=== PATIENT | female | born 1960 | race African-American/Black ===

== ENCOUNTER 2017-11-14 15:34 | Emergency (ER) | payer SELFPAY ==
[2017-11-14 15:53] LABS: Bilirubin Negative (Negative); Blood, Urine Negative (Negative); Glucose, Urine (Dipstick) Negative (Negative); Ketone, Urine Negative (Negative); Nitrite Negative (Negative); Protein, Urine (Dipstick) Negative (Neg-Trace); Urobilinogen 0.2 mg/dL (0.2-1.0)
[2017-11-14 16:08] LABS: Bacteria/HPF Rare-Few HPF (None Seen); Hyaline Casts/LPF NONE SEEN LPF (0-3 Hyaline); RBC/HPF 0-3 HPF (0-3); Squamous Epithelial 0-3 HPF (0-3); WBC/HPF 0-3 HPF (0-3)
[2017-11-14 17:03] LABS: #Basophils 0.1 thou/uL (0.0-0.2); #Eosinphils 0.2 thou/uL (0.0-0.7); #Lymphocytes 3.6 thou/uL (1.20-3.40); #Monocytes 0.6 thou/uL (0.11-0.59); #Neutrophils 5.4 thou/uL (1.40-6.50); %Basophils 0.5 % (0.0-1.0); %Eosinophils 1.7 % (0.0-10.0); %Lymphocytes 36.4 % (21.0-51.0); %Monocytes 6.1 % (0.0-10.0); Hematocrit 43.8 % (36.0-47.0); Mean Platelet Volume 6.5 fL (7.4-10.4); Red Blood Cell (RBC) Count 4.69 mill/uL (4.20-5.40); White Blood Cell (WBC) Count 9.8 thou/uL (4.8-10.8)
[2017-11-14 17:27] LABS: ALT (SGPT) 47 U/L (8-55); AST (SGOT) 37 U/L (5-34); Alkaline Phosphatase 67 U/L (40-150); Anion Gap 14 mmol/L (10-20); BUN (Urea Nitrogen) 13 mg/dL (9.8-20.1); Bilirubin, Total 0.2 mg/dL (0.2-1.2); Calc. Creatinine Clearance 0 mL/min (70-130); Calcium 10.1 mg/dL (7.8-10.44); Carbon Dioxide 30 mmol/L (22-29); Chloride 97 mmol/L (98-107); Estimated GFR-MDRD 77; Globulin 4.2 g/dL (2.4-3.5); Lipase 11 U/L (8-78); Protein, Total 8.3 g/dL (6.0-8.3)
== END 2017-11-14 18:25 | disposition home or self-care (01) ==
LOC: ERS 15:34
DX: K59.00 Constipation, unspecified (principal); I10 Essential (primary) hypertension; E66.9 Obesity, unspecified; F31.9 Bipolar disorder, unspecified; F20.9 Schizophrenia, unspecified
CPT/HCPCS: 36415; 80053; 81003; 81015; 83690; 85025; 99284

== ENCOUNTER 2018-05-28 05:03 | Emergency (ER) | payer SELFPAY ==
[2018-05-28] MEDS ORDERED: Ketorolac Tromethamine 60 MG/2 ML VIAL ONE (05:20)
== END 2018-05-28 05:57 | disposition home or self-care (01) ==
LOC: ERS 05:03
DX: G89.29 Other chronic pain (principal); M79.605 Pain in left leg; E66.9 Obesity, unspecified; F32.9 Major depressive disorder, single episode, unspecified; I10 Essential (primary) hypertension; Z79.899 Other long term (current) drug therapy
CPT/HCPCS: 96372; J1885

== ENCOUNTER 2018-07-21 00:08 | Emergency (ER) | payer SELFPAY ==
[2018-07-21 00:58] LABS: #Basophils 0.1 thou/uL (0.0-0.2); #Eosinphils 0.2 thou/uL (0.0-0.7); #Lymphocytes 3.8 thou/uL (1.20-3.40); #Monocytes 0.5 thou/uL (0.11-0.59); #Neutrophils 3.8 thou/uL (1.40-6.50); %Basophils 1.1 % (0.0-1.0); %Eosinophils 1.8 % (0.0-10.0); %Lymphocytes 45.5 % (21.0-51.0); %Monocytes 6.1 % (0.0-10.0); %Neutrophils 45.5 % (42.0-75.0); Hemoglobin 14.3 g/dL (12.0-16.0); Mean Corpuscular HGB CONC 33.3 g/dL (32.0-36.0); Mean Corpuscular Hemoglobin 30.3 pg (27.0-31.0); Mean Corpuscular Volume 90.9 fL (78.0-98.0); Mean Platelet Volume 6.7 fL (7.4-10.4); Platelet Count 251 thou/uL (130-400); Red Blood Cell (RBC) Count 4.74 mill/uL (4.20-5.40); White Blood Cell (WBC) Count 8.3 thou/uL (4.8-10.8)
[2018-07-21 01:11] LABS: ALT (SGPT) 41 U/L (8-55); AST (SGOT) 32 U/L (5-34); Albumin 4.3 g/dL (3.5-5.0); Alkaline Phosphatase 64 U/L (40-150); Anion Gap 15 mmol/L (10-20); BUN (Urea Nitrogen) 13 mg/dL (9.8-20.1); Bilirubin, Total 0.4 mg/dL (0.2-1.2); Calc. Creatinine Clearance 0 mL/min (70-130); Calcium 9.6 mg/dL (7.8-10.44); Carbon Dioxide 28 mmol/L (22-29); Chloride 99 mmol/L (98-107); Estimated GFR-MDRD 61; Globulin 3.8 g/dL (2.4-3.5); Glucose 122 mg/dL (70-105); Potassium 3.1 mmol/L (3.5-5.1); Protein, Total 8.1 g/dL (6.0-8.3); Sodium 139 mmol/L (136-145)
[2018-07-21 01:17] LABS: Acetaminophen Less than 6.0 mcg/mL (10.0-30.0); Alcohol Less than 10 mg/dL (Less than 10); CK (CPK) 328 U/L (29-168); Salicylate Less than 8.0 mg/dL (15.0-30.0)
[2018-07-21 01:23] LABS: BHCG - Serum Negative (NEGATIVE); Pregs Control Background? CLEAR/WHITE (CLR/WHITE); Pregs Control Bar Appear? YES (CONTROL BAR)
[2018-07-21 01:33] LABS: Bilirubin Negative (Negative); Blood, Urine Negative (Negative); Clarity CLOUDY (Clear); Glucose, Urine (Dipstick) Negative (Negative); Leukocyte Moderate (Negative); Nitrite Negative (Negative); Protein, Urine (Dipstick) 30 mg/dL (Neg-Trace); Specific Gravity, Urine 1.012 (1.002-1.036); Urobilinogen 0.2 mg/dL (0.2-1.0); pH, Urine 5.5 (5.0-9.0)
[2018-07-21 01:35] LABS: Bacteria/HPF 1+ HPF (None Seen); Hyaline Casts/LPF 4-6 HYALINE CAST LPF (0-3 Hyaline); Pathc Cast-AUWi Flag 0.58 (0-2.49); WBC/HPF 21-50 HPF (0-3)
[2018-07-21 01:45] LABS: Medtox Reader # READER 1
[2018-07-21 01:46] LABS: Amphetamine Not Detected (NotDetected); Barbiturates Screen Not Detected (NotDetected); Benzodiazepine Screen Not Detected (NotDetected); Cocaine Metabolite Screen Not Detected (NotDetected); Medtox Control Line Valid? VALID (VALID); Methadone Not Detected (NotDetected); Methamphetamine Not Detected (NotDetected); Opiate Screen Not Detected (NotDetected); Oxycodone Screen Not Detected (NotDetected); Phencyclidine (PCP) Not Detected (NotDetected); THC/Cannabinoid Screen Not Detected (NotDetected); Tricyclic Screen Detected (NotDetected)
[2018-07-21] MEDS ORDERED: Acetaminophen 500 MG TAB ONE (01:48)
[2018-07-21] MEDS ORDERED: Nitrofurantoin Macrocrystal 50 MG CAP PO SCH (02:45)
--- NOTE | 2018-07-22 14:34 | EKG ---
Test Reason : Blood Pressure : / mmHG Vent. Rate : 122 BPM Atrial Rate : 122 BPM P-R Int : 140 ms QRS Dur : 092 ms QT Int : 328 ms P-R-T Axes : 036 012 029 degrees QTc Int : 467 ms Sinus tachycardia Borderline ECG Confirmed by ULISES JOHNSON D.O. ([id number]), development editor MOHINDER JOHNSON ([id number]) on 07/22/2018 2:34:01 PM Referred By: Confirmed By:ULISES JOHNSON D.O.
== END 2018-07-21 04:16 | disposition home or self-care (01) ==
LOC: ERS 00:08
DX: F20.9 Schizophrenia, unspecified (principal); N39.0 Urinary tract infection, site not specified; I10 Essential (primary) hypertension; E66.9 Obesity, unspecified; F31.9 Bipolar disorder, unspecified; Z79.899 Other long term (current) drug therapy
CPT/HCPCS: 36415; 80053; 80306; 80307; 81003; 81015; 82550; 84443; 84703; 85025; 93005

== ENCOUNTER 2018-11-29 04:17 | Emergency (ER) | payer SELFPAY ==
[2018-11-29] MEDS ORDERED: Ketorolac Tromethamine 30 MG/ML VIAL ONE (05:04)
[2018-11-29] MEDS ORDERED: Morphine 4 MG/ML VIAL ONE (05:04)
[2018-11-29] MEDS ORDERED: HYDROcodone/Acetaminophen 5/325 mg Tablet ONE (07:29)
--- NOTE | 2018-11-29 08:09 | RAD ---
RIGHT KNEE FOUR VIEWS: History: Right knee pain. FINDINGS: Internal fixation of the tibial is partially visualized. No perihardware lucency is evident. Prominen t osteophytosis of the medial compartment. Mild joint space narrowing. No acute fracture or dislocati on. Small amount of fluid distends the suprapatellar bursa on the lateral view. IMPRESSION: Degenerative changes including joint space narrowing of the medial compartment and effusion. No acute osseous abnormalities are demonstrated. POS: [facility]
--- NOTE | 2018-11-29 08:23 | RAD ---
FRONTAL AND LATERAL IMAGING OF THE RIGHT TIBIA AND FIBULA: Date; 11/29/18 COMPARISON: 03/29/12. HISTORY: Pain. FINDINGS: Stable postoperative hardware noted. Old fracture of mid/distal right tibial shaft. No evidence for h ardware failure. No acute fracture or dislocation. No significant interval change. IMPRESSION: Stable 2 view examination of right tibia and fibula as detailed above. POS: [facility]
== END 2018-11-29 09:50 | disposition home or self-care (01) ==
LOC: ERS 04:17
DX: M79.661 Pain in right lower leg (principal); G89.29 Other chronic pain; I10 Essential (primary) hypertension; E66.9 Obesity, unspecified; F31.9 Bipolar disorder, unspecified; F20.9 Schizophrenia, unspecified; Z79.899 Other long term (current) drug therapy
CPT/HCPCS: 96372; J1885; J2270

== ENCOUNTER 2018-12-20 12:40 | Emergency (ER) | payer SELFPAY ==
[2018-12-20] MEDS ORDERED: Acetaminophen 500 MG TAB ONE (14:43)
--- NOTE | 2018-12-23 23:37 | EKG ---
Test Reason : HTN Blood Pressure : / mmHG Vent. Rate : 104 BPM Atrial Rate : 104 BPM P-R Int : 144 ms QRS Dur : 090 ms QT Int : 352 ms P-R-T Axes : 043 006 024 degrees QTc Int : 462 ms Sinus tachycardia Voltage criteria for left ventricular hypertrophy Nonspecific T wave abnormality Abnormal ECG No changes from 21-JUL-2016 Confirmed by NICOLAS KENDRICK DO ([id number]), mapping editor MOHINDER JOHNSON ([id number]) on 12/23/2018 11:37:17 PM Referred By: Confirmed By:NICOLAS KENDRICK DO
== END 2018-12-20 15:48 | disposition home or self-care (01) ==
LOC: ERS 12:40
DX: I10 Essential (primary) hypertension (principal); E66.9 Obesity, unspecified; F20.9 Schizophrenia, unspecified; F31.9 Bipolar disorder, unspecified; Z79.899 Other long term (current) drug therapy
CPT/HCPCS: 93005

== ENCOUNTER 2018-12-20 18:33 | Emergency (ER) | payer SELFPAY ==
[2018-12-20] MEDS ORDERED: cloNIDine 0.1 MG TAB ONE (21:12)
== END 2018-12-20 22:10 | disposition home or self-care (01) ==
LOC: ERS 18:33
DX: I10 Essential (primary) hypertension (principal); F31.9 Bipolar disorder, unspecified; F20.9 Schizophrenia, unspecified; E66.9 Obesity, unspecified; Z79.899 Other long term (current) drug therapy
CPT/HCPCS: 99283

== ENCOUNTER 2018-12-22 06:18 | Observation (INO) | payer SELFPAY ==
[2018-12-22 07:48] LABS: #Eosinphils 0.1 thou/uL (0.0-0.7); #Lymphocytes 1.6 thou/uL (1.20-3.40); #Monocytes 0.7 thou/uL (0.11-0.59); #Neutrophils 6.9 thou/uL (1.40-6.50); %Basophils 0.3 % (0.0-1.0); %Eosinophils 0.7 % (0.0-10.0); %Lymphocytes 17.8 % (21.0-51.0); %Neutrophils 74.2 % (42.0-75.0); Hemoglobin 13.3 g/dL (12.0-16.0); Mean Corpuscular HGB CONC 32.5 g/dL (32.0-36.0); Mean Corpuscular Hemoglobin 29.9 pg (27.0-31.0); Mean Platelet Volume 7.2 fL (7.4-10.4); Platelet Count 245 thou/uL (130-400); RBC Distribution Width 12.1 % (11.5-14.5); Red Blood Cell (RBC) Count 4.43 mill/uL (4.20-5.40); White Blood Cell (WBC) Count 9.2 thou/uL (4.8-10.8)
--- NOTE | 2018-12-22 07:51 | RAD ---
UPRIGHT PORTABLE CHEST ONE VIEW: History: Shortness of breath, anxiety, dyspnea. Comparison: 03-16-16 FINDINGS: Monitor leads overlie the chest. Mild bilateral vascular congestion with some blunting to both costop hrenic angles. No confluent pneumonia or overt edema. Heart size is within normal limits. IMPRESSION: Mild bilateral vascular congestion with bilateral costophrenic angle blunting. Overall stable from pr ior study. No significant new process. POS: [facility]
[2018-12-22 08:12] LABS: ALT (SGPT) 63 U/L (8-55); AST (SGOT) 58 U/L (5-34); Alkaline Phosphatase 76 U/L (40-150); Anion Gap 13 mmol/L (10-20); BUN (Urea Nitrogen) 10 mg/dL (9.8-20.1); Bilirubin, Total 0.2 mg/dL (0.2-1.2); CK (CPK) 1361 U/L (29-168); Calc. Creatinine Clearance 0 mL/min (70-130); Calcium 9.2 mg/dL (7.8-10.44); Carbon Dioxide 30 mmol/L (22-29); Chloride 103 mmol/L (98-107); Estimated GFR-MDRD 83; Globulin 3.8 g/dL (2.4-3.5); Glucose 100 mg/dL (70-105); Lipase 13 U/L (8-78); Potassium 3.5 mmol/L (3.5-5.1); Protein, Total 7.8 g/dL (6.0-8.3); Sodium 142 mmol/L (136-145)
[2018-12-22] MEDS ORDERED: Nitroglycerin 2% Ointment 1 INCH/1 GM Packet ONE (09:27)
[2018-12-22] MEDS ORDERED: Aspirin Chewable 81 MG TAB ONE (09:27)
[2018-12-22] MEDS ORDERED: hydrALAZINE 20 MG/ML VIAL ONE ×2 (10:02→13:47)
[2018-12-22] MEDS ORDERED: ISOVUE-370 76%-LOCM 1 ML ONE (10:08)
--- NOTE | 2018-12-22 11:06 | CT ---
CT PULMONARY ANGIOGRAM WITH IV CONTRAST AND 3D POSTPROCESSING: HISTORY: Dyspnea. FINDINGS: The peripheral branches of the pulmonary arterial vasculature is suboptimally evaluated due to inadeq uate opacification. The central portions of the pulmonary arteries are well opacified without fillin g defects to suggest anterior pulmonary embolism. No pleural or pericardial effusions are seen. The thoracic aorta is well opacified without aneurysm or dissection. No pneumothoraces, focal areas of consolidation, or lung masses are identified. There are mild dependent changes in the lung bases. N o acute osseous abnormalities are seen. IMPRESSION: No CT evidence of central pulmonary embolism. POS: [facility]
[2018-12-22 11:59] LABS: Troponin I Less than 0.010 ng/mL (< 0.028)
[2018-12-22] MEDS ORDERED: Ondansetron PF 4 MG/2 ML Vial IVP PRN (13:45)
[2018-12-22] MEDS ORDERED: hydrALAZINE 20 MG/ML VIAL SLOW IVP PRN (13:45)
[2018-12-22] MEDS ORDERED: Aspirin 325 mg Enteric Coated Tablet PO SCH (14:30)
[2018-12-22] MEDS ORDERED: Lisinopril/Hydrochlorothiazide 20 mg/12.5 mg Tablet PO SCH (14:30)
[2018-12-22] MEDS: Nitroglycerin 2% Ointment 1 INCH/1 GM Packet TOP SCH ×2 (14:36→23:43)
[2018-12-22] MEDS: Sodium Chloride 0.45% 1,000 ML IV SCH (14:50)
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
[2018-12-22 17:40] LABS: Troponin I Less than 0.010 ng/mL (< 0.028)
[2018-12-22] MEDS ORDERED: Benztropine 1 MG TAB PO SCH (23:15)
[2018-12-22] MEDS ORDERED: risperiDONE 1 MG TAB PO SCH (23:15)
[2018-12-22] MEDS ORDERED: Doxepin HCl 25 MG CAP PO SCH (23:15)
[2018-12-23] MEDS: Nitroglycerin 2% Ointment 1 INCH/1 GM Packet TOP SCH ×3 (03:09→21:38)
[2018-12-23] MEDS: Sodium Chloride 0.45% 1,000 ML IV SCH ×2 (03:09→16:29)
[2018-12-23] MEDS: Enoxaparin Sodium 40 MG/0.4 ML SYRINGE SC SCH (08:43)
[2018-12-23 08:53] LABS: #Eosinphils 0.2 thou/uL (0.0-0.7); #Lymphocytes 2.1 thou/uL (1.20-3.40); #Monocytes 0.5 thou/uL (0.11-0.59); #Neutrophils 5.6 thou/uL (1.40-6.50); %Basophils 0.5 % (0.0-1.0); %Eosinophils 2.1 % (0.0-10.0); %Lymphocytes 25.1 % (21.0-51.0); %Monocytes 5.9 % (0.0-10.0); %Neutrophils 66.5 % (42.0-75.0); Hemoglobin 13.6 g/dL (12.0-16.0); Mean Corpuscular HGB CONC 31.9 g/dL (32.0-36.0); Mean Corpuscular Hemoglobin 29.6 pg (27.0-31.0); Mean Corpuscular Volume 92.7 fL (78.0-98.0); Mean Platelet Volume 6.6 fL (7.4-10.4); Platelet Count 227 thou/uL (130-400); RBC Distribution Width 12.3 % (11.5-14.5); Red Blood Cell (RBC) Count 4.61 mill/uL (4.20-5.40); White Blood Cell (WBC) Count 8.5 thou/uL (4.8-10.8)
[2018-12-23] MEDS ORDERED: Regadenoson 0.4 MG/5 ML SYRINGE ONE (09:24)
[2018-12-23 09:50] LABS: ALT (SGPT) 63 U/L (8-55); AST (SGOT) 61 U/L (5-34); Albumin 4.1 g/dL (3.5-5.0); Alkaline Phosphatase 76 U/L (40-150); Anion Gap 18 mmol/L (10-20); BUN (Urea Nitrogen) 9 mg/dL (9.8-20.1); Bilirubin, Total 0.5 mg/dL (0.2-1.2); Calc. Creatinine Clearance 170 mL/min (70-130); Calcium 9.5 mg/dL (7.8-10.44); Carbon Dioxide 23 mmol/L (22-29); Chloride 103 mmol/L (98-107); Cholesterol 187 mg/dl (< 200 Desired); Estimated GFR-MDRD 88; Globulin 3.8 g/dL (2.4-3.5); Glucose 94 mg/dL (70-105); HDL Cholesterol 62 mg/dL (>60 Neg Risk); LDL Cholesterol, Calculated 109 mg/dL; Potassium 3.5 mmol/L (3.5-5.1); Protein, Total 7.9 g/dL (6.0-8.3); Sodium 140 mmol/L (136-145); Triglycerides 80 mg/dL (Less than 150)
[2018-12-23] MEDS: Lisinopril/Hydrochlorothiazide 20 mg/12.5 mg Tablet PO SCH (11:56)
[2018-12-23] MEDS: Benztropine 1 MG TAB PO SCH ×2 (11:59→21:38)
[2018-12-23] MEDS: Aspirin 325 mg Enteric Coated Tablet PO SCH (12:00)
[2018-12-23] MEDS: Citalopram 20 MG TAB PO SCH (12:00)
[2018-12-23] MEDS: risperiDONE 1 MG TAB PO SCH ×2 (12:00→21:38)
--- NOTE | 2018-12-23 12:40 | PDOC.PN ---
- Subjective Encounter Start Date: 12/23/18 Encounter Start Time: 12:00 Subjective: Patient examined today, initially sitting up on the side of the bed -: Denies complaints today, denies chest pain, SOB - Objective Resuscitation Status - Order Detail: 12/22/18 10:59 Resuscitation Status Routine Resuscitation Status: FULL: Full Resuscitation Vital Signs & Weight: Vital Signs (12 hours) Temp Pulse Resp BP BP BP Pulse Ox 12/23/18 11:56 105 H 203/107 H 12/23/18 08:10 97.0 F L 95 24 H 164/91 H 98 12/23/18 03:12 98 F 112 H 16 173/107 H 95 Weight Weight 140.16 kg I&O: 12/22/18 12/23/18 12/24/18 06:59 06:59 06:59 Intake Total 1609 Output Total 1200 Balance 409 Result Diagrams: 12/23/18 08:01 12/23/18 08:01 Phys Exam - Physical Examination HEENT: PERRLA, moist MMs Neck: no nodes, no JVD Respiratory: no wheezing, clear to auscultation bilateral Cardiovascular: RRR Gastrointestinal: soft, non-tender Musculoskeletal: no edema, pulses present Neurological: non-focal, normal sensation Lymphatic: no nodes Psychiatric: normal affect, A&O x 3 Skin: normal turgor, cap refill <2 seconds Dx/Plan (1) Chest pain Code(s): R07.9 - CHEST PAIN, UNSPECIFIED Status: Acute (2) Type 2 diabetes mellitus Status: Chronic Qualifiers: Diabetes mellitus complication status: without complication Qualified Code( s): E11.9 - Type 2 diabetes mellitus without complications (3) Hypertension Code(s): I10 - ESSENTIAL (PRIMARY) HYPERTENSION Status: Chronic Qualifiers: Hypertension type: essential hypertension Qualified Code(s): I10 - Essential (primary) hypertension (4) Morbid obesity with BMI of 45.0-49.9, adult Code(s): E66.01 - MORBID (SEVERE) OBESITY DUE TO EXCESS CALORIES; Z68.42 - BODY MASS INDEX (BMI) 45.0-49.9, ADULT Status: Chronic - Plan Stress test, echo pending, -: Hypertensive this morning but got her morning BP med very late due to test -: Will await echo and stress test results, monitor BP -: If test neg and BP under better control, will DC later today or in AM. * .
[2018-12-23 15:16] VITALS: BMI 50.3
--- NOTE | 2018-12-23 15:49 | NM ---
CARDIAC SPECT 12/23/18 HISTORY: 58-year-old female with chest pain, hypertension, and dyspnea. TECHNIQUE: A myocardial perfusion scan was performed using the single isotope two day protocol with 29 millicuri es technetium 99m Sestamibi injected intravenously for the stress and rest images. Pharmacologic stre ss with Lexiscan was monitored and interpreted by Dr. Anderson. FINDINGS: Homogeneous tracer distribution is seen in the myocardial segments on stress and rest images without fixed or reversible defects. GATED SPECT LVEF: 66%. WALL MOTION EXAM: Normal. IMPRESSION: Normal myocardial perfusion scan. POS: [facility]
[2018-12-23] MEDS: Acetaminophen 325 MG TAB PO PRN (17:56)
[2018-12-23] MEDS ORDERED: hydrALAZINE 20 MG/ML VIAL SLOW IVP PRN (18:19)
--- NOTE | 2018-12-23 20:28 | PDOC.EVN ---
Event Note - Event Note Event Note: Chart reviewed. Pt seen with Virginia O'yeyo. Pt says she feels well, no complaints. VSS S1, S2, reg Lungs CTA A/P 1. Chest pain: stress test normal, look for alternative etiologies. Discussed plan of care with Virginia.
[2018-12-23] MEDS: Doxepin HCl 25 MG CAP PO SCH (21:37)
--- NOTE | 2018-12-24 06:13 | PDOC.EVN ---
Event Note - Event Note Event Note: RN called - Pt does not have IV access. AM to address if patient needs further IV fluids.
[2018-12-24] MEDS: Sodium Chloride 0.45% 1,000 ML IV SCH ×3 (06:21→18:20)
[2018-12-24] MEDS: Nitroglycerin 2% Ointment 1 INCH/1 GM Packet TOP SCH ×3 (06:21→21:13)
[2018-12-24 06:24] LABS: #Eosinphils 0.1 thou/uL (0.0-0.7); #Monocytes 0.5 thou/uL (0.11-0.59); #Neutrophils 5.2 thou/uL (1.40-6.50); %Basophils 0.3 % (0.0-1.0); %Eosinophils 1.3 % (0.0-10.0); %Lymphocytes 25.4 % (21.0-51.0); %Monocytes 5.9 % (0.0-10.0); %Neutrophils 67.1 % (42.0-75.0); Mean Corpuscular HGB CONC 33.5 g/dL (32.0-36.0); Mean Corpuscular Hemoglobin 31.3 pg (27.0-31.0); Mean Corpuscular Volume 93.5 fL (78.0-98.0); Mean Platelet Volume 7.1 fL (7.4-10.4); Platelet Count 233 thou/uL (130-400); RBC Distribution Width 12.2 % (11.5-14.5); Red Blood Cell (RBC) Count 4.16 mill/uL (4.20-5.40); White Blood Cell (WBC) Count 7.7 thou/uL (4.8-10.8)
[2018-12-24] MEDS: Acetaminophen 325 MG TAB PO PRN (06:25)
[2018-12-24 06:49] LABS: ALT (SGPT) 69 U/L (8-55); AST (SGOT) 69 U/L (5-34); Albumin 4.1 g/dL (3.5-5.0); Alkaline Phosphatase 73 U/L (40-150); Anion Gap 13 mmol/L (10-20); BUN (Urea Nitrogen) 11 mg/dL (9.8-20.1); Bilirubin, Total 0.4 mg/dL (0.2-1.2); CK (CPK) 1047 U/L (29-168); Calc. Creatinine Clearance 165 mL/min (70-130); Calcium 9.8 mg/dL (7.8-10.44); Carbon Dioxide 27 mmol/L (22-29); Chloride 103 mmol/L (98-107); Estimated GFR-MDRD 85; Globulin 3.6 g/dL (2.4-3.5); Glucose 103 mg/dL (70-105); Potassium 3.5 mmol/L (3.5-5.1); Protein, Total 7.7 g/dL (6.0-8.3); Sodium 139 mmol/L (136-145)
[2018-12-24] MEDS: Amlodipine 5 MG TAB PO SCH (08:50)
[2018-12-24] MEDS: Benztropine 1 MG TAB PO SCH ×2 (08:50→21:12)
[2018-12-24] MEDS: Aspirin 325 mg Enteric Coated Tablet PO SCH (08:50)
[2018-12-24] MEDS: Citalopram 20 MG TAB PO SCH (08:50)
[2018-12-24] MEDS: Lisinopril/Hydrochlorothiazide 20 mg/12.5 mg Tablet PO SCH (08:50)
[2018-12-24] MEDS: risperiDONE 1 MG TAB PO SCH ×2 (08:51→21:12)
[2018-12-24] MEDS: Enoxaparin Sodium 40 MG/0.4 ML SYRINGE SC SCH (08:51)
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
--- NOTE | 2018-12-24 15:22 | PDOC.EVN ---
Event Note - Event Note Event Note: Chart reviewed. Patient seen. No chest pain, shortness of breath, fevers or chills. VSS. S1, S2, RRR Lungs CTA. A/P: Chest pain: resolved. Pt awaiting [facility] eval. Discussed plan of care with LIBRARY CLERK Virginia Isbell'yeyo.
[2018-12-24] MEDS: Doxepin HCl 25 MG CAP PO SCH (21:12)
[2018-12-25] MEDS: Sodium Chloride 0.45% 1,000 ML IV SCH ×3 (03:22→23:55)
[2018-12-25] MEDS: Nitroglycerin 2% Ointment 1 INCH/1 GM Packet TOP SCH ×3 (05:47→20:38)
[2018-12-25] MEDS: Enoxaparin Sodium 40 MG/0.4 ML SYRINGE SC SCH (07:47)
[2018-12-25] MEDS: Amlodipine 5 MG TAB PO SCH (07:48)
[2018-12-25] MEDS: Benztropine 1 MG TAB PO SCH ×2 (07:48→20:37)
[2018-12-25] MEDS: Citalopram 20 MG TAB PO SCH (07:48)
[2018-12-25] MEDS: Aspirin 325 mg Enteric Coated Tablet PO SCH (07:48)
[2018-12-25] MEDS: risperiDONE 1 MG TAB PO SCH ×2 (07:48→20:37)
[2018-12-25] MEDS: Lisinopril/Hydrochlorothiazide 20 mg/12.5 mg Tablet PO SCH (07:48)
[2018-12-25 11:37] LABS: #Basophils 0.1 thou/uL (0.0-0.2); #Eosinphils 0.2 thou/uL (0.0-0.7); #Lymphocytes 2.8 thou/uL (1.20-3.40); #Monocytes 0.7 thou/uL (0.11-0.59); #Neutrophils 5.3 thou/uL (1.40-6.50); %Basophils 1.1 % (0.0-1.0); %Eosinophils 2.3 % (0.0-10.0); %Lymphocytes 30.5 % (21.0-51.0); %Monocytes 8.1 % (0.0-10.0); Hemoglobin 13.6 g/dL (12.0-16.0); Mean Corpuscular HGB CONC 32.9 g/dL (32.0-36.0); Mean Corpuscular Hemoglobin 30.9 pg (27.0-31.0); Mean Corpuscular Volume 93.9 fL (78.0-98.0); Mean Platelet Volume 6.8 fL (7.4-10.4); Platelet Count 267 thou/uL (130-400); RBC Distribution Width 12.3 % (11.5-14.5); White Blood Cell (WBC) Count 9.2 thou/uL (4.8-10.8)
[2018-12-25 11:53] LABS: ALT (SGPT) 86 U/L (8-55); AST (SGOT) 90 U/L (5-34); Albumin 4.2 g/dL (3.5-5.0); Alkaline Phosphatase 73 U/L (40-150); Anion Gap 18 mmol/L (10-20); BUN (Urea Nitrogen) 12 mg/dL (9.8-20.1); Bilirubin, Total 0.2 mg/dL (0.2-1.2); Calc. Creatinine Clearance 167 mL/min (70-130); Calcium 9.8 mg/dL (7.8-10.44); Carbon Dioxide 26 mmol/L (22-29); Chloride 101 mmol/L (98-107); Estimated GFR-MDRD 86; Glucose 73 mg/dL (70-105); Potassium 4.1 mmol/L (3.5-5.1); Protein, Total 8.2 g/dL (6.0-8.3); Sodium 141 mmol/L (136-145)
--- NOTE | 2018-12-25 14:37 | PDOC.PN ---
- Subjective Encounter Start Date: 12/25/18 Encounter Start Time: 14:35 Patient lying in bed, denies chest pain or shortness of breath, no events over night. Await [facility] screen - Objective Resuscitation Status - Order Detail: 12/22/18 10:59 Resuscitation Status Routine Resuscitation Status: FULL: Full Resuscitation MAR Reviewed: Yes Vital Signs & Weight: Vital Signs (12 hours) Temp Pulse Resp BP BP Pulse Ox 12/25/18 11:32 98.0 F 112 H 18 152/98 H 12/25/18 07:48 109 H 12/25/18 07:31 98.5 F 98 22 H 166/108 H 93 L 12/25/18 03:58 97.6 F 109 H 20 139/95 H 96 Weight Weight 311 lb 3.2 oz I&O: 12/24/18 12/25/18 12/26/18 06:59 06:59 06:59 Intake Total 3479 660 Output Total 1500 Balance 3479 -840 Result Diagrams: 12/25/18 11:10 12/25/18 11:10 Phys Exam - Physical Examination Constitutional: NAD HEENT: PERRLA, moist MMs Neck: no nodes, full ROM Respiratory: no wheezing, clear to auscultation bilateral Cardiovascular: RRR, no significant murmur Gastrointestinal: soft, positive bowel sounds Musculoskeletal: no edema, pulses present Neurological: non-focal, moves all 4 limbs Lymphatic: no nodes Psychiatric: A&O x 3 Skin: no rash, normal turgor, cap refill <2 seconds Dx/Plan (1) Chest pain Code(s): R07.9 - CHEST PAIN, UNSPECIFIED Status: Acute (2) Depression Code(s): F32.9 - MAJOR DEPRESSIVE DISORDER, SINGLE EPISODE, UNSPECIFIED Status : Chronic Qualifiers: Psychotic features: with psychotic features (3) Hypertension Code(s): I10 - ESSENTIAL (PRIMARY) HYPERTENSION Status: Chronic Qualifiers: Hypertension type: essential hypertension Qualified Code(s): I10 - Essential (primary) hypertension (4) Morbid obesity with BMI of 45.0-49.9, adult Code(s): E66.01 - MORBID (SEVERE) OBESITY DUE TO EXCESS CALORIES; Z68.42 - BODY MASS INDEX (BMI) 45.0-49.9, ADULT Status: Chronic (5) Type 2 diabetes mellitus Status: Chronic Qualifiers: Diabetes mellitus complication status: without complication Qualified Code( s): E11.9 - Type 2 diabetes mellitus without complications - Plan cont current plan of care, social services technician * Patient medically stable for discharge * Await [facility] screen * CM involved to assist in discharge
[2018-12-25] MEDS: Doxepin HCl 25 MG CAP PO SCH (20:37)
[2018-12-26] MEDS: Nitroglycerin 2% Ointment 1 INCH/1 GM Packet TOP SCH ×2 (06:36→12:10)
[2018-12-26] MEDS: Lisinopril/Hydrochlorothiazide 20 mg/12.5 mg Tablet PO SCH (08:05)
[2018-12-26] MEDS: risperiDONE 1 MG TAB PO SCH (08:05)
[2018-12-26] MEDS: Aspirin 325 mg Enteric Coated Tablet PO SCH (08:05)
[2018-12-26] MEDS: Amlodipine 5 MG TAB PO SCH (08:05)
[2018-12-26] MEDS: Citalopram 20 MG TAB PO SCH (08:05)
[2018-12-26] MEDS: Benztropine 1 MG TAB PO SCH (08:06)
[2018-12-26] MEDS: Enoxaparin Sodium 40 MG/0.4 ML SYRINGE SC SCH (08:06)
[2018-12-26] MEDS: Sodium Chloride 0.45% 1,000 ML IV SCH (08:48)
--- NOTE | 2018-12-26 15:53 | PDOC.EVN ---
Event Note - Event Note Event Note: Doc to Doc completed with Dr. Eubanks at [facility]. Accepts patient.
[2018-12-26 16:15] VITALS: BP 142/103; TEMP 97.4
[2018-12-26 16:29] LABS: ALT (SGPT) 91 U/L (8-55); AST (SGOT) 77 U/L (5-34); Albumin 4.1 g/dL (3.5-5.0); Alkaline Phosphatase 75 U/L (40-150); Anion Gap 17 mmol/L (10-20); BUN (Urea Nitrogen) 12 mg/dL (9.8-20.1); Bilirubin, Total 0.2 mg/dL (0.2-1.2); CK (CPK) 742 U/L (29-168); Calc. Creatinine Clearance 169 mL/min (70-130); Calcium 9.9 mg/dL (7.8-10.44); Carbon Dioxide 27 mmol/L (22-29); Chloride 100 mmol/L (98-107); Estimated GFR-MDRD 87; Globulin 3.9 g/dL (2.4-3.5); Glucose 101 mg/dL (70-105); Potassium 3.5 mmol/L (3.5-5.1); Sodium 140 mmol/L (136-145)
== END 2018-12-26 17:46 | disposition short-term general hospital (02) ==
LOC: ERS 06:18 → ERHOLD 11:34 → 2SW 14:23
PROVIDERS: ADMIT Internal Medicine; ATTEND Internal Medicine
DX: R07.2 Precordial pain (principal); R06.02 Shortness of breath; F20.9 Schizophrenia, unspecified; F31.9 Bipolar disorder, unspecified; I16.0 Hypertensive urgency; I10 Essential (primary) hypertension; M62.82 Rhabdomyolysis; R74.0 Nonspecific elevation of levels of transaminase and lactic acid dehydrogenase [LDH]; E11.9 Type 2 diabetes mellitus without complications; E66.01 Morbid (severe) obesity due to excess calories; Z68.43 Body mass index [BMI] 50.0-59.9, adult; Z79.899 Other long term (current) drug therapy; Z88.1 Allergy status to other antibiotic agents
CPT/HCPCS: 36415; 71045; 71275; 78452; 80053; 80061; 80307; 82550; 83690; 83880; 84443; 84484; 85025; 85379; 93005; 93017; 93306; 96361; 96372; 96374; 96376; A9500; G0378; J0360; J1650; J2785; Q9966

== ENCOUNTER 2019-01-05 02:43 | Emergency (ER) | payer SELFPAY ==
[2019-01-05] MEDS ORDERED: Adacel (T-DAP) 0.5 ML SYRINGE ONE (06:53)
[2019-01-05] MEDS ORDERED: Bacitracin Zinc 1 Packet ONE (06:53)
[2019-01-05] MEDS ORDERED: Lisinopril/Hydrochlorothiazide 20 mg/12.5 mg Tablet PO SCH (08:00)
--- NOTE | 2019-01-05 08:35 | RAD ---
4 VIEWS LEFT KNEE: Date: 01/05/19 COMPARISON: None. HISTORY: Fall with left knee pain. FINDINGS: Four views of the left knee show no evidence of acute fracture or dislocation. Moderate tricompartmen pablo osteophytes are seen consistent with osteoarthritis. There is a bipartite patella. No knee effusi on is seen. IMPRESSION: Moderate left knee osteoarthritis without acute osseous abnormality. POS: [facility]
[2019-01-07 18:29] LABS: Chlamydia by PCR Not Detected (NotDetected); GC by PCR Not Detected (NotDetected)
== END 2019-01-05 08:48 | disposition home or self-care (01) ==
LOC: ERS 02:43
DX: S80.212A Abrasion, left knee, initial encounter (principal); I10 Essential (primary) hypertension; F20.9 Schizophrenia, unspecified; F31.9 Bipolar disorder, unspecified; E66.9 Obesity, unspecified; Z79.899 Other long term (current) drug therapy; Y04.8XXA Assault by other bodily force, initial encounter
CPT/HCPCS: 87480; 87491; 87510; 87591; 87660; 90471; 90715

== ENCOUNTER 2019-01-07 01:17 | Emergency (ER) | payer SELFPAY ==
[2019-01-07 02:13] LABS: #Basophils 0.1 thou/uL (0.0-0.2); #Eosinphils 0.2 thou/uL (0.0-0.7); #Lymphocytes 2.5 thou/uL (1.20-3.40); #Monocytes 0.5 thou/uL (0.11-0.59); #Neutrophils 3.8 thou/uL (1.40-6.50); %Basophils 1.2 % (0.0-1.0); %Eosinophils 3.3 % (0.0-10.0); %Lymphocytes 34.5 % (21.0-51.0); %Monocytes 7.3 % (0.0-10.0); %Neutrophils 53.7 % (42.0-75.0); Hemoglobin 13.5 g/dL (12.0-16.0); Mean Corpuscular HGB CONC 32.6 g/dL (32.0-36.0); Mean Corpuscular Hemoglobin 30.8 pg (27.0-31.0); Mean Corpuscular Volume 94.3 fL (78.0-98.0); Mean Platelet Volume 7.4 fL (7.4-10.4); Platelet Count 239 thou/uL (130-400); RBC Distribution Width 12.4 % (11.5-14.5); Red Blood Cell (RBC) Count 4.37 mill/uL (4.20-5.40); White Blood Cell (WBC) Count 7.1 thou/uL (4.8-10.8)
[2019-01-07 02:33] LABS: ALT (SGPT) 47 U/L (8-55); AST (SGOT) 29 U/L (5-34); Alkaline Phosphatase 74 U/L (40-150); Anion Gap 13 mmol/L (10-20); BUN (Urea Nitrogen) 9 mg/dL (9.8-20.1); Bilirubin, Total 0.2 mg/dL (0.2-1.2); Calc. Creatinine Clearance 0 mL/min (70-130); Calcium 9.3 mg/dL (7.8-10.44); Carbon Dioxide 30 mmol/L (22-29); Chloride 102 mmol/L (98-107); Estimated GFR-MDRD Greater than 90; Globulin 3.6 g/dL (2.4-3.5); Glucose 125 mg/dL (70-105); Potassium 3.5 mmol/L (3.5-5.1); Protein, Total 7.6 g/dL (6.0-8.3); Sodium 141 mmol/L (136-145)
--- NOTE | 2019-01-07 07:32 | RAD ---
SINGLE VIEW OF THE CHEST: COMPARISON: 12/22/2018. HISTORY: Shortness of breath. FINDINGS: Single view of the chest shows a normal sized cardiomediastinal silhouette. There is no evidence of c onsolidation, mass, or pleural effusion. The bones are unremarkable. IMPRESSION: No evidence of acute cardiopulmonary disease. POS: [facility]
[2019-01-07] MEDS ORDERED: Iopamidol 370 76% 100 ML VIAL ONE (12:45)
--- NOTE | 2019-01-07 16:20 | CT ---
PRELIMINARY REPORT/[facility]/EMERGENTY AFTER-HOURS PROCEDURE CT Angiography Chest With Contrast EXAM DATE/TIME: 01/07/2019 4:01 AM CLINICAL HISTORY: 58 years old, female; Signs and symptoms; Shortness of breath; Patient HX: 58f presents for the evalu ation of shortness of breath. She reports worsening over the last week. Reports two pillow orthopnea. Also reports prado with light adls at home. Denies ble swelling. Denies chest pain currently but reports intermittent pain. TECHNIQUE: Axial computed tomographic angiography images of the chest with intravenous contrast using CT angiogr aphy protocol. MIP reconstructed images were created and reviewed. COMPARISON: No relevant prior studies available. FINDINGS: Pulmonary arteries: Normal. No pulmonary emboli. Aorta: Normal. No aortic aneurysm. No aortic dissection. Lungs: Normal. No consolidation. No masses. Pleural space: Normal. No pneumothorax. No pleural effusion. Heart: Normal. No cardiomegaly. No pericardial effusion. Lymph nodes: Unremarkable. No enlarged lymph nodes. Bones/joints: Unremarkable. No acute fracture. Soft tissues: Unremarkable. IMPRESSION: No acute findings. Thank you for allowing us to participate in the care of your patient. Dictated and Authenticated by: Nelson Kelly MD 01/07/2019 4:27 AM Central Time ([place] & [place]) FINAL REPORT EMERGENT AFTER HOURS CTA OF THE CHEST: TECHNIQUE: Multiple contiguous axial images were obtained in a CTA of the chest with contrast per pulmonary embo lism protocol.. Three-D oblique MIP reformats and direct coronal reformats were performed. FINDINGS:/IMPRESSION: I agree with the findings and impression given in the preliminary report per [facility] physician. No abiel dence of pulmonary thromboembolism. POS: [facility]
== END 2019-01-07 05:27 | disposition home or self-care (01) ==
LOC: ERS 01:17
DX: R06.00 Dyspnea, unspecified (principal); E66.01 Morbid (severe) obesity due to excess calories; F31.9 Bipolar disorder, unspecified; F20.9 Schizophrenia, unspecified; I10 Essential (primary) hypertension; Z79.899 Other long term (current) drug therapy
CPT/HCPCS: 36415; 71045; 71275; 80053; 83880; 84484; 85025; 93005; 94760; Q9967

== ENCOUNTER 2019-01-21 23:05 | Emergency (ER) | payer SELFPAY ==
[2019-01-22 00:19] LABS: #Eosinphils 0.2 thou/uL (0.0-0.7); #Monocytes 0.6 thou/uL (0.11-0.59); %Basophils 0.6 % (0.0-1.0); %Eosinophils 3.2 % (0.0-10.0); %Lymphocytes 37.9 % (21.0-51.0); %Monocytes 7.1 % (0.0-10.0); %Neutrophils 51.3 % (42.0-75.0); Mean Corpuscular HGB CONC 32.2 g/dL (32.0-36.0); Mean Corpuscular Hemoglobin 30.9 pg (27.0-31.0); Mean Corpuscular Volume 95.9 fL (78.0-98.0); Mean Platelet Volume 7.1 fL (7.4-10.4); Platelet Count 250 thou/uL (130-400); RBC Distribution Width 12.6 % (11.5-14.5); Red Blood Cell (RBC) Count 4.54 mill/uL (4.20-5.40); White Blood Cell (WBC) Count 7.8 thou/uL (4.8-10.8)
[2019-01-22 00:42] LABS: ALT (SGPT) 58 U/L (8-55); AST (SGOT) 37 U/L (5-34); Alkaline Phosphatase 76 U/L (40-150); Anion Gap 12 mmol/L (10-20); BUN (Urea Nitrogen) 9 mg/dL (9.8-20.1); Bilirubin, Total 0.3 mg/dL (0.2-1.2); Calc. Creatinine Clearance 0 mL/min (70-130); Calcium 9.3 mg/dL (7.8-10.44); Carbon Dioxide 30 mmol/L (22-29); Chloride 100 mmol/L (98-107); Estimated GFR-MDRD 87; Glucose 130 mg/dL (70-105); Lipase 13 U/L (8-78); Potassium 3.7 mmol/L (3.5-5.1); Sodium 138 mmol/L (136-145)
[2019-01-22 03:57] LABS: Bilirubin Negative (Negative); Blood, Urine Negative (Negative); Clarity CLEAR (Clear); Glucose, Urine (Dipstick) Negative (Negative); Leukocyte Trace (Negative); Nitrite Negative (Negative); Protein, Urine (Dipstick) Negative (Neg-Trace); Specific Gravity, Urine 1.027 (1.002-1.036); Urobilinogen 0.2 mg/dL (0.2-1.0)
[2019-01-22 03:59] LABS: Bacteria/HPF None Seen HPF (None Seen); Hyaline Casts/LPF 0-3 HYALINE CAST LPF (0-3 Hyaline); Pathc Cast-AUWi Flag 0.29 (0-2.49); Squamous Epithelial 0-3 HPF (0-3)
--- NOTE | 2019-01-22 05:54 | CT ---
CTA THORAX UTILIZING IV CONTRAST AND PE PROTOCOL AND 3D REFORMATTED IMAGING: INDICATION: SOB, tachycardia, elevated d dimer. COMPARISON: Recent CT PE examination dated 01/07/2019. FINDINGS: The timing of the contrast bolus is somewhat suboptimal in evaluating the more peripheral central pul monary arterial system and segmental branching. No definite central pulmonary embolus is evident. T here is scattered subsegmental volume loss, predominantly within the lung bases. No confluent air sp aiden opacity or pleural effusion is evident. No definite pathologically enlarged lymph nodes are evid ent. The visualized aspects of the upper abdomen reveal no definite acute abnormality. No acute oss eous abnormality is noted. There is scattered degenerative and osteoarthritic change. IMPRESSION: 1. No definite central pulmonary embolus demonstrated. 2. Nonspecific subsegmental volume loss within both lung bases, similar to the most recent examinati on, dated 01/07/2019. POS: [facility]
--- NOTE | 2019-01-22 06:02 | RAD ---
CHEST ONE VIEW: INDICATIONS: History of chest pain and shortness of breath. COMPARISON: Prior exam dated 01/07/2009. FINDINGS: There are low lung volumes and bibasilar atelectasis. No consolidation is evident. No pleural effus ion or pneumothorax is noted. Heart size is within normal limits. No acute osseous abnormality is n oted. IMPRESSION: Low lung volumes and bibasilar atelectasis. POS: [facility]
[2019-01-22] MEDS ORDERED: ISOVUE-370 76%-LOCM 1 ML ONE (10:38)
== END 2019-01-22 04:27 | disposition home or self-care (01) ==
LOC: ERS 23:05
DX: G47.30 Sleep apnea, unspecified (principal); I10 Essential (primary) hypertension; E66.9 Obesity, unspecified; F31.9 Bipolar disorder, unspecified; F20.9 Schizophrenia, unspecified; Z79.899 Other long term (current) drug therapy
CPT/HCPCS: 36415; 71045; 71275; 80053; 81003; 81015; 83690; 83880; 84484; 85025; 85379; 93005; Q9966

== ENCOUNTER 2019-01-27 02:53 | Observation (INO) | payer SELFPAY ==
[2019-01-27 03:27] LABS: #Basophils 0.1 thou/uL (0.0-0.2); #Eosinphils 0.2 thou/uL (0.0-0.7); #Lymphocytes 2.8 thou/uL (1.20-3.40); #Monocytes 0.4 thou/uL (0.11-0.59); #Neutrophils 4.8 thou/uL (1.40-6.50); %Basophils 1.4 % (0.0-1.0); %Eosinophils 1.9 % (0.0-10.0); %Lymphocytes 33.8 % (21.0-51.0); %Monocytes 5.1 % (0.0-10.0); %Neutrophils 57.8 % (42.0-75.0); Hemoglobin 13.5 g/dL (12.0-16.0); Mean Corpuscular HGB CONC 32.3 g/dL (32.0-36.0); Mean Corpuscular Hemoglobin 31.1 pg (27.0-31.0); Mean Corpuscular Volume 96.3 fL (78.0-98.0); Platelet Count 240 thou/uL (130-400); RBC Distribution Width 12.6 % (11.5-14.5); Red Blood Cell (RBC) Count 4.34 mill/uL (4.20-5.40); White Blood Cell (WBC) Count 8.3 thou/uL (4.8-10.8)
[2019-01-27 03:40] LABS: ALT (SGPT) 58 U/L (8-55); AST (SGOT) 53 U/L (5-34); Alkaline Phosphatase 79 U/L (40-150); Anion Gap 13 mmol/L (10-20); BUN (Urea Nitrogen) 11 mg/dL (9.8-20.1); Bilirubin, Total 0.3 mg/dL (0.2-1.2); Calc. Creatinine Clearance 0 mL/min (70-130); Calcium 9.4 mg/dL (7.8-10.44); Carbon Dioxide 30 mmol/L (22-29); Chloride 99 mmol/L (98-107); Estimated GFR-MDRD 87; Globulin 3.9 g/dL (2.4-3.5); Glucose 146 mg/dL (70-105); Potassium 3.3 mmol/L (3.5-5.1); Protein, Total 7.9 g/dL (6.0-8.3); Sodium 139 mmol/L (136-145)
[2019-01-27] MEDS ORDERED: Aspirin Chewable 81 MG TAB ONE ×3 (05:15→05:25)
[2019-01-27 07:27] VITALS: BMI 50.6
--- NOTE | 2019-01-27 08:01 | RAD ---
CHEST 1 VIEW: Date: 01/27/19 HISTORY: Dyspnea. COMPARISON: 01/22/19. FINDINGS: Cardiac silhouette is magnified by projection. Pulmonary vasculature is slightly engorged and accentu ated by shallow inspiration. Mediastinum is midline. No lobar consolidation or evidence of pneumothor ax. IMPRESSION: Mild pulmonary vascular congestion. POS: [facility]
[2019-01-27] MEDS: Aspirin Chewable 81 MG TAB PO SCH (09:53)
[2019-01-27] MEDS: Lisinopril/Hydrochlorothiazide 20 mg/12.5 mg Tablet PO SCH ×2 (09:53→22:07)
[2019-01-27] MEDS: Amlodipine 10 MG TAB PO SCH (09:53)
[2019-01-27] MEDS: Gabapentin 300 MG CAP PO SCH ×3 (09:53→22:06)
[2019-01-27] MEDS: Benztropine 1 MG TAB PO SCH ×2 (09:53→22:07)
[2019-01-27] MEDS: Carvedilol 6.25 MG TAB PO SCH (15:09)
[2019-01-27] MEDS ORDERED: Potassium Chloride 20 MEQ TAB PO SCH (17:45)
[2019-01-27] MEDS ORDERED: hydrOXYzine Pamoate 25 mg Capsule PO SCH (21:00)
[2019-01-27] MEDS ORDERED: Doxepin HCl 25 MG CAP PO SCH (21:00)
--- NOTE | 2019-01-27 21:20 | HP ---
CHIEF COMPLAINT: Shortness of breath and cough. HISTORY OF PRESENT ILLNESS: This patient is a 58-year-old morbidly obese female with past medical history significant for hypertension, chronic diastolic dysfunction, and multiple social issues complicated by her psychiatric history of bipolar disorder, schizophrenia, and depression, who presented to the hospital with complaints of shortness of breath. The patient is a poor historian, but tells me that she has shortness of breath associated with her anxiety; this began while she was in her apartment yesterday. She believes that people are coming into her apartment and are watching her sleep. She feels unsafe in her apartment. When she gets anxious, she reports shortness of breath. She denies any chest pain or palpitations. She denies any fever or chills. She denies any nausea or vomiting. She does report that over the past week she has had a productive cough of white sputum. Recent workup in this facility has included a CTA of the chest, 2018, which was negative for PE, but did show positive volume loss at the lung bases, which is stable. She had an MPI on 12/22/2018, which revealed no evidence of reversible ischemia and normal EF. Echocardiogram on 12/23/2018, showed normal left ventricular systolic function with EF 60-65%, and grade 1 diastolic dysfunction. Her workup on arrival this hospitalization included an EKG, which did show sinus tachycardia, no acute ST or T-wave changes with ventricular rate of 119 beats per minute. Her serial troponin has been negative. Her transaminases are mildly elevated. Her AST is 53 and her ALT is 58, which is a chronic problem for her. She did have some accelerated hypertension with BP readings in the 180s, which did resolve with her home blood pressure medications. This morning, she states that her shortness of breath is better after breathing treatment. ALLERGIES: CEPHALEXIN MONOHYDRATE. HOME MEDICATIONS: 1. Amlodipine 10 mg p.o. daily. 2. Benztropine 1 mg p.o. b.i.d. 3. Doxepin 100 mg capsule p.o. at bedtime. 4. Gabapentin 300 mg p.o. t.i.d. 5. Hydroxyzine 25 mg p.o. at bedtime. 6. Lisinopril 20/12.5 mg one tablet p.o. b.i.d. 7. Quetiapine 200 mg tablet 800 mg p.o. at bedtime. 8. Risperidone 2 mg tablet 4 mg p.o. b.i.d. 9. Aspirin 81 mg daily. PAST MEDICAL HISTORY: Hypertension, morbid obesity, bipolar disorder, schizophrenia, and depression/anxiety. PAST SURGICAL HISTORY: Appendectomy, cholecystectomy, hysterectomy, tubal ligation, and right leg orthopedic surgery. SOCIAL HISTORY: She denies any alcohol use, drug use, or cigarette smoking. Clearly her social history is complicated by her psychiatric history. [facility] has been following this patient. FAMILY HISTORY: Her mother when she was 63 of breast cancer. REVIEW OF SYSTEMS: CONSTITUTIONAL: Negative for fever, chills, or weight loss. EYES: Negative for injury, pain, redness, or discharge. ENT: Negative for sinus pain or drainage. NECK: Negative for lymphadenopathy. CARDIOVASCULAR: Negative for chest pain. Positive for shortness of breath. Negative for palpitations. RESPIRATORY: Positive for cough and shortness of breath associated with anxiety. ABDOMEN: Negative for abdominal pain, nausea, vomiting, or change in bowel movements. BACK: Negative for pain, injury. SKIN: Negative for any recent rashes. PHYSICAL EXAMINATION: VITAL SIGNS: Blood pressure 141/100, pulse 100, respirations 18, and O2 saturation 95% on room air. The patient is afebrile. GENERAL: Awake, alert, sitting up, eating breakfast, no acute distress. HEAD AND FACE: Normocephalic, atraumatic. EYES: Extraocular movements intact. NECK: No JVD, no lymphadenopathy. No carotid bruits. RESPIRATORY: Regular respiratory rate and pattern, distant breath sounds due to her obesity and body habitus, however, occasional rhonchi is noted. ABDOMEN: Positive bowel sounds. Soft, nontender, obese. SKIN: Warm, dry, normal color with no rashes. CV: S1, S2. Regular rhythm, mildly tachycardic. NEUROLOGIC: She is oriented to person, place, and time. LABORATORY DATA: White blood cell count 8.3, hemoglobin 13.5, and platelets 240. Sodium 139, potassium 3.3, creatinine 0.82, glucose 146, and calcium 9.4. AST 53, ALT 58, and alkaline phosphatase 79. Serial troponin negative x3. BNP is less than 10. ASSESSMENT: 1. Shortness of breath, which I suspect has a large anxiety component to it; however, the patient may have underlying acute bronchitis given her persistent productive cough. 2. Sinus tachycardia, possibly inappropriate sinus tachycardia. 3. Morbid obesity. 4. Bipolar disorder. 5. Schizophrenia, with an active component given the patient's hallucinations at her apartment. 6. Anxiety and depression. PLAN: The patient's presenting symptoms of shortness of breath have largely resolved. We will place her on antimicrobial therapy at this time with doxycycline 100 mg b.i.d. For hypertension and tachycardia, we will add carvedilol 6.25 mg b.i.d. We will consult [facility] and get evaluation if the patient will be a safe discharge home or if she needs to go to the [facility]patient [facility]. Further recommendations based on hospital course. Job ID: [id number] HERNANDEZ
[2019-01-27] MEDS: risperiDONE 1 MG TAB PO SCH (22:07)
[2019-01-27] MEDS: Doxycycline 100 MG CAP PO SCH (22:08)
[2019-01-28 06:05] LABS: Anion Gap 13 mmol/L (10-20); BUN (Urea Nitrogen) 11 mg/dL (9.8-20.1); Calc. Creatinine Clearance 174 mL/min (70-130); Calcium 9.6 mg/dL (7.8-10.44); Carbon Dioxide 30 mmol/L (22-29); Chloride 100 mmol/L (98-107); Estimated GFR-MDRD 89; Glucose 131 mg/dL (70-105); Potassium 3.9 mmol/L (3.5-5.1); Sodium 139 mmol/L (136-145)
[2019-01-28] MEDS: Lisinopril/Hydrochlorothiazide 20 mg/12.5 mg Tablet PO SCH (08:32)
[2019-01-28] MEDS: Carvedilol 6.25 MG TAB PO SCH ×2 (08:32→15:44)
[2019-01-28] MEDS: Doxycycline 100 MG CAP PO SCH (08:32)
[2019-01-28] MEDS: Gabapentin 300 MG CAP PO SCH ×2 (08:33→15:44)
[2019-01-28] MEDS: Amlodipine 10 MG TAB PO SCH (08:33)
[2019-01-28] MEDS: risperiDONE 1 MG TAB PO SCH (08:33)
[2019-01-28] MEDS: Benztropine 1 MG TAB PO SCH (08:33)
[2019-01-28] MEDS: Aspirin Chewable 81 MG TAB PO SCH (08:33)
[2019-01-28 12:21] VITALS: TEMP 97.5
[2019-01-28 15:46] VITALS: BP 163/97
--- NOTE | 2019-01-29 03:08 | DIS ---
DATE OF ADMISSION: 01/27/2019 DATE OF DISCHARGE: 01/28/2019 ALLERGIES: CEPHALEXIN. CHIEF COMPLAINT: Shortness of breath and cough. FINAL DIAGNOSES: 1. Shortness of breath, resolved. 2. Acute bronchitis. 3. Severe anxiety, secondary to ongoing psychiatric issues of bipolar disorder, schizophrenia, and depression. 4. Grade 1 diastolic dysfunction. 5. Morbid obesity. 6. Hypertension. 7. Sinus tachycardia, improved with beta aliyah. PROCEDURES PERFORMED: None. LABORATORY RESULTS: Hemoglobin 13.5, white blood cell count 8.3, hematocrit 41.7, and platelets 240. Sodium 139, potassium 3.9, chloride 100, BUN 11, creatinine 0.8, glucose 131, and calcium 9.6. Troponin is negative x3. BNP less than 10. IMAGING RESULTS: Chest x-ray performed in the ER shows mild pulmonary vascular congestion. CTA of the chest on 01/22/2019, negative for PE, positive for volume loss of the lung bases, which is stable. MPI performed on 12/22/2018, no evidence of reversible ischemia and normal EF. Echocardiogram performed on 12/23/2018 shows normal left ventricular systolic function with EF 60% to 65% and grade 1 diastolic dysfunction. EKG during this hospitalization revealed sinus tachycardia, no acute ST or T-wave changes. Ventricular rate of 119 beats per minute. CONSULTATIONS: [facility]. HOSPITAL COURSE: The patient is a 58-year-old morbidly obese female with past medical history significant for hypertension, chronic diastolic dysfunction, and multiple psychiatric diagnoses including bipolar disorder, schizophrenia, and depression, who presented to the hospital with complaints of shortness of breath. Her shortness of breath was largely associated with feelings of anxiety that she feels well in her apartment. During her hospitalization, she received a breathing treatment, she received doxycycline for chronic cough, her symptoms have resolved. This morning, she is breathing easily, she denies any palpitations or chest pain. She denies any shortness of breath. She has been seen in consultation with [facility], who has cleared her for discharge. [facility] follows her closely, and believes that at this point, her hallucinations are stable and that she is a safe discharge. PHYSICAL EXAMINATION: VITAL SIGNS: Blood pressure 120/59, pulse 90s, and O2 saturation 93% to 100% on room air. GENERAL: The patient is awake, alert, and oriented x3. She is sitting at the edge of the bed in no acute distress, morbidly obese. HEENT: Atraumatic and normocephalic. Eye movement intact. NECK: Supple, no JVD, no carotid bruits. No lymphadenopathy. RESPIRATORY: Regular respiratory rate and pattern, her lungs are clear to auscultation bilaterally. CV: S1, S2, regular rate and rhythm, heart rate 90s. GI: Positive bowel sounds. Obese, nontender. EXTREMITIES: No edema. 2+ DP pulses bilaterally. SKIN: Warm and dry. No rashes or lesions present. CONDITION AT DISCHARGE: Stable. DISCHARGE MEDICATIONS: 1. Amlodipine 10 mg one p.o. daily. 2. Benztropine mesylate 1 mg p.o. b.i.d. 3. Doxepin 100 mg capsule one p.o. at bedtime. 4. Gabapentin 300 mg p.o. t.i.d. 5. Hydroxyzine 25 mg one tablet p.o. at bedtime. 6. Lisinopril/hydrochlorothiazide 20/12.5 one tablet p.o. b.i.d. 7. Quetiapine 200 mg tablet 800 mg p.o. at bedtime. 8. Risperidone 2 mg tablet 4 mg p.o. b.i.d. 9. Aspirin 81 mg tablet one p.o. daily. New medications are; 1. Carvedilol 6.25 mg p.o. b.i.d. 2. Doxycycline 100 mg capsule 100 mg p.o. b.i.d. for the next 6 days. PLAN: As mentioned, the patient has been seen in conjunction with [facility], who feels that the patient is a safe discharge home. Regarding her shortness of breath, this is largely secondary to anxiety. Her BNP was less than 10. Her CTA negative for pulmonary embolism, her echocardiogram shows normal left ventricular systolic function, and recent MPI showed no evidence of reversible ischemia. She will continue beta aliyah, which has given good response in her blood pressure and heart rate. She will follow up with [facility] tomorrow. She will follow up with Dr. Arias Khan, who is her primary care physician. I have counseled her extensively on the risks of morbid obesity, and importance of diet and weight loss. Job ID: [id number]
== END 2019-01-28 17:26 | disposition home or self-care (01) ==
LOC: ERS 02:53 → 2SW 06:39
PROVIDERS: ADMIT Hospitalist; ATTEND Hospitalist
DX: R06.02 Shortness of breath (principal); J20.9 Acute bronchitis, unspecified; E66.01 Morbid (severe) obesity due to excess calories; Z68.43 Body mass index [BMI] 50.0-59.9, adult; I10 Essential (primary) hypertension; F31.9 Bipolar disorder, unspecified; F20.9 Schizophrenia, unspecified; F41.9 Anxiety disorder, unspecified; Z88.1 Allergy status to other antibiotic agents; Z90.49 Acquired absence of other specified parts of digestive tract; Z90.710 Acquired absence of both cervix and uterus; Z98.51 Tubal ligation status; Z79.82 Long term (current) use of aspirin; Z79.2 Long term (current) use of antibiotics; Z79.899 Other long term (current) drug therapy; Z98.890 Other specified postprocedural states
CPT/HCPCS: 36415; 71045; 80048; 80053; 83880; 84484; 85025; 93005; 94640; 94760; 96360; 96361; G0378; J7620; Q0177

== ENCOUNTER 2019-02-04 13:24 | Emergency (ER) | payer SELFPAY ==
--- NOTE | 2019-02-04 15:16 | RAD ---
RADIOGRAPH CHEST 2 VIEWS: HISTORY: A 58-year-old female status post acute thoracic trauma from fall. FINDINGS: Lungs are hypoinflated, making this a limited study. There is no air space density, pulmonary edema, pleural effusion, or pneumothorax. There are mild densities at the base of the left lower lobe prob ably representing subsegmental atelectasis. IMPRESSION: No acute pulmonary findings. anirudh [] POS: [facility]
[2019-02-04 15:32] LABS: #Eosinphils 0.2 thou/uL (0.0-0.7); #Lymphocytes 2.3 thou/uL (1.20-3.40); #Monocytes 0.6 thou/uL (0.11-0.59); #Neutrophils 5.5 thou/uL (1.40-6.50); %Basophils 0.2 % (0.0-1.0); %Eosinophils 2.2 % (0.0-10.0); %Lymphocytes 26.7 % (21.0-51.0); %Monocytes 7.2 % (0.0-10.0); %Neutrophils 63.7 % (42.0-75.0); Hemoglobin 13.2 g/dL (12.0-16.0); Mean Corpuscular HGB CONC 31.6 g/dL (32.0-36.0); Mean Corpuscular Hemoglobin 30.2 pg (27.0-31.0); Mean Corpuscular Volume 95.4 fL (78.0-98.0); Platelet Count 223 thou/uL (130-400); RBC Distribution Width 12.5 % (11.5-14.5); Red Blood Cell (RBC) Count 4.38 mill/uL (4.20-5.40); White Blood Cell (WBC) Count 8.6 thou/uL (4.8-10.8)
[2019-02-04 15:49] LABS: ALT (SGPT) 81 U/L (8-55); AST (SGOT) 61 U/L (5-34); Acetaminophen Less than 6.0 mcg/mL (10.0-30.0); Alcohol Less than 10 mg/dL (Less than 10); Alkaline Phosphatase 75 U/L (40-150); Anion Gap 13 mmol/L (10-20); BUN (Urea Nitrogen) 11 mg/dL (9.8-20.1); Bilirubin, Total 0.2 mg/dL (0.2-1.2); CK (CPK) 415 U/L (29-168); Calc. Creatinine Clearance 0 mL/min (70-130); Calcium 9.8 mg/dL (7.8-10.44); Carbon Dioxide 32 mmol/L (22-29); Chloride 100 mmol/L (98-107); Estimated GFR-MDRD 86; Globulin 3.8 g/dL (2.4-3.5); Glucose 136 mg/dL (70-105); Potassium 3.1 mmol/L (3.5-5.1); Protein, Total 7.8 g/dL (6.0-8.3); Salicylate Less than 8.0 mg/dL (15.0-30.0); Sodium 142 mmol/L (136-145)
[2019-02-04 17:59] LABS: Bilirubin Negative (Negative); Blood, Urine Negative (Negative); Clarity CLEAR (Clear); Glucose, Urine (Dipstick) 100 mg/dL (Negative); Leukocyte Negative (Negative); Nitrite Negative (Negative); Protein, Urine (Dipstick) Negative (Neg-Trace); Specific Gravity, Urine 1.019 (1.002-1.036)
[2019-02-04 18:03] LABS: Pregnancy Test - Urine (BHCG) Negative (Negative); Pregu Control Background? CLEAR/WHITE (CLR/WHITE); Pregu Control Bar Appear? YES (CONTROL BAR); Specific Gravity 1.019 (1.002-1.036)
[2019-02-04 18:12] LABS: Amphetamine Not Detected (NotDetected); Barbiturates Screen Not Detected (NotDetected); Benzodiazepine Screen Not Detected (NotDetected); Cocaine Metabolite Screen Not Detected (NotDetected); Medtox Control Line Valid? VALID (VALID); Medtox Reader # READER 1; Methadone Not Detected (NotDetected); Methamphetamine Not Detected (NotDetected); Opiate Screen Not Detected (NotDetected); Oxycodone Screen Not Detected (NotDetected); Phencyclidine (PCP) Not Detected (NotDetected); THC/Cannabinoid Screen Not Detected (NotDetected); Tricyclic Screen Detected (NotDetected)
== END 2019-02-04 18:38 | disposition home or self-care (01) ==
LOC: ERS 13:24
DX: R35.0 Frequency of micturition (principal); I10 Essential (primary) hypertension; E66.9 Obesity, unspecified; F20.9 Schizophrenia, unspecified; F31.9 Bipolar disorder, unspecified
CPT/HCPCS: 36415; 71046; 80053; 80306; 80307; 81003; 81025; 82550; 83880; 84443; 85025; 87086; 93005; 94760

== ENCOUNTER 2019-02-07 15:11 | Emergency (ER) | payer SELFPAY ==
[2019-02-07 16:13] LABS: Bilirubin Negative (Negative); Blood, Urine Negative (Negative); Clarity CLEAR (Clear); Glucose, Urine (Dipstick) Negative (Negative); Leukocyte Negative (Negative); Nitrite Negative (Negative); Protein, Urine (Dipstick) Negative (Neg-Trace); Specific Gravity, Urine 1.008 (1.002-1.036); Urobilinogen 0.2 mg/dL (0.2-1.0)
[2019-02-07 16:19] LABS: Pregnancy Test - Urine (BHCG) Negative (Negative); Pregu Control Background? CLEAR/WHITE (CLR/WHITE); Pregu Control Bar Appear? YES (CONTROL BAR); Specific Gravity 1.008 (1.002-1.036)
[2019-02-10 23:47] LABS: Chlamydia by PCR Not Detected (NotDetected); GC by PCR Not Detected (NotDetected)
== END 2019-02-07 16:34 | disposition left against medical advice (07) ==
LOC: ERS 15:11
DX: T74.21XA Adult sexual abuse, confirmed, initial encounter (principal); R35.0 Frequency of micturition; E66.9 Obesity, unspecified; F31.9 Bipolar disorder, unspecified; F20.9 Schizophrenia, unspecified; I10 Essential (primary) hypertension
CPT/HCPCS: 81003; 81025; 87480; 87491; 87510; 87591; 87660; 99284

== ENCOUNTER 2019-02-10 23:27 | Observation (INO) | payer SELFPAY ==
[2019-02-11 00:40] LABS: #Basophils 0.1 thou/uL (0.0-0.2); #Eosinphils 0.2 thou/uL (0.0-0.7); #Lymphocytes 2.9 thou/uL (1.20-3.40); #Monocytes 0.5 thou/uL (0.11-0.59); #Neutrophils 4.2 thou/uL (1.40-6.50); %Basophils 1.1 % (0.0-1.0); %Eosinophils 2.3 % (0.0-10.0); %Lymphocytes 36.6 % (21.0-51.0); %Neutrophils 53.9 % (42.0-75.0); Hemoglobin 13.7 g/dL (12.0-16.0); Mean Corpuscular Hemoglobin 30.6 pg (27.0-31.0); Mean Corpuscular Volume 92.8 fL (78.0-98.0); Mean Platelet Volume 6.9 fL (7.4-10.4); Platelet Count 241 thou/uL (130-400); RBC Distribution Width 12.7 % (11.5-14.5); Red Blood Cell (RBC) Count 4.47 mill/uL (4.20-5.40); White Blood Cell (WBC) Count 7.8 thou/uL (4.8-10.8)
[2019-02-11 00:59] LABS: ALT (SGPT) 54 U/L (8-55); AST (SGOT) 43 U/L (5-34); Albumin 3.9 g/dL (3.5-5.0); Alkaline Phosphatase 78 U/L (40-150); Anion Gap 13 mmol/L (10-20); BUN (Urea Nitrogen) 11 mg/dL (9.8-20.1); Bilirubin, Total 0.2 mg/dL (0.2-1.2); CK (CPK) 325 U/L (29-168); Calc. Creatinine Clearance 0 mL/min (70-130); Calcium 9.9 mg/dL (7.8-10.44); Carbon Dioxide 32 mmol/L (22-29); Chloride 99 mmol/L (98-107); Estimated GFR-MDRD 85; Globulin 3.3 g/dL (2.4-3.5); Glucose 134 mg/dL (70-105); Potassium 3.4 mmol/L (3.5-5.1); Protein, Total 7.2 g/dL (6.0-8.3); Sodium 141 mmol/L (136-145)
[2019-02-11] MEDS ORDERED: Ketorolac Tromethamine 30 MG/ML VIAL ONE (01:55)
[2019-02-11 04:13] LABS: Troponin I Less than 0.010 ng/mL (< 0.028)
[2019-02-11] MEDS ORDERED: Ondansetron PF 4 MG/2 ML Vial IVP PRN (05:28)
[2019-02-11] MEDS ORDERED: Nitroglycerin 0.4 MG TAB (25 Tab Bottle) PO PRN (05:28)
[2019-02-11] MEDS ORDERED: Acetaminophen 325 MG TAB PO PRN (05:28)
[2019-02-11] MEDS ORDERED: Ondansetron ODT 4 MG TAB PO PRN (05:28)
--- NOTE | 2019-02-11 06:16 | HP ---
PRIMARY CARE PHYSICIAN: [facility]. CHIEF COMPLAINT: Chest discomfort. HISTORY OF PRESENT ILLNESS: The patient is a 58-year-old female with hypertension, morbid obesity, and schizophrenia, followed by [facility], who presented to the emergency room with chest discomfort. The chest discomfort started around 9:30 p.m. while she was at home. It was sudden onset, substernal, without any aggravating or relieving factor. She had some palpitations without any lightheadedness, dizziness, or syncope. The chest discomfort was sharp in nature. She denies any fever, chills, cough, shortness of breath, wheezing, recent immobilization travel. She had a CT angiogram of the chest in the last 3 weeks, which was negative for pulmonary embolism. She had an echocardiogram earlier this year that showed ejection fraction of 60% to 65%. She also had a stress test earlier this year that was normal with ejection fraction of 66%. PAST MEDICAL HISTORY: 1. Hypertension. 2. Morbid obesity with a BMI of 51.5. 3. Bipolar disorder. 4. Schizophrenia. 5. Anxiety and depression. PAST SURGICAL HISTORY: 1. Appendectomy. 2. Cholecystectomy. 3. Hysterectomy. 4. Tubal ligation. 5. Right leg surgery. ALLERGIES: THE PATIENT IS ALLERGIC TO KEFLEX. CURRENT HOME MEDICATIONS: The patient is unable to recall any of her home medications. She states that her medications are the same as last admission. SOCIAL HISTORY: She denies any current use of alcohol or drug use. The patient follows [facility]. FAMILY HISTORY: Positive for breast cancer in the mother. REVIEW OF SYSTEMS: All other review of systems was reviewed and were found negative. PHYSICAL EXAMINATION: VITAL SIGNS: Temperature 97.7, pulse rate of 124, blood pressure 146/107, respirations of 18, and O2 saturation 93% on room air. GENERAL: A 58-year-old female, in no apparent distress. Denies any chest discomfort at this time. HEENT: Head, atraumatic and normocephalic. Sclerae are anicteric. Moist mucous membrane. No oral lesion. NECK: Supple. No JVD appreciated. No carotid bruit. LUNGS: Clear to auscultation bilaterally. No wheezing, rales, or rhonchi. HEART: S1 and S2 present. Regular rate and rhythm. No murmurs, rubs, or gallops appreciated. ABDOMEN: Soft. Bowel sounds are present. Obese. EXTREMITIES: No edema or calf tenderness. NEUROLOGIC: Grossly nonfocal. Moves all 4 extremities. PSYCHIATRY: Alert, awake, and oriented x3. SKIN: Warm and dry. LYMPH NODES: No palpable lymph nodes in the neck. PERIPHERAL VASCULAR: Radial pulses are palpable bilaterally. MUSCULOSKELETAL: No joint swelling or tenderness. LABORATORY FINDINGS: Troponin was negative. Potassium 3.4, BUN 11, and creatinine 0.84. LFTs in normal range. CK was slightly elevated at 325. WBC 7.8 with hemoglobin 13.7. DIAGNOSTIC DATA: Chest x-ray by my review was negative for infiltrate or edema. EKG by my review showed sinus tachycardia with left axis deviation and voltage criteria for left ventricular hypertrophy. IMPRESSION: 1. Atypical chest pain. 2. Sinus tachycardia of unclear etiology. It is unclear whether the patient still takes beta blockers at home. 3. Morbid obesity with a BMI of 51.5. 4. Hypertension with hypertensive heart disease. 5. Schizophrenia/bipolar disorder. 6. Negative Cardiolite stress test in November of this year. 7. Normal left ventricular ejection fraction in November of this year. 8. Hypokalemia. 9. Chronic kidney disease, stage 2. PLAN: The patient will be monitored as a 23-hour observation in the telemetry unit. We will obtain serial troponins. We will add low-dose aspirin. We will resume beta blockers due to persistent tachycardia. We will resume home medications once confirmed. Replace potassium. Lifestyle modification including weight reduction was emphasized. Plan of care was discussed with the patient in detail. She stated understanding. Job ID: [id number]
[2019-02-11] MEDS ORDERED: Spironolactone 25 MG TAB PO SCH (07:45)
[2019-02-11 07:46] LABS: Troponin I Less than 0.010 ng/mL (< 0.028)
[2019-02-11] MEDS ORDERED: Carvedilol 6.25 MG TAB PO SCH (08:00)
[2019-02-11] MEDS: Carvedilol 6.25 MG TAB PO SCH ×2 (09:38→18:23)
[2019-02-11] MEDS: Potassium Chloride 20 MEQ TAB PO SCH (09:38)
[2019-02-11] MEDS: Aspirin 81 mg Enteric Coated Tablet PO SCH (09:39)
[2019-02-11] MEDS: Lisinopril 10 MG TAB PO SCH ×2 (09:39→21:07)
[2019-02-11] MEDS: Amlodipine 5 MG TAB PO SCH ×2 (09:39→21:07)
[2019-02-11] MEDS: Benztropine 1 MG TAB PO SCH ×2 (09:39→21:08)
[2019-02-11] MEDS: Hydrochlorothiazide 25 MG TAB PO SCH (09:39)
[2019-02-11] MEDS: Gabapentin 300 MG CAP PO SCH ×3 (09:39→21:07)
[2019-02-11] MEDS: risperiDONE 1 MG TAB PO SCH ×2 (09:40→21:07)
--- NOTE | 2019-02-11 09:53 | RAD ---
CHEST 1 VIEW: Date: 02/10/19 HISTORY: Sudden onset chest pain and abdominal pain. COMPARISON: 02/04/19. FINDINGS: Poor inspiratory effort. Borderline heart size with some vascular crowding in the bases because of th e poor inspiration. No confluent pneumonia or overt edema. IMPRESSION: Poor inspiration with vascular crowding in the lung bases. Mild vascular congestion. No pneumonia, ed malcom, or other acute process. POS: [facility]
[2019-02-11] MEDS ORDERED: hydrOXYzine Pamoate 25 mg Capsule PO SCH (21:00)
[2019-02-11] MEDS ORDERED: Doxepin HCl 25 MG CAP PO SCH (21:00)
[2019-02-12] MEDS: Amlodipine 5 MG TAB PO SCH (07:30)
[2019-02-12] MEDS: Aspirin 81 mg Enteric Coated Tablet PO SCH (07:31)
[2019-02-12] MEDS: Hydrochlorothiazide 25 MG TAB PO SCH (07:31)
[2019-02-12] MEDS: risperiDONE 1 MG TAB PO SCH (07:31)
[2019-02-12] MEDS: Benztropine 1 MG TAB PO SCH (07:31)
[2019-02-12] MEDS: Carvedilol 6.25 MG TAB PO SCH ×2 (07:31→15:59)
[2019-02-12] MEDS: Gabapentin 300 MG CAP PO SCH ×2 (07:32→14:45)
[2019-02-12] MEDS: Potassium Chloride 20 MEQ TAB PO SCH (07:32)
[2019-02-12] MEDS: Lisinopril 10 MG TAB PO SCH (07:32)
[2019-02-12 08:26] LABS: ALT (SGPT) 59 U/L (8-55); AST (SGOT) 47 U/L (5-34); Albumin 4.1 g/dL (3.5-5.0); Alkaline Phosphatase 78 U/L (40-150); Anion Gap 11 mmol/L (10-20); BUN (Urea Nitrogen) 13 mg/dL (9.8-20.1); Bilirubin, Total 0.4 mg/dL (0.2-1.2); Calc. Creatinine Clearance 173 mL/min (70-130); Calcium 10.1 mg/dL (7.8-10.44); Carbon Dioxide 35 mmol/L (22-29); Chloride 96 mmol/L (98-107); Estimated GFR-MDRD 88; Globulin 3.8 g/dL (2.4-3.5); Glucose 97 mg/dL (70-105); Potassium 3.8 mmol/L (3.5-5.1); Protein, Total 7.9 g/dL (6.0-8.3); Sodium 138 mmol/L (136-145)
[2019-02-12 16:05] VITALS: BP 126/97
[2019-02-12 16:36] VITALS: TEMP 97.5
--- NOTE | 2019-02-12 17:01 | ULT ---
EXAM: RIGHT UPPER QUADRANT ULTRASOUND: History: Right upper quadrant pain. Elevated LFTs. FINDINGS: The liver is borderline enlarged with coarse increased echogenicity and decreased penetration, eviden ce for nonspecific hepatic parenchymal disease. Status post cholecystectomy. Common bile duct 0.6 cm. Visualized pancreas and right kidney are unremarkable. IMPRESSION: Coarse liver echogenicity with poor penetration, evidence for nonspecific hepatic parenchymal process without evidence for common duct or intrahepatic ductal dilatation. Status post cholecystectomy. POS: [facility]
--- NOTE | 2019-02-12 17:14 | PDOC.EVN ---
Event Note - Event Note Event Note: pt seen and examined. pls see DC summary for details
--- NOTE | 2019-02-13 18:24 | DIS ---
DATE OF ADMISSION: 02/11/2019 DATE OF DISCHARGE: 02/12/2019 CONDITION: At the time of discharge, stable and improved. DISCHARGE DIAGNOSIS: 1. Chest pain, noncardiac, acute coronary syndrome, ruled out. 2. Choledocholithiasis, ruled out. SECONDARY DISCHARGE DIAGNOSES: 1. Hypertension. 2. Morbid obesity. 3. Bipolar disorder. 4. Schizophrenia. 5. Anxiety and depression. DISCHARGE MEDICATIONS: As follows; the patient was given new prescription for, 1. Lisinopril/hydrochlorothiazide 20/12.5 mg p.o. b.i.d. 2. Carvedilol 6.25 mg p.o. b.i.d. 3. Aspirin 81 mg daily. 4. Amlodipine 10 mg daily. 5. She will resume her benztropine 1 mg p.o. b.i.d. 6. Doxepin 100 mg daily. 7. Gabapentin 300 t.i.d. 8. Seroquel 800 at bedtime. 9. Hydroxyzine 25 at bedtime. 10. Risperidone 4 mg p.o. b.i.d. PRIMARY CARE PHYSICIAN: The patient will follow up with either Dr. Sosa or Dr. Arias Khan as per her discretion. PROCEDURES DONE IN HOSPITAL: 1. Chest x-ray, which is unremarkable. 2. Abdominal ultrasound, which does not show any evidence of biliary ductal dilatation, status post cholecystectomy. HISTORY OF PRESENT ILLNESS: Ms. Contreras is a 58-year-old female with recent hospitalization for chest pain with all the workup including nuclear medicine stress test as well as CT angio and echocardiogram either normal, negative for evidence of ACS and pulmonary embolism and within normal limits. She came back again to the ER with complaints of chest pain. She was hemodynamically stable upon presentation. EKG, chest x-ray, and cardiac enzymes were negative. She was admitted on observation status for the chest pain. She was somewhat in sinus tachycardia and once again, she was not taking any of her medication. The patient has serious psychiatric issues and usually does not follow up with the doctors or takes a medication. Please see admission history and physical dictated by Dr. Jose from the date of admission for further details. HOSPITAL COURSE: Ms. Contreras's serial cardiac enzymes were negative. She was found to have some mild chronic elevation of AST and ALT, so abdominal ultrasound was done. She already has had cholecystectomy and there was no retained stone in the CBD and there was no ductal dilatation. She remained hemodynamically stable throughout the rest of the hospitalization and did not have any symptoms of chest pain again. She was restarted on all of her home medication and was discharged with strict instructions to follow with primary care physician and to take her medication. She is agreeable with the plan. PHYSICAL EXAMINATION: She was seen and examined prior to discharge. GENERAL: She is awake, alert, oriented. VITAL SIGNS: Heart rate anywhere from 92 to 109, saturating 91% to 94% on room air, and blood pressure of 126/97. CHEST: Clear to auscultation bilaterally. HEART: Rate and rhythm are regular. NEUROLOGICAL: Nonfocal. Job ID: [id number]
== END 2019-02-12 18:42 | disposition home or self-care (01) ==
LOC: ERS 23:27 → 2SW 02-11 03:16
PROVIDERS: ADMIT Internal Medicine; ATTEND Internal Medicine
DX: R07.89 Other chest pain (principal); I13.10 Hypertensive heart and chronic kidney disease without heart failure, with stage 1 through stage 4 chronic kidney disease, or unspecified chronic kidney disease; N18.2 Chronic kidney disease, stage 2 (mild); E66.01 Morbid (severe) obesity due to excess calories; Z68.43 Body mass index [BMI] 50.0-59.9, adult; F20.9 Schizophrenia, unspecified; F31.9 Bipolar disorder, unspecified; F41.9 Anxiety disorder, unspecified; E87.6 Hypokalemia; Z90.49 Acquired absence of other specified parts of digestive tract; Z90.710 Acquired absence of both cervix and uterus; Z98.51 Tubal ligation status; Z88.1 Allergy status to other antibiotic agents; Z79.82 Long term (current) use of aspirin; Z79.899 Other long term (current) drug therapy; Z98.890 Other specified postprocedural states
CPT/HCPCS: 36415; 71045; 76705; 80053; 82550; 83690; 83735; 84484; 85025; 93005; 94760; 96361; 96374; G0378; J1885; Q0177

== ENCOUNTER 2019-03-23 09:47 | Inpatient (IN) | payer MEDICARE, SELFPAY ==
--- NOTE | 2019-03-23 10:42 | RAD ---
SINGLE VIEW CHEST: Date: 03/23/19 COMPARISON: 02/10/19. HISTORY: Dyspnea. FINDINGS: Single view of the chest shows normal sized cardiomediastinal silhouette. Opacities are seen in both lung bases, which may represent atelectasis or infiltrates. No pleural effusion is seen. IMPRESSION: Bibasilar atelectasis versus infiltrates. POS: [facility]
[2019-03-23] MEDS ORDERED: Ketorolac Tromethamine 30 MG/ML VIAL ONE (11:24)
[2019-03-23 11:55] LABS: #Basophils 0.1 thou/uL (0.0-0.2); #Eosinphils 0.1 thou/uL (0.0-0.7); #Lymphocytes 2.3 thou/uL (1.20-3.40); #Monocytes 0.7 thou/uL (0.11-0.59); #Neutrophils 3.5 thou/uL (1.40-6.50); %Basophils 1.1 % (0.0-1.0); %Eosinophils 1.9 % (0.0-10.0); %Lymphocytes 34.7 % (21.0-51.0); %Monocytes 10.7 % (0.0-10.0); %Neutrophils 51.7 % (42.0-75.0); Mean Corpuscular Hemoglobin 30.2 pg (27.0-31.0); Mean Corpuscular Volume 94.4 fL (78.0-98.0); Mean Platelet Volume 6.8 fL (7.4-10.4); Platelet Count 239 thou/uL (130-400); RBC Distribution Width 12.2 % (11.5-14.5); White Blood Cell (WBC) Count 6.7 thou/uL (4.8-10.8)
[2019-03-23 12:19] LABS: ALT (SGPT) 56 U/L (8-55); AST (SGOT) 44 U/L (5-34); Alkaline Phosphatase 86 U/L (40-150); Anion Gap 12 mmol/L (10-20); BUN (Urea Nitrogen) 13 mg/dL (9.8-20.1); Bilirubin, Total 0.3 mg/dL (0.2-1.2); Calc. Creatinine Clearance 0 mL/min (70-130); Calcium 9.7 mg/dL (7.8-10.44); Carbon Dioxide 34 mmol/L (22-29); Chloride 98 mmol/L (98-107); Estimated GFR-MDRD 75; Globulin 3.5 g/dL (2.4-3.5); Glucose 73 mg/dL (70-105); Potassium 3.9 mmol/L (3.5-5.1); Protein, Total 7.5 g/dL (6.0-8.3); Sodium 140 mmol/L (136-145)
--- NOTE | 2019-03-23 13:43 | CT ---
Exam: CT angiogram of the chest HISTORY: Infiltrate versus atelectasis on chest radiograph. Dyspnea. COMPARISON: 01/22/2019 TECHNIQUE: CT angiogram of the chest is performed in the axial plane. Three-dimensional reformatted i mages are submitted for interpretation FINDINGS: Mediastinum: No mass, lymphadenopathy or hematoma. HEART: Normal size. No significant pericardial fluid. Aorta: No aneurysm or dissection Upper solid abdominal viscera: No abnormality enhancement. Trachea and central bronchi: Patent Pleural spaces: No effusion Lung parenchyma: Patchy groundglass opacity due to edema or infiltrate. No suspicious masses or conso lidation. Pneumothorax: None Osseous structures: No lytic or blastic lesions Pulmonary arteries:Limited evaluation of the pulmonary arterial system due to poor timing of contrast bolus. Adequate contrast opacification to the level of lobar pulmonary arteries. No filling defect to suggest thromboembolism. Limited evaluation the segmental and subsegmental arteries. IMPRESSION: 1. No evidence of pulmonary artery embolism to the level of the lobar arteries. Limited evaluation of segmental and subsegmental arteries due to timing of bolus. 2. Patchy groundglass opacities due to edema or infiltrate.
[2019-03-23] MEDS ORDERED: Piperacillin/Tazobactam 3.375 GM VIAL ONE (14:48)
[2019-03-23] MEDS ORDERED: hydrALAZINE 20 MG/ML VIAL SLOW IVP PRN (16:14)
[2019-03-23] MEDS ORDERED: Doxepin HCl 25 MG CAP PO PRN (16:15)
[2019-03-23] MEDS ORDERED: hydrOXYzine 25 MG TAB PO PRN (16:18)
[2019-03-23] MEDS ORDERED: Furosemide 40 MG/4 ML VIAL SLOW IVP SCH (16:30)
[2019-03-23] MEDS: Carvedilol 6.25 MG TAB PO SCH (19:12)
[2019-03-23] MEDS: Benztropine 1 MG TAB PO SCH (20:11)
[2019-03-23] MEDS: Gabapentin 300 MG CAP PO SCH (20:12)
[2019-03-23] MEDS: risperiDONE 1 MG TAB PO SCH (20:12)
[2019-03-23 22:46] VITALS: BMI 46.9
--- NOTE | 2019-03-23 23:42 | HP ---
CHIEF COMPLAINT: Lower extremity swelling. HISTORY OF PRESENT ILLNESS: This patient is a 59-year-old female with a history notable for significant mental illness including schizophrenia with paranoia. The patient has a history of noncompliance with her medications. The patient reported to the emergency department today via EMS complaining of pain and swelling in both of her feet. She told me that she had been having problems for a month, but apparently told EMS that she woke up this morning with increasing swelling and sharp pain in her ankles and feet. On further questioning in the ER, she was noted to also reports some shortness of breath and to me she also reported that she has been having frequent fevers and chills. She denies significant cough. She has taken no gmso-stn-hnsnidv medications. She does report to me that she has been taking all of her medications as prescribed. REVIEW OF SYSTEMS: All other systems reviewed. All pertinent positives and negatives noted in the history of present illness. PAST MEDICAL HISTORY: Hypertension, morbid obesity, bipolar disorder, schizophrenia, anxiety and depression. Previous admissions for chest pains with negative workups. Prior echo with ejection fraction of 60% to 65%. PAST SURGICAL HISTORY: Appendectomy, cholecystectomy, hysterectomy, tubal ligation, right leg surgery. FAMILY HISTORY: Positive for breast cancer in mother. SOCIAL HISTORY: The patient is a nonsmoker, nondrinker, nondrug user. She is single, lives independently. She does have a daughter that comes around to help her when she can. She is full code and her daughter would be her surrogate decision maker should that become necessary. ALLERGIES: KEFLEX. CURRENT MEDICATIONS: 1. Benztropine 1 mg p.o. b.i.d. 2. Doxepin 100 mg at bedtime. 3. Amlodipine 10 mg daily. 4. Gabapentin 300 mg t.i.d. 5. Risperdal 4 mg b.i.d. 6. Lisinopril/hydrochlorothiazide 20/12.5 one p.o. b.i.d. 7. Quetiapine 400 mg, dosing is not known, presumably at bedtime. 8. Hydroxyzine 50 mg t.i.d. p.r.n. 9. Carvedilol 6.25 mg p.o. b.i.d. PHYSICAL EXAMINATION: Initially, BP 166/117, pulse 108, respirations 25, temperature 98.4, O2 saturation 92% on room air. Blood pressures have been difficult to obtain because of the patient's obesity. They have been using a wrist cuffs in order to obtain her blood pressure. I obtained a manual blood pressure which was around 170/115, although the cuff on the manual machine is a bit small for her arm, likely representing a slight overestimation of her actual blood pressures. GENERAL APPEARANCE: Obese, age-appropriate female. She is in no distress. She is sitting up on side of the bed, awake, alert, oriented, pleasant, cooperative, very hirsute. HEENT: PERRL. No OP lesions. NECK: Supple and symmetric. HEART: Limited by obesity, but no murmurs were noted. She is borderline tachycardic. LUNGS: Also diminished because of habitus, but clear to auscultation. Do not hear significant wheezes or rales. ABDOMEN: Soft, nontender, and nondistended with positive bowel sounds. No masses. No organomegaly. EXTREMITIES: She has 1+ pitting edema in the pretibial areas and ankles up to the midcalf. PSYCHIATRIC: The patient appears to have normal affect and behavior at the moment. LABORATORY DATA: White count 6.7, hemoglobin 13.0, platelets 239. Sodium 140, potassium 3.9, chloride 98, CO2 is 34, BUN 13, creatinine 0.93, glucose 73. Lactic acid is 0.9. AST is 44 and ALT is 56. Chest x-ray, bilateral atelectasis versus infiltrates. CTA shows no evidence of pulmonary artery embolism to the level of the lobar arteries. Limited evaluation of the segmental and subsegmental to the timing of the bolus. Patchy ground-glass opacities due to edema or infiltrate also noted. IMPRESSION AND PLAN: 1. Peripheral edema, unclear etiology, may be related to the patient's amlodipine to some degree. The patient has a significant history of noncompliance, but says she is taking her medicines now. She has a history of previous cardiac workup revealing normal ejection fraction, but she certainly may have some diastolic dysfunction. We will give her single dose of Lasix now. 2. Pulmonary. The patient has some shortness of breath especially with exertion. It was reported to me that her O2 sats in the emergency department were 89% with attempts at ambulation, which would suggest an acute hypoxic respiratory failure. She seems to be saturating relatively well at rest without oxygen. She has infiltrates on her chest x-ray that could either be infectious or edematous. She has no white count and her lactic acid level is normal. She has had no fever since she has been here. All of that would mitigate against possible infection. Nonetheless, we will cover for pneumonia with Levaquin. The patient received vancomycin and Zosyn in the emergency department. However, I suspect this would be more of a community-acquired infection and not merit that level of coverage. It is also possible that she has some decompensated failure, although her BNP is normal and again she has had fairly normal cardiac function on previous echos. We will see how she responds to the single dose of Lasix as well. 3. Elevated liver enzymes. This is chronic, likely represents fatty liver. 4. Severe hypertension. The patient denies any headaches, blurred vision, chest pain, and her shortness of breath could potentially be related to some symptomatic hypertension. Very difficult at this point to get accurate readings on her, although I believe the manual reading that I got was relatively accurate. We will get her on her usual home medications and give some p.r.n. Again, it was not clear given the patient's history of noncompliance that the patient has been taking her home medications, although she indicates that she has. We will therefore watch it as we get back on the usual home medications. 5. History of schizophrenia. Continue with the doxepin, risperidone, quetiapine, and benztropine. Job ID: [id number]
[2019-03-24 05:58] LABS: #Eosinphils 0.2 thou/uL (0.0-0.7); #Lymphocytes 2.2 thou/uL (1.20-3.40); #Monocytes 0.6 thou/uL (0.11-0.59); #Neutrophils 3.8 thou/uL (1.40-6.50); %Basophils 0.5 % (0.0-1.0); %Eosinophils 2.6 % (0.0-10.0); %Lymphocytes 32.8 % (21.0-51.0); %Monocytes 9.1 % (0.0-10.0); Hemoglobin 13.3 g/dL (12.0-16.0); Mean Corpuscular HGB CONC 31.9 g/dL (32.0-36.0); Mean Corpuscular Hemoglobin 30.1 pg (27.0-31.0); Mean Corpuscular Volume 94.6 fL (78.0-98.0); Mean Platelet Volume 6.8 fL (7.4-10.4); Platelet Count 238 thou/uL (130-400); RBC Distribution Width 12.2 % (11.5-14.5); Red Blood Cell (RBC) Count 4.41 mill/uL (4.20-5.40); White Blood Cell (WBC) Count 6.8 thou/uL (4.8-10.8)
[2019-03-24 06:19] LABS: Anion Gap 10 mmol/L (10-20); BUN (Urea Nitrogen) 12 mg/dL (9.8-20.1); Calc. Creatinine Clearance 145 mL/min (70-130); Calcium 9.5 mg/dL (7.8-10.44); Carbon Dioxide 35 mmol/L (22-29); Chloride 99 mmol/L (98-107); Estimated GFR-MDRD 77; Glucose 107 mg/dL (70-105); Potassium 3.8 mmol/L (3.5-5.1); Sodium 140 mmol/L (136-145)
[2019-03-24] MEDS: Lisinopril/Hydrochlorothiazide 20 mg/12.5 mg Tablet PO SCH (08:21)
[2019-03-24] MEDS: risperiDONE 1 MG TAB PO SCH ×2 (08:22→21:08)
[2019-03-24] MEDS: Benztropine 1 MG TAB PO SCH ×2 (08:23→21:08)
[2019-03-24] MEDS: Carvedilol 6.25 MG TAB PO SCH ×2 (08:23→16:27)
[2019-03-24] MEDS: Gabapentin 300 MG CAP PO SCH ×3 (08:23→21:08)
[2019-03-24] MEDS: Amlodipine 10 MG TAB PO SCH (08:24)
--- NOTE | 2019-03-24 21:26 | PDOC.PN ---
- Subjective Encounter Start Date: 03/24/19 Encounter Start Time: 14:40 Doing ok. Says she is breathing better. - Objective Resuscitation Status - Order Detail: 03/23/19 16:05 Resuscitation Status Routine Resuscitation Status: FULL: Full Resuscitation Vital Signs & Weight: Vital Signs (12 hours) Temp Pulse Resp BP Pulse Ox 03/24/19 19:16 98.3 F 91 20 133/84 20 L 03/24/19 16:46 100 03/24/19 16:05 97.5 F L 98 22 H 147/99 H 100 03/24/19 12:00 97.4 F L 95 22 H 116/78 95 Weight Weight 299 lb 13.259 oz I&O: 03/23/19 03/24/19 03/25/19 06:59 06:59 06:59 Intake Total 750 Balance 750 Result Diagrams: 03/26/19 06:35 03/28/19 07:25 Additional Labs: Accuchecks 03/24/19 04:54 POC Glucose 127 H Phys Exam - Physical Examination Constitutional: NAD snoring loudly. Appears to have evidence of sleep apnea. Patient was sleeping soundly but was easily awakened Respiratory: no wheezing, no rales, no rhonchi Cardiovascular: RRR, no significant murmur Gastrointestinal: soft trace edema Dx/Plan (1) Acute respiratory failure with hypoxia Code(s): J96.01 - ACUTE RESPIRATORY FAILURE WITH HYPOXIA Status: Acute Comment: Resolved (2) Pneumonia Code(s): J18.9 - PNEUMONIA, UNSPECIFIED ORGANISM Status: Acute (3) Hypertension Code(s): I10 - ESSENTIAL (PRIMARY) HYPERTENSION Status: Chronic Qualifiers: Hypertension type: essential hypertension Qualified Code(s): I10 - Essential (primary) hypertension Comment: Control still suptimal. (4) Morbid obesity with BMI of 45.0-49.9, adult Code(s): E66.01 - MORBID (SEVERE) OBESITY DUE TO EXCESS CALORIES; Z68.42 - BODY MASS INDEX (BMI) 45.0-49.9, ADULT Status: Chronic (5) Type 2 diabetes mellitus Status: Chronic Qualifiers: Diabetes mellitus complication status: without complication Qualified Code( s): E11.9 - Type 2 diabetes mellitus without complications - Plan * . this patient had evidence of infiltrates on her chest x-ray. They were patchy and diffuse. Unclear if this represented a pneumonia or a potential congestive heart failure. She continues on antibiotics and diuresis. It appears as though she has significant obstructive sleep apnea. She had significant hypoxia today immediately upon wakening with an O2 saturation in the 70s. It came up quickly into the 90s when she was fully awake. She will likely need an outpatient sleep study. If she continues to improve she will likely be able to discharge is early as tomorrow. Recommend oxygen while sleeping.
[2019-03-25] MEDS: Acetaminophen 325 MG TAB PO PRN (03:39)
[2019-03-25] MEDS ORDERED: Ibuprofen 200 MG TAB PO SCH (04:00)
[2019-03-25] MEDS: Lisinopril/Hydrochlorothiazide 20 mg/12.5 mg Tablet PO SCH (08:12)
[2019-03-25] MEDS: Enoxaparin Sodium 40 MG/0.4 ML SYRINGE SC SCH (08:14)
[2019-03-25] MEDS: Benztropine 1 MG TAB PO SCH ×2 (08:14→19:49)
[2019-03-25] MEDS: Amlodipine 10 MG TAB PO SCH (08:15)
[2019-03-25] MEDS: risperiDONE 1 MG TAB PO SCH ×2 (08:15→19:59)
[2019-03-25] MEDS: Carvedilol 6.25 MG TAB PO SCH (08:15)
[2019-03-25] MEDS: Gabapentin 300 MG CAP PO SCH ×3 (08:16→19:49)
--- NOTE | 2019-03-25 10:24 | PDOC.PN ---
- Subjective Encounter Start Date: 03/25/19 Encounter Start Time: 10:22 Subjective: Admitted with worsening leg swelling, SOB and fever/chills. -: Has diastolic HF and BP was elevated on prsentation. -: Still on oxygen - Objective Resuscitation Status - Order Detail: 03/23/19 16:05 Resuscitation Status Routine Resuscitation Status: FULL: Full Resuscitation Vital Signs & Weight: Vital Signs (12 hours) Temp Pulse Resp BP Pulse Ox 03/25/19 08:21 99 96 03/25/19 08:00 97.8 F 106 H 22 H 149/100 H 94 L Weight Weight 299 lb 13.259 oz I&O: 03/24/19 03/25/19 03/26/19 06:59 06:59 06:59 Intake Total 750 590 Balance 750 590 Result Diagrams: 03/24/19 05:50 03/24/19 05:50 Phys Exam - Physical Examination Constitutional: NAD morbidly obese, afeberilr. No distress HEENT: moist MMs Neck: supple short thick neck Respiratory: no rales, no rhonchi fair air entry with some transmitted sound. Decreased air movement at base Cardiovascular: RRR Gastrointestinal: soft, non-tender, no distention, positive bowel sounds morbidly obese moderate bilateral leg edema Neurological: non-focal, moves all 4 limbs Psychiatric: A&O x 3 Dx/Plan (1) Acute on chronic diastolic (congestive) heart failure Code(s): I50.33 - ACUTE ON CHRONIC DIASTOLIC (CONGESTIVE) HEART FAILURE Status : Acute (2) Bilateral edema of lower extremity Code(s): R60.0 - LOCALIZED EDEMA Status: Acute (3) Acute respiratory failure with hypoxia Code(s): J96.01 - ACUTE RESPIRATORY FAILURE WITH HYPOXIA Status: Acute (4) Pneumonia Code(s): J18.9 - PNEUMONIA, UNSPECIFIED ORGANISM Status: Acute (5) Hypertension Code(s): I10 - ESSENTIAL (PRIMARY) HYPERTENSION Status: Chronic Qualifiers: Hypertension type: essential hypertension Qualified Code(s): I10 - Essential (primary) hypertension (6) Morbid obesity with BMI of 45.0-49.9, adult Code(s): E66.01 - MORBID (SEVERE) OBESITY DUE TO EXCESS CALORIES; Z68.42 - BODY MASS INDEX (BMI) 45.0-49.9, ADULT Status: Chronic (7) Transaminitis Code(s): R74.0 - NONSPEC ELEV OF LEVELS OF TRANSAMNS & LACTIC ACID DEHYDRGNSE Status: Chronic (8) NYA (obstructive sleep apnea) Code(s): G47.33 - OBSTRUCTIVE SLEEP APNEA (ADULT) (PEDIATRIC) Status: Acute Comment: Suspected. Needs outpatient sleep study - Plan increase coreg to 25 bid. -: Start Lasix IV daily. -: Wean off oxygen as tolerated. -: Daily weight and I/O. Get repeat CMP, CBC and magn in the am. * .
[2019-03-25] MEDS ORDERED: Carvedilol 6.25 MG TAB PO SCH ×2 (10:30→17:00)
[2019-03-25] MEDS ORDERED: Furosemide 40 MG/4 ML VIAL SLOW IVP SCH (10:30)
[2019-03-25] MEDS: Carvedilol 25 MG TAB PO SCH (19:51)
[2019-03-25] MEDS ORDERED: Temazepam 15 MG CAP PO PRN (19:52)
[2019-03-26] MEDS ORDERED: Dextrose 50% Abboject 50 ML SYRINGE ONE (04:53)
[2019-03-26] MEDS: Acetaminophen 325 MG TAB PO PRN (05:18)
[2019-03-26 06:49] LABS: #Eosinphils 0.2 thou/uL (0.0-0.7); #Lymphocytes 2.2 thou/uL (1.20-3.40); #Monocytes 0.6 thou/uL (0.11-0.59); #Neutrophils 3.6 thou/uL (1.40-6.50); %Basophils 0.6 % (0.0-1.0); %Eosinophils 3.4 % (0.0-10.0); %Lymphocytes 33.1 % (21.0-51.0); %Monocytes 8.5 % (0.0-10.0); %Neutrophils 54.4 % (42.0-75.0); Hemoglobin 12.9 g/dL (12.0-16.0); Mean Corpuscular HGB CONC 32.1 g/dL (32.0-36.0); Mean Corpuscular Hemoglobin 30.4 pg (27.0-31.0); Mean Corpuscular Volume 94.8 fL (78.0-98.0); Mean Platelet Volume 6.7 fL (7.4-10.4); Platelet Count 226 thou/uL (130-400); Red Blood Cell (RBC) Count 4.25 mill/uL (4.20-5.40); White Blood Cell (WBC) Count 6.6 thou/uL (4.8-10.8)
[2019-03-26 07:06] LABS: ALT (SGPT) 39 U/L (8-55); AST (SGOT) 24 U/L (5-34); Albumin 3.7 g/dL (3.5-5.0); Alkaline Phosphatase 75 U/L (40-150); Anion Gap 10 mmol/L (10-20); BUN (Urea Nitrogen) 11 mg/dL (9.8-20.1); Bilirubin, Total 0.2 mg/dL (0.2-1.2); Calc. Creatinine Clearance 121 mL/min (70-130); Calcium 9.4 mg/dL (7.8-10.44); Carbon Dioxide 35 mmol/L (22-29); Chloride 97 mmol/L (98-107); Estimated GFR-MDRD 84; Globulin 3.5 g/dL (2.4-3.5); Glucose 110 mg/dL (70-105); Magnesium 1.9 mg/dL (1.6-2.6); Potassium 3.9 mmol/L (3.5-5.1); Protein, Total 7.2 g/dL (6.0-8.3); Sodium 138 mmol/L (136-145)
[2019-03-26] MEDS: Amlodipine 10 MG TAB PO SCH (08:30)
[2019-03-26] MEDS: Benztropine 1 MG TAB PO SCH ×2 (08:30→20:32)
[2019-03-26] MEDS: Gabapentin 300 MG CAP PO SCH ×3 (08:30→20:33)
[2019-03-26] MEDS: risperiDONE 1 MG TAB PO SCH ×2 (08:30→20:33)
[2019-03-26] MEDS: Enoxaparin Sodium 40 MG/0.4 ML SYRINGE SC SCH (08:31)
[2019-03-26] MEDS: Carvedilol 25 MG TAB PO SCH ×2 (08:31→20:32)
[2019-03-26] MEDS ORDERED: Furosemide 40 MG/4 ML VIAL SLOW IVP SCH (09:00)
[2019-03-26] MEDS ORDERED: Lisinopril 20 MG TAB PO SCH ×4 (09:00→09:45)
--- NOTE | 2019-03-26 11:59 | PDOC.PN ---
- Subjective Encounter Start Date: 03/26/19 Encounter Start Time: 11:58 Subjective: Reported breathing better. No fever or chest pain. - Objective Resuscitation Status - Order Detail: 03/23/19 16:05 Resuscitation Status Routine Resuscitation Status: FULL: Full Resuscitation Vital Signs & Weight: Vital Signs (12 hours) Temp Pulse Resp BP Pulse Ox 03/26/19 11:30 98.7 F 97 22 H 146/86 H 92 L 03/26/19 08:30 107 H 03/26/19 08:00 98.4 F 107 H 22 H 140/101 H 93 L 03/26/19 04:00 97.8 F 99 20 121/82 94 L 03/26/19 00:00 97.6 F 98 20 129/86 95 Weight Weight 231 lb 7 oz I&O: 03/25/19 03/26/19 03/27/19 06:59 06:59 06:59 Intake Total 590 2600 Output Total 4000 Balance 590 -1400 Result Diagrams: 03/26/19 06:35 03/26/19 06:35 Phys Exam - Physical Examination Constitutional: NAD morbidly obese HEENT: moist MMs Neck: supple short thick neck Respiratory: no wheezing, no rhonchi fair air entry bilaterally Cardiovascular: RRR Gastrointestinal: soft, non-tender, no distention, positive bowel sounds obese moderate bilateral leg edema Neurological: non-focal, moves all 4 limbs Psychiatric: A&O x 3 Dx/Plan (1) Acute on chronic diastolic (congestive) heart failure Code(s): I50.33 - ACUTE ON CHRONIC DIASTOLIC (CONGESTIVE) HEART FAILURE Status : Acute (2) Bilateral edema of lower extremity Code(s): R60.0 - LOCALIZED EDEMA Status: Acute (3) Acute respiratory failure with hypoxia Code(s): J96.01 - ACUTE RESPIRATORY FAILURE WITH HYPOXIA Status: Acute (4) Pneumonia Code(s): J18.9 - PNEUMONIA, UNSPECIFIED ORGANISM Status: Acute (5) Hypertension Code(s): I10 - ESSENTIAL (PRIMARY) HYPERTENSION Status: Chronic Qualifiers: Hypertension type: essential hypertension Qualified Code(s): I10 - Essential (primary) hypertension (6) Morbid obesity with BMI of 45.0-49.9, adult Code(s): E66.01 - MORBID (SEVERE) OBESITY DUE TO EXCESS CALORIES; Z68.42 - BODY MASS INDEX (BMI) 45.0-49.9, ADULT Status: Chronic (7) Transaminitis Code(s): R74.0 - NONSPEC ELEV OF LEVELS OF TRANSAMNS & LACTIC ACID DEHYDRGNSE Status: Chronic (8) NYA (obstructive sleep apnea) Code(s): G47.33 - OBSTRUCTIVE SLEEP APNEA (ADULT) (PEDIATRIC) Status: Acute Comment: Suspected. Needs outpatient sleep study - Plan increase lasix to 40 bid -: Increase lisinopril to 40 daily -: Monitor I/o, daily weight and renal function. * .
[2019-03-26] MEDS: Furosemide 40 MG/4 ML VIAL SLOW IVP SCH (17:58)
[2019-03-27] MEDS: Furosemide 40 MG/4 ML VIAL SLOW IVP SCH (05:20)
[2019-03-27 05:42] LABS: Anion Gap 12 mmol/L (10-20); BUN (Urea Nitrogen) 12 mg/dL (9.8-20.1); Calc. Creatinine Clearance 108 mL/min (70-130); Calcium 9.3 mg/dL (7.8-10.44); Carbon Dioxide 37 mmol/L (22-29); Chloride 96 mmol/L (98-107); Estimated GFR-MDRD 73; Glucose 112 mg/dL (70-105); Potassium 3.6 mmol/L (3.5-5.1); Sodium 141 mmol/L (136-145)
[2019-03-27] MEDS: Amlodipine 10 MG TAB PO SCH (08:30)
[2019-03-27] MEDS: Carvedilol 25 MG TAB PO SCH (08:30)
[2019-03-27] MEDS: Gabapentin 300 MG CAP PO SCH ×3 (08:30→20:27)
[2019-03-27] MEDS: Enoxaparin Sodium 40 MG/0.4 ML SYRINGE SC SCH (08:30)
[2019-03-27] MEDS: Lisinopril 20 MG TAB PO SCH (08:30)
[2019-03-27] MEDS: Benztropine 1 MG TAB PO SCH ×2 (08:30→20:27)
[2019-03-27] MEDS: risperiDONE 1 MG TAB PO SCH ×2 (08:31→20:30)
[2019-03-27] MEDS ORDERED: Metoprolol Tartrate 50 MG TAB PO SCH (13:00)
--- NOTE | 2019-03-27 13:02 | PDOC.PN ---
- Subjective Encounter Start Date: 03/27/19 Encounter Start Time: 13:01 Subjective: Feeling better. -: Still with bilateral leg edema. -: Off oxygen - Objective Resuscitation Status - Order Detail: 03/23/19 16:05 Resuscitation Status Routine Resuscitation Status: FULL: Full Resuscitation Vital Signs & Weight: Vital Signs (12 hours) Temp Pulse Resp BP BP Pulse Ox 03/27/19 06:50 97.3 F L 97 18 140/97 H 93 L 03/27/19 04:00 97.9 F 102 H 20 139/96 H 93 L Weight Weight 233 lb 1 oz I&O: 03/26/19 03/27/19 03/28/19 06:59 06:59 06:59 Intake Total 2600 600 Output Total 4000 1200 Balance -1400 -600 Result Diagrams: 03/26/19 06:35 03/27/19 04:20 Phys Exam - Physical Examination Constitutional: NAD obese HEENT: moist MMs Neck: supple fair air entry bilaterally, decrreased at the bases Cardiovascular: RRR, no significant murmur Gastrointestinal: soft, non-tender, no distention, positive bowel sounds obese moderate bilateral leg edema conscious and alert, oriented x 3 Dx/Plan (1) Acute on chronic diastolic (congestive) heart failure Code(s): I50.33 - ACUTE ON CHRONIC DIASTOLIC (CONGESTIVE) HEART FAILURE Status : Acute (2) Bilateral edema of lower extremity Code(s): R60.0 - LOCALIZED EDEMA Status: Acute Comment: Improving (3) Acute respiratory failure with hypoxia Code(s): J96.01 - ACUTE RESPIRATORY FAILURE WITH HYPOXIA Status: Acute Comment: Resolved (4) Pneumonia Code(s): J18.9 - PNEUMONIA, UNSPECIFIED ORGANISM Status: Acute (5) Hypertension Code(s): I10 - ESSENTIAL (PRIMARY) HYPERTENSION Status: Chronic Qualifiers: Hypertension type: essential hypertension Qualified Code(s): I10 - Essential (primary) hypertension Comment: Control still suptimal. (6) Morbid obesity with BMI of 45.0-49.9, adult Code(s): E66.01 - MORBID (SEVERE) OBESITY DUE TO EXCESS CALORIES; Z68.42 - BODY MASS INDEX (BMI) 45.0-49.9, ADULT Status: Chronic (7) Transaminitis Code(s): R74.0 - NONSPEC ELEV OF LEVELS OF TRANSAMNS & LACTIC ACID DEHYDRGNSE Status: Chronic (8) NYA (obstructive sleep apnea) Code(s): G47.33 - OBSTRUCTIVE SLEEP APNEA (ADULT) (PEDIATRIC) Status: Acute Comment: Suspected. Needs outpatient sleep study - Plan Substitute coreg with metoprolo with aview to increasing dose to reduce HR -: DC IV lasix and start oral torsemide -: Start spironolactone for possible hyper aldosteronism. -: Repeat BMP in the am. * .
[2019-03-27] MEDS ORDERED: Spironolactone 25 MG TAB PO SCH (13:15)
[2019-03-27] MEDS ORDERED: Torsemide 20 MG TAB PO SCH (13:30)
[2019-03-27] MEDS: Metoprolol Tartrate 50 MG TAB PO SCH (20:27)
[2019-03-28] MEDS: Acetaminophen 325 MG TAB PO PRN (03:46)
[2019-03-28] MEDS: Amlodipine 10 MG TAB PO SCH (08:41)
[2019-03-28] MEDS: risperiDONE 1 MG TAB PO SCH (08:41)
[2019-03-28] MEDS: Enoxaparin Sodium 40 MG/0.4 ML SYRINGE SC SCH (08:41)
[2019-03-28] MEDS: Gabapentin 300 MG CAP PO SCH (08:42)
[2019-03-28] MEDS: Lisinopril 20 MG TAB PO SCH (08:42)
[2019-03-28] MEDS: Benztropine 1 MG TAB PO SCH (08:42)
[2019-03-28] MEDS: Metoprolol Tartrate 50 MG TAB PO SCH (08:42)
[2019-03-28 08:51] LABS: Anion Gap 14 mmol/L (10-20); BUN (Urea Nitrogen) 15 mg/dL (9.8-20.1); Calc. Creatinine Clearance 92 mL/min (70-130); Calcium 9.7 mg/dL (7.8-10.44); Carbon Dioxide 37 mmol/L (22-29); Chloride 94 mmol/L (98-107); Estimated GFR-MDRD 62; Glucose 99 mg/dL (70-105); Potassium 3.4 mmol/L (3.5-5.1); Sodium 142 mmol/L (136-145)
[2019-03-28 08:56] VITALS: TEMP 97.5
[2019-03-28] MEDS ORDERED: Torsemide 20 MG TAB PO SCH (09:00)
[2019-03-28] MEDS ORDERED: Spironolactone 25 MG TAB PO SCH (09:00)
[2019-03-28] MEDS ORDERED: NIFEdipine XL 60 MG TAB PO SCH (09:15)
[2019-03-28] MEDS: Potassium Chloride 20 MEQ TAB PO SCH ×2 (10:49→14:02)
[2019-03-28 12:24] VITALS: BP 156/94
--- NOTE | 2019-03-28 14:27 | DIS ---
DATE OF ADMISSION: 03/23/2019 DATE OF DISCHARGE: 03/28/2019 DISCHARGE DIAGNOSES: 1. Acute respiratory failure with hypoxia. 2. Acute on chronic diastolic heart failure. 3. Presumed pneumonia. 4. Uncontrolled hypertension. 5. Bilateral lower extremity edema. 6. Morbid obesity with body mass index of 45 to 49. 7. Transaminitis. 8. Presumed obstructive sleep apnea. DISCHARGE MEDICATIONS: 1. Benztropine 1 mg p.o. b.i.d. 2. Doxepin 100 mg p.o. daily at bedtime. 3. Gabapentin 300 mg t.i.d. 4. Hydroxyzine 25 mg p.o. b.i.d. 5. Seroquel 800 mg p.o. daily at bedtime. 6. Risperidone 4 mg p.o. b.i.d. 7. Acetaminophen 650 mg p.o. q.4 hours p.r.n. for pain. 8. Aspirin 81 mg p.o. daily. 9. Lisinopril 40 mg p.o. daily. 10. Metoprolol 50 mg p.o. b.i.d. 11. Nifedipine 60 mg b.i.d. 12. Spironolactone 50 mg p.o. daily. 13. Torsemide 40 mg p.o. daily. HOSPITAL COURSE: The patient is a 59-year-old female with known history of schizophrenia with paranoia, hypertension, and diastolic heart failure, who presented to the ED due to worsening bilateral leg swelling with pain as well as difficulty breathing and shortness of breath. The patient was noted to be hypoxic on presentation and was started on oxygen supplementation. Due to bilateral leg swelling and the patient's body habitus, there was a concern about PE. Hence, the patient has CT angio chest, which showed patchy ground-glass opacity due to edema or infiltrate, but no PE was found. Impression of acute respiratory failure from acute on chronic diastolic heart failure worsening with possible contribution from possible pneumonia. The patient was started on oxygen supplementation, antibiotics, diuretics. The patient also was found to have uncontrolled high blood pressure. Hence, antihypertensives were adjusted appropriately. Further evaluation with echocardiogram showed preserved ejection fraction with diastolic dysfunction. With diuretics, the patient's weight dropped, 299 on presentation to 229 at discharge. The patient also was weaned off oxygen and shortness of breath and difficulty breathing resolved. The patient with was thought to have some degree of hyperaldosteronism, hence was started on spironolactone to help with BP control. Also, BP persistently was elevated, hence, medications were changed drastically. The patient is now on metoprolol, nifedipine, spironolactone, and torsemide for volume management. The patient also was felt to have obstructive sleep apnea after she admitted to snoring and apneic spells while sleeping, hence was asked to follow up with PCP for referral to Sleep Study. PHYSICAL EXAMINATION: VITAL SIGNS: Temperature 97.5, pulse 86, respiratory rate 20, blood pressure 149/111, SpO2 of 95% on room air. GENERAL: Morbidly obese female, in no obvious distress. Afebrile, anicteric, acyanotic. HEENT: Normocephalic, atraumatic. Pupils are reacting to light. noted. CARDIOVASCULAR: Regular rhythm and rate with normal heart sounds 1 and 2. RESPIRATORY: Good air entry bilaterally though decreased at both bases. GI. Morbidly obese, soft, nontender, nondistended with normal bowel sounds. EXTREMITIES: Mild to moderate bilateral leg edema noticed. No erythema or cyanosis. NEUROLOGIC: Conscious, alert, oriented x3 with appropriate mental status. The patient is ambulant. CONDITION AT DISCHARGE: Improved and stable. DISCHARGE DISPOSITION: Home. FOLLOWUP: Follow up with PCP in 1 week. This discharge took more than 36 minutes. Job ID: [id number]
== END 2019-03-28 14:06 | disposition home or self-care (01) | DRG 291 ==
LOC: ERS 09:47 → T4-A 15:01
PROVIDERS: ADMIT Internal Medicine; ATTEND Internal Medicine
DX: I11.0 Hypertensive heart disease with heart failure (principal); J96.01 Acute respiratory failure with hypoxia; J18.9 Pneumonia, unspecified organism; Z68.42 Body mass index [BMI] 45.0-49.9, adult; F20.0 Paranoid schizophrenia; I50.33 Acute on chronic diastolic (congestive) heart failure; E66.01 Morbid (severe) obesity due to excess calories; G47.33 Obstructive sleep apnea (adult) (pediatric); F41.9 Anxiety disorder, unspecified; R74.0 Nonspecific elevation of levels of transaminase and lactic acid dehydrogenase [LDH]; F31.9 Bipolar disorder, unspecified; Z91.14 Patient's other noncompliance with medication regimen; Z90.710 Acquired absence of both cervix and uterus; Z98.51 Tubal ligation status; Z88.1 Allergy status to other antibiotic agents; Z90.49 Acquired absence of other specified parts of digestive tract; Z79.899 Other long term (current) drug therapy
CPT/HCPCS: 36415; 36416; 71045; 71275; 80048; 80053; 83605; 83735; 83880; 84484; 85025; 87040; 93005; 96365; 96366; 96368; 96375; J1650; J1885; J1940; J1956; J2543; J3370

== ENCOUNTER 2019-03-29 07:59 | Inpatient (IN) | payer MEDICARE ==
[2019-03-29 09:04] LABS: #Eosinphils 0.1 thou/uL (0.0-0.7); #Lymphocytes 1.7 thou/uL (1.20-3.40); #Monocytes 0.7 thou/uL (0.11-0.59); #Neutrophils 5.8 thou/uL (1.40-6.50); %Basophils 0.4 % (0.0-1.0); %Eosinophils 1.7 % (0.0-10.0); %Lymphocytes 20.2 % (21.0-51.0); %Monocytes 7.8 % (0.0-10.0); %Neutrophils 69.9 % (42.0-75.0); Mean Corpuscular HGB CONC 31.9 g/dL (32.0-36.0); Mean Corpuscular Hemoglobin 29.5 pg (27.0-31.0); Mean Corpuscular Volume 92.5 fL (78.0-98.0); Mean Platelet Volume 6.9 fL (7.4-10.4); Platelet Count 236 thou/uL (130-400); RBC Distribution Width 12.2 % (11.5-14.5); Red Blood Cell (RBC) Count 4.42 mill/uL (4.20-5.40); White Blood Cell (WBC) Count 8.4 thou/uL (4.8-10.8)
--- NOTE | 2019-03-29 09:22 | RAD ---
PORTABLE CHEST: Date: 03/29/19 COMPARISON: 03/29/19. HISTORY: Shortness of breath. FINDINGS: Heart size is enlarged. Pulmonary vessels are mildly engorged. Film is of suboptimal inspiration. IMPRESSION: Cardiomegaly with mild pulmonary vascular engorgement. POS: EVAN
[2019-03-29 09:39] LABS: ALT (SGPT) 36 U/L (8-55); AST (SGOT) 31 U/L (5-34); Albumin 3.9 g/dL (3.5-5.0); Alkaline Phosphatase 80 U/L (40-150); Anion Gap 14 mmol/L (10-20); BUN (Urea Nitrogen) 18 mg/dL (9.8-20.1); Bilirubin, Total 0.3 mg/dL (0.2-1.2); Calc. Creatinine Clearance 0 mL/min (70-130); Calcium 9.6 mg/dL (7.8-10.44); Carbon Dioxide 34 mmol/L (22-29); Chloride 96 mmol/L (98-107); Estimated GFR-MDRD 44; Globulin 3.4 g/dL (2.4-3.5); Glucose 127 mg/dL (70-105); Potassium 3.9 mmol/L (3.5-5.1); Protein, Total 7.3 g/dL (6.0-8.3); Sodium 140 mmol/L (136-145)
[2019-03-29 10:15] LABS: Actual Bicarbonate (HCO3a) 36.6 mEq/L (22-28); Analyzer IN Cardio ER; Base Excess (BEa) 8.1 mEq/L (-2.0 to +3.0); Calcium, Ionized 1.22 mmol/L (1.12-1.30); Carboxyhemoglobin (COHb) 0.8 gm% (0.0-3.0); Hemoglobin (Hb) 13.5 g/dL (12.0-16.0); O2 Tension (PaO2) 72.6 mmHg (80.0-100.0); Potassium - ABG Lab 3.73 mmol/L (3.70-5.30); pH, Arterial 7.33 (7.35-7.45)
[2019-03-29 10:23] LABS: CO2 Tension 70.3 mmHg (35.0-45.0)
[2019-03-29 10:24] LABS: ALV-art Gradient 39.165 (0-20); Puncture Site LRA
[2019-03-29] MEDS ORDERED: Furosemide 40 MG/4 ML VIAL ONE ×2 (11:42→18:09)
[2019-03-29 12:42] LABS: Bilirubin Negative (Negative); Blood, Urine Negative (Negative); Clarity CLOUDY (Clear); Glucose, Urine (Dipstick) Negative (Negative); Leukocyte Negative (Negative); Nitrite Negative (Negative); Protein, Urine (Dipstick) Negative (Neg-Trace); Specific Gravity, Urine 1.012 (1.002-1.036); Urobilinogen 0.2 mg/dL (0.2-1.0)
[2019-03-29 13:00] LABS: Amphetamine Not Detected (NotDetected); Barbiturates Screen Not Detected (NotDetected); Benzodiazepine Screen Detected (NotDetected); Cocaine Metabolite Screen Not Detected (NotDetected); Medtox Control Line Valid? VALID (VALID); Medtox Reader # READER 4; Methadone Not Detected (NotDetected); Methamphetamine Not Detected (NotDetected); Opiate Screen Not Detected (NotDetected); Oxycodone Screen Not Detected (NotDetected); Phencyclidine (PCP) Not Detected (NotDetected); THC/Cannabinoid Screen Not Detected (NotDetected); Tricyclic Screen Detected (NotDetected)
[2019-03-29] MEDS ORDERED: Bisacodyl 5 MG TAB PO PRN (15:26)
[2019-03-29] MEDS ORDERED: Acetaminophen 325 MG TAB PO PRN (15:26)
[2019-03-29] MEDS ORDERED: Ondansetron PF 4 MG/2 ML Vial IVP PRN (15:26)
[2019-03-29] MEDS ORDERED: Ondansetron ODT 4 MG TAB PO PRN (15:26)
[2019-03-29] MEDS ORDERED: Enoxaparin Sodium 40 MG/0.4 ML SYRINGE SC SCH (15:30)
[2019-03-29] MEDS ORDERED: Furosemide 40 MG/4 ML VIAL SLOW IVP SCH (15:45)
[2019-03-29 15:48] LABS: Actual Bicarbonate (HCO3a) 37.1 mEq/L (22-28); Analyzer IN Cardio ER; Base Excess (BEa) 8.8 mEq/L (-2.0 to +3.0); Calcium, Ionized 1.19 mmol/L (1.12-1.30); Carboxyhemoglobin (COHb) 0.8 gm% (0.0-3.0); Hemoglobin (Hb) 13.8 g/dL (12.0-16.0); O2 Tension (PaO2) 71.9 mmHg (80.0-100.0); Potassium - ABG Lab 3.58 mmol/L (3.70-5.30); pH, Arterial 7.35 (7.35-7.45)
[2019-03-29 15:53] LABS: CO2 Tension 68.4 mmHg (35.0-45.0); Puncture Site RRA
--- NOTE | 2019-03-29 16:24 | HP ---
PRIMARY CARE PHYSICIAN: [facility]. CHIEF COMPLAINT: Mental status changes. HISTORY OF PRESENT ILLNESS: The patient with morbid obesity, hypertension, recent acute on chronic diastolic heart failure, who was just discharged from the hospital yesterday, March 28, 2019, was found in the ED to be somnolent. The patient is unable to provide any history. She reportedly was picked up by police and was brought to the hospital when she states she was trying to refill her psych medications. She also complained of shortness of breath. Review of the ED notes showed that the patient was evaluated and found to be stable and was discharged. While she was waiting for somebody to pick her up in the ED waiting room, the patient fell asleep, and while sleeping, she was nodding and they could not get her to wake up, hence she was brought back to the ED. Further evaluation with arterial blood gas showed mild respiratory acidosis with hypercarbia. Hospitalist consult was requested for admission and observation. The patient wakes up to deep sternal rub, but she is , however, unable to provide any significant history. More so, she has BiPAP mask on the face. Review of the patient's belongings showed that her old medications but none of her new medications. It is questionable whether the patient has relatives or had trouble picking her current medications. Its also questionable if patient took extra pills or took other substances. PAST MEDICAL HISTORY: 1. Hypertension. 2. Morbid obesity. 3. Bipolar disorder. 4. Schizophrenia with paranoia. 5. Anxiety and depression. PAST SURGICAL HISTORY: 1. Appendectomy. 2. Cholecystectomy. 3. Hysterectomy. 4. Tubal ligation. 5. Right leg surgery. FAMILY HISTORY: Positive for breast cancer in mother. SOCIAL HISTORY: Review of medical records showed that the patient is a nonsmoker, nondrinker, and nondrug user. She supposedly lives alone and also has a daughter who comes around to help her when possible. ALLERGIES: KEFLEX. MEDICATIONS: Recent discharge medications are as follows; 1. Tylenol 650 q.4 p.r.n. 2. Aspirin 81 mg p.o. daily. 3. Benztropine mesylate 1 mg p.o. b.i.d. 4. Doxepin 100 mg p.o. daily at bedtime. 5. Gabapentin 300 mg p.o. t.i.d. 6. Atarax 25 mg p.o. b.i.d. 7. Lisinopril 40 mg p.o. daily. 8. Metoprolol 50 mg p.o. b.i.d. 9. Nifedipine 60 mg p.o. b.i.d. 10. Seroquel 800 mg p.o. daily at bedtime. 11. Risperidone 4 mg p.o. b.i.d. 12. Spironolactone 50 mg p.o. daily. 13. Torsemide 40 mg p.o. daily. REVIEW OF SYSTEMS: Could not be performed. PHYSICAL EXAMINATION: VITAL SIGNS: On initial presentation to the ED at 12:40 a.m. on March 29, initial blood pressure was said to be 123/69, pulse of 103, respiratory rate of 19, SpO2 of 89 on room air which improved to 94 on 2 L nasal cannula. Most common vitals at 1426 hours on March 29, 2019, showed blood pressure of 148/108, pulse of 93, respiratory rate of 13, SpO2 of 100% on BiPAP. GENERAL: Somnolent, morbidly obese female with BiPAP mask in place. HEENT: Normocephalic, atraumatic. Pupils are reacting to light. BiPAP mask is in place. NECK: Short, thick neck with excess subcutaneous tissue. RESPIRATORY: BiPAP transmitted sound noted, though decreased at both bases. There is no respiratory distress or increased work of breathing. CARDIOVASCULAR: Regular rhythm and rate with normal heart sounds. No obvious murmur appreciated. GI: Abdomen is morbidly obese, soft, nontender, nondistended with normal bowel sounds. EXTREMITIES: Mild to moderate bilateral leg edema noticed. NEUROLOGIC: The patient is somnolent. Wakes up with deep sternal rub, managed to say a few words and goes back to sleep. DIAGNOSTIC DATA: Chest x-ray showed enlarged heart size as well as mildly engorged pulmonary vessels. EKG performed on March during the initial hospitalization showed no ischemic changes. ASSESSMENT: 1. Acute encephalopathy. 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 Acute respiratory failure with hypercarbia. Due to respiratory depression from medications most likely superimposed on obesity hypoventilation syndrome as well as possible obstructive sleep apnea. Etiology is unclear, but the patient is on several psychotropic medications. Substance use is a concern. Review of the patient's personal items showed that her home medications are there and she is supposed to be on risperidone 4 mg b.i.d. as well as Seroquel 800 mg daily at bedtime. 3. Acute on chronic diastolic heart failure with improvement. 4. Hypertension. 5. Bilateral lower extremity edema. 6. Morbid obesity with body mass index of 45 to 49 BMI. 7. Presumed obstructive sleep apnea. 8. Obesity hypoventilation syndrome. 9. Schizophrenia with paranoia. 10. Bipolar disorder. 11. SHAWN . Most likely due to cardiac dysfunction. PLAN: 1. We will continue noninvasive respiratory support with BiPAP. 2. We will also give the patient IV diuretics, and we will plan to restart antihypertensives when able. 3. We will also start IV hydralazine p.r.n. for acute elevation in blood pressure. 4. N.p.o. for now until the patient is fully awake. 5. We will admit the patient to IMCU for close observation and BiPAP therapy unless the patient's mental status improves soon and she could be de-escalated to medical floor. 6. We will hold all psychotropic medications for now. 7. DVT prophylaxis with Lovenox will be provided. 8. We will also get troponin to rule out acute myocardial infarction. 9. Code status: Full code. 10. Monitor renal function and I/O Job ID: [id number] MTDD
[2019-03-29] MEDS ORDERED: hydrALAZINE 20 MG/ML VIAL SLOW IVP PRN (18:06)
[2019-03-29] MEDS ORDERED: Enoxaparin Sodium 40 MG/0.4 ML SYRINGE ONE (18:16)
[2019-03-29 20:06] LABS: Anion Gap 14 mmol/L (10-20); BUN (Urea Nitrogen) 15 mg/dL (9.8-20.1); Calc. Creatinine Clearance 0 mL/min (70-130); Calcium 9.6 mg/dL (7.8-10.44); Carbon Dioxide 36 mmol/L (22-29); Chloride 95 mmol/L (98-107); Estimated GFR-MDRD 74; Glucose 109 mg/dL (70-105); Potassium 3.7 mmol/L (3.5-5.1); Sodium 141 mmol/L (136-145)
[2019-03-29 20:12] LABS: Troponin I Less than 0.010 ng/mL (< 0.028)
[2019-03-29] MEDS: Famotidine/PF 20 mg/2ml Vial SLOW IVP SCH (21:12)
[2019-03-29] MEDS: Famotidine 20 MG TAB PO SCH (21:14)
[2019-03-29] MEDS: Metoprolol Tartrate 5 MG/5 ML VIAL IVP SCH (23:14)
[2019-03-30 04:58] LABS: #Eosinphils 0.2 thou/uL (0.0-0.7); #Lymphocytes 2.6 thou/uL (1.20-3.40); #Monocytes 0.8 thou/uL (0.11-0.59); %Basophils 0.3 % (0.0-1.0); %Eosinophils 2.3 % (0.0-10.0); %Lymphocytes 27.2 % (21.0-51.0); %Neutrophils 62.1 % (42.0-75.0); Mean Corpuscular HGB CONC 33.4 g/dL (32.0-36.0); Mean Corpuscular Hemoglobin 31.2 pg (27.0-31.0); Mean Corpuscular Volume 93.4 fL (78.0-98.0); Mean Platelet Volume 7.2 fL (7.4-10.4); Platelet Count 204 thou/uL (130-400); RBC Distribution Width 12.1 % (11.5-14.5); Red Blood Cell (RBC) Count 4.17 mill/uL (4.20-5.40); White Blood Cell (WBC) Count 9.6 thou/uL (4.8-10.8)
[2019-03-30 05:15] LABS: ALT (SGPT) 37 U/L (8-55); AST (SGOT) 32 U/L (5-34); Albumin 3.7 g/dL (3.5-5.0); Alkaline Phosphatase 77 U/L (40-150); Anion Gap 13 mmol/L (10-20); BUN (Urea Nitrogen) 15 mg/dL (9.8-20.1); Bilirubin, Total 0.4 mg/dL (0.2-1.2); Calc. Creatinine Clearance 0 mL/min (70-130); Calcium 9.5 mg/dL (7.8-10.44); Carbon Dioxide 36 mmol/L (22-29); Chloride 96 mmol/L (98-107); Estimated GFR-MDRD 82; Globulin 3.6 g/dL (2.4-3.5); Glucose 115 mg/dL (70-105); Potassium 3.7 mmol/L (3.5-5.1); Protein, Total 7.3 g/dL (6.0-8.3); Sodium 141 mmol/L (136-145)
[2019-03-30] MEDS: Metoprolol Tartrate 5 MG/5 ML VIAL IVP SCH ×2 (05:29→09:44)
[2019-03-30] MEDS: Famotidine/PF 20 mg/2ml Vial SLOW IVP SCH (09:08)
[2019-03-30] MEDS: Famotidine 20 MG TAB PO SCH ×2 (09:39→20:55)
[2019-03-30] MEDS: Enoxaparin Sodium 40 MG/0.4 ML SYRINGE SC SCH (09:39)
[2019-03-30] MEDS: acetaZOLAMIDE Sodium 500 MG in Sodium Chloride 0.9% 50 ML IVPB SCH (09:43)
--- NOTE | 2019-03-30 10:41 | CON ---
DATE OF CONSULTATION: HISTORY OF PRESENT ILLNESS: Queen Pilar Contreras is a 59-year-old morbidly obese female, who was discharged home on 03/29 and comes back on 03/30 with similar problems, shortness of breath, anxiety, and feeling bad. She was supposed to be [facility]. Apparently, she is bipolar schizophrenic. She has some minor issues. It appears she sees a local family practice physician, Dr. Sosa, not clear when she saw him last. This morning, she is on the MICU. REASON FOR CONSULT: She is denying any chest pain, chills, sweats, or hemoptysis. She says she is a nonsmoker. PAST MEDICAL HISTORY: Consistent with diastolic dysfunction, hypertension, obesity, sleep apnea, depression, and bipolar schizophrenia. PAST SURGICAL HISTORY: Cholecystectomy, appendectomy. MEDICATIONS: Presumed medicine from home includes: 1. Risperidone 4 mg twice a day. 2. Demadex 40. 3. Spironolactone 50. 4. Seroquel 800. 5. Nifedipine 60 twice a day. 6. Lopressor 50 b.i.d. 7. Lisinopril 40. 8. Gabapentin 300. 9. Doxepin 100. 10. Benztropine 1 mg. 11. Aspirin. 12. Tylenol. ALLERGIES: KEFLEX. SOCIAL HISTORY: As noted. FAMILY HISTORY: As noted. REVIEW OF SYSTEMS: Otherwise 10 point negative. DIAGNOSTIC STUDIES: Last echocardiogram done in November 2018, read by Dr. Anderson shows EF was normal. No evidence of systolic function, maybe some diastolic dysfunction. Impression, normal EF. PHYSICAL EXAMINATION: VITAL SIGNS: Sats are 96% on 2 L, blood pressure 160/90, respiratory rate 18, and pulse 80. CHEST: Decreased breath sounds. No wheezing. CARDIAC: Normal S1 and S2. No gallops. ABDOMEN: Soft and massive. EXTREMITIES: Trace edema. LABORATORY DATA: White count 9000, hemoglobin and hematocrit of 13 and 39, platelet count normal. A pO2 of 71, pCO2 of 68, pH 7.35, and bicarb was 36. IMPRESSION: 1. Morbid obesity, sleep apnea, unclear why she has a CPAP from. 2. Nonsmoker by history. 3. Diastolic dysfunction from marked metabolic alkalosis probably secondary to diuretic abuse. 4. Bipolar schizophrenia. Minimize diuretics. Continue nocturnal CPAP as prescribed. I will add Diamox for a few days. She may be stable to be discharged back followed by primary care physician in the next day or two. Consultation note, 70 minutes, 50% direct patient care. Job ID: [id number]
[2019-03-30] MEDS ORDERED: Lisinopril 20 MG TAB PO SCH (12:30)
[2019-03-30] MEDS ORDERED: Torsemide 20 MG TAB PO SCH (12:30)
[2019-03-30] MEDS ORDERED: Metoprolol Tartrate 50 MG TAB PO SCH (12:30)
[2019-03-30] MEDS ORDERED: NIFEdipine XL 60 MG TAB PO SCH (12:30)
--- NOTE | 2019-03-30 14:33 | PDOC.PN ---
- Subjective Encounter Start Date: 03/30/19 Encounter Start Time: 11:32 Subjective: Awake and conversational. No complains. -: cannot provide history of events leading to hospitalization. -: thinks she took some medication in the Ed but can't tell which. - Objective Resuscitation Status - Order Detail: 03/29/19 15:26 Resuscitation Status Routine Resuscitation Status: FULL: Full Resuscitation Vital Signs & Weight: Vital Signs (12 hours) Temp Pulse Resp BP Pulse Ox 03/30/19 13:16 107 H 03/30/19 10:31 99.2 F 03/30/19 08:00 100 03/30/19 07:14 99.6 F 03/30/19 06:38 97 03/30/19 04:00 107 H 16 123/85 98 03/30/19 03:51 98.5 F 03/30/19 03:00 107 H 21 H 123/79 96 Weight Weight 309 lb 14.4 oz Most Recent Monitor Data Heart Rate from ECG 108 NIBP 136/82 NIBP BP-Mean 100 Respiration from ECG 12 SpO2 97 I&O: 03/29/19 03/30/19 03/31/19 06:59 06:59 06:59 Output Total 1950 Balance -1950 Result Diagrams: 03/30/19 04:28 03/30/19 04:28 Phys Exam - Physical Examination Constitutional: NAD morbidly obese HEENT: PERRLA, moist MMs facial hairs noted Neck: supple short thick neck fair air entry bilaterally with some transmitted sosund Regular but tachycardic Gastrointestinal: soft, non-tender, no distention, positive bowel sounds mild moderate bilateralleg edema Neurological: non-focal, moves all 4 limbs Psychiatric: A&O x 3 Dx/Plan (1) Acute respiratory failure with hypoxia and hypercapnia Code(s): J96.01 - ACUTE RESPIRATORY FAILURE WITH HYPOXIA; J96.02 - ACUTE RESPIRATORY FAILURE WITH HYPERCAPNIA Status: Acute (2) Acute metabolic encephalopathy Code(s): G93.41 - METABOLIC ENCEPHALOPATHY Status: Acute (3) Acute on chronic diastolic (congestive) heart failure Code(s): I50.33 - ACUTE ON CHRONIC DIASTOLIC (CONGESTIVE) HEART FAILURE Status : Acute (4) Bilateral edema of lower extremity Code(s): R60.0 - LOCALIZED EDEMA Status: Acute Comment: Improving (5) NYA (obstructive sleep apnea) Code(s): G47.33 - OBSTRUCTIVE SLEEP APNEA (ADULT) (PEDIATRIC) Status: Acute Comment: Suspected. Needs outpatient sleep study (6) Hypertension Code(s): I10 - ESSENTIAL (PRIMARY) HYPERTENSION Status: Chronic Qualifiers: Hypertension type: essential hypertension Qualified Code(s): I10 - Essential (primary) hypertension Comment: Control still suptimal. (7) Morbid obesity with BMI of 45.0-49.9, adult Code(s): E66.01 - MORBID (SEVERE) OBESITY DUE TO EXCESS CALORIES; Z68.42 - BODY MASS INDEX (BMI) 45.0-49.9, ADULT Status: Chronic (8) SHAWN (acute kidney injury) Code(s): N17.9 - ACUTE KIDNEY FAILURE, UNSPECIFIED Status: Acute Comment: Due to cardiac dysfynction. Resolved - Plan Off BIPAP. Wean off oxygen astolerated. -: Continue to hold aall psychotropic medications -: Restart antihypertensives and diuretics -: Transfer patient to medical floor. -: Consult social work as patient may be homeless. * .
[2019-03-30] MEDS: Metoprolol Tartrate 50 MG TAB PO SCH (20:56)
[2019-03-31] MEDS ORDERED: Diabetic Tussin 200 MG/10 ML UDCUP PO PRN (06:59)
[2019-03-31] MEDS ORDERED: Acetaminophen 325 MG TAB PO PRN (06:59)
[2019-03-31] MEDS ORDERED: Loperamide HCl 2 MG CAP PO PRN (06:59)
[2019-03-31] MEDS ORDERED: Cepastat Lozenges 1 LOZ PO PRN (06:59)
[2019-03-31] MEDS ORDERED: Sodium Chloride 0.65% Nasal 44 ML BOT EA NARE PRN (06:59)
[2019-03-31] MEDS ORDERED: Eucerin (Mineral Oil/Petrolatum,White) 30 gm Jar TOP PRN (06:59)
[2019-03-31] MEDS ORDERED: Artificial Tears 18 DROP/0.9 ML EA EYE PRN (06:59)
[2019-03-31 09:09] LABS: #Basophils 0.1 thou/uL (0.0-0.2); #Eosinphils 0.2 thou/uL (0.0-0.7); #Lymphocytes 2.4 thou/uL (1.20-3.40); #Monocytes 0.6 thou/uL (0.11-0.59); #Neutrophils 4.1 thou/uL (1.40-6.50); %Eosinophils 2.5 % (0.0-10.0); %Lymphocytes 32.3 % (21.0-51.0); %Monocytes 8.4 % (0.0-10.0); %Neutrophils 55.8 % (42.0-75.0); Mean Corpuscular HGB CONC 33.1 g/dL (32.0-36.0); Mean Corpuscular Hemoglobin 30.8 pg (27.0-31.0); Mean Corpuscular Volume 93.2 fL (78.0-98.0); Mean Platelet Volume 7.1 fL (7.4-10.4); Platelet Count 218 thou/uL (130-400); RBC Distribution Width 12.2 % (11.5-14.5); Red Blood Cell (RBC) Count 4.22 mill/uL (4.20-5.40); White Blood Cell (WBC) Count 7.4 thou/uL (4.8-10.8)
[2019-03-31] MEDS: NIFEdipine XL 60 MG TAB PO SCH (09:20)
[2019-03-31] MEDS: Aspirin Chewable 81 MG TAB PO SCH (09:20)
[2019-03-31] MEDS: acetaZOLAMIDE Sodium 500 MG in Sodium Chloride 0.9% 50 ML IVPB SCH (09:20)
[2019-03-31] MEDS: Benztropine 1 MG TAB PO SCH ×2 (09:20→20:08)
[2019-03-31] MEDS: Lisinopril 20 MG TAB PO SCH (09:21)
[2019-03-31] MEDS: Torsemide 20 MG TAB PO SCH (09:21)
[2019-03-31] MEDS: Famotidine 20 MG TAB PO SCH ×2 (09:21→20:08)
[2019-03-31] MEDS: Metoprolol Tartrate 50 MG TAB PO SCH ×2 (09:21→20:08)
[2019-03-31] MEDS: Spironolactone 25 MG TAB PO SCH (09:21)
[2019-03-31] MEDS: Enoxaparin Sodium 40 MG/0.4 ML SYRINGE SC SCH (09:22)
[2019-03-31 09:30] LABS: Anion Gap 11 mmol/L (10-20); BUN (Urea Nitrogen) 16 mg/dL (9.8-20.1); Calc. Creatinine Clearance 135 mL/min (70-130); Calcium 9.7 mg/dL (7.8-10.44); Carbon Dioxide 33 mmol/L (22-29); Chloride 97 mmol/L (98-107); Estimated GFR-MDRD 69; Glucose 124 mg/dL (70-105); Potassium 3.3 mmol/L (3.5-5.1); Sodium 138 mmol/L (136-145)
--- NOTE | 2019-03-31 10:21 | PDOC.PN ---
- Subjective Encounter Start Date: 03/31/19 Encounter Start Time: 07:00 pt is on room air, she appeared comfortable, no new complaints at this time - Objective Resuscitation Status - Order Detail: 03/29/19 15:26 Resuscitation Status Routine Resuscitation Status: FULL: Full Resuscitation MAR Reviewed: Yes Vital Signs & Weight: Vital Signs (12 hours) Temp Pulse Resp BP BP BP Pulse Ox 03/31/19 08:00 93 L 03/31/19 07:28 94 20 145/90 H 03/31/19 07:27 93 20 119/77 03/31/19 06:58 98.3 F 91 16 114/78 93 L 03/31/19 04:00 98.2 F 97 20 84/50 L 93 L 03/30/19 23:28 98.6 F 85 20 115/72 92 L Weight Weight 306 lb 8 oz Most Recent Monitor Data Heart Rate from ECG 108 NIBP 136/82 NIBP BP-Mean 100 Respiration from ECG 12 SpO2 97 I&O: 03/30/19 03/31/19 04/01/19 06:59 06:59 06:59 Intake Total 1340 Output Total 1950 450 Balance -1950 890 Result Diagrams: 03/31/19 08:42 03/31/19 08:42 Radiology Reviewed by me: Yes Phys Exam - Physical Examination Constitutional: NAD HEENT: PERRLA, moist MMs, sclera anicteric Neck: no JVD, supple Respiratory: no wheezing, no rales, no rhonchi Cardiovascular: RRR, no significant murmur, no rub Gastrointestinal: soft, non-tender, no distention, positive bowel sounds morbid obesity limiting exam Musculoskeletal: no edema, pulses present Neurological: non-focal, normal sensation, moves all 4 limbs Lymphatic: no nodes Psychiatric: normal affect, A&O x 3 Skin: no rash, normal turgor Dx/Plan (1) SHAWN (acute kidney injury) Code(s): N17.9 - ACUTE KIDNEY FAILURE, UNSPECIFIED Status: Resolved Comment : (2) Acute metabolic encephalopathy Code(s): G93.41 - METABOLIC ENCEPHALOPATHY Status: Resolved (3) Acute respiratory failure with hypoxia and hypercapnia Code(s): J96.01 - ACUTE RESPIRATORY FAILURE WITH HYPOXIA; J96.02 - ACUTE RESPIRATORY FAILURE WITH HYPERCAPNIA Status: Acute (4) Hypokalemia Code(s): E87.6 - HYPOKALEMIA Status: Acute (5) Anxiety and depression Code(s): F41.9 - ANXIETY DISORDER, UNSPECIFIED; F32.9 - MAJOR DEPRESSIVE DISORDER, SINGLE EPISODE, UNSPECIFIED Status: Chronic (6) Chronic stage c diastolic heart failure Code(s): I50.32 - CHRONIC DIASTOLIC (CONGESTIVE) HEART FAILURE Status: Chronic (7) Hypertension Code(s): I10 - ESSENTIAL (PRIMARY) HYPERTENSION Status: Chronic Qualifiers: Hypertension type: essential hypertension Qualified Code(s): I10 - Essential (primary) hypertension Comment: (8) Morbid obesity with BMI of 50.0-59.9, adult Code(s): E66.01 - MORBID (SEVERE) OBESITY DUE TO EXCESS CALORIES; Z68.43 - BODY MASS INDEX (BMI) 50-59.9, ADULT Status: Chronic (9) NYA (obstructive sleep apnea) Code(s): G47.33 - OBSTRUCTIVE SLEEP APNEA (ADULT) (PEDIATRIC) Status: Chronic Comment: Suspected. 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 * ambulate as tolerated Review of Systems - Review of Systems ENT: negative: Ear Pain, Ear Discharge, Nose Pain, Nose Discharge, Nose Congestion, Mouth Pain, Mouth Swelling, Throat Pain, Throat Swelling, Other Respiratory: negative: Cough, Dry, Shortness of Breath, Hemoptysis, SOB with Excertion, Pleuritic Pain, Sputum, Wheezing Cardiovascular: negative: chest pain, palpitations, orthopnea, paroxysmal nocturnal dyspnea, edema, light headedness, other Gastrointestinal: negative: Nausea, Vomiting, Abdominal Pain, Diarrhea, Constipation, Melena, Hematochezia, Other Genitourinary: negative: Dysuria, Frequency, Incontinence, Hematuria, Retention , Other Musculoskeletal: negative: Neck Pain, Shoulder Pain, Arm Pain, Back Pain, Hand Pain, Leg Pain, Foot Pain, Other Skin: negative: Rash, Lesions, Adin, Bruising, Other - Medications/Allergies Allergies/Adverse Reactions: Allergies Allergy/AdvReac Type Severity Reaction Status Date / Time cephalexin monohydrate Allergy Intermediate Rash Verified 02/11/19 05:01 [From [facility]] Medications: Current Medications Acetaminophen (Tylenol) 650 mg PO Q4H PRN PRN Reason: Headache/Fever/Mild Pain (1-3) Artificial Tears (Tears Naturale) 2 drop EA EYE PRN PRN PRN Reason: Dry Eyes Aspirin (Aspirin Chewable) 81 mg PO DAILY [facility] Benztropine Mesylate (Cogentin) 1 mg PO BID [facility] Bisacodyl (Dulcolax) 10 mg PO DAILYPRN PRN PRN Reason: Constipation Doxepin HCl (Sinequan) 100 mg PO HS [facility] Enoxaparin Sodium (Lovenox) 40 mg SC 0900 [facility] Last Admin: 03/30/19 09:39 Dose: 40 mg Famotidine (Pepcid) 20 mg PO BID [facility] Last Admin: 03/30/19 20:55 Dose: 20 mg Guaifenesin (Robitussin Sf) 200 mg PO Q4H PRN PRN Reason: Cough Hydralazine HCl (Apresoline) 10 mg SLOW IVP Q4H PRN PRN Reason: Hypertension Acetazolamide Sodium 500 mg/ (Sodium Chloride) 50 mls @ 100 mls/hr IVPB DAILY [facility] Stop: 04/02/19 09:01 Last Admin: 03/30/19 09:43 Dose: 50 mls Lisinopril (Zestril) 40 mg PO DAILY [facility] Loperamide HCl (Imodium) 2 mg PO PRN PRN PRN Reason: Diarrhea/Loose Stools Metoprolol Tartrate (Lopressor) 50 mg PO BID [facility] Last Admin: 03/30/19 20:56 Dose: 50 mg Mineral Oil/White Petrolatum (Eucerin Cream) 0 gm TOP BIDPRN PRN PRN Reason: Dry Skin Nifedipine (Procardia Xl) 60 mg PO DAILY [facility] Ondansetron HCl (Zofran Odt) 4 mg PO Q6H PRN PRN Reason: Nausea/Vomiting Ondansetron HCl (Zofran) 4 mg IVP Q6H PRN PRN Reason: Nausea/Vomiting Potassium Chloride (K-Dur) 40 meq PO ONE [facility] Quetiapine Fumarate (Seroquel) 400 mg PO HS [facility] Senna/Docusate Sodium (Senokot S) 2 tab PO BID PRN PRN Reason: Constipation Sodium Chloride (Flush - Normal Saline) 10 ml IVF Q12HR [facility] Last Admin: 03/30/19 20:56 Dose: 10 ml Sodium Chloride (Flush - Normal Saline) 10 ml IVF PRN PRN PRN Reason: Saline Flush Sodium Chloride ([place]al [place] 0.65%) 0 ml EA NARE QIDPRN PRN PRN Reason: Nasal Congestion Spironolactone (Aldactone) 50 mg PO DAILY [facility] Throat Lozenges (Cepastat Lozenges) 1 juno PO Q2H PRN PRN Reason: Sore Throat Torsemide (Demadex) 40 mg PO DAILY [facility]
[2019-03-31] MEDS ORDERED: Potassium Chloride 20 MEQ TAB PO SCH (10:30)
--- NOTE | 2019-03-31 13:55 | PRG ---
DATE OF SERVICE: 03/31/2019 SUBJECTIVE: A 59-year-old morbidly obese female with sleep apnea. OBJECTIVE: VITAL SIGNS: Saturations are 96% on room air, respiratory rate 20, temperature 97, and blood pressure 120/88. GENERAL: She is better, less short of breath, less coughing, and less wheezing. CHEST: Decreased breath sounds. No wheezing. CARDIAC: Normal S1 and S2. No gallops. LABORATORY DATA: Bicarb is down to 33 and potassium 3.3. ASSESSMENT AND PLAN: Metabolic alkalosis secondary to diuretics, chronic obstructive pulmonary disease, and sleep apnea. Avoid diuretics. Disposition as per primary care physician. Job ID: [id number]
[2019-03-31] MEDS: Doxepin HCl 25 MG CAP PO SCH (20:13)
[2019-03-31] MEDS ORDERED: Non-Formulary Item 1 EACH (Doxepin Hcl [Doxepin Hcl] 100 MG) PO SCH (21:00)
[2019-04-01] MEDS: Enoxaparin Sodium 40 MG/0.4 ML SYRINGE SC SCH (07:47)
[2019-04-01] MEDS: NIFEdipine XL 60 MG TAB PO SCH (07:47)
[2019-04-01] MEDS: Benztropine 1 MG TAB PO SCH ×2 (07:47→20:33)
[2019-04-01] MEDS: Spironolactone 25 MG TAB PO SCH (07:48)
[2019-04-01] MEDS: Torsemide 20 MG TAB PO SCH (07:48)
[2019-04-01] MEDS: Metoprolol Tartrate 50 MG TAB PO SCH ×2 (07:48→20:34)
[2019-04-01] MEDS: Lisinopril 20 MG TAB PO SCH (07:48)
[2019-04-01] MEDS: Aspirin Chewable 81 MG TAB PO SCH (07:48)
[2019-04-01] MEDS: Famotidine 20 MG TAB PO SCH ×2 (07:48→20:34)
--- NOTE | 2019-04-01 09:18 | PDOC.PN ---
- Subjective Encounter Start Date: 04/01/19 Encounter Start Time: 07:00 Patient seen and examined. No new complaints. No overnight events - Objective Resuscitation Status - Order Detail: 03/29/19 15:26 Resuscitation Status Routine Resuscitation Status: FULL: Full Resuscitation MAR Reviewed: Yes Vital Signs & Weight: Vital Signs (12 hours) Temp Pulse Resp BP BP BP BP 04/01/19 07:48 120/88 04/01/19 07:47 95 120/88 04/01/19 07:43 98 20 148/102 H 04/01/19 07:41 86 20 117/78 04/01/19 07:00 97.6 F 95 20 120/88 Pulse Ox 04/01/19 07:48 04/01/19 07:47 04/01/19 07:43 04/01/19 07:41 04/01/19 07:00 99 Weight Weight 300 lb 14.4 oz Most Recent Monitor Data Heart Rate from ECG 108 NIBP 136/82 NIBP BP-Mean 100 Respiration from ECG 12 SpO2 97 I&O: 03/31/19 04/01/19 04/02/19 06:59 06:59 06:59 Intake Total 1340 500 Output Total 450 Balance 890 500 Result Diagrams: 03/31/19 08:42 03/31/19 08:42 Phys Exam - Physical Examination Constitutional: NAD HEENT: PERRLA, moist MMs, sclera anicteric Neck: no JVD, supple Respiratory: no wheezing, no rales, no rhonchi Cardiovascular: RRR, no significant murmur, no rub Gastrointestinal: soft, non-tender, no distention, positive bowel sounds Musculoskeletal: no edema, pulses present Neurological: non-focal, normal sensation, moves all 4 limbs Lymphatic: no nodes Psychiatric: normal affect, A&O x 3 Skin: no rash, normal turgor Dx/Plan (1) SHAWN (acute kidney injury) Code(s): N17.9 - ACUTE KIDNEY FAILURE, UNSPECIFIED Status: Resolved Comment : (2) Acute metabolic encephalopathy Code(s): G93.41 - METABOLIC ENCEPHALOPATHY Status: Resolved (3) Acute respiratory failure with hypoxia and hypercapnia Code(s): J96.01 - ACUTE RESPIRATORY FAILURE WITH HYPOXIA; J96.02 - ACUTE RESPIRATORY FAILURE WITH HYPERCAPNIA Status: Acute (4) Hypokalemia Code(s): E87.6 - HYPOKALEMIA Status: Acute (5) Anxiety and depression Code(s): F41.9 - ANXIETY DISORDER, UNSPECIFIED; F32.9 - MAJOR DEPRESSIVE DISORDER, SINGLE EPISODE, UNSPECIFIED Status: Chronic (6) Chronic stage c diastolic heart failure Code(s): I50.32 - CHRONIC DIASTOLIC (CONGESTIVE) HEART FAILURE Status: Chronic (7) Hypertension Code(s): I10 - ESSENTIAL (PRIMARY) HYPERTENSION Status: Chronic Qualifiers: Hypertension type: essential hypertension Qualified Code(s): I10 - Essential (primary) hypertension Comment: (8) Morbid obesity with BMI of 50.0-59.9, adult Code(s): E66.01 - MORBID (SEVERE) OBESITY DUE TO EXCESS CALORIES; Z68.43 - BODY MASS INDEX (BMI) 50-59.9, ADULT Status: Chronic (9) NYA (obstructive sleep apnea) Code(s): G47.33 - OBSTRUCTIVE SLEEP APNEA (ADULT) (PEDIATRIC) Status: Chronic Comment: Suspected. 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 Review of Systems - Review of Systems ENT: negative: Ear Pain, Ear Discharge, Nose Pain, Nose Discharge, Nose Congestion, Mouth Pain, Mouth Swelling, Throat Pain, Throat Swelling, Other Respiratory: negative: Cough, Dry, Shortness of Breath, Hemoptysis, SOB with Excertion, Pleuritic Pain, Sputum, Wheezing Cardiovascular: negative: chest pain, palpitations, orthopnea, paroxysmal nocturnal dyspnea, edema, light headedness, other Gastrointestinal: negative: Nausea, Vomiting, Abdominal Pain, Diarrhea, Constipation, Melena, Hematochezia, Other Genitourinary: negative: Dysuria, Frequency, Incontinence, Hematuria, Retention , Other Musculoskeletal: negative: Neck Pain, Shoulder Pain, Arm Pain, Back Pain, Hand Pain, Leg Pain, Foot Pain, Other Skin: negative: Rash, Lesions, Adin, Bruising, Other - Medications/Allergies Allergies/Adverse Reactions: Allergies Allergy/AdvReac Type Severity Reaction Status Date / Time cephalexin monohydrate Allergy Intermediate Rash Verified 02/11/19 05:01 [From Keflex] Medications: Current Medications Acetaminophen (Tylenol) 650 mg PO Q4H PRN PRN Reason: Headache/Fever/Mild Pain (1-3) Artificial Tears (Tears Naturale) 2 drop EA EYE PRN PRN PRN Reason: Dry Eyes Aspirin (Aspirin Chewable) 81 mg PO DAILY [facility] Last Admin: 04/01/19 07:48 Dose: 81 mg Benztropine Mesylate (Cogentin) 1 mg PO BID [facility] Last Admin: 04/01/19 07:47 Dose: 1 mg Bisacodyl (Dulcolax) 10 mg PO DAILYPRN PRN PRN Reason: Constipation Doxepin HCl (Sinequan) 100 mg PO HS [facility] Last Admin: 03/31/19 20:13 Dose: 100 mg Enoxaparin Sodium (Lovenox) 40 mg SC 0900 [facility] Last Admin: 04/01/19 07:47 Dose: 40 mg Famotidine (Pepcid) 20 mg PO BID [facility] Last Admin: 04/01/19 07:48 Dose: 20 mg Guaifenesin (Robitussin Sf) 200 mg PO Q4H PRN PRN Reason: Cough Hydralazine HCl (Apresoline) 10 mg SLOW IVP Q4H PRN PRN Reason: Hypertension Acetazolamide Sodium 500 mg/ (Sodium Chloride) 50 mls @ 100 mls/hr IVPB DAILY [facility] Stop: 04/02/19 09:01 Last Admin: 03/31/19 09:20 Dose: 50 mls Lisinopril (Zestril) 40 mg PO DAILY [facility] Last Admin: 04/01/19 07:48 Dose: 40 mg Loperamide HCl (Imodium) 2 mg PO PRN PRN PRN Reason: Diarrhea/Loose Stools Metoprolol Tartrate (Lopressor) 50 mg PO BID [facility] Last Admin: 04/01/19 07:48 Dose: 50 mg Mineral Oil/White Petrolatum (Eucerin Cream) 0 gm TOP BIDPRN PRN PRN Reason: Dry Skin Nifedipine (Procardia Xl) 60 mg PO DAILY [facility] Last Admin: 04/01/19 07:47 Dose: 60 mg Ondansetron HCl (Zofran Odt) 4 mg PO Q6H PRN PRN Reason: Nausea/Vomiting Ondansetron HCl (Zofran) 4 mg IVP Q6H PRN PRN Reason: Nausea/Vomiting Quetiapine Fumarate (Seroquel) 400 mg PO HS [facility] Last Admin: 03/31/19 20:08 Dose: 400 mg Senna/Docusate Sodium (Senokot S) 2 tab PO BID PRN PRN Reason: Constipation Sodium Chloride (Flush - Normal Saline) 10 ml IVF Q12HR [facility] Last Admin: 04/01/19 07:49 Dose: 10 ml Sodium Chloride (Flush - Normal Saline) 10 ml IVF PRN PRN PRN Reason: Saline Flush Sodium Chloride ([place] Nasal [place] 0.65%) 0 ml EA NARE QIDPRN PRN PRN Reason: Nasal Congestion Spironolactone (Aldactone) 50 mg PO DAILY [facility] Last Admin: 04/01/19 07:48 Dose: 50 mg Throat Lozenges (Cepastat Lozenges) 1 juno PO Q2H PRN PRN Reason: Sore Throat Torsemide (Demadex) 40 mg PO DAILY [facility] Last Admin: 04/01/19 07:48 Dose: 40 mg
[2019-04-01] MEDS: acetaZOLAMIDE Sodium 500 MG in Sodium Chloride 0.9% 50 ML IVPB SCH (09:29)
--- NOTE | 2019-04-01 10:01 | DIS ---
DATE OF ADMISSION: 03/29/2019 DATE OF DISCHARGE: 04/01/2019 PRIMARY CARE PHYSICIAN: [facility] Rebeka. DISCHARGE DISPOSITION: Home. PRIMARY DISCHARGE DIAGNOSES: 1. Acute metabolic encephalopathy due to CO2 narcosis. 2. Acute respiratory failure with hypercapnia and hypoxia, respiratory acidosis. 3. Acute kidney injury, improved. SECONDARY DISCHARGE DIAGNOSES: Chronic diastolic heart failure, hypertension, morbid obesity, obstructive sleep apnea with obesity hypoventilation syndrome, schizophrenia and paranoia, bipolar disorder. PRIMARY PROCEDURE/OPERATION: None. RADIOLOGICAL INVESTIGATION: Chest x-ray. SIGNIFICANT LABORATORY DATA: Hemoglobin 13.0, CO2 of 68.4, creatinine 1.0. Urinalysis normal. DISCHARGE MEDICATIONS: The patient needs to follow up with primary care physician to adjust psychiatric medication. We advised this patient to follow up with [facility] so they can reduce medication dose and frequency if possible to avoid somnolence. Currently, the patient is on following medication, 1. Benztropine 1 mg p.o. b.i.d. 2. Doxepin 100 mg p.o. at bedtime. 3. Gabapentin 300 mg t.i.d. 4. Atarax 25 mg b.i.d. 5. Seroquel 800 mg at bedtime. 6. Risperidone 4 mg b.i.d. 7. Aspirin 81 mg p.o. daily. 8. Lisinopril 40 mg p.o. daily. 9. Metoprolol 50 mg b.i.d. 10. Nifedipine 60 mg b.i.d. 11. Aldactone 50 mg daily. 12. Demadex 40 mg p.o. daily. CONTRAINDICATION: None. CODE STATUS: Full code. INPATIENT SOFTWARE TEST MANAGER: Dr. Womack was following while in hospital. TEST RESULTS PENDING ON DISCHARGE: None. ALLERGIES: KEFLEX. DISCHARGE PLAN: Posthospital, the patient will need outpatient sleep study and followup with felt washing machine tender as well as primary care physician and psychiatrist. HOSPITAL COURSE: A 59-year-old female with above-mentioned medical problem, who was admitted by Dr. Coello, please see his H and P for further details. This patient was discharged from hospital and next day, she came back to emergency room with somnolent condition. She was found with respiratory acidosis. She was having CO2 narcosis. She improved in the emergency room after treatment for CO2 narcosis. She required momentarily BiPAP and she was subsequently admitted to the floor. With BiPAP therapy, the patient's condition significantly improved to the normal. We are suspecting that this patient has underlying psychiatric problem and she is taking multiple sedative medications that might have contributed to her current condition. She has underlying obesity hypoventilation syndrome and underlying sleep apnea, but she needs outpatient sleep study, so she can get CPAP machine. This patient also has little bit problem with her discharge placement and that is why we are working with dependency case manager to assist her better discharge planning. Otherwise, this patient is continued to be high risk for recurrent admission. We are not making any change in medication and I advised this patient to follow up with primary care physician, psychiatrist, so they can adjust her psychiatric medication. She is also advised to follow up with felt washing machine tender for outpatient sleep study. The patient is seen and examined at bedside today. Her physical examination unremarkable. Her vitals are stable. She is tolerating p.o. well and ambulatory. Job ID: [id number]
--- NOTE | 2019-04-01 13:43 | PRG ---
DATE OF SERVICE: 04/01/2019 SUBJECTIVE: Queen Pilar Contreras is a morbidly obese female. This morning, she says she is feeling better. Less short of breath. OBJECTIVE: VITAL SIGNS: Saturations 98% on room air, blood pressure 120/80, pulse 95, afebrile. CHEST: Decreased breath sounds. No wheezing. CARDIAC: Normal S1 and S2. No gallops. ABDOMEN: No masses. IMPRESSION: Chronic obstructive pulmonary disease, morbid obesity, metabolic alkalosis, diastolic dysfunction, bipolar, hypertension. DISPOSITION: She appears to be stable enough to be discharged home. Follow up with the primary care physician. Job ID: [id number]
[2019-04-01] MEDS: Doxepin HCl 25 MG CAP PO SCH (20:33)
[2019-04-02] MEDS: Metoprolol Tartrate 50 MG TAB PO SCH ×2 (09:05→20:05)
[2019-04-02] MEDS: NIFEdipine XL 60 MG TAB PO SCH (09:05)
[2019-04-02] MEDS: Torsemide 20 MG TAB PO SCH (09:05)
[2019-04-02] MEDS: Famotidine 20 MG TAB PO SCH ×2 (09:05→20:05)
[2019-04-02] MEDS: Spironolactone 25 MG TAB PO SCH (09:05)
[2019-04-02] MEDS: Aspirin Chewable 81 MG TAB PO SCH (09:05)
[2019-04-02] MEDS: Benztropine 1 MG TAB PO SCH ×2 (09:05→20:05)
[2019-04-02] MEDS: Lisinopril 20 MG TAB PO SCH (09:06)
[2019-04-02] MEDS: Enoxaparin Sodium 40 MG/0.4 ML SYRINGE SC SCH (09:06)
[2019-04-02] MEDS: Senokot S 8.6-50 MG TAB PO PRN (09:11)
--- NOTE | 2019-04-02 10:19 | PRG ---
DATE OF SERVICE: 04/02/2019 SUBJECTIVE: A 59-year-old morbidly obese female, better. OBJECTIVE: VITAL SIGNS: Sats on room air 94%, blood pressure 140/71, temperature 97, pulse 80. CHEST: Decreased breath sounds. No wheezing. CARDIAC: Normal S1, S2. No gallops. ABDOMEN: No masses. IMPRESSION: Chronic obstructive pulmonary disease, morbid obesity, probably sleep apnea, marked metabolic alkalosis, diastolic dysfunction. The patient can be discharged home. Follow up with primary care, environmental compliance inspector physician. Encouraged to lose weight, encouraged to stay on the CPAP. Job ID: [id number]
--- NOTE | 2019-04-02 10:58 | PDOC.PN ---
- Subjective Encounter Start Date: 04/02/19 Encounter Start Time: 07:10 -: old records requested/rev Patient seen and examined. No new complaints. No overnight events - Objective Resuscitation Status - Order Detail: 03/29/19 15:26 Resuscitation Status Routine Resuscitation Status: FULL: Full Resuscitation MAR Reviewed: Yes Vital Signs & Weight: Vital Signs (12 hours) Temp Pulse Resp BP BP Pulse Ox 04/02/19 09:06 114/71 04/02/19 09:05 89 114/71 04/02/19 08:00 94 L 04/02/19 07:00 97.3 F L 89 20 114/71 94 L Weight Weight 305 lb 4.8 oz Most Recent Monitor Data Heart Rate from ECG 108 NIBP 136/82 NIBP BP-Mean 100 Respiration from ECG 12 SpO2 97 I&O: 04/01/19 04/02/19 04/03/19 06:59 06:59 06:59 Intake Total 500 500 Balance 500 500 Result Diagrams: 03/31/19 08:42 03/31/19 08:42 Phys Exam - Physical Examination Constitutional: NAD HEENT: PERRLA, moist MMs, sclera anicteric Neck: no JVD, supple Respiratory: no wheezing, no rales, no rhonchi Cardiovascular: RRR, no significant murmur, no rub Gastrointestinal: soft, non-tender, no distention, positive bowel sounds Musculoskeletal: no edema, pulses present Neurological: non-focal, normal sensation, moves all 4 limbs Lymphatic: no nodes Psychiatric: normal affect, A&O x 3 Skin: no rash, normal turgor Dx/Plan (1) SHAWN (acute kidney injury) Code(s): N17.9 - ACUTE KIDNEY FAILURE, UNSPECIFIED Status: Resolved Comment : (2) Acute metabolic encephalopathy Code(s): G93.41 - METABOLIC ENCEPHALOPATHY Status: Resolved (3) Acute respiratory failure with hypoxia and hypercapnia Code(s): J96.01 - ACUTE RESPIRATORY FAILURE WITH HYPOXIA; J96.02 - ACUTE RESPIRATORY FAILURE WITH HYPERCAPNIA Status: Acute (4) Hypokalemia Code(s): E87.6 - HYPOKALEMIA Status: Acute (5) Anxiety and depression Code(s): F41.9 - ANXIETY DISORDER, UNSPECIFIED; F32.9 - MAJOR DEPRESSIVE DISORDER, SINGLE EPISODE, UNSPECIFIED Status: Chronic (6) Chronic stage c diastolic heart failure Code(s): I50.32 - CHRONIC DIASTOLIC (CONGESTIVE) HEART FAILURE Status: Chronic (7) Hypertension Code(s): I10 - ESSENTIAL (PRIMARY) HYPERTENSION Status: Chronic Qualifiers: Hypertension type: essential hypertension Qualified Code(s): I10 - Essential (primary) hypertension Comment: (8) Morbid obesity with BMI of 50.0-59.9, adult Code(s): E66.01 - MORBID (SEVERE) OBESITY DUE TO EXCESS CALORIES; Z68.43 - BODY MASS INDEX (BMI) 50-59.9, ADULT Status: Chronic (9) NYA (obstructive sleep apnea) Code(s): G47.33 - OBSTRUCTIVE SLEEP APNEA (ADULT) (PEDIATRIC) Status: Chronic Comment: Suspected. 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 Review of Systems - Review of Systems ENT: negative: Ear Pain, Ear Discharge, Nose Pain, Nose Discharge, Nose Congestion, Mouth Pain, Mouth Swelling, Throat Pain, Throat Swelling, Other Respiratory: negative: Cough, Dry, Shortness of Breath, Hemoptysis, SOB with Excertion, Pleuritic Pain, Sputum, Wheezing Cardiovascular: negative: chest pain, palpitations, orthopnea, paroxysmal nocturnal dyspnea, edema, light headedness, other Gastrointestinal: negative: Nausea, Vomiting, Abdominal Pain, Diarrhea, Constipation, Melena, Hematochezia, Other Genitourinary: negative: Dysuria, Frequency, Incontinence, Hematuria, Retention , Other Musculoskeletal: negative: Neck Pain, Shoulder Pain, Arm Pain, Back Pain, Hand Pain, Leg Pain, Foot Pain, Other Skin: negative: Rash, Lesions, Adin, Bruising, Other - Medications/Allergies Allergies/Adverse Reactions: Allergies Allergy/AdvReac Type Severity Reaction Status Date / Time cephalexin monohydrate Allergy Intermediate Rash Verified 02/11/19 05:01 [From [facility] [employer]] Medications: Current Medications Acetaminophen (Tylenol) 650 mg PO Q4H PRN PRN Reason: Headache/Fever/Mild Pain (1-3) Artificial Tears (Tears Naturale) 2 drop EA EYE PRN PRN PRN Reason: Dry Eyes Aspirin (Aspirin Chewable) 81 mg PO DAILY [facility] Last Admin: 04/02/19 09:05 Dose: 81 mg Benztropine Mesylate (Cogentin) 1 mg PO BID [facility] Last Admin: 04/02/19 09:05 Dose: 1 mg Bisacodyl (Dulcolax) 10 mg PO DAILYPRN PRN PRN Reason: Constipation Doxepin HCl (Sinequan) 100 mg PO HS [facility] Last Admin: 04/01/19 20:33 Dose: 100 mg Enoxaparin Sodium (Lovenox) 40 mg SC 09 [facility] Last Admin: 04/02/19 09:06 Dose: 40 mg Famotidine (Pepcid) 20 mg PO BID [facility] Last Admin: 04/02/19 09:05 Dose: 20 mg Guaifenesin (Robitussin Sf) 200 mg PO Q4H PRN PRN Reason: Cough Hydralazine HCl (Apresoline) 10 mg SLOW IVP Q4H PRN PRN Reason: Hypertension Lisinopril (Zestril) 40 mg PO DAILY [facility] Last Admin: 04/02/19 09:06 Dose: 40 mg Loperamide HCl (Imodium) 2 mg PO PRN PRN PRN Reason: Diarrhea/Loose Stools Metoprolol Tartrate (Lopressor) 50 mg PO BID [facility] Last Admin: 04/02/19 09:05 Dose: 50 mg Mineral Oil/White Petrolatum (Eucerin Cream) 0 gm TOP BIDPRN PRN PRN Reason: Dry Skin Nifedipine (Procardia Xl) 60 mg PO DAILY [facility] Last Admin: 04/02/19 09:05 Dose: 60 mg Ondansetron HCl (Zofran Odt) 4 mg PO Q6H PRN PRN Reason: Nausea/Vomiting Ondansetron HCl (Zofran) 4 mg IVP Q6H PRN PRN Reason: Nausea/Vomiting Quetiapine Fumarate (Seroquel) 400 mg PO [facility] Last Admin: 04/01/19 21:33 Dose: 400 mg Senna/Docusate Sodium (Senokot S) 2 tab PO BID PRN PRN Reason: Constipation Last Admin: 04/02/19 09:11 Dose: 2 tab Sodium Chloride (Flush - Normal Saline) 10 ml IVF Q12HR [facility] Last Admin: 04/02/19 09:06 Dose: Not Given Sodium Chloride (Flush - Normal Saline) 10 ml IVF PRN PRN PRN Reason: Saline Flush Sodium Chloride ([place] Nasal [place] 0.65%) 0 ml EA NARE QIDPRN PRN PRN Reason: Nasal Congestion Spironolactone (Aldactone) 50 mg PO DAILY [facility] Last Admin: 04/02/19 09:05 Dose: 50 mg Throat Lozenges (Cepastat Lozenges) 1 juno PO Q2H PRN PRN Reason: Sore Throat Torsemide (Demadex) 40 mg PO DAILY [facility] Last Admin: 04/02/19 09:05 Dose: 40 mg
[2019-04-02] MEDS: Doxepin HCl 25 MG CAP PO SCH (20:05)
[2019-04-03] MEDS: Enoxaparin Sodium 40 MG/0.4 ML SYRINGE SC SCH (07:58)
[2019-04-03] MEDS: Lisinopril 20 MG TAB PO SCH (07:58)
[2019-04-03] MEDS: Spironolactone 25 MG TAB PO SCH (07:59)
[2019-04-03] MEDS: Metoprolol Tartrate 50 MG TAB PO SCH ×2 (07:59→20:27)
[2019-04-03] MEDS: Benztropine 1 MG TAB PO SCH ×2 (07:59→20:27)
[2019-04-03] MEDS: Aspirin Chewable 81 MG TAB PO SCH (07:59)
[2019-04-03] MEDS: NIFEdipine XL 60 MG TAB PO SCH (07:59)
[2019-04-03] MEDS: Famotidine 20 MG TAB PO SCH ×2 (07:59→20:27)
[2019-04-03] MEDS: Senokot S 8.6-50 MG TAB PO PRN (08:02)
[2019-04-03] MEDS: Torsemide 20 MG TAB PO SCH (09:19)
--- NOTE | 2019-04-03 09:55 | PRG ---
DATE OF SERVICE: 04/03/2019 SUBJECTIVE: This morning, she is better, less short of breath. OBJECTIVE: VITAL SIGNS: Sats are 94% on room air, blood pressure _130\75, pulse 80, temperature 98. CHEST: Decreased breath sounds. No wheezing. CARDIAC: Normal S1, S2. No gallops. ABDOMEN: No masses. IMPRESSION: 1. Morbid obesity, chronic obstructive pulmonary disease. 2. Marked respiratory acidosis. 3. Marked metabolic alkalosis. 4. Bipolar disorder. PLAN: Continue PT, supportive care. Outpatient sleep study. Job ID: [id number] [facility]
--- NOTE | 2019-04-03 10:59 | PDOC.PN ---
- Subjective Encounter Start Date: 04/03/19 Encounter Start Time: 07:00 Patient seen and examined. No new complaints. No overnight events - Objective Resuscitation Status - Order Detail: 03/29/19 15:26 Resuscitation Status Routine Resuscitation Status: FULL: Full Resuscitation MAR Reviewed: Yes Vital Signs & Weight: Vital Signs (12 hours) Temp Pulse Resp BP BP Pulse Ox 04/03/19 07:59 88 119/80 04/03/19 07:58 119/80 04/03/19 07:00 98.1 F 88 20 119/80 94 L Weight Weight 304 lb Most Recent Monitor Data Heart Rate from ECG 108 NIBP 136/82 NIBP BP-Mean 100 Respiration from ECG 12 SpO2 97 I&O: 04/02/19 04/03/19 04/04/19 06:59 06:59 06:59 Intake Total 500 1000 Balance 500 1000 Result Diagrams: 03/31/19 08:42 03/31/19 08:42 Phys Exam - Physical Examination Constitutional: NAD HEENT: PERRLA, moist MMs, sclera anicteric Neck: no JVD, supple Respiratory: no wheezing, no rales, no rhonchi Cardiovascular: RRR, no significant murmur, no rub Gastrointestinal: soft, non-tender, no distention, positive bowel sounds Musculoskeletal: no edema, pulses present Neurological: non-focal, normal sensation Lymphatic: no nodes Psychiatric: normal affect, A&O x 3 Skin: no rash, normal turgor Dx/Plan (1) SHAWN (acute kidney injury) Code(s): N17.9 - ACUTE KIDNEY FAILURE, UNSPECIFIED Status: Resolved Comment : (2) Acute metabolic encephalopathy Code(s): G93.41 - METABOLIC ENCEPHALOPATHY Status: Resolved (3) Acute respiratory failure with hypoxia and hypercapnia Code(s): J96.01 - ACUTE RESPIRATORY FAILURE WITH HYPOXIA; J96.02 - ACUTE RESPIRATORY FAILURE WITH HYPERCAPNIA Status: Acute (4) Hypokalemia Code(s): E87.6 - HYPOKALEMIA Status: Acute (5) Anxiety and depression Code(s): F41.9 - ANXIETY DISORDER, UNSPECIFIED; F32.9 - MAJOR DEPRESSIVE DISORDER, SINGLE EPISODE, UNSPECIFIED Status: Chronic (6) Chronic stage c diastolic heart failure Code(s): I50.32 - CHRONIC DIASTOLIC (CONGESTIVE) HEART FAILURE Status: Chronic (7) Hypertension Code(s): I10 - ESSENTIAL (PRIMARY) HYPERTENSION Status: Chronic Qualifiers: Hypertension type: essential hypertension Qualified Code(s): I10 - Essential (primary) hypertension Comment: (8) Morbid obesity with BMI of 50.0-59.9, adult Code(s): E66.01 - MORBID (SEVERE) OBESITY DUE TO EXCESS CALORIES; Z68.43 - BODY MASS INDEX (BMI) 50-59.9, ADULT Status: Chronic (9) NYA (obstructive sleep apnea) Code(s): G47.33 - OBSTRUCTIVE SLEEP APNEA (ADULT) (PEDIATRIC) Status: Chronic Comment: Suspected. 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 Review of Systems - Review of Systems ENT: negative: Ear Pain, Ear Discharge, Nose Pain, Nose Discharge, Nose Congestion, Mouth Pain, Mouth Swelling, Throat Pain, Throat Swelling, Other Respiratory: negative: Cough, Dry, Shortness of Breath, Hemoptysis, SOB with Excertion, Pleuritic Pain, Sputum, Wheezing Cardiovascular: negative: chest pain, palpitations, orthopnea, paroxysmal nocturnal dyspnea, edema, light headedness, other Gastrointestinal: negative: Nausea, Vomiting, Abdominal Pain, Diarrhea, Constipation, Melena, Hematochezia, Other Genitourinary: negative: Dysuria, Frequency, Incontinence, Hematuria, Retention , Other Musculoskeletal: negative: Neck Pain, Shoulder Pain, Arm Pain, Back Pain, Hand Pain, Leg Pain, Foot Pain, Other - Medications/Allergies Allergies/Adverse Reactions: Allergies Allergy/AdvReac Type Severity Reaction Status Date / Time cephalexin monohydrate Allergy Intermediate Rash Verified 02/11/19 05:01 [From Keflex] Medications: Current Medications Acetaminophen (Tylenol) 650 mg PO Q4H PRN PRN Reason: Headache/Fever/Mild Pain (1-3) Artificial Tears (Tears Naturale) 2 drop EA EYE PRN PRN PRN Reason: Dry Eyes Aspirin (Aspirin Chewable) 81 mg PO DAILY [facility] Last Admin: 04/03/19 07:59 Dose: 81 mg Benztropine Mesylate (Cogentin) 1 mg PO BID [facility] Last Admin: 04/03/19 07:59 Dose: 1 mg Bisacodyl (Dulcolax) 10 mg PO DAILYPRN PRN PRN Reason: Constipation Last Admin: 04/02/19 18:37 Dose: 10 mg Doxepin HCl (Sinequan) 100 mg PO HS [facility] Last Admin: 04/02/19 20:05 Dose: 100 mg Enoxaparin Sodium (Lovenox) 40 mg SC 0900 [facility] Last Admin: 04/03/19 07:58 Dose: 40 mg Famotidine (Pepcid) 20 mg PO BID [facility] Last Admin: 04/03/19 07:59 Dose: 20 mg Guaifenesin (Robitussin Sf) 200 mg PO Q4H PRN PRN Reason: Cough Hydralazine HCl (Apresoline) 10 mg SLOW IVP Q4H PRN PRN Reason: Hypertension Lisinopril (Zestril) 40 mg PO DAILY [facility] Last Admin: 04/03/19 07:58 Dose: 40 mg Loperamide HCl (Imodium) 2 mg PO PRN PRN PRN Reason: Diarrhea/Loose Stools Metoprolol Tartrate (Lopressor) 50 mg PO BID [facility] Last Admin: 04/03/19 07:59 Dose: 50 mg Mineral Oil/White Petrolatum (Eucerin Cream) 0 gm TOP BIDPRN PRN PRN Reason: Dry Skin Nifedipine (Procardia Xl) 60 mg PO DAILY [facility] Last Admin: 04/03/19 07:59 Dose: 60 mg Ondansetron HCl (Zofran Odt) 4 mg PO Q6H PRN PRN Reason: Nausea/Vomiting Ondansetron HCl (Zofran) 4 mg IVP Q6H PRN PRN Reason: Nausea/Vomiting Quetiapine Fumarate (Seroquel) 400 mg PO [facility] Last Admin: 04/02/19 20:06 Dose: 400 mg Senna/Docusate Sodium (Senokot S) 2 tab PO BID PRN PRN Reason: Constipation Last Admin: 04/03/19 08:02 Dose: 2 tab Sodium Chloride (Flush - Normal Saline) 10 ml IVF Q12HR [facility] Last Admin: 04/03/19 07:59 Dose: Not Given Sodium Chloride (Flush - Normal Saline) 10 ml IVF PRN PRN PRN Reason: Saline Flush Sodium Chloride ([place] Nasal [place] 0.65%) 0 ml EA NARE QIDPRN PRN PRN Reason: Nasal Congestion Spironolactone (Aldactone) 50 mg PO DAILY [facility] Last Admin: 04/03/19 07:59 Dose: 50 mg Throat Lozenges (Cepastat Lozenges) 1 juno PO Q2H PRN PRN Reason: Sore Throat Torsemide (Demadex) 40 mg PO DAILY [facility] Last Admin: 04/03/19 09:19 Dose: 40 mg
[2019-04-03] MEDS: Doxepin HCl 25 MG CAP PO SCH (20:27)
[2019-04-04] MEDS: NIFEdipine XL 60 MG TAB PO SCH (09:09)
[2019-04-04] MEDS: Spironolactone 25 MG TAB PO SCH (09:09)
[2019-04-04] MEDS: Benztropine 1 MG TAB PO SCH ×2 (09:09→21:06)
[2019-04-04] MEDS: Torsemide 20 MG TAB PO SCH (09:09)
[2019-04-04] MEDS: Metoprolol Tartrate 50 MG TAB PO SCH ×2 (09:09→21:06)
[2019-04-04] MEDS: Aspirin Chewable 81 MG TAB PO SCH (09:10)
[2019-04-04] MEDS: Lisinopril 20 MG TAB PO SCH (09:10)
[2019-04-04] MEDS: Famotidine 20 MG TAB PO SCH ×2 (09:10→21:06)
[2019-04-04] MEDS: Enoxaparin Sodium 40 MG/0.4 ML SYRINGE SC SCH (09:12)
--- NOTE | 2019-04-04 09:26 | PRG ---
DATE OF SERVICE: 04/04/2019 SUBJECTIVE: This morning, she is sitting on the side of the bed. OBJECTIVE: VITAL SIGNS: Saturations are 90% on room air, respirations 20, temperature 98, pulse 92, and blood pressure 127/60. CHEST: Decreased breath sounds. No wheezing. CARDIAC: Normal S1 and S2. No gallops. ABDOMEN: No masses. ASSESSMENT: 1. Bipolar. 2. Schizophrenic. 3. Chronic obstructive pulmonary disease. 4. Sleep apnea. PLAN: Disposition as per Social Service. Otherwise, continue present treatment, neb, PT, CPAP. Job ID: [id number]
--- NOTE | 2019-04-04 11:28 | PDOC.PN ---
- Subjective Encounter Start Date: 04/04/19 Encounter Start Time: 07:10 Patient seen and examined. No new complaints. No overnight events - Objective Resuscitation Status - Order Detail: 03/29/19 15:26 Resuscitation Status Routine Resuscitation Status: FULL: Full Resuscitation MAR Reviewed: Yes Vital Signs & Weight: Vital Signs (12 hours) Temp Pulse Resp BP BP Pulse Ox 04/04/19 09:10 119/80 04/04/19 09:09 92 04/04/19 07:35 98.7 F 92 20 127/63 92 L Weight Weight 304 lb Most Recent Monitor Data Heart Rate from ECG 108 NIBP 136/82 NIBP BP-Mean 100 Respiration from ECG 12 SpO2 97 I&O: 04/03/19 04/04/19 04/05/19 06:59 06:59 06:59 Intake Total 1000 Balance 1000 Result Diagrams: 03/31/19 08:42 03/31/19 08:42 EKG Reviewed by me: Yes (nsr) Phys Exam - Physical Examination Constitutional: NAD HEENT: PERRLA, moist MMs, sclera anicteric Neck: no JVD, supple Respiratory: no wheezing, no rales, no rhonchi Cardiovascular: RRR, no significant murmur, no rub Gastrointestinal: soft, non-tender, no distention, positive bowel sounds Musculoskeletal: no edema, pulses present Neurological: non-focal, normal sensation, moves all 4 limbs Lymphatic: no nodes Psychiatric: normal affect, A&O x 3 Skin: no rash, normal turgor Dx/Plan (1) SHAWN (acute kidney injury) Code(s): N17.9 - ACUTE KIDNEY FAILURE, UNSPECIFIED Status: Resolved Comment : (2) Acute metabolic encephalopathy Code(s): G93.41 - METABOLIC ENCEPHALOPATHY Status: Resolved (3) Acute respiratory failure with hypoxia and hypercapnia Code(s): J96.01 - ACUTE RESPIRATORY FAILURE WITH HYPOXIA; J96.02 - ACUTE RESPIRATORY FAILURE WITH HYPERCAPNIA Status: Acute (4) Hypokalemia Code(s): E87.6 - HYPOKALEMIA Status: Acute (5) Anxiety and depression Code(s): F41.9 - ANXIETY DISORDER, UNSPECIFIED; F32.9 - MAJOR DEPRESSIVE DISORDER, SINGLE EPISODE, UNSPECIFIED Status: Chronic (6) Chronic stage c diastolic heart failure Code(s): I50.32 - CHRONIC DIASTOLIC (CONGESTIVE) HEART FAILURE Status: Chronic (7) Hypertension Code(s): I10 - ESSENTIAL (PRIMARY) HYPERTENSION Status: Chronic Qualifiers: Hypertension type: essential hypertension Qualified Code(s): I10 - Essential (primary) hypertension Comment: (8) Morbid obesity with BMI of 50.0-59.9, adult Code(s): E66.01 - MORBID (SEVERE) OBESITY DUE TO EXCESS CALORIES; Z68.43 - BODY MASS INDEX (BMI) 50-59.9, ADULT Status: Chronic (9) NYA (obstructive sleep apnea) Code(s): G47.33 - OBSTRUCTIVE SLEEP APNEA (ADULT) (PEDIATRIC) Status: Chronic Comment: Suspected. Needs outpatient sleep study (10) Type 2 diabetes mellitus Status: Chronic Qualifiers: Diabetes mellitus complication status: without complication Qualified Code( s): E11.9 - Type 2 diabetes mellitus without complications - Plan cont current plan of care * medication reviewed as below * symptomatic treatment * await placement. Review of Systems - Review of Systems ENT: negative: Ear Pain, Ear Discharge, Nose Pain, Nose Discharge, Nose Congestion, Mouth Pain, Mouth Swelling, Throat Pain, Throat Swelling, Other Respiratory: negative: Cough, Dry, Shortness of Breath, Hemoptysis, SOB with Excertion, Pleuritic Pain, Sputum, Wheezing Cardiovascular: negative: chest pain, palpitations, orthopnea, paroxysmal nocturnal dyspnea, edema, light headedness, other Gastrointestinal: negative: Nausea, Vomiting, Abdominal Pain, Diarrhea, Constipation, Melena, Hematochezia, Other Genitourinary: negative: Dysuria, Frequency, Incontinence, Hematuria, Retention , Other Musculoskeletal: negative: Neck Pain, Shoulder Pain, Arm Pain, Back Pain, Hand Pain, Leg Pain, Foot Pain, Other Skin: negative: Rash, Lesions, Adin, Bruising, Other - Medications/Allergies Allergies/Adverse Reactions: Allergies Allergy/AdvReac Type Severity Reaction Status Date / Time cephalexin monohydrate Allergy Intermediate Rash Verified 02/11/19 05:01 [From Keflex] Medications: Current Medications Acetaminophen (Tylenol) 650 mg PO Q4H PRN PRN Reason: Headache/Fever/Mild Pain (1-3) Artificial Tears (Tears Naturale) 2 drop EA EYE PRN PRN PRN Reason: Dry Eyes Aspirin (Aspirin Chewable) 81 mg PO DAILY [facility] Last Admin: 04/04/19 09:10 Dose: 81 mg Benztropine Mesylate (Cogentin) 1 mg PO BID [facility] Last Admin: 04/04/19 09:09 Dose: 1 mg Bisacodyl (Dulcolax) 10 mg PO DAILYPRN PRN PRN Reason: Constipation Last Admin: 04/02/19 18:37 Dose: 10 mg Doxepin HCl (Sinequan) [address] [facility] Last Admin: 04/03/19 20:27 Dose: 100 mg Enoxaparin Sodium (Lovenox) 40 mg SC 0900 [facility] Last Admin: 04/04/19 09:12 Dose: Not Given Famotidine (Pepcid) 20 mg PO BID [facility] Last Admin: 04/04/19 09:10 Dose: 20 mg Guaifenesin (Robitussin Sf) 200 mg PO Q4H PRN PRN Reason: Cough Hydralazine HCl (Apresoline) 10 mg SLOW IVP Q4H PRN PRN Reason: Hypertension Lisinopril (Zestril) 40 mg PO DAILY [facility] Last Admin: 04/04/19 09:10 Dose: 40 mg Loperamide HCl (Imodium) 2 mg PO PRN PRN PRN Reason: Diarrhea/Loose Stools Metoprolol Tartrate (Lopressor) 50 mg PO BID [facility] Last Admin: 04/04/19 09:09 Dose: 50 mg Mineral Oil/White Petrolatum (Eucerin Cream) 0 gm TOP BIDPRN PRN PRN Reason: Dry Skin Nifedipine (Procardia Xl) 60 mg PO DAILY [facility] Last Admin: 04/04/19 09:09 Dose: 60 mg Ondansetron HCl (Zofran Odt) 4 mg PO Q6H PRN PRN Reason: Nausea/Vomiting Ondansetron HCl (Zofran) 4 mg IVP Q6H PRN PRN Reason: Nausea/Vomiting Quetiapine Fumarate (Seroquel) [address] [facility] Last Admin: 04/03/19 20:27 Dose: 400 mg Senna/Docusate Sodium (Senokot S) 2 tab PO BID PRN PRN Reason: Constipation Last Admin: 04/03/19 08:02 Dose: 2 tab Sodium Chloride (Flush - Normal Saline) 10 ml IVF Q12HR [facility] Last Admin: 04/04/19 08:13 Dose: Not Given Sodium Chloride (Flush - Normal Saline) 10 ml IVF PRN PRN PRN Reason: Saline Flush Sodium Chloride ([place] Nasal [place] 0.65%) 0 ml EA NARE QIDPRN PRN PRN Reason: Nasal Congestion Spironolactone (Aldactone) 50 mg PO DAILY [facility] Last Admin: 04/04/19 09:09 Dose: 50 mg Throat Lozenges (Cepastat Lozenges) 1 juno PO Q2H PRN PRN Reason: Sore Throat Torsemide (Demadex) 40 mg PO DAILY [facility] Last Admin: 04/04/19 09:09 Dose: 40 mg
[2019-04-04] MEDS: Doxepin HCl 25 MG CAP PO SCH (21:06)
[2019-04-05] MEDS: Aspirin Chewable 81 MG TAB PO SCH (09:29)
[2019-04-05] MEDS: Benztropine 1 MG TAB PO SCH ×2 (09:29→20:17)
[2019-04-05] MEDS: Spironolactone 25 MG TAB PO SCH (09:29)
[2019-04-05] MEDS: Metoprolol Tartrate 50 MG TAB PO SCH ×2 (09:29→20:17)
[2019-04-05] MEDS: NIFEdipine XL 60 MG TAB PO SCH (09:30)
[2019-04-05] MEDS: Lisinopril 20 MG TAB PO SCH (09:30)
[2019-04-05] MEDS: Famotidine 20 MG TAB PO SCH ×2 (09:30→20:17)
[2019-04-05] MEDS: Torsemide 20 MG TAB PO SCH (09:30)
[2019-04-05] MEDS: Enoxaparin Sodium 40 MG/0.4 ML SYRINGE SC SCH (09:31)
--- NOTE | 2019-04-05 09:55 | PDOC.PN ---
- Subjective Encounter Start Date: 04/05/19 Encounter Start Time: 07:10 Patient seen and examined. No new complaints. No overnight events - Objective Resuscitation Status - Order Detail: 03/29/19 15:26 Resuscitation Status Routine Resuscitation Status: FULL: Full Resuscitation MAR Reviewed: Yes Vital Signs & Weight: Vital Signs (12 hours) Pulse BP 04/05/19 09:30 85 150/94 H Weight Weight 301 lb 14.4 oz Most Recent Monitor Data Heart Rate from ECG 108 NIBP 136/82 NIBP BP-Mean 100 Respiration from ECG 12 SpO2 97 I&O: 04/04/19 04/05/19 04/06/19 06:59 06:59 06:59 Intake Total 360 Balance 360 Result Diagrams: 03/31/19 08:42 03/31/19 08:42 Phys Exam - Physical Examination Constitutional: NAD HEENT: PERRLA, moist MMs, sclera anicteric Neck: no JVD, supple Respiratory: no wheezing, no rales, no rhonchi Cardiovascular: RRR, no significant murmur, no rub Gastrointestinal: soft, non-tender, no distention, positive bowel sounds Musculoskeletal: no edema, pulses present Neurological: non-focal, normal sensation, moves all 4 limbs Lymphatic: no nodes Psychiatric: normal affect, A&O x 3 Skin: no rash, normal turgor Dx/Plan (1) SHAWN (acute kidney injury) Code(s): N17.9 - ACUTE KIDNEY FAILURE, UNSPECIFIED Status: Resolved Comment : (2) Acute metabolic encephalopathy Code(s): G93.41 - METABOLIC ENCEPHALOPATHY Status: Resolved (3) Acute respiratory failure with hypoxia and hypercapnia Code(s): J96.01 - ACUTE RESPIRATORY FAILURE WITH HYPOXIA; J96.02 - ACUTE RESPIRATORY FAILURE WITH HYPERCAPNIA Status: Acute (4) Hypokalemia Code(s): E87.6 - HYPOKALEMIA Status: Acute (5) Anxiety and depression Code(s): F41.9 - ANXIETY DISORDER, UNSPECIFIED; F32.9 - MAJOR DEPRESSIVE DISORDER, SINGLE EPISODE, UNSPECIFIED Status: Chronic (6) Chronic stage c diastolic heart failure Code(s): I50.32 - CHRONIC DIASTOLIC (CONGESTIVE) HEART FAILURE Status: Chronic (7) Hypertension Code(s): I10 - ESSENTIAL (PRIMARY) HYPERTENSION Status: Chronic Qualifiers: Hypertension type: essential hypertension Qualified Code(s): I10 - Essential (primary) hypertension Comment: (8) Morbid obesity with BMI of 50.0-59.9, adult Code(s): E66.01 - MORBID (SEVERE) OBESITY DUE TO EXCESS CALORIES; Z68.43 - BODY MASS INDEX (BMI) 50-59.9, ADULT Status: Chronic (9) NYA (obstructive sleep apnea) Code(s): G47.33 - OBSTRUCTIVE SLEEP APNEA (ADULT) (PEDIATRIC) Status: Chronic Comment: Suspected. 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 Review of Systems - Review of Systems ENT: negative: Ear Pain, Ear Discharge, Nose Pain, Nose Discharge, Nose Congestion, Mouth Pain, Mouth Swelling, Throat Pain, Throat Swelling, Other Respiratory: negative: Cough, Dry, Shortness of Breath, Hemoptysis, SOB with Excertion, Pleuritic Pain, Sputum, Wheezing Cardiovascular: negative: chest pain, palpitations, orthopnea, paroxysmal nocturnal dyspnea, edema, light headedness, other Gastrointestinal: negative: Nausea, Vomiting, Abdominal Pain, Diarrhea, Constipation, Melena, Hematochezia, Other Genitourinary: negative: Dysuria, Frequency, Incontinence, Hematuria, Retention , Other Musculoskeletal: negative: Neck Pain, Shoulder Pain, Arm Pain, Back Pain, Hand Pain, Leg Pain, Foot Pain, Other - Medications/Allergies Allergies/Adverse Reactions: Allergies Allergy/AdvReac Type Severity Reaction Status Date / Time cephalexin monohydrate Allergy Intermediate Rash Verified 02/11/19 05:01 [From Keflex] Medications: Current Medications Acetaminophen (Tylenol) 650 mg PO Q4H PRN PRN Reason: Headache/Fever/Mild Pain (1-3) Artificial Tears (Tears Naturale) 2 drop EA EYE PRN PRN PRN Reason: Dry Eyes Aspirin (Aspirin Chewable) 81 mg PO DAILY [facility] Last Admin: 04/05/19 09:29 Dose: 81 mg Benztropine Mesylate (Cogentin) 1 mg PO BID [facility] Last Admin: 04/05/19 09:29 Dose: 1 mg Bisacodyl (Dulcolax) 10 mg PO DAILYPRN PRN PRN Reason: Constipation Last Admin: 04/02/19 18:37 Dose: 10 mg Doxepin HCl (Sinequan) 100 mg PO [facility] Last Admin: 04/04/19 21:06 Dose: 100 mg Enoxaparin Sodium (Lovenox) 40 mg SC 0900 [facility] Last Admin: 04/05/19 09:31 Dose: 40 mg Famotidine (Pepcid) 20 mg PO BID [facility] Last Admin: 04/05/19 09:30 Dose: 20 mg Guaifenesin (Robitussin Sf) 200 mg PO Q4H PRN PRN Reason: Cough Hydralazine HCl (Apresoline) 10 mg SLOW IVP Q4H PRN PRN Reason: Hypertension Lisinopril (Zestril) 40 mg PO DAILY [facility] Last Admin: 04/05/19 09:30 Dose: 40 mg Loperamide HCl (Imodium) 2 mg PO PRN PRN PRN Reason: Diarrhea/Loose Stools Metoprolol Tartrate (Lopressor) 50 mg PO BID [facility] Last Admin: 04/05/19 09:29 Dose: 50 mg Mineral Oil/White Petrolatum (Eucerin Cream) 0 gm TOP BIDPRN PRN PRN Reason: Dry Skin Nifedipine (Procardia Xl) 60 mg PO DAILY [facility] Last Admin: 04/05/19 09:30 Dose: 60 mg Ondansetron HCl (Zofran Odt) 4 mg PO Q6H PRN PRN Reason: Nausea/Vomiting Ondansetron HCl (Zofran) 4 mg IVP Q6H PRN PRN Reason: Nausea/Vomiting Quetiapine Fumarate (Seroquel) 400 mg PO [facility] Last Admin: 04/04/19 21:06 Dose: 400 mg Senna/Docusate Sodium (Senokot S) 2 tab PO BID PRN PRN Reason: Constipation Last Admin: 04/03/19 08:02 Dose: 2 tab Sodium Chloride (Flush - Normal Saline) 10 ml IVF Q12HR [facility] Last Admin: 04/05/19 09:31 Dose: Not Given Sodium Chloride (Flush - Normal Saline) 10 ml IVF PRN PRN PRN Reason: Saline Flush Sodium Chloride ([place] Nasal [place] 0.65%) 0 ml EA NARE QIDPRN PRN PRN Reason: Nasal Congestion Spironolactone (Aldactone) 50 mg PO DAILY [facility] Last Admin: 04/05/19 09:29 Dose: 50 mg Throat Lozenges (Cepastat Lozenges) 1 juno PO Q2H PRN PRN Reason: Sore Throat Torsemide (Demadex) 40 mg PO DAILY [facility] Last Admin: 04/05/19 09:30 Dose: 40 mg
--- NOTE | 2019-04-05 10:04 | PRG ---
DATE OF SERVICE: 04/05/2019 SUBJECTIVE: [place] is morbidly obese, female, who is doing better, trying to find a place for her [facility]. OBJECTIVE: VITAL SIGNS: Temperature 98, pulse 85, blood pressure 150/90, 92% saturations on room air. CHEST: No wheezing, crackles. CARDIAC: Normal S1, S2. No gallops. ABDOMEN: No masses. ASSESSMENT: 1. Renal failure. 2. Morbid obesity. 3. Sleep apnea. 4. Chronic obstructive pulmonary disease. 5. Encephalopathy. 6. Depression. 7. Anxiety. 8. Bipolar. PLAN: No change in medication. Hopefully, placement, PT, supportive care. We will follow. Job ID: [id number]
[2019-04-05] MEDS: Doxepin HCl 25 MG CAP PO SCH (20:16)
[2019-04-06] MEDS: Lisinopril 20 MG TAB PO SCH (08:23)
[2019-04-06] MEDS: Enoxaparin Sodium 40 MG/0.4 ML SYRINGE SC SCH (08:24)
[2019-04-06] MEDS: Metoprolol Tartrate 50 MG TAB PO SCH (08:24)
[2019-04-06] MEDS: Torsemide 20 MG TAB PO SCH (08:24)
[2019-04-06] MEDS: Spironolactone 25 MG TAB PO SCH (08:24)
[2019-04-06] MEDS: NIFEdipine XL 60 MG TAB PO SCH (08:24)
[2019-04-06] MEDS: Famotidine 20 MG TAB PO SCH (08:24)
[2019-04-06] MEDS: Benztropine 1 MG TAB PO SCH (08:24)
[2019-04-06] MEDS: Aspirin Chewable 81 MG TAB PO SCH (08:24)
[2019-04-06 08:25] VITALS: BP 131/95
[2019-04-06 09:04] VITALS: TEMP 97.6
--- NOTE | 2019-04-06 09:26 | PRG ---
DATE OF SERVICE: 04/06/2019 SUBJECTIVE: Obese female. I am trying to get a placement for her. She is better, less short of breath. OBJECTIVE: VITAL SIGNS: Room air saturations are 95%, blood pressure 130/95, pulse 85, respiratory rate 18. CHEST: Decreased breath sounds. No wheezing. CARDIAC: Normal S1, S2. No gallops. ABDOMEN: No masses. ASSESSMENT AND PLAN: 1. Morbid obesity. 2. Chronic obstructive pulmonary disease. 3. Obstructive sleep apnea. Continue present treatment. CPAP. Eventually placement. Job ID: [id number]
--- NOTE | 2019-04-06 10:19 | PDOC.PN ---
- Subjective Encounter Start Date: 04/06/19 Encounter Start Time: 07:10 Patient seen and examined. No new complaints. No overnight events - Objective Resuscitation Status - Order Detail: 03/29/19 15:26 Resuscitation Status Routine Resuscitation Status: FULL: Full Resuscitation MAR Reviewed: Yes Vital Signs & Weight: Vital Signs (12 hours) Temp Pulse Resp BP BP Pulse Ox 04/06/19 08:24 84 131/95 H 04/06/19 08:23 131/95 H 04/06/19 08:10 97.6 F 84 18 131/95 H 94 L Weight Weight 300 lb Most Recent Monitor Data Heart Rate from ECG 108 NIBP 136/82 NIBP BP-Mean 100 Respiration from ECG 12 SpO2 97 I&O: 04/05/19 04/06/19 04/07/19 06:59 06:59 06:59 Intake Total 360 2100 Balance 360 2100 Result Diagrams: 03/31/19 08:42 03/31/19 08:42 Phys Exam - Physical Examination Constitutional: NAD HEENT: PERRLA, moist MMs, sclera anicteric Neck: no JVD, supple Respiratory: no wheezing, no rales, no rhonchi Cardiovascular: RRR, no significant murmur, no rub Gastrointestinal: soft, non-tender, no distention, positive bowel sounds Musculoskeletal: no edema, pulses present Neurological: non-focal, normal sensation Lymphatic: no nodes Psychiatric: normal affect, A&O x 3 Skin: no rash, normal turgor Dx/Plan (1) SHAWN (acute kidney injury) Code(s): N17.9 - ACUTE KIDNEY FAILURE, UNSPECIFIED Status: Resolved Comment : (2) Acute metabolic encephalopathy Code(s): G93.41 - METABOLIC ENCEPHALOPATHY Status: Resolved (3) Acute respiratory failure with hypoxia and hypercapnia Code(s): J96.01 - ACUTE RESPIRATORY FAILURE WITH HYPOXIA; J96.02 - ACUTE RESPIRATORY FAILURE WITH HYPERCAPNIA Status: Resolved (4) Hypokalemia Code(s): E87.6 - HYPOKALEMIA Status: Resolved (5) Anxiety and depression Code(s): F41.9 - ANXIETY DISORDER, UNSPECIFIED; F32.9 - MAJOR DEPRESSIVE DISORDER, SINGLE EPISODE, UNSPECIFIED Status: Chronic (6) Chronic stage c diastolic heart failure Code(s): I50.32 - CHRONIC DIASTOLIC (CONGESTIVE) HEART FAILURE Status: Chronic (7) Hypertension Code(s): I10 - ESSENTIAL (PRIMARY) HYPERTENSION Status: Chronic Qualifiers: Hypertension type: essential hypertension Qualified Code(s): I10 - Essential (primary) hypertension Comment: (8) Morbid obesity with BMI of 50.0-59.9, adult Code(s): E66.01 - MORBID (SEVERE) OBESITY DUE TO EXCESS CALORIES; Z68.43 - BODY MASS INDEX (BMI) 50-59.9, ADULT Status: Chronic (9) NYA (obstructive sleep apnea) Code(s): G47.33 - OBSTRUCTIVE SLEEP APNEA (ADULT) (PEDIATRIC) Status: Chronic Comment: Suspected. 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 * sleep study appointment scheduled Review of Systems - Review of Systems ENT: negative: Ear Pain, Ear Discharge, Nose Pain, Nose Discharge, Nose Congestion, Mouth Pain, Mouth Swelling, Throat Pain, Throat Swelling, Other Respiratory: negative: Cough, Dry, Shortness of Breath, Hemoptysis, SOB with Excertion, Pleuritic Pain, Sputum, Wheezing Cardiovascular: negative: chest pain, palpitations, orthopnea, paroxysmal nocturnal dyspnea, edema, light headedness, other Gastrointestinal: negative: Nausea, Vomiting, Abdominal Pain, Diarrhea, Constipation, Melena, Hematochezia, Other Genitourinary: negative: Dysuria, Frequency, Incontinence, Hematuria, Retention , Other Musculoskeletal: negative: Neck Pain, Shoulder Pain, Arm Pain, Back Pain, Hand Pain, Leg Pain, Foot Pain, Other Skin: negative: Rash, Lesions, Adin, Bruising, Other - Medications/Allergies Allergies/Adverse Reactions: Allergies Allergy/AdvReac Type Severity Reaction Status Date / Time cephalexin monohydrate Allergy Intermediate Rash Verified 02/11/19 05:01 [From Keflex] Medications: Current Medications Acetaminophen (Tylenol) 650 mg PO Q4H PRN PRN Reason: Headache/Fever/Mild Pain (1-3) Artificial Tears (Tears Naturale) 2 drop EA EYE PRN PRN PRN Reason: Dry Eyes Aspirin (Aspirin Chewable) 81 mg PO DAILY [facility] Last Admin: 04/06/19 08:24 Dose: 81 mg Benztropine Mesylate (Cogentin) 1 mg PO BID [facility] Last Admin: 04/06/19 08:24 Dose: 1 mg Bisacodyl (Dulcolax) 10 mg PO DAILYPRN PRN PRN Reason: Constipation Last Admin: 04/02/19 18:37 Dose: 10 mg Doxepin HCl (Sinequan) 100 mg PO HS [facility] Last Admin: 04/05/19 20:16 Dose: 100 mg Enoxaparin Sodium (Lovenox) 40 mg SC 09 [facility] Last Admin: 04/06/19 08:24 Dose: 40 mg Famotidine (Pepcid) 20 mg PO BID [facility] Last Admin: 04/06/19 08:24 Dose: 20 mg Guaifenesin (Robitussin Sf) 200 mg PO Q4H PRN PRN Reason: Cough Hydralazine HCl (Apresoline) 10 mg SLOW IVP Q4H PRN PRN Reason: Hypertension Lisinopril (Zestril) 40 mg PO DAILY [facility] Last Admin: 04/06/19 08:23 Dose: 40 mg Loperamide HCl (Imodium) 2 mg PO PRN PRN PRN Reason: Diarrhea/Loose Stools Metoprolol Tartrate (Lopressor) 50 mg PO BID [facility] Last Admin: 04/06/19 08:24 Dose: 50 mg Mineral Oil/White Petrolatum (Eucerin Cream) 0 gm TOP BIDPRN PRN PRN Reason: Dry Skin Nifedipine (Procardia Xl) 60 mg PO DAILY [facility] Last Admin: 04/06/19 08:24 Dose: 60 mg Ondansetron HCl (Zofran Odt) 4 mg PO Q6H PRN PRN Reason: Nausea/Vomiting Ondansetron HCl (Zofran) 4 mg IVP Q6H PRN PRN Reason: Nausea/Vomiting Quetiapine Fumarate (Seroquel) 400 mg PO [facility] Last Admin: 04/05/19 20:16 Dose: 400 mg Senna/Docusate Sodium (Senokot S) 2 tab PO BID PRN PRN Reason: Constipation Last Admin: 04/03/19 08:02 Dose: 2 tab Sodium Chloride (Flush - Normal Saline) 10 ml IVF Q12HR [facility] Last Admin: 04/06/19 08:25 Dose: Not Given Sodium Chloride (Flush - Normal Saline) 10 ml IVF PRN PRN PRN Reason: Saline Flush Sodium Chloride ([place] Nasal [place] 0.65%) 0 ml EA NARE QIDPRN PRN PRN Reason: Nasal Congestion Spironolactone (Aldactone) 50 mg PO DAILY [facility] Last Admin: 04/06/19 08:24 Dose: 50 mg Throat Lozenges (Cepastat Lozenges) 1 juno PO Q2H PRN PRN Reason: Sore Throat Torsemide (Demadex) 40 mg PO DAILY [facility] Last Admin: 04/06/19 08:24 Dose: 40 mg
--- NOTE | 2019-04-06 12:17 | DIS ---
DATE OF ADMISSION: 03/29/2019 DATE OF DISCHARGE: 04/06/2019 ADDENDUM: Please see my discharge summary dictated on April 01, 2019. Since then, patient was waiting for discharge placement, because initially planned for discharging to home, but she did not have any safe home discharge and that is why we have to send her to group home home. It took almost 5 days to arrange her group home home. We also arranged outpatient sleep study for her. Otherwise, she remained stable while in hospital. She was on room air, ambulatory and tolerating p.o. well. There is no change in discharge medication from previous and she will follow up with primary care physician. Job ID: [id number]
--- NOTE | 2019-04-07 14:23 | EKG ---
Test Reason : Blood Pressure : / mmHG Vent. Rate : 094 BPM Atrial Rate : 094 BPM P-R Int : 144 ms QRS Dur : 100 ms QT Int : 390 ms P-R-T Axes : 050 009 052 degrees QTc Int : 487 ms Normal sinus rhythm Moderate voltage criteria for LVH, may be normal variant Prolonged QT Abnormal ECG Confirmed by SANDRA MCGRATH ([id number]), brands editor MOHINDER JOHNSON ([id number]) on 04/07/2019 2:22:35 PM Referred By: Confirmed By:SANDRA MCGRATH
== END 2019-04-06 11:31 | DRG 189 ==
LOC: ERS 07:59 → ERHOLD 12:31 → IMCU/EMU 18:24 → ONC 03-30 15:17
PROVIDERS: ADMIT Internal Medicine Nephrology; ATTEND Internal Medicine Nephrology
PROC: 5A09357 Assistance with Respiratory Ventilation, Less than 24 Consecutive Hours, Continuous Positive Airway Pressure (ICD-10-PCS; principal; 2019-03-29)
DX: J96.01 Acute respiratory failure with hypoxia (principal); G93.41 Metabolic encephalopathy; I50.32 Chronic diastolic (congestive) heart failure; N17.9 Acute kidney failure, unspecified; Z68.42 Body mass index [BMI] 45.0-49.9, adult; E87.3 Alkalosis; E66.2 Morbid (severe) obesity with alveolar hypoventilation; J96.02 Acute respiratory failure with hypercapnia; I11.0 Hypertensive heart disease with heart failure; E03.9 Hypothyroidism, unspecified; J44.9 Chronic obstructive pulmonary disease, unspecified; T50.2X5A Adverse effect of carbonic-anhydrase inhibitors, benzothiadiazides and other diuretics, initial encounter; F31.9 Bipolar disorder, unspecified; F41.9 Anxiety disorder, unspecified; Z90.49 Acquired absence of other specified parts of digestive tract; Z88.1 Allergy status to other antibiotic agents; Z90.710 Acquired absence of both cervix and uterus; Z98.51 Tubal ligation status; Z79.899 Other long term (current) drug therapy; Z79.82 Long term (current) use of aspirin
CPT/HCPCS: 36415; 36416; 51701; 71045; 80048; 80053; 80306; 81003; 82550; 82805; 83605; 83690; 83880; 84484; 85025; 87040; 93005; 94640; 94660; 94760; 96374; A4353; J1120; J1650; J1940; J7050; J7620; S0028

== ENCOUNTER 2020-01-04 12:45 | Inpatient (IN) | payer MEDICARE ==
[2020-01-04 14:04] LABS: Bilirubin Negative (Negative); Blood, Urine Negative (Negative); Clarity Clear (Clear); Glucose, Urine (Dipstick) Normal (Negative); Leukocyte Negative Leu/uL (Negative); Nitrite Negative (Negative); Protein, Urine (Dipstick) Negative (Neg-Trace); Urobilinogen Normal mg/dL (Less than 2)
[2020-01-04 14:05] LABS: #Basophils 0.1 thou/uL (0.0-0.2); #Eosinphils 0.1 thou/uL (0.0-0.7); #Lymphocytes 1.4 thou/uL (1.20-3.40); #Monocytes 0.4 thou/uL (0.11-0.59); #Neutrophils 5.8 thou/uL (1.40-6.50); %Eosinophils 1.9 % (0.0-10.0); %Lymphocytes 18.3 % (21.0-51.0); %Monocytes 4.6 % (0.0-10.0); %Neutrophils 74.3 % (42.0-75.0); Hemoglobin 12.9 g/dL (12.0-16.0); Mean Corpuscular HGB CONC 33.6 g/dL (32.0-36.0); Mean Corpuscular Hemoglobin 31.9 pg (27.0-31.0); Mean Corpuscular Volume 94.9 fL (78.0-98.0); Platelet Count 237 thou/uL (130-400); Red Blood Cell (RBC) Count 4.04 mill/uL (4.20-5.40); White Blood Cell (WBC) Count 7.8 thou/uL (4.8-10.8)
[2020-01-04 14:28] LABS: ALT (SGPT) 46 U/L (8-55); AST (SGOT) 36 U/L (5-34); Albumin 4.3 g/dL (3.5-5.0); Alkaline Phosphatase 93 U/L (40-110); Anion Gap 14 mmol/L (10-20); BUN (Urea Nitrogen) 22 mg/dL (9.8-20.1); Bilirubin, Total 0.3 mg/dL (0.2-1.2); Calc. Creatinine Clearance 0 mL/min (70-130); Calcium 9.3 mg/dL (7.8-10.44); Carbon Dioxide 30 mmol/L (22-29); Chloride 98 mmol/L (98-107); Estimated GFR-MDRD 45; Globulin 3.8 g/dL (2.4-3.5); Glucose 93 mg/dL (70-105); Protein, Total 8.1 g/dL (6.0-8.3); Sodium 137 mmol/L (136-145)
--- NOTE | 2020-01-04 14:49 | ULT ---
BILATERAL LOWER EXTREMITY VENOUS ULTRASOUND: Date: 01/04/2020 COMPARISON: 06/25/15. HISTORY: Bilateral lower extremity edema and pain. TECHNIQUE: Multiplanar Hollis scale and color Doppler images were obtained in a bilateral lower extremity venous u ltrasound. Spectral analysis of the Doppler waveforms were performed. FINDINGS: This exam is limited secondary to the patient's body habitus. The bilateral common femoral veins, pr ofunda femoral veins, superficial femoral veins, and popliteal veins are normal in appearance without visible thrombus. These vessels demonstrate normal compression, flow, and augmentation. The posterio r tibial veins and greater saphenous veins are also patent. IMPRESSION: No evidence of deep venous thrombosis. POS: TPC
[2020-01-04 17:14] VITALS: BMI 55.9
[2020-01-04] MEDS ORDERED: Vancomycin HCl 1 GM in Premix Bag 1 BAG IVPB SCH ×2 (17:45→18:45)
[2020-01-04] MEDS ORDERED: Ondansetron ODT 4 MG TAB PO PRN (17:46)
[2020-01-04] MEDS ORDERED: Calcium Carbonate 500 MG ChewTAB PO PRN (17:46)
[2020-01-04] MEDS ORDERED: Acetaminophen 325 MG TAB PO PRN (17:46)
[2020-01-04] MEDS ORDERED: Ondansetron PF 4 MG/2 ML Vial IVP PRN (17:46)
[2020-01-04] MEDS ORDERED: hydrALAZINE 20 MG/ML VIAL SLOW IVP PRN (17:48)
[2020-01-04] MEDS: Sodium Chloride 0.9% 1,000 ML IV SCH (18:00)
[2020-01-04 18:15] LABS: Lactic Acid 1.5 mmol/L (0.5-2.2)
[2020-01-04] MEDS: Metoprolol Tartrate 50 MG TAB PO SCH (20:47)
[2020-01-04] MEDS: NIFEdipine XL 60 MG TAB PO SCH (20:47)
[2020-01-04] MEDS: Senokot S 8.6-50 MG TAB PO SCH (20:47)
[2020-01-04] MEDS: Gabapentin 300 MG CAP PO SCH (20:47)
[2020-01-04] MEDS: Doxepin HCl 25 MG CAP PO SCH (20:47)
[2020-01-04] MEDS: busPIRone HCl 10 MG TAB PO SCH (20:47)
[2020-01-04] MEDS: Heparin 5,000 UNITS/ML VIAL SC SCH (22:00)
[2020-01-05] MEDS ORDERED: traMADol HCl 50 MG TAB PO SCH (00:15)
[2020-01-05] MEDS ORDERED: diphenhydrAMINE 25 MG CAP PO SCH (01:45)
--- NOTE | 2020-01-05 02:53 | HP ---
CHIEF COMPLAINT: Lower extremity swelling and pain. HISTORY OF PRESENT ILLNESS: The patient is a 59-year-old female, obese with a history of high blood pressure, who presents to the hospital with complaints of lower extremity pain and swelling for the past 3 or 4 days. The patient states that she has been noticing her lower extremities have increased swelling with some pain and also itching. The patient denies going out in the yard or any trauma. She denies any recent use of new detergent. She denies any new medications or any socks or any boots. The patient also states that she has been having some chills, however, no fever. The patient stated that she did not go to her primary care doctor. She just ended up coming into the hospital to get evaluated of her lower extremities. PAST MEDICAL HISTORY: She has a history of hypertension, morbid obesity, bipolar disorder, schizophrenia with paranoia, anxiety, and depression. PAST SURGICAL HISTORY: She has had an appendectomy, cholecystectomy, hysterectomy, tubal ligation, and right leg surgery. FAMILY HISTORY: Positive for breast cancer in mother. SOCIAL HISTORY: She denies any smoking, alcohol use, or drug use. She lives alone in her apartment. She is a full code. ALLERGIES: SHE IS ALLERGIC TO KEFLEX, SHE STATES THAT SHE GETS A RASH. MEDICATIONS: As of the following, 1. Aspirin 81 mg daily. 2. Doxepin 100 mg daily. 3. Gabapentin 300 mg t.i.d. 4. Atarax 25 mg b.i.d. 5. Lisinopril 40 mg daily. 6. Metoprolol 50 mg twice a day. 7. Nifedipine 60 mg b.i.d. 8. Seroquel 800 mg at bedtime. 9. Risperidone 4 mg b.i.d. 10. Spironolactone 50 mg daily. 11. Torsemide 40 mg daily. REVIEW OF SYSTEMS: All negative except for the ones mentioned above in the HPI. PHYSICAL EXAMINATION: VITAL SIGNS: As of the following; temperature of 98.1, respiratory rate 20, O2 saturation 93% on room air, and blood pressure 118/79. GENERAL: She is awake, alert, and oriented x3, sitting up in bed, does not appear in any distress. CV: S1 and S2 present. No murmurs, rubs, or gallops. LUNGS: Clear to auscultation. No rhonchi or wheezes noted. ABDOMEN: Soft, obese. Bowel sounds are present x2. EXTREMITIES: She does have significant amount of erythema, which is very well demarcated towards her hernandez area bilaterally. She does have small blisters noted to her left hernandez area. Pedal pulses are present bilaterally. NEUROLOGICAL: No significant deficits noted. She is oriented x3. SKIN: As I mentioned, she has some erythema to bilateral lower extremities, well demarcated towards her lower bilateral hernandez area and does have a blister on her left hernandez area. LABORATORY RESULTS: As of the following; WBC of 7.8, hemoglobin of 12.9, hematocrit of 38.3, platelets of 237. Chemistry; sodium of 137, potassium of 5.0, BUN of 22, creatinine of 1.44. Her lactic acid was 2.3. ASSESSMENT AND PLAN: The patient is a very pleasant 59-year-old female, who presents to the hospital with possible cellulitis. 1. Cellulitis. She does have a significant component of itching, possible could be allergic also. However, at this time, we will start her on some broad-spectrum antibiotics. She does not even have a leukocytosis. Neither did she have any elevated neutrophils. She has no eosinophils either. However, we will start her on broad-spectrum antibiotics for now. We will tone her lower hernandez area for her erythema. I will start her on some gentle hydration. Venous Doppler was negative for deep venous thrombosis. 2. Obesity. The patient does not have a CPAP at home. She is supposed to be getting one, however, has not received one yet. We will continue to monitor. 3. Hypertension. We will continue her home medications. 4. Acute kidney injury. We will start her on some hydration and continue to monitor and we will hold nephrotoxins. 5. deep venous thrombosis prophylaxis. We will put the patient on subcu heparin. Job ID: [id number]
[2020-01-05 06:29] LABS: #Basophils 0.1 thou/uL (0.0-0.2); #Eosinphils 0.2 thou/uL (0.0-0.7); #Lymphocytes 2.1 thou/uL (1.20-3.40); #Monocytes 0.7 thou/uL (0.11-0.59); #Neutrophils 4.5 thou/uL (1.40-6.50); %Basophils 0.7 % (0.0-1.0); %Eosinophils 3.3 % (0.0-10.0); %Lymphocytes 27.8 % (21.0-51.0); %Monocytes 8.6 % (0.0-10.0); %Neutrophils 59.6 % (42.0-75.0); Hemoglobin 11.9 g/dL (12.0-16.0); Mean Corpuscular HGB CONC 33.4 g/dL (32.0-36.0); Mean Corpuscular Hemoglobin 32.3 pg (27.0-31.0); Mean Corpuscular Volume 96.6 fL (78.0-98.0); Mean Platelet Volume 7.1 fL (7.4-10.4); Platelet Count 204 thou/uL (130-400); RBC Distribution Width 11.9 % (11.5-14.5); White Blood Cell (WBC) Count 7.6 thou/uL (4.8-10.8)
[2020-01-05 06:48] LABS: Anion Gap 13 mmol/L (10-20); BUN (Urea Nitrogen) 23 mg/dL (9.8-20.1); Calc. Creatinine Clearance 126 mL/min (70-130); Calcium 9.2 mg/dL (7.8-10.44); Carbon Dioxide 28 mmol/L (22-29); Chloride 104 mmol/L (98-107); Estimated GFR-MDRD 57; Glucose 96 mg/dL (70-105); Potassium 4.5 mmol/L (3.5-5.1); Sodium 140 mmol/L (136-145)
[2020-01-05] MEDS: NIFEdipine XL 60 MG TAB PO SCH ×2 (08:26→20:29)
[2020-01-05] MEDS: Saccharomyces boulardii 250 MG CAP PO SCH (08:27)
[2020-01-05] MEDS: FLUoxetine HCl 20 MG CAP PO SCH (08:27)
[2020-01-05] MEDS: Metoprolol Tartrate 50 MG TAB PO SCH ×2 (08:27→20:29)
[2020-01-05] MEDS: Gabapentin 300 MG CAP PO SCH ×3 (08:27→20:28)
[2020-01-05] MEDS: Senokot S 8.6-50 MG TAB PO SCH ×2 (08:27→20:29)
[2020-01-05] MEDS: Heparin 5,000 UNITS/ML VIAL SC SCH ×3 (08:28→20:28)
[2020-01-05] MEDS: busPIRone HCl 10 MG TAB PO SCH ×2 (08:28→20:28)
[2020-01-05] MEDS: Aspirin Chewable 81 MG TAB PO SCH (08:28)
[2020-01-05] MEDS ORDERED: Enoxaparin Sodium 40 MG/0.4 ML SYRINGE SC SCH (09:00)
[2020-01-05] MEDS ORDERED: Spironolactone 25 MG TAB PO SCH (09:00)
[2020-01-05] MEDS ORDERED: FLU VACC QS2019-20(6MOS UP)/PF 60 MCG/0.5 ML SYRINGE IM ONE (09:00)
[2020-01-05] MEDS: diphenhydrAMINE 50 MG/ML VIAL IVP PRN ×2 (11:45→20:30)
[2020-01-05] MEDS: Sodium Chloride 0.9% 1,000 ML IV SCH (17:42)
--- NOTE | 2020-01-05 19:56 | PDOC.HOSPP ---
- Subjective Encounter Date: 01/05/20 Encounter Time: 10:00 Subjective: Pt seen for followup re: cellulitis. Feels better. - Objective Vital Signs & Weight: Vital Signs (12 hours) Temp Pulse Resp BP BP BP Pulse Ox 01/05/20 19:04 97.5 F L 95 20 170/83 H 95 01/05/20 15:20 98.5 F 87 17 152/94 H 90 L 01/05/20 08:26 90 118/82 01/05/20 08:00 97.6 F 56 L 19 124/88 94 L Weight Weight 336 lb 1 oz I&O: 01/04/20 01/05/20 01/06/20 06:59 06:59 06:59 Intake Total 1705 Output Total 300 Balance 1405 Result Diagrams: 01/05/20 06:08 01/05/20 06:08 Additional Labs: Labs and MARs reviewed by ri Hospitalist ROS - Review of Systems Constitutional: denies: fever, chills, sweats, weakness, malaise Cardiovascular: denies: chest pain, palpitations, orthopnea, paroxysmal noc. dyspnea, edema, light headedness Gastrointestinal: denies: nausea, vomiting, abdominal pain, diarrhea, constipation, melena, hematochezia Genitourinary: denies: dysuria, frequency, incontinence, hematuria, retention Musculoskeletal: reports: leg pain. denies: neck pain, shoulder pain, arm pain , back pain, hand pain, foot pain Skin: reports: rash - Medication Medications: Active Medications Generic Name Dose Route Start Last Admin Trade Name Freq PRN Reason Stop Dose Admin Aspirin 81 mg 01/05/20 09:00 01/05/20 08:28 Aspirin Chewable PO 81 mg DAILY ALLAN Administration Buspirone HCl 10 mg 01/04/20 21:00 01/05/20 08:28 Buspar PO 10 mg BID ALLAN Administration Diphenhydramine HCl 25 mg 01/05/20 11:15 01/05/20 11:45 Benadryl IVP 25 mg Q6H PRN Administration Itching Doxepin HCl 50 mg 01/04/20 21:00 01/04/20 20:47 Sinequan PO 50 mg HS ALLAN Administration Fluoxetine HCl 40 mg 01/05/20 09:00 01/05/20 08:27 Prozac PO 40 mg DAILY ALL[facility] Administration Gabapentin 300 mg 01/04/20 21:00 01/05/20 17:46 Neurontin PO 300 mg TID ALL[facility] Administration Heparin Sodium (Porcine) 5,000 units 01/04/20 21:00 01/05/20 17:46 Heparin SC 5,000 units TID ALLAN Administration Sodium Chloride 1,000 mls @ 50 mls/hr 01/04/20 18:00 01/05/20 17:42 Normal Saline 0.9% IV 01/06/20 09:59 1,000 mls .Q20H ALLAN Administration Vancomycin HCl 2 gm/ Sodium 500 mls @ 250 mls/hr 01/05/20 17:00 01/05/20 18: 23 Chloride IVPB 500 mls 1700 ALLAN Administration Levofloxacin 750 mg/ Device 150 mls @ 100 mls/hr 01/04/20 21:00 01/04/20 22: 03 IVPB 150 mls Q24HR ALL[facility] Administration Metoprolol Tartrate 50 mg 01/04/20 21:00 01/05/20 08:27 Lopressor PO 50 mg BID [facility] Administration Nifedipine 60 mg 01/04/20 21:00 01/05/20 08:26 Procardia Xl PO 60 mg BID ALLAN Administration Quetiapine Fumarate 400 mg 01/04/20 21:00 01/04/20 20:47 Seroquel PO 400 mg HS ALLAN Administration Saccharomyces Boulardii 250 mg 01/05/20 09:00 01/05/20 08:27 Florastor PO 250 mg DAILY ALL[facility] Administration Senna/Docusate Sodium 1 tab 01/04/20 21:00 01/05/20 08:27 Senokot S PO 1 tab BID ALLAN Administration - Exam General - other findings: Morbid obesity Eye: anicteric sclera ENT: moist mucosa Neck: supple, symmetric, no thyromegaly, no lymphadenopathy Heart: RRR, no gallops, no rubs, normal peripheral pulses Respiratory: CTAB, no wheezes, no rales, no ronchi Gastrointestinal: soft, non-tender, normal bowel sounds, distended Skin - other findings: Gerardo hernandez cellulitis Neurological: cranial nerve grossly intact, normal sensation to touch, no weakness, no focal deficits Musculoskeletal: normal tone, normal strength, no muscle wasting, generalized weakness Psychiatric: normal affect, normal behavior, A&O x 3 Hosp A/P (1) Cellulitis Code(s): L03.90 - CELLULITIS, UNSPECIFIED Status: Acute (2) Acute renal failure superimposed on stage 2 chronic kidney disease Code(s): N17.9 - ACUTE KIDNEY FAILURE, UNSPECIFIED; N18.2 - CHRONIC KIDNEY DISEASE, STAGE 2 (MILD) Status: Acute (3) Hypertension Code(s): I10 - ESSENTIAL (PRIMARY) HYPERTENSION Status: Chronic Qualifiers: Hypertension type: essential hypertension Qualified Code(s): I10 - Essential (primary) hypertension (4) Anxiety and depression Code(s): F41.9 - ANXIETY DISORDER, UNSPECIFIED; F32.9 - MAJOR DEPRESSIVE DISORDER, SINGLE EPISODE, UNSPECIFIED Status: Chronic - Plan continue antibiotics Continue levofloxacin and vancomycin. Consult ID service. Monitor vital signs, titrate antihypertensives as needed. depression mild, stable. creatinine improved to 1.17; lisinopril and torsemide on hold.
[2020-01-05] MEDS: Doxepin HCl 25 MG CAP PO SCH (20:28)
[2020-01-06] MEDS: diphenhydrAMINE 50 MG/ML VIAL IVP PRN ×2 (04:31→12:32)
[2020-01-06 06:44] LABS: Eosinophils 7 % (0-10); Hemoglobin 12.2 g/dL (12.0-16.0); Lymphocytes 29 % (21-51); MDiff Complete? YES; Mean Corpuscular HGB CONC 33.2 g/dL (32.0-36.0); Mean Corpuscular Hemoglobin 32.1 pg (27.0-31.0); Mean Corpuscular Volume 96.6 fL (78.0-98.0); Mean Platelet Volume 7.7 fL (7.4-10.4); Metamyelocyte 1 % (0-0); Monocytes 11 % (0-10); Myelocyte 1 % (0-0); Neutrophil 51 % (42-75); Platelet Count 205 thou/uL (130-400); Platelet Morphology Comment Appears Adequate; RBC Distribution Width 12.1 % (11.5-14.5); White Blood Cell (WBC) Count 5.9 thou/uL (4.8-10.8)
[2020-01-06 06:46] LABS: Anion Gap 11 mmol/L (10-20); BUN (Urea Nitrogen) 15 mg/dL (9.8-20.1); Calc. Creatinine Clearance 143 mL/min (70-130); Calcium 9.2 mg/dL (7.8-10.44); Carbon Dioxide 30 mmol/L (22-29); Chloride 103 mmol/L (98-107); Estimated GFR-MDRD 67; Glucose 96 mg/dL (70-105); Potassium 4.5 mmol/L (3.5-5.1); Sodium 139 mmol/L (136-145)
[2020-01-06] MEDS: busPIRone HCl 10 MG TAB PO SCH (08:10)
[2020-01-06] MEDS: FLUoxetine HCl 20 MG CAP PO SCH (08:10)
[2020-01-06] MEDS: Saccharomyces boulardii 250 MG CAP PO SCH (08:11)
[2020-01-06] MEDS: Gabapentin 300 MG CAP PO SCH (08:11)
[2020-01-06] MEDS: NIFEdipine XL 60 MG TAB PO SCH (08:11)
[2020-01-06] MEDS: Metoprolol Tartrate 50 MG TAB PO SCH (08:11)
[2020-01-06] MEDS: Aspirin Chewable 81 MG TAB PO SCH (08:11)
[2020-01-06] MEDS: Senokot S 8.6-50 MG TAB PO SCH (08:12)
[2020-01-06] MEDS: Heparin 5,000 UNITS/ML VIAL SC SCH (08:12)
[2020-01-06 12:27] VITALS: BP 147/90; TEMP 97.7
--- NOTE | 2020-01-07 01:24 | DIS ---
DATE OF ADMISSION: 01/04/2020 DATE OF DISCHARGE: 01/06/2020 PRIMARY CARE PROVIDER: [facility]. DISCHARGE DIAGNOSES: 1. Acute on chronic stage II renal failure. 2. Cellulitis. CONDITION OF PATIENT ON THE DAY OF DISCHARGE: Stable. I assessed Ms. Contreras on the day of discharge. She denies any chest pain or shortness of breath. Vital signs are stable. S1 and S2 are heard, regular. Lungs are clear to auscultation bilaterally. CONSULTATIONS DURING THIS HOSPITALIZATION: Infectious Diseases, Dr. Reaves. DISCHARGE MEDICATIONS: No change was made to her pre-admission home medications as dictated by Dr. Catherine in her history and physical note dated 01/04/2020. DISCHARGE DESTINATION: Home. ACTIVITY: No limitations. DIET: Heart healthy. HOSPITAL COURSE: Ms. Contreras is a pleasant 59-year-old lady who was admitted for cellulitis and acute on chronic stage II renal failure on 01/04/2020. She was treated with intravenous antibiotics. Nephrotoxic medications were held. She improved clinically. She was seen by Infectious Disease Service. Her lesions had improved by the time she was seen by Infectious Disease Service. Antibiotics were discontinued. She is being discharged home in a stable condition. On the day of discharge, she has white count of 5900, hemoglobin 12.2, platelet count 205,000, normal sodium, normal potassium, and creatinine of 1.03. Many thanks for allowing me to participate in your patient's care. Please feel free to contact me with any questions or concerns. TIME SPENT: Total amount of time spent coordinating this discharge: 20 minutes. Job ID: [id number]
--- NOTE | 2020-01-07 08:58 | CON ---
DATE OF CONSULTATION: 01/06/2020 REASON FOR CONSULTATION: Leg changes, possible cellulitis. HISTORY OF PRESENT ILLNESS: A 59-year-old with history of schizoaffective disorder and atypical chest pain with negative workup in the past as well as type 2 diabetes, who developed swelling in the lower extremities, which has been associated with what she describes as redness, itching, but not much pain. She was admitted and started on levofloxacin and vancomycin. She still has itching, but the Benadryl has helped with that symptom. No headaches, visual symptoms, sore throat, odynophagia, or dysphagia. No dyspnea or chest pain. No abdominal pain or diarrhea. No genitourinary symptoms. No joint symptoms. Her psychiatric disorder seems to be improved with the psychotropic medications. Monitored at [facility]. MEDICAL HISTORY: 1. Obesity. 2. Schizoaffective disorder. 3. Atypical chest pain with negative workup in the past. 4. Venous insufficiency. 5. Hypertension. SURGICAL HISTORY: 1. Appendectomy. 2. Cholecystectomy. 3. Hysterectomy. 4. Tubal ligation. FAMILY HISTORY: Breast cancer. SOCIAL HISTORY: Never smoker. Lives in an apartment in town, has family members who visit her from time to time. Does not work. ALLERGIES: KEFLEX WITH RASH. MEDICATION LIST: 1. Aspirin. 2. BuSpar. 3. Tums. 4. Benadryl. 5. Sinequan. 6. Prozac. 7. Neurontin. 8. Hydralazine. 9. Levofloxacin. 10. Lopressor. 11. Procardia. 12. Zofran. 13. Seroquel. 14. Vancomycin. PHYSICAL EXAMINATION: VITAL SIGNS: She has been afebrile throughout, BP 140/90, pulse 84, respirations 20, O2 saturation 96. SKIN: There is a quite symmetric band of erythema right between the top 1/3 and mid 3rd of the right and left leg. Bilateral swelling with stasis dermatitis noted. One tiny little blister at the anterior segment of the left leg skin. Peripheral IV access. No Chisholm catheter. No lymphadenopathy. HEENT: Ocular movements conjugate. Still quite a few teeth remaining with some decay and gum disease. NECK: Supple. No jugular vein distention or carotid bruits. LUNGS: Symmetric. Clear breath sounds. HEART: S1 and S2, regular rate. No S3 or S4. ABDOMEN: Soft, not distended or tender. Quite prominent panniculus. Some intertriginous maceration in the perineal area, otherwise normal. EXTREMITIES: No joint inflammatory process noted. Pulses are 1+ in dorsalis pedis. Plantar responses are flexor. Strength is symmetric in all 4 extremities. NEUROLOGIC: She is awake, oriented, follows commands. Speech appears to be normal. No delusional thinking process. LABORATORY DATA: Urinalysis normal. White cell count 7.8 5.9, hemoglobin 12.9, differential normal, and platelets normal. Creatinine was 1.44 on arrival and now 1.03. AST 36 and albumin 4.3. Blood cultures, no growth to date. Venogram negative for DVT. ASSESSMENT: 1. Schizoaffective disorder. 2. Obesity. 3. Type 2 diabetes. 4. Hypertension. 5. Venous insufficiency. 6. Possible diastolic congestive heart failure. 7. Stasis dermatitis. DISCUSSION: The findings are more consistent with stasis dermatitis, particularly in view of itching associated and the symmetry of the changes. She had no tenderness on palpation of the area during the examination, so that and the absence of neutrophilia or fever that makes it unlikely that cellulitis is the diagnosis. Instead, I believe that stasis dermatitis is the more likely scenario, discontinue antimicrobial therapy. DAYAN hose right and left side. She will need to wear compression stockings, which she used to do in the past when she worked at [employer], but has not been doing since. Job ID: [id number]
== END 2020-01-06 14:04 | disposition home or self-care (01) | DRG 603 ==
LOC: ERS 12:45 → T4-A 17:03
PROVIDERS: ADMIT Internal Medicine; ATTEND Emergency Medicine
DX: L03.115 Cellulitis of right lower limb (principal); N17.9 Acute kidney failure, unspecified; Z68.43 Body mass index [BMI] 50.0-59.9, adult; L03.116 Cellulitis of left lower limb; E66.01 Morbid (severe) obesity due to excess calories; F31.9 Bipolar disorder, unspecified; F20.9 Schizophrenia, unspecified; F41.9 Anxiety disorder, unspecified; Z90.49 Acquired absence of other specified parts of digestive tract; Z90.710 Acquired absence of both cervix and uterus; Z98.51 Tubal ligation status; Z88.8 Allergy status to other drugs, medicaments and biological substances; Z79.82 Long term (current) use of aspirin; Z79.899 Other long term (current) drug therapy; I12.9 Hypertensive chronic kidney disease with stage 1 through stage 4 chronic kidney disease, or unspecified chronic kidney disease; N18.2 Chronic kidney disease, stage 2 (mild); I87.2 Venous insufficiency (chronic) (peripheral)
CPT/HCPCS: 36415; 80048; 80053; 81003; 83605; 83880; 85025; 87040; 93970; 94760; 96365; J1200; J1644; J1956; J3370; J7050; Q0163

== ENCOUNTER 2020-03-26 10:04 | Inpatient (IN) | payer MEDICARE, OTHER ==
--- NOTE | 2020-03-26 10:44 | RAD ---
Exam: Chest one view HISTORY:Dyspnea Comparison: 03/29/2019 FINDINGS: Cardiac silhouette:Mild enlarged cardiac silhouette Aorta: Unremarkable Pulmonary vessels: Normal Costophrenic angles: Clear LUNGS: Diminished lung volumes, due to reports the upper. Patchy interstitial opacities may be due to decreased lung volume. Possibility of atelectasis or scarring is also a consideration. Better evaluation with a 2 view chest radiograph with better inspiration is recommended. Pneumothorax: None Osseous abnormalities: None IMPRESSION: Limited evaluation due to decreased inspiratory effort. Resultant linear densities may represent atel ectasis or scar. 2 view chest radiograph with better inspiration is recommended
[2020-03-26] MEDS ORDERED: Furosemide 100 MG/10 ML VIAL ONE (11:16)
[2020-03-26 11:19] LABS: #Eosinphils 0.1 thou/uL (0.0-0.7); #Lymphocytes 1.4 thou/uL (1.20-3.40); #Monocytes 0.7 thou/uL (0.11-0.59); #Neutrophils 7.4 thou/uL (1.40-6.50); %Basophils 0.5 % (0.0-1.0); %Eosinophils 1.3 % (0.0-10.0); %Lymphocytes 14.9 % (21.0-51.0); %Monocytes 7.3 % (0.0-10.0); %Neutrophils 76.1 % (42.0-75.0); Hemoglobin 12.7 g/dL (12.0-16.0); Mean Corpuscular HGB CONC 31.8 g/dL (32.0-36.0); Mean Corpuscular Hemoglobin 31.6 pg (27.0-31.0); Mean Corpuscular Volume 99.5 fL (78.0-98.0); Mean Platelet Volume 7.3 fL (7.4-10.4); Platelet Count 241 thou/uL (130-400); RBC Distribution Width 12.6 % (11.5-14.5); Red Blood Cell (RBC) Count 4.03 mill/uL (4.20-5.40); White Blood Cell (WBC) Count 9.7 thou/uL (4.8-10.8)
[2020-03-26] MEDS ORDERED: Iopamidol-370 76% 500 ML 1 ML ONE (11:37)
[2020-03-26 11:45] LABS: ALT (SGPT) 33 U/L (8-55); AST (SGOT) 25 U/L (5-34); Albumin 4.1 g/dL (3.5-5.0); Alkaline Phosphatase 95 U/L (40-110); Anion Gap 15 mmol/L (10-20); BUN (Urea Nitrogen) 39 mg/dL (9.8-20.1); Bilirubin, Total 0.2 mg/dL (0.2-1.2); Calc. Creatinine Clearance 0 mL/min (70-130); Calcium 9.9 mg/dL (7.8-10.44); Carbon Dioxide 35 mmol/L (22-29); Chloride 95 mmol/L (98-107); Estimated GFR-MDRD 31; Globulin 4.1 g/dL (2.4-3.5); Glucose 102 mg/dL (70-105); Potassium 4.8 mmol/L (3.5-5.1); Protein, Total 8.2 g/dL (6.0-8.3); Sodium 140 mmol/L (136-145)
--- NOTE | 2020-03-26 12:58 | CT ---
CT ANGIOGRAM THORAX WITH CONTRAST: (CTA pulmonary angiogram) DATE: 03/26/2020 HISTORY: 60-year-old female with dyspnea and cough TECHNIQUE: IV injection of iodinated contrast. Scan acquisition timing attempted to coincide with iodinated contrast bolus reaching maximal density in pulmonary arteries. 3-D MIP reconstructions. COMPARISON: 03/23/2019 FINDINGS: No thoracic aortic dissection, rupture, or aneurysm. Somewhat low lung volumes. No pulmonary thromboembolism identified in the pulmonic trunk, left and right main pulmonary arteries , or their proximal branches. Mid level and distal branches are very difficult to evaluate because of body habitus. Prominent, extensive bilateral lower lobe subsegmental atelectasis, similar to or slightly worse than 03/23/2019. Nonspecific mild groundglass changes are similar to those of the prior study, and are probably part of the subsegmental atelectasis. The findings are not classic for COVID-19. No pleural effusion or pneumothorax. Trachea and bilateral mainstem bronchi are patent and clear. IMPRESSION: 1. No evidence of pulmonary thromboembolism centrally or in proximal branches of pulmonary arteries. 2. Extensive bilateral lower lobe subsegmental atelectasis, similar to the study 1 year ago.
[2020-03-26] MEDS ORDERED: Ondansetron ODT 4 MG TAB SL PRN (15:37)
[2020-03-26] MEDS ORDERED: Ondansetron PF 4 MG/2 ML Vial IVP PRN ×3 (15:37→17:09)
[2020-03-26 16:15] VITALS: BMI 55.9
[2020-03-26] MEDS ORDERED: Acetaminophen 325 MG TAB PO PRN (17:09)
[2020-03-26] MEDS ORDERED: Guaifenesin DM 100-10/5 ML UDCUP PO PRN (17:09)
[2020-03-26] MEDS ORDERED: Ondansetron ODT 4 MG TAB PO PRN ×2 (17:09)
[2020-03-26] MEDS ORDERED: Promethazine 25 MG TAB PO PRN (17:09)
[2020-03-26] MEDS ORDERED: cloNIDine 0.1 MG TAB PO PRN (17:09)
[2020-03-26] MEDS ORDERED: hydrALAZINE 20 MG/ML VIAL SLOW IVP PRN (17:09)
--- NOTE | 2020-03-26 19:43 | HP ---
PRIMARY CARE PHYSICIAN: The patient's primary care is at the [facility]. CHIEF COMPLAINT: Shortness of breath. HISTORY OF PRESENT ILLNESS: Ms. Contreras is a very pleasant 60-year-old female, who has a history of hypertension and obesity. She says that she was in the shower this morning, getting ready to go shopping with a friend when she started getting short of breath. She says she also noted slight cough that just started on today as well. Her friend arrived at her home and noticed that it sounded like she was "gurgling" or there was a gurgling sound coming from her throat. She suggested that she go to the ER for evaluation. When she was seen in the emergency room, she was evaluated. They did a CT angiogram to rule out pulmonary embolism as her chest x-ray was essentially clear. This was negative, but due to concerns that she was hypoxic with an O2 saturation in the mid to low 80s on room air, which was new to her, they felt it was best to bring her in for observation. Given the coronavirus pandemic since she was hypoxic, they felt it was best to go ahead and rule her out for COVID-19 as well. The patient, however, denies any fevers, no chills, no nausea, no vomiting, no diarrhea. She says prior to today she was more or less at her baseline. REVIEW OF SYSTEMS: All systems were reviewed and are negative except for that mentioned in the history of present illness. PAST MEDICAL HISTORY: Significant for hypertension, morbid obesity, bipolar disorder, schizophrenia, paranoia, anxiety, and depression. PAST SURGICAL HISTORY: She has had an appendectomy, cholecystectomy, hysterectomy, bilateral tubal ligation, and right leg surgery. ALLERGIES: TO KEFLEX. SOCIAL HISTORY: She is a nonsmoker and nondrinker. She lives alone. FAMILY HISTORY: Significant for breast cancer. CURRENT MEDICATIONS: These are taken from the electronic records and includes; 1. Nifedipine extended release 60 mg twice daily. 2. Metoprolol 50 mg twice a day. 3. Lisinopril 40 mg daily. 4. Ibuprofen 200 mg twice daily. 5. Gabapentin 300 mg t.i.d. 6. Fluoxetine 40 mg daily. 7. Doxepin 50 mg at bedtime. 8. Aspirin 81 mg daily. 9. BuSpar 10 mg twice daily. 10. Demadex 20 mg daily. 11. Spironolactone 50 mg daily. 12. Seroquel 400 mg at bedtime. PHYSICAL EXAMINATION: GENERAL: She is alert and oriented. She appears to be in no acute distress. She is well developed and well nourished. VITAL SIGNS: Blood pressure 134/89, heart rate 99, respiratory rate of 20, temperature is 97.7. HEENT: Pupils are equal, round, and reactive to light. Extraocular muscles are intact. Her sclerae are anicteric. Throat; no erythema, no exudates. NECK: No adenopathy. No bruits. LUNGS: It was notable that she did have some mild expiratory rhonchi and it was throughout most of her lung baltazar. CARDIOVASCULAR: She has a normal S1 and S2. No S3 or S4. No murmurs, clicks, or rubs. ABDOMEN: Obese. It is soft, nontender, and nondistended. Positive for bowel sounds. No rebound. No guarding. No organomegaly. EXTREMITIES: There is no clubbing, no cyanosis, but she does have nonpitting edema. Her dorsalis pedis pulses are palpable bilaterally. Good capillary refill. No significant skin lesions. NEUROLOGIC: Nonfocal. LABORATORY RESULTS: Sodium 140, potassium 4.8, chloride is 95, CO2 is 35, BUN of 39, creatinine 1.99, and glucose is 102. White blood cell count 9.7, hemoglobin 12.7, hematocrit is 40.2, and platelet count is 241. CT angiogram was negative for any pulmonary embolism. No mention of any infiltrate or effusion. ASSESSMENT AND PLAN: 1. This is a 60-year-old female, who presents with shortness of breath as well as a cough, which just basically started today. Due to her low oxygen saturations, there was some concern she does have some rhonchi on exam. Therefore, at minimum, she has bronchitis with hypoxemia. Coronavirus infection is also a possibility. She is being admitted. She will be placed on droplet isolation. We will place her on azithromycin as well as albuterol inhalers. We will forego any neb treatments or steroids until the COVID screen is back. Continue supplemental oxygen. 2. Hypertension. We will need to reconcile and restart her home medications. 3. History of bipolar and schizophrenia. Again, restart her home medications. 4. The patient will be placed on DVT as well as GI prophylaxis. Job ID: [id number]
[2020-03-26] MEDS: Metoprolol Tartrate 50 MG TAB PO SCH (20:29)
[2020-03-26] MEDS: Famotidine 20 MG TAB PO SCH (20:29)
[2020-03-26] MEDS: busPIRone HCl 10 MG TAB PO SCH (20:29)
[2020-03-26] MEDS: Ibuprofen 200 MG TAB PO SCH (20:29)
[2020-03-26] MEDS: Gabapentin 300 MG CAP PO SCH (20:29)
[2020-03-26] MEDS: NIFEdipine XL 60 MG TAB PO SCH (20:30)
[2020-03-26] MEDS ORDERED: Doxepin HCl 25 MG CAP PO SCH (21:00)
[2020-03-27 06:01] LABS: #Eosinphils 0.2 thou/uL (0.0-0.7); #Lymphocytes 1.9 thou/uL (1.20-3.40); #Monocytes 0.6 thou/uL (0.11-0.59); #Neutrophils 4.6 thou/uL (1.40-6.50); %Basophils 0.7 % (0.0-1.0); %Lymphocytes 25.3 % (21.0-51.0); Hemoglobin 13.5 g/dL (12.0-16.0); Mean Corpuscular Hemoglobin 31.5 pg (27.0-31.0); Mean Platelet Volume 7.1 fL (7.4-10.4); Platelet Count 227 thou/uL (130-400); RBC Distribution Width 12.5 % (11.5-14.5); Red Blood Cell (RBC) Count 4.29 mill/uL (4.20-5.40); White Blood Cell (WBC) Count 7.3 thou/uL (4.8-10.8)
[2020-03-27 06:19] LABS: BUN (Urea Nitrogen) 34 mg/dL (9.8-20.1); Calc. Creatinine Clearance 92 mL/min (70-130); Calcium 9.6 mg/dL (7.8-10.44); Estimated GFR-MDRD 40; Glucose 109 mg/dL (70-105)
[2020-03-27 06:28] LABS: Anion Gap 18 mmol/L (10-20); Carbon Dioxide 34 mmol/L (22-29); Chloride 94 mmol/L (98-107); Potassium 4.8 mmol/L (3.5-5.1); Sodium 141 mmol/L (136-145)
[2020-03-27] MEDS ORDERED: Spironolactone 25 MG TAB PO SCH (08:00)
[2020-03-27] MEDS: NIFEdipine XL 60 MG TAB PO SCH (08:52)
[2020-03-27] MEDS: Ibuprofen 200 MG TAB PO SCH (08:53)
[2020-03-27] MEDS: busPIRone HCl 10 MG TAB PO SCH (08:53)
[2020-03-27] MEDS: Famotidine 20 MG TAB PO SCH (08:54)
[2020-03-27] MEDS: Gabapentin 300 MG CAP PO SCH ×2 (08:54→15:14)
[2020-03-27] MEDS: Metoprolol Tartrate 50 MG TAB PO SCH (08:54)
[2020-03-27] MEDS: Albuterol 200 PUFF (6.7GM INHALER) INH SCH ×3 (08:55→15:14)
[2020-03-27] MEDS ORDERED: Torsemide 20 MG TAB PO SCH (09:00)
[2020-03-27] MEDS ORDERED: Aspirin Chewable 81 MG TAB PO SCH (09:00)
[2020-03-27] MEDS ORDERED: Azithromycin 250 MG TAB PO SCH (09:00)
[2020-03-27] MEDS ORDERED: FLUoxetine HCl 20 MG CAP PO SCH (09:00)
[2020-03-27] MEDS ORDERED: Lisinopril 20 MG TAB PO SCH (09:00)
[2020-03-27] MEDS ORDERED: Enoxaparin Sodium 40 MG/0.4 ML SYRINGE SC SCH (09:00)
--- NOTE | 2020-03-27 09:12 | PDOC.HOSPP ---
- Subjective Encounter Date: 03/27/20 Encounter Time: 09:10 Subjective: Ms. Contreras was seen today in follow-up of bronchitis. She does not have any complaints. She wants to go home. She denies feeling dyspneic, even though her oxygen saturations will drop to the low 80's on room air. She does not appear distressed. - Objective Vital Signs & Weight: Vital Signs (12 hours) Temp Pulse Resp BP BP Pulse Ox 03/27/20 08:54 151/101 H 03/27/20 08:52 80 03/27/20 05:00 98.2 F 80 20 118/80 94 L 03/27/20 01:00 98.3 F 22 H 138/85 96 Weight Weight 335 lb 14.4 oz Result Diagrams: 03/27/20 05:50 03/27/20 05:50 Hospitalist ROS - Medication Medications: Active Medications Generic Name Dose Route Start Last Admin Trade Name Freq PRN Reason Stop Dose Admin Albuterol Sulfate 2 puff 03/27/20 07:00 03/27/20 08:55 Proventil Hfa INH 2 puff QID-RT ALLAN Administration Aspirin 81 mg 03/27/20 09:00 03/27/20 08:54 Aspirin Chewable PO 81 mg DAILY ALLAN Administration Azithromycin 500 mg 03/27/20 09:00 03/27/20 08:53 Zithromax PO 500 mg DAILY ALLAN Administration Buspirone HCl 10 mg 03/26/20 21:00 03/27/20 08:53 Buspar PO 10 mg BID ALLAN Administration Doxepin HCl 50 mg 03/26/20 21:00 03/26/20 21:26 Sinequan PO 50 mg HS ALLAN Administration Enoxaparin Sodium 40 mg 03/27/20 09:00 03/27/20 08:52 Lovenox SC 40 mg 0900 ALLAN Administration Famotidine 20 mg 03/26/20 21:00 03/27/20 08:54 Pepcid PO 20 mg BID ALLAN Administration Fluoxetine HCl 40 mg 03/27/20 09:00 03/27/20 08:54 Prozac PO 40 mg DAILY ALLAN Administration Gabapentin 300 mg 03/26/20 21:00 03/27/20 08:54 Neurontin PO 300 mg TID ALLAN Administration Ibuprofen 200 mg 03/26/20 21:00 03/27/20 08:53 Motrin PO 200 mg BID ALLAN Administration Lisinopril 40 mg 03/27/20 09:00 03/27/20 08:54 Zestril PO 40 mg DAILY ALLAN Administration Metoprolol Tartrate 50 mg 03/26/20 21:00 03/27/20 08:54 Lopressor PO 50 mg BID ALLAN Administration Nifedipine 60 mg 03/26/20 21:00 03/27/20 08:52 Procardia Xl PO 60 mg BID ALLAN Administration Quetiapine Fumarate 400 mg 03/26/20 21:00 03/26/20 20:29 Seroquel PO 400 mg HS ALLAN Administration Spironolactone 50 mg 03/27/20 08:00 03/27/20 08:53 Aldactone PO 50 mg QAM-WM ALLAN Administration Torsemide 20 mg 03/27/20 09:00 03/27/20 08:53 Demadex PO 20 mg DAILY ALLAN Administration - Exam Eye: PERRL Heart: RRR, no murmur, no gallops, no rubs, normal peripheral pulses Respiratory: CTAB (+ occasional rhhonchi, no wheezing or rales.) Gastrointestinal: soft, non-tender, non-distended, normal bowel sounds, no palpable masses, no hepatomegaly Extremities: no cyanosis, 1+ LE edema (trace pedal edema in both lower extremities) Hosp A/P (1) Acute bronchitis Code(s): J20.9 - ACUTE BRONCHITIS, UNSPECIFIED Status: Acute (2) Hypertension Code(s): I10 - ESSENTIAL (PRIMARY) HYPERTENSION Status: Chronic Qualifiers: Hypertension type: essential hypertension Qualified Code(s): I10 - Essential (primary) hypertension (3) Morbid obesity with BMI of 50.0-59.9, adult Code(s): E66.01 - MORBID (SEVERE) OBESITY DUE TO EXCESS CALORIES; Z68.43 - BODY MASS INDEX (BMI) 50.0-59.9, ADULT Status: Chronic (4) NYA (obstructive sleep apnea) Code(s): G47.33 - OBSTRUCTIVE SLEEP APNEA (ADULT) (PEDIATRIC) Status: Chronic (5) Type 2 diabetes mellitus Status: Chronic Qualifiers: Diabetes mellitus complication status: without complication Qualified Code( s): E11.9 - Type 2 diabetes mellitus without complications - Plan * Acute Bronchitis- resolving- I suspect she is close to her baseline * Hypoxemia- Most likely due to restrictive lung disease from severe life threatening obesity. I suspect this is her baseline, and will not improve much with treatment. CXR, and CTA were essentially negative. Will start her on home oxygen * She is low risk for COVID - 19 infection. She lives alone, and has not been out in the community much. Once the Home oxygen is arranged she can be discharged home, and follow-up with the COVID screen results as an outpatient, and self quarantine in the interim * HTN- blood pressure is stable * DM-blood glucose is stable * Obesity- K[facility] Room Helper consult for healthy diet
[2020-03-27 12:03] LABS: SARS-CoV-2 MS2 Positive; SARS-CoV-2 N Gene Negative; SARS-CoV-2 S Gene Negative; SARS-CoV-2 orf1ab Negative
--- NOTE | 2020-03-27 17:07 | PDOC.EVN ---
Event Note - Event Note Event Note: Patient's chart was reviewed once again with regards to the hypoxemia. She is at her baseline. It is noted she has congestive heart failure with preserved EF, On the Echo her RV and RA size were not estimated due to her body habitus. I suspect she may have some RV failure and cor pulmonale. Her oxygen saturations are in the low 80"s on room air. She therefore has a medical need for home oxygen.
--- NOTE | 2020-03-27 18:33 | DIS ---
DATE OF ADMISSION: 03/26/2020 DATE OF DISCHARGE: 03/27/2020 PRIMARY CARE PHYSICIAN: Through the [facility]. DISCHARGE DISPOSITION: Home. DISCHARGE DIAGNOSES: 1. Acute bronchitis, resolving. 2. Acute on chronic respiratory failure with hypoxemia. 3. Morbid obesity. 4. Hypertension. 5. Bipolar disorder. 6. Schizophrenia. 7. Paranoia. 8. Anxiety. 9. Depression. 10. Chronic diastolic heart failure. 11. Probable cor pulmonale. IMAGING DONE DURING HOSPITAL STAY: The patient had a CT angiogram of the chest, which showed no evidence of pulmonary embolism. There was extensive bilateral lower lobe atelectasis, similar to the year before. DISCHARGE MEDICATIONS: 1. Azithromycin 250 mg p.o. daily for 3 more days. 2. Aldactone 50 mg daily. 3. Nifedipine 60 mg twice daily. 4. Metoprolol 50 mg twice daily. 5. Lisinopril 40 mg daily. 6. Aspirin 81 mg daily. 7. Proventil inhaler two puffs q.i.d. as needed. 8. Demadex 20 mg daily. 9. Seroquel 400 mg at bedtime. 10. Ibuprofen 200 mg twice daily. 11. Gabapentin 300 mg p.o. t.i.d. 12. Fluoxetine 40 mg daily. 13. Doxepin 50 mg at bedtime. 14. BuSpar 10 mg twice a day. HOSPITAL COURSE: Ms. Contreras is a pleasant 60-year-old female, who was admitted to the hospital after having difficulty with shortness of breath. She also was found to be hypoxemic as well. She had a CT angiogram in the ER, which was negative for PE and was placed in the hospital for further evaluation. In review of her records, she had an echocardiogram back in November of last year demonstrating some evidence of diastolic heart failure and she had some mild wheezing on exam and she appeared to be more or less at her baseline. She was also ruled out for COVID-19, the screen was negative. I suspect that the hypoxemia is multifactorial due to her body habitus, obstructive sleep apnea, probable restrictive lung disease on top of the diastolic heart failure. She was given information by the dietitian for weight loss and healthy eating strategies and will be discharged home on home oxygen. She is to follow up with her primary care physician in approximately 1 to 2 weeks. Job ID: [id number]
[2020-03-27 19:18] VITALS: BP 148/89; TEMP 98.4
== END 2020-03-27 18:45 | disposition home or self-care (01) | DRG 189 ==
LOC: ERS 10:04 → T4-A 15:52
PROVIDERS: ADMIT Internal Medicine; ATTEND Internal Medicine
DX: J96.21 Acute and chronic respiratory failure with hypoxia (principal); Z68.43 Body mass index [BMI] 50.0-59.9, adult; I50.32 Chronic diastolic (congestive) heart failure; J20.9 Acute bronchitis, unspecified; E66.01 Morbid (severe) obesity due to excess calories; I11.0 Hypertensive heart disease with heart failure; Z20.828 Contact with and (suspected) exposure to other viral communicable diseases; F22 Delusional disorders; F31.9 Bipolar disorder, unspecified; F20.9 Schizophrenia, unspecified; F41.9 Anxiety disorder, unspecified; G47.33 Obstructive sleep apnea (adult) (pediatric); E11.9 Type 2 diabetes mellitus without complications; I27.81 Cor pulmonale (chronic); Z90.710 Acquired absence of both cervix and uterus; Z98.51 Tubal ligation status; Z90.49 Acquired absence of other specified parts of digestive tract; Z88.1 Allergy status to other antibiotic agents; Z79.82 Long term (current) use of aspirin; Z79.899 Other long term (current) drug therapy
CPT/HCPCS: 36415; 71045; 71275; 80048; 80053; 83880; 84484; 85025; 87635; 90471; 90732; 93005; 96374; G0009; J1650; J1940; Q9967; U0002

== ENCOUNTER 2020-04-07 15:03 | Emergency (ER) | payer MEDICARE, OTHER ==
[2020-04-07 15:55] LABS: Hemoglobin 13.4 g/dL (12.0-16.0); Mean Corpuscular HGB CONC 30.2 g/dL (32.0-36.0); Mean Corpuscular Hemoglobin 30.3 pg (27.0-31.0); RBC Distribution Width 12.4 % (11.5-14.5); Red Blood Cell (RBC) Count 4.42 mill/uL (4.20-5.40); White Blood Cell (WBC) Count 6.7 thou/uL (4.8-10.8)
[2020-04-07 16:07] LABS: BHCG - Serum Negative (NEGATIVE); Pregs Control Background? CLEAR/WHITE (CLR/WHITE); Pregs Control Bar Appear? YES (CONTROL BAR)
[2020-04-07 16:14] LABS: Acetaminophen Less than 6.0 mcg/mL (10.0-30.0); Alcohol Less than 10 mg/dL (Less than 10); Salicylate Less than 8.0 mg/dL (15.0-30.0)
[2020-04-07 16:18] LABS: Band 7 % (5-11); Eosinophils 1 % (0-10); Hypochromia SLIGHT = 6-15 cells (100X) (0-5/hpf); Lymphocytes 22 % (21-51); MDiff Complete? YES; Mean Platelet Volume 8.6 fL (7.4-10.4); Monocytes 10 % (0-10); Neutrophil 57 % (42-75); Platelet Clumps MODERATE; Platelet Morphology Comment PLT clumps seen-ADEQ; Reactive Lymphocytes 3 % (0-10); Target Cells SLIGHT = 2-5 cells (100X) (0-1/hpf)
[2020-04-07 16:22] LABS: ALT (SGPT) 40 U/L (8-55); AST (SGOT) 37 U/L (5-34); Albumin 4.1 g/dL (3.5-5.0); Alkaline Phosphatase 90 U/L (40-110); Anion Gap 17 mmol/L (10-20); BUN (Urea Nitrogen) 16 mg/dL (9.8-20.1); Bilirubin, Total 0.4 mg/dL (0.2-1.2); CK (CPK) 548 U/L (29-168); Calc. Creatinine Clearance 0 mL/min (70-130); Calcium 9.8 mg/dL (7.8-10.44); Carbon Dioxide 29 mmol/L (22-29); Chloride 103 mmol/L (98-107); Estimated GFR-MDRD 59; Globulin 4.2 g/dL (2.4-3.5); Glucose 93 mg/dL (70-105); Potassium 5.1 mmol/L (3.5-5.1); Protein, Total 8.3 g/dL (6.0-8.3); Sodium 144 mmol/L (136-145)
[2020-04-07 17:49] LABS: Bacteria/HPF None Seen HPF (None Seen); Bilirubin Negative (Negative); Blood, Urine Negative (Negative); Clarity Clear (Clear); Glucose, Urine (Dipstick) Normal (Negative); Leukocyte 25 Leu/uL (Negative); Nitrite Negative (Negative); Protein, Urine (Dipstick) 30 mg/dL (Neg-Trace); RBC/HPF 0-3 HPF (0-3); Squamous Epithelial 0-3 HPF (0-3); Urobilinogen Normal mg/dL (Less than 2); WBC/HPF 0-3 HPF (0-3)
[2020-04-07 17:58] LABS: Amphetamine Not Detected (NotDetected); Barbiturates Screen Not Detected (NotDetected); Benzodiazepine Screen Detected (NotDetected); Cocaine Metabolite Screen Not Detected (NotDetected); Medtox Control Line Valid? VALID (VALID); Medtox Reader # READER 4; Methadone Not Detected (NotDetected); Methamphetamine Not Detected (NotDetected); Opiate Screen Not Detected (NotDetected); Oxycodone Screen Not Detected (NotDetected); Phencyclidine (PCP) Not Detected (NotDetected); THC/Cannabinoid Screen Not Detected (NotDetected); Tricyclic Screen Detected (NotDetected)
== END 2020-04-07 21:12 ==
LOC: ERS 15:03
DX: F23 Brief psychotic disorder (principal); I50.9 Heart failure, unspecified; E66.9 Obesity, unspecified; I10 Essential (primary) hypertension; F31.9 Bipolar disorder, unspecified; F20.9 Schizophrenia, unspecified; Z79.82 Long term (current) use of aspirin; Z79.899 Other long term (current) drug therapy
CPT/HCPCS: 36415; 80053; 80306; 80307; 81003; 81015; 82550; 84443; 84703; 85025; 93005

== ENCOUNTER 2020-05-02 23:35 | Emergency (ER) | payer MEDICARE ==
[2020-05-03 00:46] LABS: #Basophils 0.1 thou/uL (0.0-0.2); #Eosinphils 0.2 thou/uL (0.0-0.7); #Lymphocytes 2.4 thou/uL (1.20-3.40); #Monocytes 0.5 thou/uL (0.11-0.59); #Neutrophils 4.1 thou/uL (1.40-6.50); %Basophils 1.2 % (0.0-1.0); %Eosinophils 2.7 % (0.0-10.0); %Lymphocytes 32.7 % (21.0-51.0); %Neutrophils 56.4 % (42.0-75.0); Hemoglobin 12.3 g/dL (12.0-16.0); Mean Corpuscular HGB CONC 32.4 g/dL (32.0-36.0); Mean Corpuscular Hemoglobin 31.4 pg (27.0-31.0); Mean Corpuscular Volume 96.7 fL (78.0-98.0); Mean Platelet Volume 7.3 fL (7.4-10.4); Platelet Count 199 thou/uL (130-400); RBC Distribution Width 11.9 % (11.5-14.5); Red Blood Cell (RBC) Count 3.91 mill/uL (4.20-5.40); White Blood Cell (WBC) Count 7.3 thou/uL (4.8-10.8)
[2020-05-03 01:07] LABS: ALT (SGPT) 25 U/L (8-55); AST (SGOT) 18 U/L (5-34); Albumin 3.7 g/dL (3.5-5.0); Alkaline Phosphatase 74 U/L (40-110); Anion Gap 15 mmol/L (10-20); BUN (Urea Nitrogen) 24 mg/dL (9.8-20.1); Bilirubin, Total 0.2 mg/dL (0.2-1.2); Calc. Creatinine Clearance 0 mL/min (70-130); Calcium 9.7 mg/dL (7.8-10.44); Carbon Dioxide 32 mmol/L (22-29); Chloride 96 mmol/L (98-107); Estimated GFR-MDRD 45; Globulin 3.9 g/dL (2.4-3.5); Glucose 127 mg/dL (70-105); Potassium 4.3 mmol/L (3.5-5.1); Protein, Total 7.6 g/dL (6.0-8.3); Sodium 139 mmol/L (136-145)
--- NOTE | 2020-05-03 09:12 | CT ---
PRELIMINARY REPORT/[facility]/EMERGENCY AFTER HOURS PROCEDURE: EXAM: CTA Chest with Intravenous Contrast CLINICAL HISTORY: 60-year-old female comes by EMS from care home reports chest burning chest pain. History of conges tive heart failure. Tachycardic tachypneic hypoxic and morbidly obese. CT Ally of the chest will be ordered for rule out pulmonary embolism and BNP for congestive heart failure. Patient is a terrible h istorian and not able to provide any additional information. Patient falls asleep during history and physical exam. TECHNIQUE: Axial CTA images of the chest with intravenous contrast. MIP reconstructed images were created and re viewed. CONTRAST: With; ISOVUE 370,100mL COMPARISON: CT\SR - CTA ANGIO CHEST W WO CON - 03/26/2020 12:36 PM CDT FINDINGS: PULMONARY ARTERIES There is suboptimal opacification of the pulmonary arteries limiting evaluation. However, there is n o obvious intraluminal filling defect suspicious for PE. AORTA No thoracic aortic aneurysm or dissection. LUNGS Bandlike opacities are again noted within the lung bases. Lungs are otherwise clear. No pulmonary m asses. PLEURAL SPACES No pleural effusion. No pneumothorax. HEART AND MEDIASTINUM Mild cardiac enlargement. No significant pericardial effusion. No mediastinal mass. LYMPH NODES No lymphadenopathy. BONES No focal osseous abnormality or acute fracture. CHEST WALL AND UPPER ABDOMEN Images through the upper abdomen are unremarkable. The chest wall is unremarkable. IMPRESSION: Suboptimal opacification of the bilateral pulmonary arteries limiting evaluation for intraluminal patricia ling defect. However, no obvious pulmonary embolus is identified within the central or main pulmonar y arteries. If there is persistent concern, consider repeat imaging versus VQ scan. Persistent bandlike opacities seen within the lung bases, suspect atelectasis. These findings are si milar to the comparison exam. ELECTRONICALLY SIGNED BY: Hollis Onofre DO May 03, 2020 1:54:27 AM CDT This report is intended for review by the ordering physician only, in accordance of law. If you recei ve this report in error, please call [facility] at [phone]. FINAL REPORT CT ANGIO CHEST PERFORMED WITH IV CONTRAST ENHANCEMENT WITH 3D RECONSTRUCTIONS: HISTORY: Chest pain. History of congestive heart failure. COMPARISON: 03/26/2020 exam. FINDINGS: There are more linear parenchymal changes seen in both lung baltazar. It is fairly similar to what was seen on the previous CT examination. It is felt to represent atelectatic change, some of which may be more chronic in nature in this patient. No confluent infiltrative process. The thoracic aorta is normal in caliber. No mediastinal masses. The pulmonary artery opacification is very suboptimal. This is basically a nondiagnostic exam. Visualized liver parenchyma shows no focal findings. IMPRESSION: 1. Atelectatic changes in both lung baltazar. 2. Essentially nondiagnostic CT angio of chest with poor pulmonary artery opacification. If indicate d, a nuclear medicine lung scan may be helpful. Report in agreement with the preliminary report issued by [facility].
--- NOTE | 2020-05-03 10:00 | RAD ---
PORTABLE CHEST: Date: 05/03/2020 HISTORY: Chest pain. COMPARISON: 03/26/2020. FINDINGS/IMPRESSION: Poor inspiration. Bibasilar atelectasis and/or infiltrates. Mild vascular engorgement. The findings are stable from 03/26/2020. POS: AGW
[2020-05-03] MEDS ORDERED: Iopamidol-370 76% 500 ML 1 ML ONE (10:48)
--- NOTE | 2020-05-03 14:35 | EKG ---
Test Reason : Blood Pressure : / mmHG Vent. Rate : 105 BPM Atrial Rate : 105 BPM P-R Int : 142 ms QRS Dur : 088 ms QT Int : 358 ms P-R-T Axes : 049 012 041 degrees QTc Int : 473 ms Sinus tachycardia Otherwise normal ECG Left atrial enlargement Confirmed by ANDRE GARZA, RIZWANA Braga ([id number]), fashion editor AR SANCHEZ ([id number]) on 05/03/2020 2:34:22 PM Referred By: Confirmed By:RIZWANA POWELL MD
== END 2020-05-03 03:34 | disposition home or self-care (01) ==
LOC: ERS 23:35
DX: R07.9 Chest pain, unspecified (principal); I11.0 Hypertensive heart disease with heart failure; I50.9 Heart failure, unspecified; E66.9 Obesity, unspecified; F31.9 Bipolar disorder, unspecified; F20.9 Schizophrenia, unspecified
CPT/HCPCS: 36415; 71045; 71275; 80053; 83880; 84484; 85025; 93005; Q9967

== ENCOUNTER 2020-06-03 23:49 | Inpatient (IN) | payer MEDICARE, OTHER ==
[2020-06-04] MEDS ORDERED: Rocuronium Bromide 10 MG/ML (10ML VIAL) ONE (00:04)
[2020-06-04] MEDS ORDERED: Midazolam HCl 5 mg/ml Vial ONE ×2 (00:10→01:13)
[2020-06-04 00:27] LABS: #Eosinphils 0.2 thou/uL (0.0-0.7); #Lymphocytes 1.8 thou/uL (1.20-3.40); #Monocytes 0.9 thou/uL (0.11-0.59); #Neutrophils 8.1 thou/uL (1.40-6.50); %Basophils 0.2 % (0.0-1.0); %Eosinophils 2.2 % (0.0-10.0); %Lymphocytes 16.3 % (21.0-51.0); %Monocytes 8.3 % (0.0-10.0); %Neutrophils 72.9 % (42.0-75.0); Hemoglobin 10.9 g/dL (12.0-16.0); Mean Corpuscular Hemoglobin 31.7 pg (27.0-31.0); Mean Platelet Volume 7.4 fL (7.4-10.4); Platelet Count 194 thou/uL (130-400); RBC Distribution Width 13.1 % (11.5-14.5); Red Blood Cell (RBC) Count 3.45 mill/uL (4.20-5.40); White Blood Cell (WBC) Count 11.1 thou/uL (4.8-10.8)
[2020-06-04 00:38] LABS: ALT (SGPT) 51 U/L (8-55); AST (SGOT) 35 U/L (5-34); Albumin 3.9 g/dL (3.5-5.0); Alkaline Phosphatase 88 U/L (40-110); Anion Gap 9 mmol/L (10-20); BUN (Urea Nitrogen) 24 mg/dL (9.8-20.1); Bilirubin, Total 0.2 mg/dL (0.2-1.2); Calc. Creatinine Clearance 0 mL/min (70-130); Calcium 8.7 mg/dL (7.8-10.44); Carbon Dioxide 33 mmol/L (22-29); Chloride 105 mmol/L (98-107); Estimated GFR-MDRD 36; Glucose 107 mg/dL (70-105); Potassium 4.7 mmol/L (3.5-5.1); Protein, Total 7.9 g/dL (6.0-8.3); Sodium 142 mmol/L (136-145)
[2020-06-04] MEDS ORDERED: fentaNYL Citrate/PF 2,000 MCG in Sodium Chloride 0.9% 60 ML IV SCH (00:43)
[2020-06-04 01:12] LABS: Bilirubin Negative (Negative); Blood, Urine Negative (Negative); Clarity Clear (Clear); Glucose, Urine (Dipstick) Normal (Negative); Ketone, Urine Negative (Negative); Leukocyte Negative Leu/uL (Negative); Nitrite Negative (Negative); Protein, Urine (Dipstick) 30 mg/dL (Neg-Trace); RBC/HPF 0-3 HPF (0-3); Specific Gravity, Urine 1.023 (1.002-1.036); Squamous Epithelial 0-3 HPF (0-3); Urobilinogen Normal mg/dL (Less than 2); WBC/HPF 0-3 HPF (0-3); pH, Urine 5.5 (5.0-9.0)
[2020-06-04 01:13] LABS: Bacteria/HPF Rare-Few HPF (None Seen)
[2020-06-04 01:35] LABS: Actual Bicarbonate (HCO3a) 31.3 mEq/L (22-28); Analyzer IN Cardio ER; Base Excess (BEa) 3.6 mEq/L (-2.0 to +3.0); Calcium, Ionized (arterial) 1.15 mmol/L (1.12-1.30); Carboxyhemoglobin (COHb) 0.2 gm% (0.0-3.0); Hemoglobin (Hb) 11.3 g/dL (12.0-16.0); O2 Tension (PaO2), arterial 66.7 mmHg (80.0-100.0); Potassium - ABG Lab 4.74 mmol/L (3.70-5.30)
[2020-06-04] MEDS ORDERED: Azithromycin 500 MG VIAL ONE (02:52)
[2020-06-04] MEDS ORDERED: Cefepime 2 GM VIAL ONE (02:52)
[2020-06-04] MEDS ORDERED: methylPREDNISolone Sod Succ/PF 125 MG/2 ML VIAL ONE (03:52)
[2020-06-04 05:08] LABS: CO2 Tension 64.7 mmHg (35.0-45.0); Puncture Site LRA
[2020-06-04 05:09] LABS: ALV-art Gradient 208.925 (0-20)
[2020-06-04] MEDS ORDERED: Ventilator Sedation Protocol 1 EACH FS ONE (05:12)
[2020-06-04] MEDS ORDERED: Propofol 1,000 MG/100 ML VIAL IV ONE (05:15)
[2020-06-04] MEDS ORDERED: Vecuronium 10 MG VIAL ONE (05:17)
[2020-06-04] MEDS ORDERED: Morphine 2 MG/ML VIAL SLOW IVP PRN (05:23)
[2020-06-04] MEDS ORDERED: Fentanyl BOLUS 250 ML IVPB PRN (05:23)
[2020-06-04] MEDS ORDERED: Propofol BOLUS 1,000 MG/100 ML VIAL IV PRN (05:23)
[2020-06-04] MEDS ORDERED: DISCONTINUE PREVIOUS NARCOTIC PAIN MEDICATIONS AND BENZODIAZEPINES FS SCH (05:23)
[2020-06-04] MEDS ORDERED: Vecuronium 10 MG VIAL IV SCH (05:30)
[2020-06-04] MEDS: Sodium Chloride 0.9% 1,000 ML IV SCH ×3 (05:52→23:43)
[2020-06-04] MEDS: Propofol 1,000 MG/100 ML VIAL IV PRN ×7 (05:52→22:36)
[2020-06-04] MEDS: methylPREDNISolone Sod Succ/PF 125 MG/2 ML VIAL IVP SCH ×4 (06:01→23:43)
--- NOTE | 2020-06-04 06:33 | HP ---
REASON FOR ADMISSION: Respiratory failure. HISTORY OF PRESENT ILLNESS: This is a 60-year-old female patient, who was brought to the emergency room for change in mental status and found to be hypoxic, required to be intubated. No further information is available for the time being. I did review her records and her last admission was in February 2020, for acute bronchitis and hypoxia. During her stay, she was considered as having hypoxemia secondary to multifactorial etiologies including her morbid obesity and obstructive sleep apnea as well as diastolic heart failure. She was monitored for 24 hours and then discharged home. Going back further to an admission in 2018, the patient was admitted for respiratory failure with hypoxia and acute on chronic diastolic heart failure. Her CT angio of the chest showed patchy ground-glass opacity due to edema or infiltrate. No PE was found. An echocardiogram was done that showed diastolic dysfunction. She was found to have some degree of hyperaldosteronism and was started on spironolactone for blood pressure control. She was also started on torsemide. PAST MEDICAL HISTORY: 1. High blood pressure. 2. Morbid obesity. 3. Bipolar disorder. 4. Schizophrenia. 5. Paranoia. 6. Anxiety. 7. Depression. PAST SURGICAL HISTORY: 1. Appendectomy. 2. Cholecystectomy. 3. Hysterectomy. 4. Tubal ligation. 5. Right leg surgery. SOCIAL HISTORY: She does not smoke. Does not drink alcohol as per records. ALLERGIES: TO KEFLEX. REVIEW OF SYSTEMS: Unable to obtain. She is intubated. PHYSICAL EXAMINATION: GENERAL: She is intubated. VITAL SIGNS: Her blood pressure is 164/93, pulse is 80, and temperature is 97.7. HEENT: Head is nontraumatic and normocephalic. Pupils equal, reactive. NECK: Supple. No adenopathy. No murmur. HEART: S1 and S2, regular. No murmur. No gallops. No friction rubs. No displacement of PMI. LUNGS: Diffuse expiratory wheezes and rhonchi. Bowel sounds are positive. ABDOMEN: Nontender abdomen. EXTREMITIES: She has 1+ pitting edema in bilateral lower extremities. NEUROLOGIC: Unable to perform. She is intubated. LABORATORY DATA: Blood work shows a WBC of 11.1, hemoglobin 10.9, previous hemoglobin 12.3, platelets of 194. Sodium is 142, potassium 4.7, bicarb 33, creatinine 1.74, previous creatinine was 1.44, glucose 107. BNP 162. The urinalysis does not show any evidence of infection. COVID-19 not detected. Chest x-ray and CAT scan of the chest official read are still pending, but possibly showing bilateral infiltrates. EKG does not show any signs of ischemia. ASSESSMENT AND PLAN: This is a 60-year-old morbidly obese patient, presenting with hypoxia, respiratory failure, most likely multifactorial due to her morbid obesity, possibly due to pneumonia/bronchitis, also congestive heart failure. The patient will be admitted to the intensive care unit. We will start her on IV antibiotics to cover community-acquired pneumonia. We will have also on bronchodilators and IV Solu-Medrol for possible acute bronchitis. We will start her on IV Lasix. Awaiting results of the CT scan. For deep venous thrombosis prophylaxis, she will be on heparin subcutaneously. For high blood pressure, we will provide her with blood pressure control. We will be awaiting more information about her psychiatric medication, but for now, these will be on hold. Dr. Wild was consulted by the ER and he will see the patient. One hour of critical care time was spent to manage this patient. Job ID: [id number]
--- NOTE | 2020-06-04 08:03 | CT ---
PRELIMINARY REPORT/[facility]/EMERGENCY AFTER HOURS PROCEDURE: EXAM: CT Head Without Intravenous Contrast. CLINICAL HISTORY: RESP DISTRESS TECHNIQUE: Axial computed tomography images of the head/brain without intravenous contrast. COMPARISON: None provided. FINDINGS: BRAIN: No acute intraparenchymal hemorrhage. No mass lesion. No CT evidence for acute territorial infarct. N o midline shift or extra-axial collection. VENTRICLES: No hydrocephalus. ORBITS: The orbits are unremarkable. SINUSES AND MASTOIDS: The paranasal sinuses and mastoid air cells are clear. SOFT TISSUES: No significant facial or scalp soft tissue swelling evident. No radiopaque foreign body is seen. BONES: No acute skull fracture. IMPRESSION: No acute intracranial abnormality. ELECTRONICALLY SIGNED BY: Karla Cade MD Jun 04, 2020 3:55:49 AM CDT This report is intended for review by the ordering physician only, in accordance of law. If you recei ve this report in error, please call [facility] at [phone]. FINAL REPORT EMERGENT AFTER HOURS NONCONTRAST CT HEAD: HISTORY: Respiratory distress. COMPARISON: 03/22/2016. IMPRESSION: 1. No acute intracranial abnormality is demonstrated. 2. Endotracheal tube and nasogastric tube are partially imaged. 3. Small amount of fluid in the nasopharynx likely related to the intubation. 4. Opacification of right mastoid air cells suggesting mastoid effusions. This was also seen on prior study in 2016. Findings are in agreement with the preliminary report by [facility]. Transcribed Date/Time: 06/04/2020 8:10 AM
--- NOTE | 2020-06-04 08:16 | RAD ---
Exam: Chest one view HISTORY:Rhonchi. Abnormal respirations Comparison: 05/03/2020 FINDINGS: Lines and tubes: Endotracheal tube just beyond the level of clavicles. Nasogastric tube terminates in the epigastric region. Cardiac silhouette:Cardiomegaly Aorta: Unremarkable Pulmonary vessels: Normal Costophrenic angles: No effusion LUNGS: Scattered interstitial and alveolar opacities Pneumothorax: None Osseous abnormalities: None IMPRESSION: 1. Scattered interstitial and alveolar opacities. Continued surveillance is recommended 2. Endotracheal tube just beyond the level of clavicles. Nasogastric tube terminates in the epigastri c region
--- NOTE | 2020-06-04 08:21 | RAD ---
EXAM: CHEST ONE VIEW HISTORY: Central line placement COMPARISON: 06/04/2020 at 1238 hours FINDINGS: Endotracheal tube remains in place. Nasogastric tube is noted in place which courses into the left up per quadrant. There has been interval placement of a right-sided vascular catheter via internal jugular vein approach with tip overlying the expected location of the cavoatrial junction. There are interstitial and patchy airspace opacities seen within the lungs bilaterally greater in the midlung zones and each lung base not significant changed when compared to prior study.. No other interval elijah nge. There is no evidence of a pneumothorax. IMPRESSION: 1. Interval placement of a right-sided vascular catheter without evidence of a pneumothorax. Tube End otracheal tube and nasogastric tubes noted in place. 3. Interstitial and patchy airspace opacities greater at each lung base. Findings could be related to atelectasis, but infectious process is a possibility. Follow-up to resolution is recommended.
[2020-06-04] MEDS: Furosemide 40 MG/4 ML VIAL SLOW IVP SCH (08:58)
[2020-06-04] MEDS: Heparin 5,000 UNITS/ML VIAL SC SCH ×3 (08:58→20:17)
[2020-06-04] MEDS ORDERED: Cefepime 2 GM in Sodium Chloride 0.9% 100 ML IVPB SCH (12:00)
[2020-06-04] MEDS: Meropenem 2 GM in Sodium Chloride 0.9% 100 ML IVPB SCH ×2 (12:19→20:17)
[2020-06-04] MEDS: fentaNYL Citrate/PF 2,000 MCG in Sodium Chloride 0.9% 60 ML IV SCH (12:20)
[2020-06-04 16:04] LABS: #Basophils 0.1 thou/uL (0.0-0.2); #Lymphocytes 0.8 thou/uL (1.20-3.40); #Monocytes 0.2 thou/uL (0.11-0.59); #Neutrophils 8.9 thou/uL (1.40-6.50); %Basophils 0.5 % (0.0-1.0); %Eosinophils 0.3 % (0.0-10.0); %Lymphocytes 8.4 % (21.0-51.0); %Monocytes 1.9 % (0.0-10.0); %Neutrophils 88.8 % (42.0-75.0); Hemoglobin 11.5 g/dL (12.0-16.0); Mean Corpuscular HGB CONC 32.5 g/dL (32.0-36.0); Mean Corpuscular Hemoglobin 31.1 pg (27.0-31.0); Mean Corpuscular Volume 95.8 fL (78.0-98.0); Mean Platelet Volume 7.6 fL (7.4-10.4); Platelet Count 212 thou/uL (130-400); RBC Distribution Width 13.1 % (11.5-14.5); Red Blood Cell (RBC) Count 3.69 mill/uL (4.20-5.40)
[2020-06-04 16:30] LABS: Anion Gap 13 mmol/L (10-20); BUN (Urea Nitrogen) 21 mg/dL (9.8-20.1); Calc. Creatinine Clearance 111 mL/min (70-130); Calcium 8.8 mg/dL (7.8-10.44); Carbon Dioxide 26 mmol/L (22-29); Chloride 105 mmol/L (98-107); Estimated GFR-MDRD 48; Glucose 141 mg/dL (70-105); Potassium 3.4 mmol/L (3.5-5.1); Sodium 141 mmol/L (136-145)
--- NOTE | 2020-06-04 16:34 | CON ---
DATE OF CONSULTATION: 06/04/2020 HISTORY OF PRESENT ILLNESS: Queen Ben is a 60-year-old female who has been in the hospital floor with respiratory issues. She presented to the emergency room with altered mental status. She is intubated. She is transferred to critical care unit. I was consulted. PAST MEDICAL HISTORY: Remarkable for: 1. Hypertension. 2. Obesity. 3. Mental illness with schizophrenia and paranoia. 4. History of appendectomy. 5. Cholecystectomy. 6. Hysterectomy. SOCIAL HISTORY: It is unclear whether she is a smoker or drinker. In the past , it is not reported. She was actually here in the hospital in February. ALLERGIES: SHE REPORTS ALLERGIES TO CEPHALOSPORINS. FAMILY HISTORY: Positive for cancer. Negative for lung disease in early age. PHYSICAL EXAMINATION: GENERAL: She is mechanically ventilated, sedated. She is chemically paralyzed. She is quite obese, 5 feet 4 inches, 350 pounds with a BMI of 60. VITAL SIGNS: Heart rate is in the 70s, blood pressure 153/77, and respiratory rates in the 20s. HEAD AND NECK: Unremarkable. Pupils are reactive. Sclerae are anicteric. NECK: Without lymphadenopathy. LUNGS: Remarkable for coarse equal breath sounds. HEART: Regular rhythm. ABDOMEN: Soft and nontender without guarding or masses. EXTREMITIES: Without clubbing, cyanosis, or edema. LABORATORY STUDIES: White count 11.1, hemoglobin 10.9, and platelets 194. Electrolytes were unremarkable. BUN 24 and creatinine 1.74. BNP surprisingly is 162. A pH 7.30, CO2 of 64, PO2 of 66. COVID screen is negative. Chest x-ray shows diffuse infiltrates bilaterally. IMPRESSION: Pneumonia with acute respiratory distress syndrome, but does not appear to be COVID related. Low BNP would argue against this being secondary to congestive heart failure. An echocardiogram should be entertained. We will be happy to follow the other physicians caring for her. TIME SPENT: This is a 70-minute consult, 50% of time was spent on the unit coordinating care. Job ID: [id number] MTDD
[2020-06-05] MEDS: Propofol 1,000 MG/100 ML VIAL IV PRN ×12 (00:18→22:00)
[2020-06-05] MEDS: Meropenem 2 GM in Sodium Chloride 0.9% 100 ML IVPB SCH ×4 (03:36→20:04)
[2020-06-05] MEDS: Azithromycin 500 MG in Sodium Chloride 0.9% 250 ML 250 ML IVPB SCH (04:58)
[2020-06-05] MEDS: methylPREDNISolone Sod Succ/PF 125 MG/2 ML VIAL IVP SCH ×4 (05:00→23:08)
[2020-06-05 06:05] LABS: Anion Gap 18 mmol/L (10-20); BUN (Urea Nitrogen) 25 mg/dL (9.8-20.1); Calc. Creatinine Clearance 96 mL/min (70-130); Calcium 8.6 mg/dL (7.8-10.44); Carbon Dioxide 23 mmol/L (22-29); Chloride 104 mmol/L (98-107); Estimated GFR-MDRD 40; Glucose 156 mg/dL (70-105); Magnesium 1.8 mg/dL (1.6-2.6); Potassium 3.6 mmol/L (3.5-5.1); Sodium 141 mmol/L (136-145)
[2020-06-05 06:37] LABS: Hemoglobin 11.4 g/dL (12.0-16.0); Mean Corpuscular HGB CONC 32.3 g/dL (32.0-36.0); Mean Corpuscular Hemoglobin 30.3 pg (27.0-31.0); Mean Corpuscular Volume 93.9 fL (78.0-98.0); Mean Platelet Volume 7.7 fL (7.4-10.4); Platelet Count 228 thou/uL (130-400); RBC Distribution Width 13.3 % (11.5-14.5); Red Blood Cell (RBC) Count 3.75 mill/uL (4.20-5.40); White Blood Cell (WBC) Count 14.1 thou/uL (4.8-10.8)
[2020-06-05 07:35] LABS: Actual Bicarbonate (HCO3a) 24.6 mEq/L (22-28); Base Excess (BEa) 3.2 mEq/L (-2.0 to +3.0); Carboxyhemoglobin (COHb) 0.3 gm% (0.0-3.0); Hemoglobin (Hb) 11.7 g/dL (12.0-16.0); O2 Tension (PaO2), arterial 68.7 mmHg (80.0-100.0); Potassium - ABG Lab 3.66 mmol/L (3.70-5.30)
[2020-06-05 07:45] LABS: Band 4 % (5-11); Lymphocytes 7 % (21-51); MDiff Complete? YES; Monocytes 1 % (0-10); Neutrophil 88 % (42-75); Nucleated RBC 1 % (0); Platelet Morphology Comment Appears Adequate; RBC Morphology Normal
[2020-06-05] MEDS: fentaNYL Citrate/PF 2,000 MCG in Sodium Chloride 0.9% 60 ML IV SCH (08:00)
[2020-06-05] MEDS: Heparin 5,000 UNITS/ML VIAL SC SCH ×3 (09:00→20:04)
[2020-06-05] MEDS: Furosemide 40 MG/4 ML VIAL SLOW IVP SCH (09:00)
[2020-06-05 10:14] LABS: pH, Arterial 7.56 (7.35-7.45)
[2020-06-05 10:15] LABS: Puncture Site L.R.
[2020-06-05] MEDS: Sodium Chloride 0.9% 1,000 ML IV SCH (10:37)
--- NOTE | 2020-06-05 13:04 | RAD ---
Portable frontal chest radiograph: 06/05/2020 COMPARISON: 06/04/2020 HISTORY: Ventilated patient FINDINGS: Stable endotracheal tube, nasogastric tube, and right vascular catheter. Stable prominent p ulmonary vascular congestion with perihilar and bibasilar interstitial and alveolar opacity. Consolidative changes again noted in the perihilar regions and both lung bases with blunting of the c ostophrenic angle suggesting bilateral pleural effusions. When compared to the 06/04/2020 examination, aeration has slightly worsened within both lung bases. IMPRESSION: Extensive interstitial and alveolar opacity with multi lobar consolidative change and skip ateral pleural effusions. Findings may be related to multilobar infectious pneumonitis or pulmonary edema. Opacity in the lung bases has worsened since the prior exam.
--- NOTE | 2020-06-05 14:32 | PDOC.HOSPP ---
- Subjective Subjective: pt intubated no answering questions or following commands - Objective Vital Signs & Weight: Vital Signs (12 hours) Temp Pulse Resp BP Pulse Ox 06/05/20 14:13 71 128/74 06/05/20 14:12 71 18 100 06/05/20 12:00 18 06/05/20 10:42 85 152/84 H 06/05/20 10:00 28 H 06/05/20 08:00 28 H 100 06/05/20 06:57 78 135/87 06/05/20 06:55 78 28 H 100 06/05/20 06:00 28 H 06/05/20 04:00 28 H 06/05/20 03:00 98.6 F Weight Admit Weight 350 lb Weight 350 lb 8.56 oz Most Recent Monitor Data Heart Rate from ECG 71 NIBP 137/83 NIBP BP-Mean 101 Respiration from ECG 18 SpO2 100 I&O: 06/04/20 06/05/20 06/06/20 06:59 06:59 06:59 Intake Total 34.9 2824 Output Total 275 1607 1385 Balance -240.1 1217 -1385 Result Diagrams: 06/05/20 05:15 06/05/20 05:15 Hospitalist ROS - Medication Medications: Active Medications Generic Name Dose Route Start Last Admin Trade Name Freq PRN Reason Stop Dose Admin Albuterol/Ipratropium 3 ml 06/04/20 07:00 06/05/20 14:12 Duoneb EZPAP 3 ml [id number] ALLAN Administration Furosemide 40 mg 06/04/20 09:00 06/05/20 09:00 Lasix SLOW IVP 40 mg DAILY ALLAN Administration Heparin Sodium (Porcine) 5,000 units 06/04/20 09:00 06/05/20 09:00 Heparin SC 5,000 units TID ALLAN Administration Azithromycin 500 mg/ Sodium 250 mls @ 250 mls/hr 06/05/20 04:00 06/05/20 04: 58 Chloride IVPB 250 mls Q24HR ALLAN Administration Sodium Chloride 1,000 mls @ 50 mls/hr 06/04/20 04:15 06/05/20 10:37 Normal Saline 0.9% IV 1,000 mls .Q20H ALLAN Administration Fentanyl Citrate 2,000 mcg/ 100 mls @ 0 mls/hr 06/04/20 05:24 07/09/20 08:00 Sodium Chloride IV 07/04/20 05:24 100 mls INF ALLAN Administration Protocol Per Protocol Meropenem 2 gm/ Sodium 100 mls @ 200 mls/hr 06/04/20 11:00 06/05/20 10:38 Chloride IVPB 100 mls 0300,1100,1900 ALLAN Administration Methylprednisolone Sodium Succinate 40 mg 06/04/20 06:00 06/05/20 12:22 Solu-Medrol IVP 40 mg Q6HR ALLAN Administration Propofol 1,000 mg 06/04/20 05:23 06/05/20 12:23 Diprivan IV 07/04/20 05:23 1,000 mg INF PRN Administration TO ACHIEVE GOAL RASS Protocol - Exam General Appearance: ill appearing General - other findings: intubated Neck: supple Heart: RRR Respiratory: rhonchi, tachypneic Gastrointestinal: soft, non-tender Extremities: no cyanosis Psychiatric: lethargic Hosp A/P (1) Hypertension Code(s): I10 - ESSENTIAL (PRIMARY) HYPERTENSION Status: Chronic Qualifiers: Hypertension type: essential hypertension Qualified Code(s): I10 - Essential (primary) hypertension (2) Morbid obesity with BMI of 50.0-59.9, adult Code(s): E66.01 - MORBID (SEVERE) OBESITY DUE TO EXCESS CALORIES; Z68.43 - BODY MASS INDEX (BMI) 50.0-59.9, ADULT Status: Chronic (3) Type 2 diabetes mellitus Status: Chronic Qualifiers: Diabetes mellitus complication status: without complication Qualified Code( s): E11.9 - Type 2 diabetes mellitus without complications (4) Acute respiratory failure with hypoxia and hypercapnia Code(s): J96.01 - ACUTE RESPIRATORY FAILURE WITH HYPOXIA; J96.02 - ACUTE RESPIRATORY FAILURE WITH HYPERCAPNIA Status: Resolved (5) Acute renal failure superimposed on stage 2 chronic kidney disease Code(s): N17.9 - ACUTE KIDNEY FAILURE, UNSPECIFIED; N18.2 - CHRONIC KIDNEY DISEASE, STAGE 2 (MILD) Status: Acute - Plan pt remains intubated wean off and mechanical vent as per cc team appreciate their input less likely covid cont with azithro and meropeme, iv solumedrol wean off as tolerated daily lasix but pt doesnt appear fluid overloaded today will send for echo viky altagracia hart and avoid nephro toxins full code dvt ppx dispo keep in icu for now
--- NOTE | 2020-06-05 23:38 | PRG ---
DATE OF SERVICE: 06/05/2020 SUBJECTIVE: Queen Ben remains mechanically ventilated. OBJECTIVE: VITAL SIGNS: Heart rate is in the 70s, blood pressure 153/92, respiratory rates in the teens, and oximetry is 100%. She is afebrile. LUNGS: Clear anteriorly. HEART: Regular rhythm. ABDOMEN: Soft. EXTREMITIES: Without edema. LABORATORY DATA: White count 14.1, hemoglobin 11.4, platelets 228. Electrolytes are normal. Creatinine is 1.59 and BUN 25. Intake and output are positive 1217. IMAGING STUDIES: Chest x-ray was ordered this morning when done until after lunch. She still has bilateral infiltrates. IMPRESSION: Respiratory failure, probably associated with pneumonia. I doubt this is congestive heart failure. We will continue supportive care. She is currently not weanable. CRITICAL CARE TIME: 30 minutes. Job ID: [id number]
[2020-06-06] MEDS: Propofol 1,000 MG/100 ML VIAL IV PRN ×7 (00:49→22:16)
[2020-06-06] MEDS: Azithromycin 500 MG in Sodium Chloride 0.9% 250 ML 250 ML IVPB SCH (03:01)
[2020-06-06] MEDS: Meropenem 2 GM in Sodium Chloride 0.9% 100 ML IVPB SCH ×3 (03:01→21:36)
[2020-06-06] MEDS: fentaNYL Citrate/PF 2,000 MCG in Sodium Chloride 0.9% 60 ML IV SCH (04:29)
[2020-06-06] MEDS: methylPREDNISolone Sod Succ/PF 125 MG/2 ML VIAL IVP SCH (05:50)
[2020-06-06 07:35] LABS: Actual Bicarbonate (HCO3a) 23.5 mEq/L (22-28); Base Excess (BEa) -0.1 mEq/L (-2.0 to +3.0); CO2 Tension 34.8 mmHg (35.0-45.0); Calcium, Ionized (arterial) 1.11 mmol/L (1.12-1.30); Carboxyhemoglobin (COHb) 0.3 gm% (0.0-3.0); Hemoglobin (Hb) 10.7 g/dL (12.0-16.0); pH, Arterial 7.45 (7.35-7.45)
[2020-06-06 07:49] LABS: O2 Tension (PaO2), arterial 88.1 mmHg (80.0-100.0); Puncture Site RRAD
[2020-06-06] MEDS: Heparin 5,000 UNITS/ML VIAL SC SCH (09:06)
[2020-06-06] MEDS: Furosemide 40 MG/4 ML VIAL SLOW IVP SCH (09:06)
[2020-06-06] MEDS ORDERED: Pancrelipase DR 12,000 1 CAP PER TUBE PRN (10:49)
[2020-06-06] MEDS ORDERED: Sodium Bicarbonate Tab 325 MG TAB PER TUBE PRN (10:50)
[2020-06-06] MEDS: Lorazepam 2 MG/ML VIAL SLOW IVP PRN (11:57)
[2020-06-06] MEDS ORDERED: methylPREDNISolone Sod Succ 40 MG VIAL IVP SCH (12:00)
[2020-06-06] MEDS: methylPREDNISolone Sod Succ 40 MG VIAL IVP SCH ×2 (12:00→18:26)
--- NOTE | 2020-06-06 12:34 | PRG ---
DATE OF SERVICE: 06/06/2020 SUBJECTIVE: Queen Ben remains mechanically ventilated, sedated. OBJECTIVE: VITAL SIGNS: Heart rate is 87, blood pressure 179/96, respiratory rate is per mechanical ventilation. Ventilatory rate was decreased this morning. Her pressure support has been decreased slightly. Intake and outputs positive 87. LUNGS: Remarkable for mild rhonchi anteriorly. HEART: Regular rhythm. ABDOMEN: Soft. EXTREMITIES: Without asymmetry or edema. NEUROLOGIC: Nonfocal. LABORATORY DATA: Lab today; blood gas showed a pH 7.45, CO2 of 34, pO2 of 88. Potassium 3.7, sodium 139, chloride 104, ionized calcium 1.1. IMPRESSION: Respiratory failure secondary to pneumonia. We will check lab and x-rays tomorrow. Weaning will be a slow process in her mainly because of her size. She will continue with broad-spectrum antimicrobial therapy. We will start DVT prophylaxis on her with Lovenox adequate use of Lovenox. Critical care time 30 min. Job ID: [id number] MTDD
--- NOTE | 2020-06-06 13:03 | PDOC.HOSPP ---
- Subjective Encounter Date: 06/06/20 Subjective: Patient seen and examined bedside this morning remains intubated on mechanical ventilation not following commands or answer questions no significant overnight events - Objective Vital Signs & Weight: Vital Signs (12 hours) Temp Pulse Resp BP 06/06/20 11:18 87 179/96 H 06/06/20 10:00 18 06/06/20 08:00 98.9 F 18 06/06/20 07:44 66 154/83 H 06/06/20 06:00 18 06/06/20 04:00 18 06/06/20 02:11 71 132/61 06/06/20 02:00 18 Weight Admit Weight 350 lb Weight 345 lb 13.779 oz Most Recent Monitor Data Heart Rate from ECG 78 NIBP 179/96 NIBP BP-Mean 123 Respiration from ECG 14 SpO2 100 I&O: 06/05/20 06/06/20 06/07/20 06:59 06:59 06:59 Intake Total 2824 2387.5 Output Total 1607 2300 1185 Balance 1217 87.5 -1185 Result Diagrams: 06/05/20 05:15 06/05/20 05:15 Hospitalist ROS - Medication Medications: Active Medications Generic Name Dose Route Start Last Admin Trade Name Freq PRN Reason Stop Dose Admin Furosemide 40 mg 06/04/20 09:00 06/06/20 09:06 Lasix SLOW IVP 40 mg DAILY ALLAN Administration Azithromycin 500 mg/ Sodium 250 mls @ 250 mls/hr 06/05/20 04:00 06/06/20 03: 01 Chloride IVPB 250 mls Q24HR ALLAN Administration Sodium Chloride 1,000 mls @ 50 mls/hr 06/04/20 04:15 06/05/20 10:37 Normal Saline 0.9% IV 1,000 mls .Q20H ALLAN Administration Fentanyl Citrate 2,000 mcg/ 100 mls @ 0 mls/hr 06/04/20 05:24 06/06/20 04:29 Sodium Chloride IV 07/04/20 05:24 100 mls INF ALLAN Administration Protocol Per Protocol Meropenem 2 gm/ Sodium 100 mls @ 200 mls/hr 06/05/20 20:00 06/06/20 11:26 Chloride IVPB 100 mls 0400,1200,2000 ALLAN Administration Lorazepam 2 mg 06/04/20 05:23 06/06/20 11:57 Ativan SLOW IVP 07/04/20 05:23 2 mg Q1H PRN Administration Breakthrough agitation Propofol 1,000 mg 06/04/20 05:23 06/06/20 09:06 Diprivan IV 07/04/20 05:23 1,000 mg INF PRN Administration TO ACHIEVE GOAL RASS Protocol - Exam General - other findings: Orally intubated on mechanical ventilation not following commands Neck: supple Heart: RRR Gastrointestinal: soft Hosp A/P (1) Hypertension Code(s): I10 - ESSENTIAL (PRIMARY) HYPERTENSION Status: Chronic Qualifiers: Hypertension type: essential hypertension Qualified Code(s): I10 - Essential (primary) hypertension (2) Morbid obesity with BMI of 50.0-59.9, adult Code(s): E66.01 - MORBID (SEVERE) OBESITY DUE TO EXCESS CALORIES; Z68.43 - BODY MASS INDEX (BMI) 50.0-59.9, ADULT Status: Chronic (3) Type 2 diabetes mellitus Status: Chronic Qualifiers: Diabetes mellitus complication status: without complication Qualified Code( s): E11.9 - Type 2 diabetes mellitus without complications (4) Acute respiratory failure with hypoxia and hypercapnia Code(s): J96.01 - ACUTE RESPIRATORY FAILURE WITH HYPOXIA; J96.02 - ACUTE RESPIRATORY FAILURE WITH HYPERCAPNIA Status: Resolved (5) Acute renal failure superimposed on stage 2 chronic kidney disease Code(s): N17.9 - ACUTE KIDNEY FAILURE, UNSPECIFIED; N18.2 - CHRONIC KIDNEY DISEASE, STAGE 2 (MILD) Status: Acute - Plan pt remains intubated continue with mechanical ventilation as per intensive care wean off trials patient morbid obesity will continue with treatment for possible pneumonia less likely covid cont with azithro and meropeme, iv solumedrol wean off as tolerated We will start tube feedings today advance as tolerated as per dietitian pt doesnt appear fluid overloaded today will send for echo viky moniotr creatanin and avoid nephro toxins Tube feedings and advance as tolerated full code dvt ppx dispo keep in icu for now
[2020-06-06] MEDS: Sodium Chloride 0.9% 1,000 ML IV SCH ×2 (18:25→21:39)
[2020-06-06] MEDS: Famotidine/PF 20 mg/2ml Vial SLOW IVP SCH (21:36)
[2020-06-07] MEDS: fentaNYL Citrate/PF 2,000 MCG in Sodium Chloride 0.9% 60 ML IV SCH ×2 (00:48→19:23)
[2020-06-07] MEDS: Propofol 1,000 MG/100 ML VIAL IV PRN ×7 (01:25→23:53)
[2020-06-07] MEDS: methylPREDNISolone Sod Succ 40 MG VIAL IVP SCH ×4 (01:25→17:58)
[2020-06-07 03:13] LABS: Anion Gap 13 mmol/L (10-20); BUN (Urea Nitrogen) 31 mg/dL (9.8-20.1); Calc. Creatinine Clearance 125 mL/min (70-130); Calcium 7.7 mg/dL (7.8-10.44); Carbon Dioxide 28 mmol/L (22-29); Chloride 108 mmol/L (98-107); Estimated GFR-MDRD 56; Glucose 148 mg/dL (70-105); Potassium 3.8 mmol/L (3.5-5.1); Sodium 145 mmol/L (136-145)
[2020-06-07 03:23] LABS: Band 6 % (5-11); Hemoglobin 10.6 g/dL (12.0-16.0); Lymphocytes 14 % (21-51); MDiff Complete? YES; Mean Corpuscular HGB CONC 32.2 g/dL (32.0-36.0); Mean Corpuscular Hemoglobin 30.5 pg (27.0-31.0); Mean Corpuscular Volume 94.6 fL (78.0-98.0); Mean Platelet Volume 7.2 fL (7.4-10.4); Monocytes 6 % (0-10); Neutrophil 74 % (42-75); Nucleated RBC 2 % (0); Platelet Count 195 thou/uL (130-400); Platelet Morphology Comment Appears Adequate; RBC Distribution Width 13.8 % (11.5-14.5); Red Blood Cell (RBC) Count 3.48 mill/uL (4.20-5.40); White Blood Cell (WBC) Count 14.4 thou/uL (4.8-10.8)
[2020-06-07] MEDS: Azithromycin 500 MG in Sodium Chloride 0.9% 250 ML 250 ML IVPB SCH (04:01)
[2020-06-07] MEDS: Meropenem 2 GM in Sodium Chloride 0.9% 100 ML IVPB SCH ×3 (07:03→19:44)
[2020-06-07] MEDS: Furosemide 40 MG/4 ML VIAL SLOW IVP SCH (08:15)
[2020-06-07] MEDS: Famotidine/PF 20 mg/2ml Vial SLOW IVP SCH ×2 (08:15→21:13)
[2020-06-07] MEDS: Enoxaparin Sodium 40 MG/0.4 ML SYRINGE SC SCH (08:15)
--- NOTE | 2020-06-07 09:18 | RAD ---
RADIOGRAPH CHEST 1 VIEW: DATE: 06/07/2020 TIME: 5:06 AM HISTORY: 60-year-old female in respiratory failure COMPARISON: 06/05/2020 FINDINGS: No change in life support lines. No change in interstitial and alveolar pulmonary densities at mid and lower lung zones bilaterally. R elative sparing of the apices. No large pneumothorax. No interval change overall. IMPRESSION: No interval change
--- NOTE | 2020-06-07 10:46 | PDOC.HOSPP ---
- Subjective Encounter Date: 06/07/20 non-verbal Subjective: Patient seen and examined bedside this morning orally intubated not following commands or answering questions no significant overnight events reported by the nurse - Objective Vital Signs & Weight: Vital Signs (12 hours) Pulse Resp BP Pulse Ox 06/07/20 10:27 80 14 96 06/07/20 10:22 80 176/101 H 06/07/20 10:00 14 06/07/20 08:00 14 100 06/07/20 07:44 51 L 14 100 06/07/20 07:33 53 L 158/87 H 06/07/20 06:00 14 06/07/20 04:00 14 06/07/20 03:16 53 L 14 162/84 H 100 06/07/20 02:00 14 06/07/20 00:00 14 Weight Admit Weight 350 lb Weight 346 lb 9.067 oz Most Recent Monitor Data Heart Rate from ECG 63 NIBP 176/101 NIBP BP-Mean 126 Respiration from ECG 14 SpO2 100 I&O: 06/06/20 06/07/20 06/08/20 06:59 06:59 06:59 Intake Total 2387.5 2465.0 Output Total 2300 2895 725 Balance 87.5 -430.0 -725 Result Diagrams: 06/07/20 02:30 06/07/20 02:30 Hospitalist ROS - Medication Medications: Active Medications Generic Name Dose Route Start Last Admin Trade Name Freq PRN Reason Stop Dose Admin Albuterol/Ipratropium 3 ml 06/06/20 14:30 06/07/20 10:27 Duoneb NEB 3 ml [id number] ALLAN Administration Enoxaparin Sodium 40 mg 06/07/20 09:00 06/07/20 08:15 Lovenox SC 40 mg 0900 ALLAN Administration Famotidine 20 mg 06/06/20 21:00 06/07/20 08:15 Pepcid SLOW IVP 20 mg BID ALLAN Administration Furosemide 40 mg 06/04/20 09:00 06/07/20 08:15 Lasix SLOW IVP 40 mg DAILY ALLAN Administration Azithromycin 500 mg/ Sodium 250 mls @ 250 mls/hr 06/05/20 04:00 06/07/20 04: 01 Chloride IVPB 250 mls Q24HR ALLAN Administration Sodium Chloride 1,000 mls @ 50 mls/hr 06/04/20 04:15 06/06/20 21:39 Normal Saline 0.9% IV 1,000 mls .Q20H ALLAN Administration Fentanyl Citrate 2,000 mcg/ 100 mls @ 0 mls/hr 06/04/20 05:24 06/07/20 00:48 Sodium Chloride IV 07/04/20 05:24 100 mls INF ALLAN Administration Protocol Per Protocol Meropenem 2 gm/ Sodium 100 mls @ 200 mls/hr 06/05/20 20:00 06/07/20 07:03 Chloride IVPB 100 mls 0400,1200,2000 ALLAN Administration Lorazepam 2 mg 06/04/20 05:23 06/06/20 11:57 Ativan SLOW IVP 07/04/20 05:23 2 mg Q1H PRN Administration Breakthrough agitation Methylprednisolone Sodium Succinate 20 mg 06/06/20 12:00 06/07/20 08:15 Solu-Medrol IVP 20 mg Q6HR ALLAN Administration Propofol 1,000 mg 06/04/20 05:23 06/07/20 08:19 Diprivan IV 07/04/20 05:23 1,000 mg INF PRN Administration TO ACHIEVE GOAL RASS Protocol Sodium Chloride 10 ml 06/06/20 21:00 06/07/20 08:16 Flush - Normal Saline IVF 10 ml Q12HR ALLAN Administration - Exam General Appearance: ill appearing General - other findings: Orally intubated on mechanical ventilation Heart: RRR Gastrointestinal: soft, non-tender Psychiatric: lethargic Hosp A/P (1) Hypertension Code(s): I10 - ESSENTIAL (PRIMARY) HYPERTENSION Status: Chronic Qualifiers: Hypertension type: essential hypertension Qualified Code(s): I10 - Essential (primary) hypertension (2) Morbid obesity with BMI of 50.0-59.9, adult Code(s): E66.01 - MORBID (SEVERE) OBESITY DUE TO EXCESS CALORIES; Z68.43 - BODY MASS INDEX (BMI) 50.0-59.9, ADULT Status: Chronic (3) Type 2 diabetes mellitus Status: Chronic Qualifiers: Diabetes mellitus complication status: without complication Qualified Code( s): E11.9 - Type 2 diabetes mellitus without complications (4) Acute respiratory failure with hypoxia and hypercapnia Code(s): J96.01 - ACUTE RESPIRATORY FAILURE WITH HYPOXIA; J96.02 - ACUTE RESPIRATORY FAILURE WITH HYPERCAPNIA Status: Resolved (5) Acute renal failure superimposed on stage 2 chronic kidney disease Code(s): N17.9 - ACUTE KIDNEY FAILURE, UNSPECIFIED; N18.2 - CHRONIC KIDNEY DISEASE, STAGE 2 (MILD) Status: Acute - Plan No significant change today pt remains intubated continue with mechanical ventilation as per intensive care wean off trials patient morbid obesity will continue with treatment for possible pneumonia less likely covid cont with azithro and meropeme, iv solumedrol wean off as tolerated Continue with tube feedings s tolerated as per dietitian pt doesnt appear fluid overloaded today viky moniotr creatanin and avoid nephro toxins full code continue to discuss with family regarding CODE STATUS and long-term prognosis dvt ppx dispo keep in icu for now
[2020-06-07] MEDS: hydrALAZINE 20 MG/ML VIAL SLOW IVP PRN ×2 (11:35→21:19)
--- NOTE | 2020-06-07 11:54 | PRG ---
DATE OF SERVICE: 06/07/2020 TIME SPENT: 30 minutes of critical care time. SUBJECTIVE: The patient remains intubated on mechanical ventilation. Apparently, there is a fine line between heavy sedation and her going wild. OBJECTIVE: VITAL SIGNS: Her temperature is 97.2, pulse 63, blood pressure 176/101, O2 saturation 100%. 24-hour intake 2465, output 2895. HEENT: Unremarkable. NECK: No adenopathy or JVD. LUNGS: Clear. CARDIAC: S1 and S2. Regular. ABDOMEN: Soft. EXTREMITIES: No edema. LABORATORY DATA: White blood cell count 14.4, hematocrit 32.9, and platelet count 195. ABG was not done. Sodium 145, potassium 3.8, chloride 108, CO2 of 28, BUN 31, creatinine 1.2, and glucose 148. ASSESSMENT: 1. Acute hypoxic respiratory failure, requiring mechanical ventilation. 2. Pneumonia. 3. Obesity. PLAN: We are going to focus on limiting her sedation so that she can start breathing spontaneously and perhaps we can get her extubated. Discussed with the nurse at bedside. I have decreased the patient's respiratory rate on the vent to facilitate spontaneous breathing. Job ID: [id number]
[2020-06-07] MEDS: Lorazepam 2 MG/ML VIAL SLOW IVP PRN ×3 (13:02→19:45)
[2020-06-07] MEDS: Sodium Chloride 0.9% 1,000 ML IV SCH (23:53)
[2020-06-08] MEDS: methylPREDNISolone Sod Succ 40 MG VIAL IVP SCH ×5 (00:43→23:44)
[2020-06-08] MEDS: Propofol 1,000 MG/100 ML VIAL IV PRN ×9 (02:26→22:46)
[2020-06-08] MEDS: Azithromycin 500 MG in Sodium Chloride 0.9% 250 ML 250 ML IVPB SCH (02:28)
[2020-06-08 02:42] LABS: Anion Gap 12 mmol/L (10-20); BUN (Urea Nitrogen) 26 mg/dL (9.8-20.1); Calc. Creatinine Clearance 175 mL/min (70-130); Calcium 8.2 mg/dL (7.8-10.44); Carbon Dioxide 28 mmol/L (22-29); Chloride 106 mmol/L (98-107); Estimated GFR-MDRD 82; Glucose 165 mg/dL (70-105); Magnesium 2.3 mg/dL (1.6-2.6); Potassium 3.7 mmol/L (3.5-5.1); Sodium 142 mmol/L (136-145)
[2020-06-08 02:45] LABS: Band 1 % (5-11); Eosinophils 1 % (0-10); Hemoglobin 11.2 g/dL (12.0-16.0); Hypochromia SLIGHT = 6-15 cells (100X) (0-5/hpf); Lymphocytes 4 % (21-51); MDiff Complete? YES; Mean Corpuscular HGB CONC 32.3 g/dL (32.0-36.0); Mean Corpuscular Hemoglobin 30.7 pg (27.0-31.0); Mean Corpuscular Volume 95.1 fL (78.0-98.0); Mean Platelet Volume 7.2 fL (7.4-10.4); Monocytes 6 % (0-10); Neutrophil 88 % (42-75); Nucleated RBC 1 % (0); Platelet Count 196 thou/uL (130-400); Platelet Morphology Comment Appears Adequate; RBC Distribution Width 13.9 % (11.5-14.5); Red Blood Cell (RBC) Count 3.65 mill/uL (4.20-5.40); White Blood Cell (WBC) Count 13.5 thou/uL (4.8-10.8)
[2020-06-08] MEDS: Meropenem 2 GM in Sodium Chloride 0.9% 100 ML IVPB SCH ×3 (03:57→19:42)
[2020-06-08] MEDS: hydrALAZINE 20 MG/ML VIAL SLOW IVP PRN (05:10)
[2020-06-08] MEDS: Lorazepam 2 MG/ML VIAL SLOW IVP PRN (05:21)
[2020-06-08 07:51] LABS: Actual Bicarbonate (HCO3a) 23.2 mEq/L (22-28); Base Excess (BEa) -1.4 mEq/L (-2.0 to +3.0); CO2 Tension 38.5 mmHg (35.0-45.0); Calcium, Ionized (arterial) 1.14 mmol/L (1.12-1.30); Carboxyhemoglobin (COHb) 0.7 gm% (0.0-3.0); Hemoglobin (Hb) 11.9 g/dL (12.0-16.0); Potassium - ABG Lab 3.92 mmol/L (3.70-5.30)
[2020-06-08 08:02] LABS: Puncture Site LR
[2020-06-08 08:03] LABS: ALV-art Gradient 180.075 (0-20)
--- NOTE | 2020-06-08 08:59 | PDOC.HOSPP ---
- Subjective Encounter Date: 06/08/20 (f/u resp failure) Encounter Time: 08:58 Subjective: Pt on HD 5 for acute respiratory failure. Pt remains intubated, no overnight events noted by the nursing staff. - Objective Vital Signs & Weight: Vital Signs (12 hours) Pulse Resp BP Pulse Ox 06/08/20 07:06 68 182/95 H 06/08/20 07:04 67 12 40 L 06/08/20 06:00 12 06/08/20 05:10 63 177/99 H 06/08/20 04:00 12 06/08/20 02:57 63 177/99 H 06/08/20 02:56 64 12 100 06/08/20 02:00 12 06/08/20 00:00 12 06/07/20 22:57 76 175/91 H 06/07/20 22:56 75 12 100 06/07/20 22:00 12 06/07/20 21:19 93 174/113 H Weight Admit Weight 350 lb Weight 346 lb 2.012 oz Most Recent Monitor Data Heart Rate from ECG 77 NIBP 198/109 NIBP BP-Mean 138 Respiration from ECG 12 SpO2 100 I&O: 06/07/20 06/08/20 06/09/20 06:59 06:59 06:59 Intake Total 2465.0 2624.5 Output Total 2895 3995 Balance -430.0 -1370.5 Result Diagrams: 06/08/20 02:00 06/08/20 02:00 EKG Reviewed by me: Yes (tele - sinus 70's, no alarms) Hospitalist ROS - Medication Medications: Active Medications Generic Name Dose Route Start Last Admin Trade Name Bonillaq PRN Reason Stop Dose Admin Albuterol/Ipratropium 3 ml 06/06/20 14:30 06/08/20 07:04 Duoneb NEB 3 ml [id number] ALLAN Administration Enoxaparin Sodium 40 mg 06/07/20 09:00 06/07/20 08:15 Lovenox SC 40 mg 0900 ALLAN Administration Famotidine 20 mg 06/06/20 21:00 06/07/20 21:13 Pepcid SLOW IVP 20 mg BID ALLAN Administration Furosemide 40 mg 06/04/20 09:00 06/07/20 08:15 Lasix SLOW IVP 40 mg DAILY ALLAN Administration Hydralazine HCl 10 mg 06/07/20 11:23 06/08/20 05:10 Apresoline SLOW IVP 10 mg Q4H PRN Administration SBP>160 Azithromycin 500 mg/ Sodium 250 mls @ 250 mls/hr 06/05/20 04:00 06/08/20 02: 28 Chloride IVPB 250 mls Q24HR ALLAN Administration Sodium Chloride 1,000 mls @ 50 mls/hr 06/04/20 04:15 06/07/20 23:53 Normal Saline 0.9% IV 1,000 mls .Q20H ALLAN Administration Fentanyl Citrate 2,000 mcg/ 100 mls @ 0 mls/hr 06/04/20 05:24 06/07/20 19:23 Sodium Chloride IV 07/04/20 05:24 100 mls INF ALLAN Administration Protocol Per Protocol Meropenem 2 gm/ Sodium 100 mls @ 200 mls/hr 06/05/20 20:00 06/08/20 03:57 Chloride IVPB 100 mls 0400,1200,2000 ALLAN Administration Lorazepam 2 mg 06/04/20 05:23 06/08/20 05:21 Ativan SLOW IVP 07/04/20 05:23 2 mg Q1H PRN Administration Breakthrough agitation Methylprednisolone Sodium Succinate 20 mg 06/06/20 12:00 06/08/20 05:10 Solu-Medrol IVP 20 mg Q6HR ALLAN Administration Propofol 1,000 mg 06/04/20 05:23 06/08/20 07:34 Diprivan IV 07/04/20 05:23 1,000 mg INF PRN Administration TO ACHIEVE GOAL RASS Protocol Sodium Chloride 10 ml 06/06/20 21:00 06/07/20 21:13 Flush - Normal Saline IVF 10 ml Q12HR ALLAN Administration - Exam General Appearance: NAD Heart: RRR, no murmur Respiratory - other findings: good air movement, no audible w/r/r Gastrointestinal: soft, non-tender, non-distended, normal bowel sounds Extremities: no cyanosis, no clubbing Extremities - other findings: trace pitting edema bilateral Skin - other findings: hyperpigmentation of LE bilateral Neurological - other findings: intubated - unable to assess Musculoskeletal - other findings: intubated - unable to assess Hosp A/P (1) Acute respiratory failure with hypoxia and hypercapnia Code(s): J96.01 - ACUTE RESPIRATORY FAILURE WITH HYPOXIA; J96.02 - ACUTE RESPIRATORY FAILURE WITH HYPERCAPNIA Status: Acute (2) Hypertension Code(s): I10 - ESSENTIAL (PRIMARY) HYPERTENSION Status: Chronic Qualifiers: Hypertension type: essential hypertension Qualified Code(s): I10 - Essential (primary) hypertension (3) Morbid obesity with BMI of 50.0-59.9, adult Code(s): E66.01 - MORBID (SEVERE) OBESITY DUE TO EXCESS CALORIES; Z68.43 - BODY MASS INDEX (BMI) 50.0-59.9, ADULT Status: Chronic (4) Type 2 diabetes mellitus Status: Chronic Qualifiers: Diabetes mellitus complication status: without complication Qualified Code( s): E11.9 - Type 2 diabetes mellitus without complications (5) SHAWN (acute kidney injury) Code(s): N17.9 - ACUTE KIDNEY FAILURE, UNSPECIFIED Status: Resolved - Plan Acute resp failure on Vent - appreciate Pulm/CC managing - on steroids, IV antibiotics (meropenem and azithromycin) - echo ordered - last one in system was 2019 Blood sugars controlled - add SSI and finger stick glucose SHAWN resolved ON very low rate tube feeds, propofol and IVF continue IV lasix dvt prophy - lovenox gi prophy - famotidine code status full Pt remains at high risk in current condition.
[2020-06-08] MEDS ORDERED: Dextrose 50% Abboject 50 ML SYRINGE SLOW IVP PRN (09:03)
[2020-06-08] MEDS ORDERED: Dextrose 5% in Water 1,000 ML IV PRN (09:03)
[2020-06-08] MEDS: Famotidine/PF 20 mg/2ml Vial SLOW IVP SCH ×2 (09:07→20:11)
[2020-06-08] MEDS: Enoxaparin Sodium 40 MG/0.4 ML SYRINGE SC SCH (09:07)
[2020-06-08] MEDS: Furosemide 40 MG/4 ML VIAL SLOW IVP SCH (09:07)
--- NOTE | 2020-06-08 09:23 | RAD ---
RADIOGRAPH CHEST 1 VIEW: DATE: 06/08/2020 TIME: 5:31 AM HISTORY: 60-year-old female in respiratory failure COMPARISON: 06/07/2020 FINDINGS: No change in life support lines. No change in interstitial and alveolar pulmonary densities at mid an d lower lung zones bilaterally. Relative sparing of the apices. No large pneumothorax. No interval change overall. IMPRESSION: No interval change
--- NOTE | 2020-06-08 12:08 | PRG ---
DATE OF SERVICE: 06/08/2020 35 minutes critical care time. SUBJECTIVE: The patient remains intubated on mechanical ventilation. She is very somnolent today. OBJECTIVE: VITAL SIGNS: Her temperature is 95.2, pulse 69, blood pressure 141/74. GENERAL: She is currently sedated on some propofol. HEENT: Unremarkable. NECK: No adenopathy or JVD. LUNGS: With crackles anteriorly. CARDIAC: S1 and S2. Regular. ABDOMEN: Soft. EXTREMITIES: No edema. LABORATORY DATA: White blood cell count 13.5, hematocrit 34.7, and platelet count 196. PH of 7.40, pCO2 of 38, pO2 of 57 on SIMV rate 12, tidal volume 650, PEEP 5, pressure support 10, FiO2 of 40%. Sodium 142, potassium 3.7, chloride 106, CO2 of 28, BUN 26, creatinine 0.8, and glucose 165. Her chest x-ray looks about the same. ASSESSMENT: 1. Acute respiratory failure requiring mechanical ventilation. 2. Pneumonia. 3. Obesity. PLAN: 1. I increased her tidal volumes yesterday because she was wanting more tidal volume - she was trying to continue inspiration when the ventilator was making her exhale. She seems more synchronous with the ventilator today with a higher tidal volume. 2. The main issue now is to get her more awake, attempt to facilitate extubation. I have a feeling she may need a tracheostomy. 3. She is currently undergoing an echocardiogram. We will follow up on the results of that. Job ID: [id number]
[2020-06-08] MEDS: HumaLOG 300 UNITS/3 ML VIAL SC PRN (14:46)
[2020-06-08] MEDS: fentaNYL Citrate/PF 2,000 MCG in Sodium Chloride 0.9% 60 ML IV SCH (15:33)
[2020-06-09] MEDS: HumaLOG 300 UNITS/3 ML VIAL SC PRN ×2 (00:49→12:02)
[2020-06-09] MEDS: Propofol 1,000 MG/100 ML VIAL IV PRN ×8 (01:28→23:29)
[2020-06-09] MEDS: Sodium Chloride 0.9% 1,000 ML IV SCH ×2 (02:40→23:30)
[2020-06-09] MEDS: Azithromycin 500 MG in Sodium Chloride 0.9% 250 ML 250 ML IVPB SCH (02:57)
[2020-06-09 04:04] LABS: Anion Gap 12 mmol/L (10-20); BUN (Urea Nitrogen) 27 mg/dL (9.8-20.1); Calc. Creatinine Clearance 179 mL/min (70-130); Calcium 8.3 mg/dL (7.8-10.44); Carbon Dioxide 27 mmol/L (22-29); Chloride 107 mmol/L (98-107); Estimated GFR-MDRD 84; Glucose 154 mg/dL (70-105); Potassium 3.9 mmol/L (3.5-5.1); Sodium 142 mmol/L (136-145)
[2020-06-09 04:05] LABS: Band 9 % (5-11); Hemoglobin 11.4 g/dL (12.0-16.0); Lymphocytes 11 % (21-51); MDiff Complete? YES; Mean Corpuscular HGB CONC 32.1 g/dL (32.0-36.0); Mean Corpuscular Hemoglobin 30.3 pg (27.0-31.0); Mean Corpuscular Volume 94.6 fL (78.0-98.0); Mean Platelet Volume 7.3 fL (7.4-10.4); Metamyelocyte 2 % (0-0); Monocytes 6 % (0-10); Myelocyte 1 % (0-0); Neutrophil 71 % (42-75); Platelet Count 209 thou/uL (130-400); Platelet Morphology Comment Appears Adequate; RBC Distribution Width 14.3 % (11.5-14.5); Red Blood Cell (RBC) Count 3.74 mill/uL (4.20-5.40); White Blood Cell (WBC) Count 14.2 thou/uL (4.8-10.8)
[2020-06-09] MEDS: methylPREDNISolone Sod Succ 40 MG VIAL IVP SCH ×4 (05:11→23:30)
[2020-06-09] MEDS: Meropenem 2 GM in Sodium Chloride 0.9% 100 ML IVPB SCH ×3 (05:30→19:37)
--- NOTE | 2020-06-09 08:00 | RAD ---
Exam: Chest one view HISTORY:Respiratory distress. Ventilated patient. Comparison: 06/08/2020 FINDINGS: Lines and tubes: Redemonstration of a right-sided internal jugular venous catheter, endotracheal tube and nasogastric tube. Cardiac silhouette:Cardiomegaly Aorta: Unremarkable Pulmonary vessels: Normal Costophrenic angles: Small bilateral effusions LUNGS: Stable parenchymal changes, predominantly the lung bases. Pneumothorax: None Osseous abnormalities: None IMPRESSION: No significant interval change.
[2020-06-09 08:07] LABS: Actual Bicarbonate (HCO3a) 25.6 mEq/L (22-28); Base Excess (BEa) 1.6 mEq/L (-2.0 to +3.0); CO2 Tension 37.8 mmHg (35.0-45.0); Calcium, Ionized (arterial) 1.17 mmol/L (1.12-1.30); Carboxyhemoglobin (COHb) 0.6 gm% (0.0-3.0); Hemoglobin (Hb) 11.9 g/dL (12.0-16.0); O2 Tension (PaO2), arterial 83.8 mmHg (80.0-100.0); Potassium - ABG Lab 4.02 mmol/L (3.70-5.30); pH, Arterial 7.45 (7.35-7.45)
[2020-06-09] MEDS: Furosemide 40 MG/4 ML VIAL SLOW IVP SCH (09:00)
[2020-06-09] MEDS: Enoxaparin Sodium 40 MG/0.4 ML SYRINGE SC SCH (09:00)
[2020-06-09] MEDS: Famotidine/PF 20 mg/2ml Vial SLOW IVP SCH ×2 (09:00→20:25)
[2020-06-09] MEDS: fentaNYL Citrate/PF 2,000 MCG in Sodium Chloride 0.9% 60 ML IV SCH (11:40)
[2020-06-10] MEDS: Propofol 1,000 MG/100 ML VIAL IV PRN ×5 (02:13→17:43)
[2020-06-10] MEDS: Azithromycin 500 MG in Sodium Chloride 0.9% 250 ML 250 ML IVPB SCH (03:03)
[2020-06-10 03:36] LABS: Anion Gap 10 mmol/L (10-20); BUN (Urea Nitrogen) 34 mg/dL (9.8-20.1); Calc. Creatinine Clearance 0 mL/min (70-130); Carbon Dioxide 29 mmol/L (22-29); Chloride 105 mmol/L (98-107); Estimated GFR-MDRD 79; Glucose 163 mg/dL (70-105); Potassium 4.1 mmol/L (3.5-5.1); Sodium 140 mmol/L (136-145)
[2020-06-10 03:50] LABS: Band 1 % (5-11); Hemoglobin 11.2 g/dL (12.0-16.0); Hypochromia SLIGHT = 6-15 cells (100X) (0-5/hpf); Lymphocytes 9 % (21-51); MDiff Complete? YES; Mean Corpuscular HGB CONC 32.6 g/dL (32.0-36.0); Mean Corpuscular Hemoglobin 31.3 pg (27.0-31.0); Mean Platelet Volume 7.2 fL (7.4-10.4); Monocytes 12 % (0-10); Neutrophil 78 % (42-75); Platelet Count 198 thou/uL (130-400); Platelet Morphology Comment Appears Adequate; RBC Distribution Width 14.1 % (11.5-14.5); Red Blood Cell (RBC) Count 3.57 mill/uL (4.20-5.40)
[2020-06-10] MEDS: Meropenem 2 GM in Sodium Chloride 0.9% 100 ML IVPB SCH ×3 (04:27→21:08)
[2020-06-10] MEDS: methylPREDNISolone Sod Succ 40 MG VIAL IVP SCH ×3 (05:41→17:59)
[2020-06-10] MEDS: fentaNYL Citrate/PF 2,000 MCG in Sodium Chloride 0.9% 60 ML IV SCH (07:21)
[2020-06-10] MEDS: Lorazepam 2 MG/ML VIAL SLOW IVP PRN (08:20)
[2020-06-10 08:21] LABS: Actual Bicarbonate (HCO3a) 26.6 mEq/L (22-28); Base Excess (BEa) 2.4 mEq/L (-2.0 to +3.0); CO2 Tension 39.5 mmHg (35.0-45.0); Calcium, Ionized (arterial) 1.17 mmol/L (1.12-1.30); Carboxyhemoglobin (COHb) 0.5 gm% (0.0-3.0); Hemoglobin (Hb) 11.8 g/dL (12.0-16.0); O2 Tension (PaO2), arterial 96.3 mmHg (80.0-100.0); Potassium - ABG Lab 4.22 mmol/L (3.70-5.30); Puncture Site LR; pH, Arterial 7.45 (7.35-7.45)
[2020-06-10 08:22] LABS: ALV-art Gradient 139.525 (0-20)
[2020-06-10] MEDS: Famotidine/PF 20 mg/2ml Vial SLOW IVP SCH ×2 (08:29→21:09)
[2020-06-10] MEDS: Furosemide 40 MG/4 ML VIAL SLOW IVP SCH (08:29)
[2020-06-10] MEDS: Enoxaparin Sodium 40 MG/0.4 ML SYRINGE SC SCH (08:30)
--- NOTE | 2020-06-10 09:03 | RAD ---
CHEST 1 VIEW: HISTORY: Respiratory insufficiency. COMPARISON: 06/09/2020. FINDINGS: Considerable rotation to the left. Life support tubes remain in place. Minimal cardiomegaly with bi lateral vascular congestion and some mostly perihilar and mid and lower lung zone alveolar and inters titial opacity changes. IMPRESSION: Persistent bilateral vascular congestion and mid and lower lung zone pleural and parenchymal opacity changes. Evidence for minimal improvement since the prior study, 06/08/2020. POS: RRE
[2020-06-10] MEDS: Sodium Chloride 0.9% 1,000 ML IV SCH (21:09)
[2020-06-11] MEDS: methylPREDNISolone Sod Succ 40 MG VIAL IVP SCH ×5 (01:53→23:56)
[2020-06-11] MEDS: Propofol 1,000 MG/100 ML VIAL IV PRN ×4 (01:54→19:52)
[2020-06-11] MEDS: Meropenem 2 GM in Sodium Chloride 0.9% 100 ML IVPB SCH ×3 (04:22→20:19)
[2020-06-11 04:27] LABS: Band 7 % (5-11); Hemoglobin 10.9 g/dL (12.0-16.0); Lymphocytes 10 % (21-51); MDiff Complete? YES; Mean Corpuscular Hemoglobin 30.5 pg (27.0-31.0); Mean Corpuscular Volume 95.2 fL (78.0-98.0); Mean Platelet Volume 7.6 fL (7.4-10.4); Metamyelocyte 1 % (0-0); Monocytes 1 % (0-10); Neutrophil 81 % (42-75); Platelet Count 185 thou/uL (130-400); Platelet Morphology Comment Appears Adequate; RBC Distribution Width 13.8 % (11.5-14.5); Red Blood Cell (RBC) Count 3.57 mill/uL (4.20-5.40); White Blood Cell (WBC) Count 12.9 thou/uL (4.8-10.8)
[2020-06-11 04:28] LABS: Anion Gap 9 mmol/L (10-20); BUN (Urea Nitrogen) 36 mg/dL (9.8-20.1); Calc. Creatinine Clearance 191 mL/min (70-130); Carbon Dioxide 31 mmol/L (22-29); Chloride 105 mmol/L (98-107); Estimated GFR-MDRD 90; Glucose 134 mg/dL (70-105); Potassium 4.3 mmol/L (3.5-5.1); Sodium 141 mmol/L (136-145)
[2020-06-11] MEDS: fentaNYL Citrate/PF 2,000 MCG in Sodium Chloride 0.9% 60 ML IV SCH (06:05)
--- NOTE | 2020-06-11 07:59 | RAD ---
EXAM: Single view of the chest HISTORY: Ventilated patient with respiratory failure COMPARISON: 06/10/2020 FINDINGS: Single view of the chest shows a normal sized cardiomediastinal silhouette. The endotrache al tube and NG tube are unchanged in position. Atelectasis is seen in the lung bases. There is no evidence of consolidation, mass, or pleural effusion. The bones are unremarkable. IMPRESSION: Bibasilar atelectasis
[2020-06-11 08:00] LABS: Actual Bicarbonate (HCO3a) 29.5 mEq/L (22-28); Base Excess (BEa) 2.1 mEq/L (-2.0 to +3.0); CO2 Tension 56.9 mmHg (35.0-45.0); Calcium, Ionized (arterial) 1.19 mmol/L (1.12-1.30); Carboxyhemoglobin (COHb) 0.6 gm% (0.0-3.0); Hemoglobin (Hb) 14.8 g/dL (12.0-16.0); O2 Tension (PaO2), arterial 77.4 mmHg (80.0-100.0); Potassium - ABG Lab 4.31 mmol/L (3.70-5.30); pH, Arterial 7.33 (7.35-7.45)
[2020-06-11 08:03] LABS: Puncture Site LRA
[2020-06-11 08:04] LABS: ALV-art Gradient 136.675 (0-20)
--- NOTE | 2020-06-11 09:13 | PRG ---
DATE OF SERVICE: 06/11/2020 SUBJECTIVE: Queen Ben is a 60-year-old morbidly obese female, who is intubated on the vent. She has been here now since the . OBJECTIVE: VITAL SIGNS: Pulse 105, sats 100%, respirations 26, blood pressure 135/76. I's and O's have been good. CHEST: Decreased breath sounds. No wheezing. CARDIAC: Normal S1 and S2. No gallops. ABDOMEN: No masses. EXTREMITIES: Trace edema. NEUROLOGIC: She is sedated. LABORATORY DATA: White count 12,000. PO2 is 77, pCO2 is 56 rate of 12, PEEP of 5, 35%. Electrolytes are normal. IMAGING STUDIES: X-ray shows a questionable bibasilar atelectatic changes. ASSESSMENT: Morbid obesity, underlying sleep apnea, bipolar disorder, hypertension, and diabetes. PLAN: Hold all sedation and assess neurological status. At this stage weanable. Continue PT, nutrition, empiric broad-spectrum antibiotics, though so far all cultures are negative. We will follow. One-half hour of critical care time. Job ID: [id number]
[2020-06-11] MEDS: Enoxaparin Sodium 40 MG/0.4 ML SYRINGE SC SCH (09:45)
[2020-06-11] MEDS: Furosemide 40 MG/4 ML VIAL SLOW IVP SCH (09:45)
[2020-06-11] MEDS: Famotidine/PF 20 mg/2ml Vial SLOW IVP SCH ×2 (09:45→20:20)
[2020-06-11] MEDS ORDERED: Metoprolol Tartrate 50 MG TAB PO SCH (12:30)
[2020-06-11] MEDS ORDERED: Lisinopril 20 MG TAB PO SCH (12:30)
[2020-06-11] MEDS: hydrALAZINE 20 MG/ML VIAL SLOW IVP PRN (14:35)
[2020-06-11] MEDS: Lorazepam 2 MG/ML VIAL SLOW IVP PRN (15:11)
--- NOTE | 2020-06-11 15:55 | PDOC.HOSPP ---
- Subjective Encounter Date: 06/09/20 Encounter Time: 11:45 Subjective: pt intubated - Objective Vital Signs & Weight: Vital Signs (12 hours) Temp Pulse Resp BP Pulse Ox 06/11/20 15:20 89 134/77 06/11/20 15:17 89 30 H 100 06/11/20 14:35 89 206/107 H 06/11/20 14:00 24 H 06/11/20 12:31 156/90 H 06/11/20 12:00 99.3 F 24 H 06/11/20 10:56 117 H 156/90 H 06/11/20 10:47 113 H 26 H 99 06/11/20 10:00 24 H 06/11/20 08:00 99 F 18 98 06/11/20 07:40 99 115/62 06/11/20 07:38 98 12 100 06/11/20 07:00 99.2 F 06/11/20 05:16 12 06/11/20 05:00 12 06/11/20 04:00 12 Weight Admit Weight 350 lb Weight 338 lb 6.553 oz Most Recent Monitor Data Heart Rate from ECG 92 NIBP 206/107 NIBP BP-Mean 140 Respiration from ECG 27 SpO2 98 I&O: 06/10/20 06/11/20 06/12/20 06:59 06:59 06:59 Intake Total 3571.5 2515 530 Output Total 3470 3820 2380 Balance 101.5 -4106 -2858 Result Diagrams: 06/11/20 03:11 06/11/20 03:11 Additional Labs: Accuchecks 06/11/20 06/11/20 06/10/20 12:53 01:21 16:45 POC Glucose 91 136 H 138 H Hospitalist ROS - Review of Systems Other: unable to obtain - Medication Medications: Active Medications Generic Name Dose Route Start Last Admin Trade Name Freq PRN Reason Stop Dose Admin Albuterol/Ipratropium 3 ml 06/06/20 14:30 06/11/20 15:17 Duoneb NEB 3 ml [id number] ALLAN Administration Enoxaparin Sodium 40 mg 06/07/20 09:00 06/11/20 09:45 Lovenox SC 40 mg 0900 ALLAN Administration Famotidine 20 mg 06/06/20 21:00 06/11/20 09:45 Pepcid SLOW IVP 20 mg BID ALLAN Administration Furosemide 40 mg 06/04/20 09:00 06/11/20 09:45 Lasix SLOW IVP 40 mg DAILY ALLAN Administration Hydralazine HCl 10 mg 06/07/20 11:23 06/11/20 14:35 Apresoline SLOW IVP 10 mg Q4H PRN Administration SBP>160 Sodium Chloride 1,000 mls @ 50 mls/hr 06/04/20 04:15 06/10/20 21:09 Normal Saline 0.9% IV 1,000 mls .Q20H ALLAN Administration Fentanyl Citrate 2,000 mcg/ 100 mls @ 0 mls/hr 06/04/20 05:24 06/11/20 06:05 Sodium Chloride IV 07/04/20 05:24 100 mls INF ALLAN Administration Protocol Per Protocol Meropenem 2 gm/ Sodium 100 mls @ 200 mls/hr 06/05/20 20:00 06/11/20 12:25 Chloride IVPB 100 mls 0400,1200,2000 ALLAN Administration Insulin Human Lispro 0 units 06/08/20 09:03 06/09/20 12:02 Humalog SC 2 unit .MILD SLIDING SCALE PRN Administration Mild Correctional Scale Lorazepam 2 mg 06/04/20 05:23 06/11/20 15:11 Ativan SLOW IVP 07/04/20 05:23 2 mg Q1H PRN Administration Breakthrough agitation Methylprednisolone Sodium Succinate 20 mg 06/06/20 12:00 06/11/20 12:25 Solu-Medrol IVP 20 mg Q6HR ALLAN Administration Propofol 1,000 mg 06/04/20 05:23 06/11/20 14:50 Diprivan IV 07/04/20 05:23 1,000 mg INF PRN Administration TO ACHIEVE GOAL RASS Protocol Sodium Chloride 10 ml 06/06/20 21:00 06/11/20 09:46 Flush - Normal Saline IVF 10 ml Q12HR ALLAN Administration - Exam Neck: negative: supple, symmetric, no JVD, no thyromegaly, no lymphadenopathy, no carotid bruit, JVD Heart: negative: RRR, no murmur, no gallops, no rubs, normal peripheral pulses, irregular, diminshed peripheral pulses, murmur present, II/IV, III/IV Respiratory: rales, wheezes Gastrointestinal: negative: soft, non-tender, non-distended, normal bowel sounds , no palpable masses, no hepatomegaly, no splenomegaly, no bruit, no guarding, no rigidity, tender to palpation, distended, diminished bowl sounds, voluntary guarding Hosp A/P (1) Acute respiratory failure with hypoxia and hypercapnia Code(s): J96.01 - ACUTE RESPIRATORY FAILURE WITH HYPOXIA; J96.02 - ACUTE RESPIRATORY FAILURE WITH HYPERCAPNIA Status: Acute (2) Hypertension Code(s): I10 - ESSENTIAL (PRIMARY) HYPERTENSION Status: Chronic Qualifiers: Hypertension type: essential hypertension Qualified Code(s): I10 - Essential (primary) hypertension (3) Morbid obesity with BMI of 50.0-59.9, adult Code(s): E66.01 - MORBID (SEVERE) OBESITY DUE TO EXCESS CALORIES; Z68.43 - BODY MASS INDEX (BMI) 50.0-59.9, ADULT Status: Chronic (4) Type 2 diabetes mellitus Status: Chronic Qualifiers: Diabetes mellitus complication status: without complication Qualified Code( s): E11.9 - Type 2 diabetes mellitus without complications - Plan will stop azithromycin will continue meropenam for now. unable to wean off the vent. pt on diuretics. pt on dvt ppx.
--- NOTE | 2020-06-11 16:07 | PDOC.HOSPP ---
- Subjective Encounter Date: 06/10/20 Encounter Time: 14:00 Subjective: pt intubated - Objective Vital Signs & Weight: Vital Signs (12 hours) Temp Pulse Resp BP Pulse Ox 06/11/20 15:20 89 134/77 06/11/20 15:17 89 30 H 100 06/11/20 14:35 89 206/107 H 06/11/20 14:00 24 H 06/11/20 12:31 156/90 H 06/11/20 12:00 99.3 F 24 H 06/11/20 10:56 117 H 156/90 H 06/11/20 10:47 113 H 26 H 99 06/11/20 10:00 24 H 06/11/20 08:00 99 F 18 98 06/11/20 07:40 99 115/62 06/11/20 07:38 98 12 100 06/11/20 07:00 99.2 F 06/11/20 05:16 12 06/11/20 05:00 12 Weight Admit Weight 350 lb Weight 338 lb 6.553 oz Most Recent Monitor Data Heart Rate from ECG 92 NIBP 206/107 NIBP BP-Mean 140 Respiration from ECG 27 SpO2 98 I&O: 06/10/20 06/11/20 06/12/20 06:59 06:59 06:59 Intake Total 3571.5 2515 530 Output Total 3470 3820 2380 Balance 101.5 -1306 -1850 Result Diagrams: 06/11/20 03:11 06/11/20 03:11 Additional Labs: Accuchecks 06/11/20 06/11/20 06/10/20 12:53 01:21 16:45 POC Glucose 91 136 H 138 H Hospitalist ROS - Review of Systems Other: unable to obtain - Medication Medications: Active Medications Generic Name Dose Route Start Last Admin Trade Name Freq PRN Reason Stop Dose Admin Albuterol/Ipratropium 3 ml 06/06/20 14:30 06/11/20 15:17 Duoneb NEB 3 ml [id number] ALLAN Administration Enoxaparin Sodium 40 mg 06/07/20 09:00 06/11/20 09:45 Lovenox SC 40 mg 0900 ALLAN Administration Famotidine 20 mg 06/06/20 21:00 06/11/20 09:45 Pepcid SLOW IVP 20 mg BID ALLAN Administration Furosemide 40 mg 06/04/20 09:00 06/11/20 09:45 Lasix SLOW IVP 40 mg DAILY ALLAN Administration Hydralazine HCl 10 mg 06/07/20 11:23 06/11/20 14:35 Apresoline SLOW IVP 10 mg Q4H PRN Administration SBP>160 Sodium Chloride 1,000 mls @ 50 mls/hr 06/04/20 04:15 06/10/20 21:09 Normal Saline 0.9% IV 1,000 mls .Q20H ALLAN Administration Fentanyl Citrate 2,000 mcg/ 100 mls @ 0 mls/hr 06/04/20 05:24 06/11/20 06:05 Sodium Chloride IV 07/04/20 05:24 100 mls INF ALLAN Administration Protocol Per Protocol Meropenem 2 gm/ Sodium 100 mls @ 200 mls/hr 06/05/20 20:00 06/11/20 12:25 Chloride IVPB 100 mls 0400,1200,2000 ALLAN Administration Insulin Human Lispro 0 units 06/08/20 09:03 06/09/20 12:02 Humalog SC 2 unit .MILD SLIDING SCALE PRN Administration Mild Correctional Scale Lorazepam 2 mg 06/04/20 05:23 06/11/20 15:11 Ativan SLOW IVP 07/04/20 05:23 2 mg Q1H PRN Administration Breakthrough agitation Methylprednisolone Sodium Succinate 20 mg 06/06/20 12:00 06/11/20 12:25 Solu-Medrol IVP 20 mg Q6HR ALLAN Administration Propofol 1,000 mg 06/04/20 05:23 06/11/20 14:50 Diprivan IV 07/04/20 05:23 1,000 mg INF PRN Administration TO ACHIEVE GOAL RASS Protocol Sodium Chloride 10 ml 06/06/20 21:00 06/11/20 09:46 Flush - Normal Saline IVF 10 ml Q12HR ALLAN Administration - Exam Heart: negative: RRR, no murmur, no gallops, no rubs, normal peripheral pulses, irregular, diminshed peripheral pulses, murmur present, II/IV, III/IV Respiratory: rales Gastrointestinal: negative: soft, non-tender, non-distended, normal bowel sounds , no palpable masses, no hepatomegaly, no splenomegaly, no bruit, no guarding, no rigidity, tender to palpation, distended, diminished bowl sounds, voluntary guarding Extremities: 1+ LE edema Hosp A/P (1) Acute respiratory failure with hypoxia and hypercapnia Code(s): J96.01 - ACUTE RESPIRATORY FAILURE WITH HYPOXIA; J96.02 - ACUTE RESPIRATORY FAILURE WITH HYPERCAPNIA Status: Acute (2) Hypertension Code(s): I10 - ESSENTIAL (PRIMARY) HYPERTENSION Status: Chronic Qualifiers: Hypertension type: essential hypertension Qualified Code(s): I10 - Essential (primary) hypertension (3) Morbid obesity with BMI of 50.0-59.9, adult Code(s): E66.01 - MORBID (SEVERE) OBESITY DUE TO EXCESS CALORIES; Z68.43 - BODY MASS INDEX (BMI) 50.0-59.9, ADULT Status: Chronic (4) Type 2 diabetes mellitus Status: Chronic Qualifiers: Diabetes mellitus complication status: without complication Qualified Code( s): E11.9 - Type 2 diabetes mellitus without complications - Plan will stop azithromycin will continue meropenam for now. unable to wean off the vent. pt on diuretics. pt on dvt ppx. 06/10 pt gets agitated when sedation is weaned off. will continue abx for now.
--- NOTE | 2020-06-11 16:16 | PDOC.HOSPP ---
- Subjective Encounter Date: 06/11/20 Encounter Time: 15:30 Subjective: pt intubated - Objective Vital Signs & Weight: Vital Signs (12 hours) Temp Pulse Resp BP Pulse Ox 06/11/20 15:20 89 134/77 06/11/20 15:17 89 30 H 100 06/11/20 14:35 89 206/107 H 06/11/20 14:00 24 H 06/11/20 12:31 156/90 H 06/11/20 12:00 99.3 F 24 H 06/11/20 10:56 117 H 156/90 H 06/11/20 10:47 113 H 26 H 99 06/11/20 10:00 24 H 06/11/20 08:00 99 F 18 98 06/11/20 07:40 99 115/62 06/11/20 07:38 98 12 100 06/11/20 07:00 99.2 F 06/11/20 05:16 12 06/11/20 05:00 12 Weight Admit Weight 350 lb Weight 338 lb 6.553 oz Most Recent Monitor Data Heart Rate from ECG 92 NIBP 206/107 NIBP BP-Mean 140 Respiration from ECG 27 SpO2 98 I&O: 06/10/20 06/11/20 06/12/20 06:59 06:59 06:59 Intake Total 3571.5 2515 530 Output Total 3470 3820 2380 Balance 101.5 -1304 -1850 Result Diagrams: 06/11/20 03:11 06/11/20 03:11 Additional Labs: Accuchecks 06/11/20 06/11/20 06/10/20 12:53 01:21 16:45 POC Glucose 91 136 H 138 H Hospitalist ROS - Review of Systems Other: unable to obtain - Medication Medications: Active Medications Generic Name Dose Route Start Last Admin Trade Name Freq PRN Reason Stop Dose Admin Albuterol/Ipratropium 3 ml 06/06/20 14:30 06/11/20 15:17 Duoneb NEB 3 ml [id number] ALLAN Administration Enoxaparin Sodium 40 mg 06/07/20 09:00 06/11/20 09:45 Lovenox SC 40 mg 0900 ALLAN Administration Famotidine 20 mg 06/06/20 21:00 06/11/20 09:45 Pepcid SLOW IVP 20 mg BID ALLAN Administration Furosemide 40 mg 06/04/20 09:00 06/11/20 09:45 Lasix SLOW IVP 40 mg DAILY ALLAN Administration Hydralazine HCl 10 mg 06/07/20 11:23 06/11/20 14:35 Apresoline SLOW IVP 10 mg Q4H PRN Administration SBP>160 Sodium Chloride 1,000 mls @ 50 mls/hr 06/04/20 04:15 06/10/20 21:09 Normal Saline 0.9% IV 1,000 mls .Q20H ALLAN Administration Fentanyl Citrate 2,000 mcg/ 100 mls @ 0 mls/hr 06/04/20 05:24 06/11/20 06:05 Sodium Chloride IV 07/04/20 05:24 100 mls INF ALLAN Administration Protocol Per Protocol Meropenem 2 gm/ Sodium 100 mls @ 200 mls/hr 06/05/20 20:00 06/11/20 12:25 Chloride IVPB 100 mls 0400,1200,2000 ALLAN Administration Insulin Human Lispro 0 units 06/08/20 09:03 06/09/20 12:02 Humalog SC 2 unit .MILD SLIDING SCALE PRN Administration Mild Correctional Scale Lorazepam 2 mg 06/04/20 05:23 06/11/20 15:11 Ativan SLOW IVP 07/04/20 05:23 2 mg Q1H PRN Administration Breakthrough agitation Methylprednisolone Sodium Succinate 20 mg 06/06/20 12:00 06/11/20 12:25 Solu-Medrol IVP 20 mg Q6HR ALLAN Administration Propofol 1,000 mg 06/04/20 05:23 06/11/20 14:50 Diprivan IV 07/04/20 05:23 1,000 mg INF PRN Administration TO ACHIEVE GOAL RASS Protocol Sodium Chloride 10 ml 06/06/20 21:00 06/11/20 09:46 Flush - Normal Saline IVF 10 ml Q12HR ALLAN Administration - Exam Heart: negative: RRR, no murmur, no gallops, no rubs, normal peripheral pulses, irregular, diminshed peripheral pulses, murmur present, II/IV, III/IV Respiratory: rales Gastrointestinal: negative: soft, non-tender, non-distended, normal bowel sounds , no palpable masses, no hepatomegaly, no splenomegaly, no bruit, no guarding, no rigidity, tender to palpation, distended, diminished bowl sounds, voluntary guarding Extremities: 1+ LE edema Hosp A/P (1) Acute respiratory failure with hypoxia and hypercapnia Code(s): J96.01 - ACUTE RESPIRATORY FAILURE WITH HYPOXIA; J96.02 - ACUTE RESPIRATORY FAILURE WITH HYPERCAPNIA Status: Acute (2) Hypertension Code(s): I10 - ESSENTIAL (PRIMARY) HYPERTENSION Status: Chronic Qualifiers: Hypertension type: essential hypertension Qualified Code(s): I10 - Essential (primary) hypertension (3) Morbid obesity with BMI of 50.0-59.9, adult Code(s): E66.01 - MORBID (SEVERE) OBESITY DUE TO EXCESS CALORIES; Z68.43 - BODY MASS INDEX (BMI) 50.0-59.9, ADULT Status: Chronic (4) Type 2 diabetes mellitus Status: Chronic Qualifiers: Diabetes mellitus complication status: without complication Qualified Code( s): E11.9 - Type 2 diabetes mellitus without complications - Plan will stop azithromycin will continue meropenam for now. unable to wean off the vent. pt on diuretics. pt on dvt ppx. 06/10 pt gets agitated when sedation is weaned off. will continue abx for now. 06/11 will hold off on lasix since she has lost a lot of weight and her metabolic alkalosis is worsening which will cause respiratory acidosis. Tried to stop her sedation pt became agitated and became tachypneic
[2020-06-11] MEDS: Sodium Chloride 0.9% 1,000 ML IV SCH (17:35)
[2020-06-11] MEDS: Metoprolol Tartrate 50 MG TAB PO SCH (20:21)
[2020-06-12] MEDS: Meropenem 2 GM in Sodium Chloride 0.9% 100 ML IVPB SCH (03:08)
[2020-06-12] MEDS: Propofol 1,000 MG/100 ML VIAL IV PRN ×4 (03:09→21:40)
[2020-06-12 04:06] LABS: Anion Gap 14 mmol/L (10-20); BUN (Urea Nitrogen) 61 mg/dL (9.8-20.1); Calc. Creatinine Clearance 87 mL/min (70-130); Calcium 8.5 mg/dL (7.8-10.44); Carbon Dioxide 29 mmol/L (22-29); Chloride 104 mmol/L (98-107); Estimated GFR-MDRD 37; Glucose 140 mg/dL (70-105); Potassium 4.7 mmol/L (3.5-5.1); Sodium 142 mmol/L (136-145)
[2020-06-12 04:16] LABS: Band 3 % (5-11); Eosinophils 2 % (0-10); Hemoglobin 11.4 g/dL (12.0-16.0); Hypochromia SLIGHT = 6-15 cells (100X) (0-5/hpf); Lymphocytes 4 % (21-51); MDiff Complete? YES; Mean Corpuscular HGB CONC 30.5 g/dL (32.0-36.0); Mean Corpuscular Hemoglobin 29.9 pg (27.0-31.0); Mean Corpuscular Volume 97.9 fL (78.0-98.0); Mean Platelet Volume 7.8 fL (7.4-10.4); Metamyelocyte 2 % (0-0); Monocytes 9 % (0-10); Neutrophil 80 % (42-75); Platelet Count 195 thou/uL (130-400); Platelet Morphology Comment Appears Adequate; RBC Distribution Width 14.2 % (11.5-14.5)
[2020-06-12] MEDS: methylPREDNISolone Sod Succ 40 MG VIAL IVP SCH ×2 (05:11→21:41)
[2020-06-12] MEDS ORDERED: MERREM IVPB PRN (07:11)
--- NOTE | 2020-06-12 07:46 | PRG ---
DATE OF SERVICE: 06/12/2020 SUBJECTIVE: She remains intubated in the vent and sedated. Yesterday, we had decreased the Diprivan and she was agitated, moving around. Clearly, not very focused. OBJECTIVE: VITAL SIGNS: Respiratory rate is 18. Sats on 40% are 94%. Blood pressure is elevated at 157/130. Temperature 98. I's and O's have been negative. CHEST: Decreased breath sounds, anterior rhonchi. CARDIAC: Normal S1 and S2. No gallops. ABDOMEN: No masses. LABORATORY DATA: White count 16,000, H and H of 11 and 37, and platelet count is normal. BUN and creatinine are surprisingly markedly elevated at 61 and 1.69 respectively. Glucose 143. DIAGNOSTIC DATA: X-ray still shows bibasilar atelectatic changes. ASSESSMENT: 1. Renal failure and azotemia. 2. Hypertension. 3. Morbid obesity. 4. Bipolar schizophrenia. 5. Pneumonia. PLAN: She is not weanable. We are still trying to get all her family members to decide about trach and a PEG. We will get palliative care to assist in doing so. Additionally, we increased the IV fluids. We are going to discontinue the lisinopril and Lasix. Prognosis remains guarded. One-half hour of critical time. Job ID: [id number]
--- NOTE | 2020-06-12 07:54 | RAD ---
XR Chest 1 View Portable History: Ventilated patient Comparison: Radiograph prior day Findings: Endotracheal tube tip at the level of clavicles. Similar airspace opacity in the the lung b ases. No pneumothorax. Enteric tube tip below diaphragm although out of field of view. No acute osseous abnormality. Right I J central venous catheter tip projects over the right atrium. Impression: Similar appearance of the lower lobe infiltrates.
[2020-06-12 08:21] LABS: Actual Bicarbonate (HCO3a) 28.5 mEq/L (22-28); Base Excess (BEa) 0.3 mEq/L (-2.0 to +3.0); Calcium, Ionized (arterial) 1.17 mmol/L (1.12-1.30); Carboxyhemoglobin (COHb) 0.4 gm% (0.0-3.0); Hemoglobin (Hb) 13.1 g/dL (12.0-16.0); O2 Tension (PaO2), arterial 82.1 mmHg (80.0-100.0); Potassium - ABG Lab 4.74 mmol/L (3.70-5.30); pH, Arterial 7.27 (7.35-7.45)
[2020-06-12 08:29] LABS: ALV-art Gradient 123.975 (0-20); CO2 Tension 63.3 mmHg (35.0-45.0); Puncture Site LRA
[2020-06-12] MEDS: Sodium Chloride 0.9% 1,000 ML IV SCH ×3 (08:43→22:49)
[2020-06-12] MEDS: Enoxaparin Sodium 40 MG/0.4 ML SYRINGE SC SCH (08:43)
[2020-06-12] MEDS: NIFEdipine XL 60 MG TAB PO SCH ×2 (08:44→21:43)
[2020-06-12] MEDS: Famotidine/PF 20 mg/2ml Vial SLOW IVP SCH ×2 (08:44→21:41)
[2020-06-12] MEDS: Metoprolol Tartrate 50 MG TAB PO SCH ×2 (08:48→21:42)
[2020-06-12] MEDS ORDERED: Lisinopril 20 MG TAB PO SCH (09:00)
--- NOTE | 2020-06-12 12:18 | PQF ---
CLINICAL DOCUMENTATION CLARIFICATION FORM: Dear Dr. Trixie GIBSON Date: 06/12/2020, 06/17/2020,06/18/2020 [id number] Please exercise your independent, professional judgment in responding to the clarification form. Clinical indicators are provided on the bottom of this form for your review. Please check appropriate box(es): CONGESTIVE HEART FAILURE: A. ACUITY [ ] Acute [ ] Acute on Chronic [X ] Chronic B. TYPE: [ ] Systolic / HFrEF [ X] Diastolic / HFpEF [ ] Combined Systolic / Diastolic [ ] Hypertensive Heart and Kidney disease [ ] Hypertensive Heart Disease [ ] Hypertensive Kidney Disease [ ] Other diagnosis [ ] Unable to determine For continuity of documentation, please document condition throughout progress notes and discharge summary. Thank You. In addition, please specify: Present on Admission (POA): [ X ] Yes [ ] No [ ] Unable to determine To be completed by CDI/Coding staff for physician review: CLINICAL INDICATORS - SIGNS / SYMPTOMS / LABS / RESULTS AND LOCATION IN EMR 06/04 BNP 162.2 06/04 H&P ( CEDRIC ) A/P: CONGESTIVE HEART FAILURE 06/04 CONSULT (MENG) LOW BNP WOULD ARGUE AGAINST THIS BEING SECONDARY TO CONGESTIVE HEART FAILURE. 06/05 PN (MANS[facility]) DAILY LASIX BUT PT DOES NOT APPEAR FLUID OVERLOADED TODAY. 06/05 CXR IMPRESSION: BILATERAL PLEURAL EFFUSIONS, PULMONARY EDEMA 06/06 PN([facility]) OVERLOADED TODAY, WILL SEND FOR ECHO 06/08 ECHO RESULTS: EF 60-65%, ELEVATED RVSP C/W MILD MODERATE PULMONARY HTN RISKS FACTORS / RESULTS AND LOCATION IN EMR DX BILATERAL PLEURAL EFFUSION, BILATERAL PNEUMONIA, ACUTE RESPIRATORY FAILURE W HYPOXIA ( PN/ [facility]) TREATMENTS / RESULTS AND LOCATION IN EMR SUPPLEMENTAL OXYGEN VIA MECHANICAL VENTILATION (06/04-PRESENT) LASIX IV (06/04-PRESENT) THANK YOU! FLYNN [facility] Signature: FLYNN HAMEEDRN Phone #: [phone] Date: 0072 This is a permanent part of the Medical Record [facility]
[2020-06-12] MEDS: hydrALAZINE 20 MG/ML VIAL SLOW IVP PRN (13:41)
[2020-06-12] MEDS: MEROPENEM 1 GM/50 ML 1 GM in Premix Bag 1 BAG IVPB SCH (16:20)
[2020-06-12] MEDS: Gabapentin 300 MG CAP PO SCH ×2 (16:20→21:41)
[2020-06-12] MEDS ORDERED: cloNIDine 0.1 MG TAB PO PRN (17:43)
[2020-06-12] MEDS ORDERED: Labetalol HCl 100 MG/20 ML VIAL SLOW IVP PRN (17:43)
[2020-06-12] MEDS: busPIRone HCl 10 MG TAB PO SCH (21:42)
[2020-06-12] MEDS: fentaNYL Citrate/PF 2,000 MCG in Sodium Chloride 0.9% 60 ML IV SCH (22:48)
[2020-06-13] MEDS: MEROPENEM 1 GM/50 ML 1 GM in Premix Bag 1 BAG IVPB SCH ×2 (03:15→15:37)
[2020-06-13 03:31] LABS: Band 2 % (5-11); Eosinophils 5 % (0-10); Hemoglobin 11.3 g/dL (12.0-16.0); Lymphocytes 19 % (21-51); MDiff Complete? YES; Mean Corpuscular HGB CONC 32.3 g/dL (32.0-36.0); Mean Corpuscular Hemoglobin 31.3 pg (27.0-31.0); Mean Corpuscular Volume 96.9 fL (78.0-98.0); Mean Platelet Volume 7.6 fL (7.4-10.4); Monocytes 4 % (0-10); Myelocyte 1 % (0-0); Neutrophil 69 % (42-75); Platelet Count 184 thou/uL (130-400); RBC Distribution Width 13.8 % (11.5-14.5); Red Blood Cell (RBC) Count 3.61 mill/uL (4.20-5.40); White Blood Cell (WBC) Count 10.9 thou/uL (4.8-10.8)
[2020-06-13 03:39] LABS: Anion Gap 9 mmol/L (10-20); BUN (Urea Nitrogen) 45 mg/dL (9.8-20.1); Calc. Creatinine Clearance 188 mL/min (70-130); Calcium 8.4 mg/dL (7.8-10.44); Carbon Dioxide 32 mmol/L (22-29); Chloride 110 mmol/L (98-107); Estimated GFR-MDRD Greater than 90; Glucose 165 mg/dL (70-105); Potassium 4.6 mmol/L (3.5-5.1); Sodium 146 mmol/L (136-145)
--- NOTE | 2020-06-13 07:23 | PDOC.HOSPP ---
- Subjective Encounter Date: 06/12/20 Encounter Time: 10:15 Subjective: pt intubated - Objective Vital Signs & Weight: Vital Signs (12 hours) Pulse Resp BP Pulse Ox 06/13/20 06:00 14 06/13/20 05:00 14 06/13/20 04:00 14 06/13/20 02:50 75 105/59 L 06/13/20 02:00 14 06/13/20 00:00 20 06/12/20 22:00 18 06/12/20 21:50 90 128/74 06/12/20 21:43 78 104/60 06/12/20 20:00 14 94 L Weight Admit Weight 350 lb Weight 5.228 oz Most Recent Monitor Data Heart Rate from ECG 83 NIBP 180/104 NIBP BP-Mean 129 Respiration from ECG 14 SpO2 100 I&O: 06/12/20 06/13/20 06/14/20 06:59 06:59 06:59 Intake Total 2544.4 4458.4 Output Total 2848 4830 Balance -303.6 -371.6 Result Diagrams: 06/13/20 03:00 06/13/20 03:00 Additional Labs: Accuchecks 06/12/20 06/12/20 06/12/20 23:11 18:03 11:39 POC Glucose 100 105 137 H Hospitalist ROS - Review of Systems Other: unable to obtain - Medication Medications: Active Medications Generic Name Dose Route Start Last Admin Trade Name Freq PRN Reason Stop Dose Admin Albuterol/Ipratropium 3 ml 06/06/20 14:30 06/13/20 02:48 Duoneb NEB 3 ml [id number] ALLAN Administration Buspirone HCl 10 mg 06/12/20 21:00 06/12/20 21:42 Buspar PO 10 mg BID ALLAN Administration Enoxaparin Sodium 40 mg 06/07/20 09:00 06/12/20 08:43 Lovenox SC 40 mg 0900 ALLAN Administration Famotidine 20 mg 06/06/20 21:00 06/12/20 21:41 Pepcid SLOW IVP 20 mg BID ALLAN Administration Gabapentin 300 mg 06/12/20 15:00 06/12/20 21:41 Neurontin PO 300 mg TID ALLAN Administration Hydralazine HCl 10 mg 06/07/20 11:23 06/12/20 13:41 Apresoline SLOW IVP 10 mg Q4H PRN Administration SBP>160 Fentanyl Citrate 2,000 mcg/ 100 mls @ 0 mls/hr 06/04/20 05:24 06/12/20 22:48 Sodium Chloride IV 07/04/20 05:24 100 mls INF ALLAN Administration Protocol Per Protocol Meropenem 1 gm/ Device 50 mls @ 200 mls/hr 06/12/20 16:00 06/13/20 03:15 IVPB 50 mls 0400,1600 ALLAN Administration Insulin Human Lispro 0 units 06/08/20 09:03 06/09/20 12:02 Humalog SC 2 unit .MILD SLIDING SCALE PRN Administration Mild Correctional Scale Labetalol HCl 10 mg 06/12/20 17:43 06/12/20 17:50 Normodyne SLOW IVP 10 mg Q6H PRN Administration SBP Greater Than 180 Lorazepam 2 mg 06/04/20 05:23 06/11/20 15:11 Ativan SLOW IVP 07/04/20 05:23 2 mg Q1H PRN Administration Breakthrough agitation Methylprednisolone Sodium Succinate 20 mg 06/12/20 21:00 06/12/20 21:41 Solu-Medrol IVP 20 mg BID ALLAN Administration Nifedipine 60 mg 06/12/20 09:00 06/12/20 21:43 Procardia Xl PO Not Given BID ALLAN Propofol 1,000 mg 06/04/20 05:23 06/12/20 21:40 Diprivan IV 07/04/20 05:23 1,000 mg INF PRN Administration TO ACHIEVE GOAL RASS Protocol Quetiapine Fumarate 400 mg 06/11/20 21:00 06/12/20 21:40 Seroquel PO 400 mg HS ALLAN Administration Sodium Chloride 10 ml 06/06/20 21:00 06/12/20 21:42 Flush - Normal Saline IVF 10 ml Q12HR ALLAN Administration - Exam Neck: negative: supple, symmetric, no JVD, no thyromegaly, no lymphadenopathy, no carotid bruit, JVD Heart: negative: RRR, no murmur, no gallops, no rubs, normal peripheral pulses, irregular, diminshed peripheral pulses, murmur present, II/IV, III/IV Respiratory: rales Gastrointestinal: negative: soft, non-tender, non-distended, normal bowel sounds , no palpable masses, no hepatomegaly, no splenomegaly, no bruit, no guarding, no rigidity, tender to palpation, distended, diminished bowl sounds, voluntary guarding Extremities: 1+ LE edema Neurological - other findings: pt able to move lower ext Hosp A/P (1) Acute respiratory failure with hypoxia and hypercapnia Code(s): J96.01 - ACUTE RESPIRATORY FAILURE WITH HYPOXIA; J96.02 - ACUTE RESPIRATORY FAILURE WITH HYPERCAPNIA Status: Acute (2) Hypertension Code(s): I10 - ESSENTIAL (PRIMARY) HYPERTENSION Status: Chronic Qualifiers: Hypertension type: essential hypertension Qualified Code(s): I10 - Essential (primary) hypertension (3) Morbid obesity with BMI of 50.0-59.9, adult Code(s): E66.01 - MORBID (SEVERE) OBESITY DUE TO EXCESS CALORIES; Z68.43 - BODY MASS INDEX (BMI) 50.0-59.9, ADULT Status: Chronic (4) Type 2 diabetes mellitus Status: Chronic Qualifiers: Diabetes mellitus complication status: without complication Qualified Code( s): E11.9 - Type 2 diabetes mellitus without complications - Plan will stop azithromycin will continue meropenam for now. unable to wean off the vent. pt on diuretics. pt on dvt ppx. 06/10 pt gets agitated when sedation is weaned off. will continue abx for now. 06/11 will hold off on lasix since she has lost a lot of weight and her metabolic alkalosis is worsening which will cause respiratory acidosis. Tried to stop her sedation pt became agitated and became tachypneic 06/12 pt's lasix is discontinued. will add prn bp meds. mild viky fluids started. will dose abx per renal function. will call pt's daughter in am. Her home meds started.
[2020-06-13 07:57] LABS: Actual Bicarbonate (HCO3a) 30.6 mEq/L (22-28); Base Excess (BEa) 4.1 mEq/L (-2.0 to +3.0); CO2 Tension 54.7 mmHg (35.0-45.0); Calcium, Ionized (arterial) 1.25 mmol/L (1.12-1.30); Carboxyhemoglobin (COHb) 0.4 gm% (0.0-3.0); Hemoglobin (Hb) 12.7 g/dL (12.0-16.0); O2 Tension (PaO2), arterial 93.3 mmHg (80.0-100.0); Potassium - ABG Lab 4.54 mmol/L (3.70-5.30); pH, Arterial 7.37 (7.35-7.45)
[2020-06-13 08:22] LABS: ALV-art Gradient 123.525 (0-20); Puncture Site LRA
--- NOTE | 2020-06-13 08:58 | RAD ---
PORTABLE CHEST 1 VIEW: Date: 06/13/2020 Time: 0608 hours HISTORY: Respiratory failure. COMPARISON: Previous day. FINDINGS/IMPRESSION: Line and tube placements are unchanged in position. The heart size is stable. There are bibasilar inf iltrates with accompanying effusions, right greater than left. No pneumothoraces are seen. POS: [facility]
[2020-06-13] MEDS: hydrALAZINE 25 MG TAB PO SCH ×2 (10:11→20:32)
[2020-06-13] MEDS: Metoprolol Tartrate 50 MG TAB PO SCH ×2 (10:11→21:16)
[2020-06-13] MEDS: NIFEdipine XL 60 MG TAB PO SCH ×2 (10:12→20:26)
[2020-06-13] MEDS: cloNIDine 0.1 MG TAB PO SCH ×2 (10:12→21:08)
[2020-06-13] MEDS: Gabapentin 300 MG CAP PO SCH ×3 (10:13→21:08)
[2020-06-13] MEDS: FLUoxetine HCl 20 MG CAP PO SCH (10:13)
[2020-06-13] MEDS: methylPREDNISolone Sod Succ 40 MG VIAL IVP SCH ×2 (10:13→21:14)
[2020-06-13] MEDS: Famotidine/PF 20 mg/2ml Vial SLOW IVP SCH ×2 (10:14→21:09)
[2020-06-13] MEDS: Enoxaparin Sodium 40 MG/0.4 ML SYRINGE SC SCH (10:14)
[2020-06-13] MEDS ORDERED: Lidocaine 1% w/Epinephrine 1:100K 20 ML VIAL FS SCH (11:00)
[2020-06-13] MEDS ORDERED: Midazolam HCl 2 mg/2 ml Vial FS SCH (11:00)
[2020-06-13] MEDS ORDERED: Vecuronium 10 MG VIAL FS SCH (11:00)
[2020-06-13] MEDS: busPIRone HCl 10 MG TAB PO SCH ×2 (11:13→21:09)
[2020-06-13] MEDS: Sodium Chloride 0.9% 1,000 ML IV SCH (11:14)
--- NOTE | 2020-06-13 12:17 | PRG ---
DATE OF SERVICE: 06/13/2020 SUBJECTIVE: Queen Ben is a 60-year-old morbidly obese female, still encephalopathic, on low-dose Diprivan. OBJECTIVE: VITAL SIGNS: Pulse 74, sats 100%, respiratory rate 19, blood pressure . GENERAL: She barely opens her eyes, still encephalopathic. CHEST: Extensive rhonchi. CARDIAC: Normal S1, S2. No gallops. ABDOMEN: Massive. LABORATORY DATA: White count 10,000, H and H 11 and 35, and platelet count 184. PO2 is 93, pCO2 IS 54, pH 7.37, rate of 14, 40%. Creatinine and BUN normal. IMAGING: X-ray shows bibasilar atelectatic changes. IMPRESSION: Respiratory failure, morbid obesity, sleep apnea. PLAN: The patient is clearly not weanable at this stage. I discussed with the daughter, Judy Davis, telephone #[phone]. She states she wants everything done for her mother including a trach and a PEG. Therefore, we will proceed with a trach and a PEG. Eventual long-term placement. CRITICAL CARE TIME: One-half hour of critical care time. Job ID: [id number]
[2020-06-13] MEDS ORDERED: Sterile Water 10 ML ONE (12:29)
[2020-06-13] MEDS ORDERED: Clindamycin/D5W 900 MG in Premix Bag 1 BAG IVPB SCH (12:45)
--- NOTE | 2020-06-13 21:14 | OP ---
DATE OF PROCEDURE: 06/13/2020 PREOPERATIVE DIAGNOSES: 1. Acute respiratory failure. 2. Morbid obesity. POSTOPERATIVE DIAGNOSES: 1. Acute respiratory failure. 2. Morbid obesity. PROCEDURES PERFORMED: 1. Percutaneous tracheostomy tube placement. 2. Percutaneous endoscopic gastrostomy tube placement. ANESTHESIA: Deep sedation and local. INDICATIONS FOR OPERATION: A 60-year-old morbidly obese woman, who was admitted on 06/04/2020. The patient is on full mechanical ventilator support for acute respiratory failure. I was asked to place a tracheostomy tube to facilitate ventilator wean. I was also asked to place a percutaneous endoscopic gastrostomy tube for potential prolonged enteral nutritional supplementation. 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 The patient was placed in supine position. She is on full mechanical ventilator support with FiO2 set at 100%. She is receiving propofol and fentanyl by continuous infusion. Once adequate sedation was ensured, the patient was given vecuronium 10 mg intravenously. Fiberoptic bronchoscope was introduced through the previous endotracheal tube to visualize the brooke. The tip of the endotracheal tube was withdrawn under direct vision to 5 cm above the brooke. The anterior neck was transilluminated and the area chosen for placement of the tracheostomy tube. Anterior neck was sterilely prepped and draped in usual fashion. The skin 2 fingerbreadths above the suprasternal notch was anesthetized with 1% lidocaine. A 1 cm vertical incision was made here using 15 scalpel. An introducer needle was inserted through the incision and advanced through the anterior tracheal wall visualized by bronchoscopy. Guidewire was passed through the needle, advanced into the distal tracheal lumen without resistance. Needle was withdrawn over the guidewire. Anterior tracheal wall was sterilely dilated over the guidewire. Finally, a size 8 tracheostomy tube was advanced with a dilator and introducer catheter as a unit over the guidewire and placed in the distal tracheal lumen. The dilator, introducer catheter, and guidewire were removed as a unit leaving the tracheostomy tube in place. An inner cannula was inserted. The patient was connected to mechanical ventilator via newly placed tracheostomy tube. Once cuff was inflated, good tidal volume was noted. Tracheostomy tube was secured to anterior neck using 0 silk suture at two points. Trach dressings and tie were applied. Bronchoscope was withdrawn with the previous endotracheal tube as a unit visualizing the tracheostomy site from above with good hemostasis. Once the endotracheal tube was removed, the bronchoscope was reintroduced through the newly placed tracheostomy tube and advanced to visualize the brooke. The scope was then withdrawn, visualizing the tracheostomy site from below with no active bleeding present. The patient tolerated the procedure without any apparent complication and remains hemodynamically stable following completion of the procedure. Oxygen saturation remained 100% at all times. Attention was then directed to the abdomen, which was widely sterilely prepped and draped in usual fashion. A mouth guard was put in place. An endoscope was introduced orally and gently advanced to intubate the esophagus. With gentle insufflation, the scope was introduced into the gastric lumen, which itself was insufflated. The scope was then passed through a patent pylorus to visualize proximal duodenum. No peptic ulcerative disease present. The scope was withdrawn into the stomach, transilluminating the left upper quadrant and the area chosen for placement of the gastrostomy tube. The skin was anesthetized with 1% lidocaine. A stab incision was made using 11 scalpel. Introducer needle with the catheter was advanced through this incision and visualized within the gastric lumen. The needle was withdrawn leaving the catheter in place, through which guidewire was advanced into the gastric lumen. The guidewire was captured with an Endo Snare. The guidewire and endoscope were then brought out of the mouth as a unit. The guidewire was connected to a 20-Upper Sorbian gastrostomy tube. Distal end of the guidewire was pulled out through the skin with the gastrostomy tube . The mushroom end of the gastrostomy tube was abutting the gastric mucosa as visualized by endoscopy. Gastrostomy tube was then fashioned to length and secured to anterior abdominal wall at 5 mm using a bolster. Sterile dressings were applied. The patient tolerated the procedure without any apparent complication. She remains hemodynamically stable upon completion. Job ID: [id number]
[2020-06-13] MEDS: Propofol 1,000 MG/100 ML VIAL IV PRN (22:08)
[2020-06-14] MEDS: fentaNYL Citrate/PF 2,000 MCG in Sodium Chloride 0.9% 60 ML IV SCH (00:15)
[2020-06-14] MEDS: MEROPENEM 1 GM/50 ML 1 GM in Premix Bag 1 BAG IVPB SCH ×2 (03:20→16:18)
[2020-06-14 04:25] LABS: Band 3 % (5-11); Eosinophils 1 % (0-10); Hemoglobin 10.4 g/dL (12.0-16.0); Lymphocytes 16 % (21-51); MDiff Complete? YES; Mean Corpuscular Hemoglobin 29.8 pg (27.0-31.0); Mean Platelet Volume 7.8 fL (7.4-10.4); Monocytes 5 % (0-10); Neutrophil 75 % (42-75); Platelet Count 181 thou/uL (130-400); Platelet Morphology Comment Appears Adequate; RBC Distribution Width 13.6 % (11.5-14.5); White Blood Cell (WBC) Count 9.1 thou/uL (4.8-10.8)
[2020-06-14 04:37] LABS: Anion Gap 10 mmol/L (10-20); BUN (Urea Nitrogen) 34 mg/dL (9.8-20.1); Calc. Creatinine Clearance 0 mL/min (70-130); Calcium 8.7 mg/dL (7.8-10.44); Carbon Dioxide 30 mmol/L (22-29); Chloride 110 mmol/L (98-107); Estimated GFR-MDRD Greater than 90; Glucose 125 mg/dL (70-105); Potassium 4.8 mmol/L (3.5-5.1); Sodium 145 mmol/L (136-145)
[2020-06-14] MEDS: Propofol 1,000 MG/100 ML VIAL IV PRN ×2 (06:57→18:09)
[2020-06-14 07:54] LABS: Base Excess (BEa) 3.9 mEq/L (-2.0 to +3.0); CO2 Tension 46.3 mmHg (35.0-45.0); Calcium, Ionized (arterial) 1.26 mmol/L (1.12-1.30); Carboxyhemoglobin (COHb) 0.5 gm% (0.0-3.0); Hemoglobin (Hb) 11.1 g/dL (12.0-16.0); O2 Tension (PaO2), arterial 92.6 mmHg (80.0-100.0); Potassium - ABG Lab 4.59 mmol/L (3.70-5.30); pH, Arterial 7.42 (7.35-7.45)
[2020-06-14 08:22] LABS: ALV-art Gradient 134.725 (0-20); Puncture Site RRAD
[2020-06-14] MEDS: Enoxaparin Sodium 40 MG/0.4 ML SYRINGE SC SCH (09:23)
[2020-06-14] MEDS: NIFEdipine XL 60 MG TAB PO SCH ×2 (09:23→20:45)
[2020-06-14] MEDS: methylPREDNISolone Sod Succ 40 MG VIAL IVP SCH ×2 (09:23→20:38)
[2020-06-14] MEDS: Famotidine 40 MG/5 ML Oral Suspension PER TUBE SCH ×2 (09:23→20:42)
[2020-06-14] MEDS: hydrALAZINE 25 MG TAB PO SCH ×2 (09:24→20:47)
[2020-06-14] MEDS: busPIRone HCl 10 MG TAB PO SCH ×2 (09:24→20:39)
[2020-06-14] MEDS: Gabapentin 300 MG CAP PO SCH ×3 (09:25→20:40)
[2020-06-14] MEDS: Metoprolol Tartrate 50 MG TAB PO SCH ×2 (09:25→20:46)
[2020-06-14] MEDS: FLUoxetine HCl 20 MG CAP PO SCH (09:25)
--- NOTE | 2020-06-14 11:41 | PRG ---
DATE OF SERVICE: 06/14/2020 SUBJECTIVE: Queen Pilar Contreras is a 60-year-old morbidly obese bipolar patient, trach and PEG. OBJECTIVE: VITAL SIGNS: Pulse 73, sats 96%, respiratory rate 24, 40% FiO2, blood pressure 130/84. I's and O's have been consistently negative. CHEST: Decreased breath sounds. No wheezing. CARDIAC: Normal S1 and S2. No gallops. ABDOMEN: No masses. EXTREMITIES: Trace edema. LABORATORY DATA: PO2 is 92, pCO2 rate of 12, 40%. Lytes are normal. BUN and creatinine have improved. White count 9000. ASSESSMENT: 1. Respiratory failure. 2. Bipolar. 3. Pneumonia. 4. Severe deconditioning. PLAN: We are going to try and get her to an LTAC if possible. Otherwise, PT, supportive care. She has a small pleural effusion. The EF is normal. One-half hour of critical care time. Job ID: [id number]
[2020-06-14] MEDS: Sodium Chloride 0.9% 1,000 ML IV SCH (18:15)
--- NOTE | 2020-06-14 19:15 | PDOC.HOSPP ---
- Subjective Encounter Date: 06/13/20 Encounter Time: 13:00 Subjective: pt getting a trach and peg today - Objective Vital Signs & Weight: Vital Signs (12 hours) Pulse Resp BP Pulse Ox 06/14/20 18:37 81 146/85 H 06/14/20 18:34 80 18 100 06/14/20 18:00 20 06/14/20 16:00 26 H 06/14/20 14:47 83 21 H 100 06/14/20 14:00 20 06/14/20 11:44 23 H 06/14/20 10:46 73 25 H 96 06/14/20 10:43 73 06/14/20 10:00 20 06/14/20 09:24 81 138/84 06/14/20 09:23 81 138/84 06/14/20 08:23 82 06/14/20 08:00 16 06/14/20 07:38 70 30 H 100 Weight Admit Weight 350 lb Weight 323 lb 3.163 oz Most Recent Monitor Data Heart Rate from ECG 85 NIBP 160/92 NIBP BP-Mean 114 Respiration from ECG 21 SpO2 100 I&O: 06/13/20 06/14/20 06/15/20 06:59 06:59 06:59 Intake Total 4458.4 1463.8 1453 Output Total 4830 2745 1200 Balance -371.6 -1281.2 253 Result Diagrams: 06/14/20 03:47 06/14/20 03:47 Additional Labs: Accuchecks 06/14/20 06/14/20 06/14/20 18:24 11:29 06:12 POC Glucose 106 113 H 100 06/14/20 06/13/20 06/13/20 00:46 17:42 11:42 POC Glucose 120 H 130 H 86 06/13/20 06:13 POC Glucose 121 H Hospitalist ROS - Review of Systems Other: unable to obtain - Medication Medications: Active Medications Generic Name Dose Route Start Last Admin Trade Name Freq PRN Reason Stop Dose Admin Albuterol/Ipratropium 3 ml 06/06/20 14:30 06/14/20 18:34 Duoneb NEB 3 ml [id number] ALLAN Administration Buspirone HCl 10 mg 06/12/20 21:00 06/14/20 09:24 Buspar PO 10 mg BID ALLAN Administration Enoxaparin Sodium 40 mg 06/07/20 09:00 06/14/20 09:23 Lovenox SC 40 mg 0900 ALLAN Administration Famotidine 20 mg 06/14/20 09:00 06/14/20 09:23 Pepcid PER TUBE 20 mg BID ALLAN Administration Fluoxetine HCl 40 mg 06/13/20 09:00 06/14/20 09:25 Prozac PO 40 mg DAILY ALLAN Administration Gabapentin 300 mg 06/12/20 15:00 06/14/20 16:18 Neurontin PO 300 mg TID ALLAN Administration Hydralazine HCl 10 mg 06/07/20 11:23 06/12/20 13:41 Apresoline SLOW IVP 10 mg Q4H PRN Administration SBP>160 Hydralazine HCl 75 mg 06/13/20 09:00 06/14/20 09:24 Apresoline PO 75 mg BID ALLAN Administration Meropenem 1 gm/ Device 50 mls @ 200 mls/hr 06/12/20 16:00 06/14/20 16:18 IVPB 50 mls 0400,1600 ALLAN Administration Sodium Chloride 1,000 mls @ 30 mls/hr 06/13/20 07:18 06/14/20 18:15 Normal Saline 0.9% IV 1,000 mls .Q24H ALLAN Administration Insulin Human Lispro 0 units 06/08/20 09:03 06/09/20 12:02 Humalog SC 2 unit .MILD SLIDING SCALE PRN Administration Mild Correctional Scale Labetalol HCl 10 mg 06/12/20 17:43 06/12/20 17:50 Normodyne SLOW IVP 10 mg Q6H PRN Administration SBP Greater Than 180 Methylprednisolone Sodium Succinate 20 mg 06/12/20 21:00 06/14/20 09:23 Solu-Medrol IVP 20 mg BID ALLAN Administration Metoprolol Tartrate 100 mg 06/13/20 09:00 06/14/20 09:25 Lopressor PO 100 mg BID ALLAN Administration Nifedipine 60 mg 06/12/20 09:00 06/14/20 09:23 Procardia Xl PO 60 mg BID ALLAN Administration Propofol 1,000 mg 06/04/20 05:23 06/14/20 18:09 Diprivan IV 07/04/20 05:23 1,000 mg INF PRN Administration TO ACHIEVE GOAL RASS Protocol Quetiapine Fumarate 400 mg 06/11/20 21:00 06/13/20 21:09 Seroquel PO 400 mg HS ALLAN Administration Sodium Chloride 10 ml 06/06/20 21:00 06/14/20 09:26 Flush - Normal Saline IVF 10 ml Q12HR ALLAN Administration - Exam Neck: negative: supple, symmetric, no JVD, no thyromegaly, no lymphadenopathy, no carotid bruit, JVD Heart: negative: RRR, no murmur, no gallops, no rubs, normal peripheral pulses, irregular, diminshed peripheral pulses, murmur present, II/IV, III/IV Respiratory: rhonchi Gastrointestinal: negative: soft, non-tender, non-distended, normal bowel sounds , no palpable masses, no hepatomegaly, no splenomegaly, no bruit, no guarding, no rigidity, tender to palpation, distended, diminished bowl sounds, voluntary guarding Hosp A/P (1) Acute respiratory failure with hypoxia and hypercapnia Code(s): J96.01 - ACUTE RESPIRATORY FAILURE WITH HYPOXIA; J96.02 - ACUTE RESPIRATORY FAILURE WITH HYPERCAPNIA Status: Acute (2) Hypertension Code(s): I10 - ESSENTIAL (PRIMARY) HYPERTENSION Status: Chronic Qualifiers: Hypertension type: essential hypertension Qualified Code(s): I10 - Essential (primary) hypertension (3) Morbid obesity with BMI of 50.0-59.9, adult Code(s): E66.01 - MORBID (SEVERE) OBESITY DUE TO EXCESS CALORIES; Z68.43 - BODY MASS INDEX (BMI) 50.0-59.9, ADULT Status: Chronic (4) Type 2 diabetes mellitus Status: Chronic Qualifiers: Diabetes mellitus complication status: without complication Qualified Code( s): E11.9 - Type 2 diabetes mellitus without complications - Plan will stop azithromycin will continue meropenam for now. unable to wean off the vent. pt on diuretics. pt on dvt ppx. 06/10 pt gets agitated when sedation is weaned off. will continue abx for now. 06/11 will hold off on lasix since she has lost a lot of weight and her metabolic alkalosis is worsening which will cause respiratory acidosis. Tried to stop her sedation pt became agitated and became tachypneic 06/12 pt's lasix is discontinued. will add prn bp meds. mild viky fluids started. will dose abx per renal function. will call pt's daughter in am. Her home meds started. 06/13 pt getting trach and peg today. bp has improved. will monitor.
--- NOTE | 2020-06-14 19:18 | PDOC.HOSPP ---
- Subjective Encounter Date: 06/14/20 Encounter Time: 10:00 Subjective: pt awake but not following commands. - Objective Vital Signs & Weight: Vital Signs (12 hours) Pulse Resp BP Pulse Ox 06/14/20 18:37 81 146/85 H 06/14/20 18:34 80 18 100 06/14/20 18:00 20 06/14/20 16:00 26 H 06/14/20 14:47 83 21 H 100 06/14/20 14:00 20 06/14/20 11:44 23 H 06/14/20 10:46 73 25 H 96 06/14/20 10:43 73 06/14/20 10:00 20 06/14/20 09:24 81 138/84 06/14/20 09:23 81 138/84 06/14/20 08:23 82 06/14/20 08:00 16 06/14/20 07:38 70 30 H 100 Weight Admit Weight 350 lb Weight 323 lb 3.163 oz Most Recent Monitor Data Heart Rate from ECG 85 NIBP 160/92 NIBP BP-Mean 114 Respiration from ECG 21 SpO2 100 I&O: 06/13/20 06/14/20 06/15/20 06:59 06:59 06:59 Intake Total 4458.4 1463.8 1453 Output Total 4830 2745 1200 Balance -371.6 -1281.2 253 Result Diagrams: 06/14/20 03:47 06/14/20 03:47 Additional Labs: Accuchecks 06/14/20 06/14/20 06/14/20 18:24 11:29 06:12 POC Glucose 106 113 H 100 06/14/20 06/13/20 06/13/20 00:46 17:42 11:42 POC Glucose 120 H 130 H 86 06/13/20 06:13 POC Glucose 121 H Hospitalist ROS - Review of Systems Other: unable to obtain - Medication Medications: Active Medications Generic Name Dose Route Start Last Admin Trade Name Freq PRN Reason Stop Dose Admin Albuterol/Ipratropium 3 ml 06/06/20 14:30 06/14/20 18:34 Duoneb NEB 3 ml [id number] ALLAN Administration Buspirone HCl 10 mg 06/12/20 21:00 06/14/20 09:24 Buspar PO 10 mg BID ALLAN Administration Enoxaparin Sodium 40 mg 07/11/20 09:00 06/14/20 09:23 Lovenox SC 40 mg 0900 ALLAN Administration Famotidine 20 mg 06/14/20 09:00 06/14/20 09:23 Pepcid PER TUBE 20 mg BID LALAN Administration Fluoxetine HCl 40 mg 06/13/20 09:00 06/14/20 09:25 Prozac PO 40 mg DAILY ALLAN Administration Gabapentin 300 mg 06/12/20 15:00 06/14/20 16:18 Neurontin PO 300 mg TID ALLAN Administration Hydralazine HCl 10 mg 06/07/20 11:23 06/12/20 13:41 Apresoline SLOW IVP 10 mg Q4H PRN Administration SBP>160 Hydralazine HCl 75 mg 06/13/20 09:00 06/14/20 09:24 Apresoline PO 75 mg BID ALLAN Administration Meropenem 1 gm/ Device 50 mls @ 200 mls/hr 06/12/20 16:00 06/14/20 16:18 IVPB 50 mls 0400,1600 ALLAN Administration Sodium Chloride 1,000 mls @ 30 mls/hr 06/13/20 07:18 06/14/20 18:15 Normal Saline 0.9% IV 1,000 mls .Q24H ALLAN Administration Insulin Human Lispro 0 units 06/08/20 09:03 06/09/20 12:02 Humalog SC 2 unit .MILD SLIDING SCALE PRN Administration Mild Correctional Scale Labetalol HCl 10 mg 06/12/20 17:43 06/12/20 17:50 Normodyne SLOW IVP 10 mg Q6H PRN Administration SBP Greater Than 180 Methylprednisolone Sodium Succinate 20 mg 06/12/20 21:00 06/14/20 09:23 Solu-Medrol IVP 20 mg BID ALLAN Administration Metoprolol Tartrate 100 mg 06/13/20 09:00 06/14/20 09:25 Lopressor PO 100 mg BID ALLAN Administration Nifedipine 60 mg 06/12/20 09:00 06/14/20 09:23 Procardia Xl PO 60 mg BID LALAN Administration Propofol 1,000 mg 06/04/20 05:23 06/14/20 18:09 Diprivan IV 07/04/20 05:23 1,000 mg INF PRN Administration TO ACHIEVE GOAL RASS Protocol Quetiapine Fumarate 400 mg 06/11/20 21:00 06/13/20 21:09 Seroquel PO 400 mg HS ALLAN Administration Sodium Chloride 10 ml 06/06/20 21:00 06/14/20 09:26 Flush - Normal Saline IVF 10 ml Q12HR ALLAN Administration - Exam Neck: negative: supple, symmetric, no JVD, no thyromegaly, no lymphadenopathy, no carotid bruit, JVD Heart: negative: RRR, no murmur, no gallops, no rubs, normal peripheral pulses, irregular, diminshed peripheral pulses, murmur present, II/IV, III/IV Respiratory: rhonchi Gastrointestinal: negative: soft, non-tender, non-distended, normal bowel sounds , no palpable masses, no hepatomegaly, no splenomegaly, no bruit, no guarding, no rigidity, tender to palpation, distended, diminished bowl sounds, voluntary guarding Neurological - other findings: moves lower ext on pain, not moving bilateral upper ext Hosp A/P (1) Acute respiratory failure with hypoxia and hypercapnia Code(s): J96.01 - ACUTE RESPIRATORY FAILURE WITH HYPOXIA; J96.02 - ACUTE RESPIRATORY FAILURE WITH HYPERCAPNIA Status: Acute (2) Hypertension Code(s): I10 - ESSENTIAL (PRIMARY) HYPERTENSION Status: Chronic Qualifiers: Hypertension type: essential hypertension Qualified Code(s): I10 - Essential (primary) hypertension (3) Morbid obesity with BMI of 50.0-59.9, adult Code(s): E66.01 - MORBID (SEVERE) OBESITY DUE TO EXCESS CALORIES; Z68.43 - BODY MASS INDEX (BMI) 50.0-59.9, ADULT Status: Chronic (4) Type 2 diabetes mellitus Status: Chronic Qualifiers: Diabetes mellitus complication status: without complication Qualified Code( s): E11.9 - Type 2 diabetes mellitus without complications - Plan will stop azithromycin will continue meropenam for now. unable to wean off the vent. pt on diuretics. pt on dvt ppx. 06/10 pt gets agitated when sedation is weaned off. will continue abx for now. 06/11 will hold off on lasix since she has lost a lot of weight and her metabolic alkalosis is worsening which will cause respiratory acidosis. Tried to stop her sedation pt became agitated and became tachypneic 06/12 pt's lasix is discontinued. will add prn bp meds. mild viky fluids started. will dose abx per renal function. will call pt's daughter in am. Her home meds started. 06/13 pt getting trach and peg today. bp has improved. will monitor. 06/14 pt not moving her upper ext but able to planting material remover her lower ext on painful stimuli. blood pressure stable. pt still on meropenem per pulm. dvt ppx
[2020-06-15] MEDS: MEROPENEM 1 GM/50 ML 1 GM in Premix Bag 1 BAG IVPB SCH ×2 (03:09→15:45)
[2020-06-15 05:19] LABS: Anion Gap 7 mmol/L (10-20); BUN (Urea Nitrogen) 35 mg/dL (9.8-20.1); Calc. Creatinine Clearance 189 mL/min (70-130); Calcium 9.2 mg/dL (7.8-10.44); Carbon Dioxide 35 mmol/L (22-29); Chloride 108 mmol/L (98-107); Estimated GFR-MDRD Greater than 90; Glucose 122 mg/dL (70-105); Potassium 4.6 mmol/L (3.5-5.1); Sodium 145 mmol/L (136-145)
[2020-06-15 06:32] LABS: Band 4 % (5-11); Hemoglobin 11.3 g/dL (12.0-16.0); Lymphocytes 13 % (21-51); MDiff Complete? YES; Mean Corpuscular HGB CONC 30.9 g/dL (32.0-36.0); Mean Corpuscular Volume 96.9 fL (78.0-98.0); Mean Platelet Volume 7.5 fL (7.4-10.4); Monocytes 3 % (0-10); Neutrophil 80 % (42-75); Platelet Count 194 thou/uL (130-400); RBC Distribution Width 13.2 % (11.5-14.5); Red Blood Cell (RBC) Count 3.78 mill/uL (4.20-5.40); White Blood Cell (WBC) Count 14.4 thou/uL (4.8-10.8)
[2020-06-15 07:43] LABS: Actual Bicarbonate (HCO3a) 33.2 mEq/L (22-28); Base Excess (BEa) 5.7 mEq/L (-2.0 to +3.0); Calcium, Ionized (arterial) 1.26 mmol/L (1.12-1.30); Carboxyhemoglobin (COHb) 0.5 gm% (0.0-3.0); Hemoglobin (Hb) 12.7 g/dL (12.0-16.0); O2 Tension (PaO2), arterial 98.6 mmHg (80.0-100.0); Potassium - ABG Lab 4.65 mmol/L (3.70-5.30); pH, Arterial 7.34 (7.35-7.45)
[2020-06-15 07:44] LABS: ALV-art Gradient 107.975 (0-20); CO2 Tension 62.9 mmHg (35.0-45.0); Puncture Site LRA
[2020-06-15] MEDS: hydrALAZINE 25 MG TAB PO SCH ×2 (08:40→20:27)
[2020-06-15] MEDS: FLUoxetine HCl 20 MG CAP PO SCH (08:44)
[2020-06-15] MEDS: busPIRone HCl 10 MG TAB PO SCH ×2 (08:45→20:28)
[2020-06-15] MEDS: Metoprolol Tartrate 50 MG TAB PO SCH ×2 (08:45→20:28)
[2020-06-15] MEDS: methylPREDNISolone Sod Succ 40 MG VIAL IVP SCH ×2 (08:45→20:29)
[2020-06-15] MEDS: Enoxaparin Sodium 40 MG/0.4 ML SYRINGE SC SCH (08:46)
[2020-06-15] MEDS: NIFEdipine XL 60 MG TAB PO SCH ×2 (08:46→20:28)
[2020-06-15] MEDS: Gabapentin 300 MG CAP PO SCH ×3 (08:46→20:29)
[2020-06-15] MEDS: Sodium Chloride 0.9% 1,000 ML IV SCH (08:50)
--- NOTE | 2020-06-15 08:53 | RAD ---
SINGLE VIEW CHEST: HISTORY: Ventilated patient with respiratory failure. COMPARISON: 06/13/20 FINDINGS: A single view of the chest shows an enlarged but stable cardiomediastinal silhouette. There has been interval placement of a tracheostomy, which appears in good position in the trachea. The central veno us catheter is unchanged in position. no pneumothorax is seen. Opacities in the lung bases may repres ent atelectasis or infiltrates. IMPRESSION: 1. Interval placement of tracheostomy without evidence of complication. 2. Bibasilar atelectasis versus infiltrates. POS: EAA
[2020-06-15] MEDS ORDERED: DC Sedation Protocol FS ONE (09:13)
[2020-06-15] MEDS: Famotidine 40 MG/5 ML Oral Suspension PER TUBE SCH ×2 (09:29→20:39)
--- NOTE | 2020-06-15 09:29 | PRG ---
DATE OF SERVICE: 06/15/2020 SUBJECTIVE: This morning, much more awake, responsive, off all sedation. OBJECTIVE: VITAL SIGNS: Blood pressure 167/101, pulse 77, respiratory rate 18, and sats 100%. CHEST: Decreased breath sounds. No wheezing. CARDIAC: Normal S1 and S2. No gallops. ABDOMEN: No masses. LABORATORY DATA: White count 14,000, hemoglobin and hematocrit 11 and 36, platelet count is normal. PO2 is 98, pCO2 of , pH 7.34, rate of 10. Lytes are normal. IMPRESSION: Respiratory failure, morbid obesity, bipolar. PLAN: Eventually LTAC placement. I will discontinue daily lab and blood gases. Continue nutrition PT. One-half hour of critical time. Job ID: [id number]
--- NOTE | 2020-06-15 18:27 | PDOC.HOSPP ---
- Subjective Encounter Date: 06/15/20 Encounter Time: 10:00 Subjective: The patient is sitting up in bed ,with trach. SHe has no chest pain, congestion , or cough currently. She has not gotten out of bed - Objective Vital Signs & Weight: Vital Signs (12 hours) Temp Pulse Resp BP Pulse Ox 06/15/20 18:00 20 06/15/20 16:00 99.3 F 15 06/15/20 14:33 64 159/90 H 06/15/20 14:32 64 16 100 06/15/20 14:00 13 06/15/20 12:00 98.7 F 17 06/15/20 10:45 75 140/80 06/15/20 10:43 71 15 97 06/15/20 10:00 19 06/15/20 08:46 77 167/101 H 06/15/20 08:40 77 167/101 H 06/15/20 08:00 98.6 F 14 100 06/15/20 07:19 77 145/85 H 06/15/20 07:18 79 18 100 Weight Admit Weight 350 lb Weight 324 lb 1.272 oz Most Recent Monitor Data Heart Rate from ECG 70 NIBP 151/79 NIBP BP-Mean 103 Respiration from ECG 16 SpO2 96 I&O: 06/14/20 06/15/20 06/16/20 06:59 06:59 06:59 Intake Total 1463.8 2961.0 1360 Output Total 2745 2540 1500 Balance -1281.2 421.0 -140 Result Diagrams: 06/15/20 04:43 06/15/20 04:43 Additional Labs: Accuchecks 06/14/20 18:24 POC Glucose 106 Hospitalist ROS - Review of Systems Constitutional: denies: fever, chills ENT: denies: ear pain, ear discharge - Medication Medications: Active Medications Generic Name Dose Route Start Last Admin Trade Name Freq PRN Reason Stop Dose Admin Albuterol/Ipratropium 3 ml 06/06/20 14:30 06/15/20 14:32 Duoneb NEB 3 ml [id number] ALLAN Administration Buspirone HCl 10 mg 06/12/20 21:00 06/15/20 08:45 Buspar PO 10 mg BID ALLAN Administration Enoxaparin Sodium 40 mg 06/07/20 09:00 06/15/20 08:46 Lovenox SC 40 mg 0900 ALLAN Administration Famotidine 20 mg 06/14/20 09:00 06/15/20 09:29 Pepcid PER TUBE 20 mg BID ALLAN Administration Fluoxetine HCl 40 mg 06/13/20 09:00 06/15/20 08:44 Prozac PO 40 mg DAILY ALLAN Administration Gabapentin 300 mg 06/12/20 15:00 06/15/20 15:22 Neurontin PO 300 mg TID ALLAN Administration Hydralazine HCl 10 mg 06/07/20 11:23 06/12/20 13:41 Apresoline SLOW IVP 10 mg Q4H PRN Administration SBP>160 Hydralazine HCl 75 mg 06/13/20 09:00 06/15/20 08:40 Apresoline PO 75 mg BID ALLAN Administration Meropenem 1 gm/ Device 50 mls @ 200 mls/hr 06/12/20 16:00 06/15/20 15:45 IVPB 50 mls 0400,1600 ALLAN Administration Sodium Chloride 1,000 mls @ 30 mls/hr 06/13/20 07:18 06/15/20 08:50 Normal Saline 0.9% IV Not Given .Q24H [facility] Insulin Human Lispro 0 units 06/08/20 09:03 06/09/20 12:02 Humalog SC 2 unit .MILD SLIDING SCALE PRN Administration Mild Correctional Scale Labetalol HCl 10 mg 06/12/20 17:43 06/12/20 17:50 Normodyne SLOW IVP 10 mg Q6H PRN Administration SBP Greater Than 180 Methylprednisolone Sodium Succinate 20 mg 06/12/20 21:00 06/15/20 08:45 Solu-Medrol IVP 20 mg BID ALLAN Administration Metoprolol Tartrate 100 mg 06/13/20 09:00 06/15/20 08:45 Lopressor PO 100 mg BID ALLAN Administration Nifedipine 60 mg 06/12/20 09:00 06/15/20 08:46 Procardia Xl PO 60 mg BID ALLAN Administration Propofol 1,000 mg 06/04/20 05:23 06/14/20 18:09 Diprivan IV 07/04/20 05:23 1,000 mg INF PRN Administration TO ACHIEVE GOAL RASS Protocol Quetiapine Fumarate 400 mg 06/11/20 21:00 06/14/20 20:39 Seroquel PO 400 mg HS ALLAN Administration Sodium Chloride 10 ml 06/06/20 21:00 06/15/20 08:49 Flush - Normal Saline IVF 10 ml Q12HR ALLAN Administration - Exam General Appearance: NAD, awake alert General - other findings: obese Eye: PERRL, anicteric sclera ENT: normocephalic atraumatic, no oropharyngeal lesions Neck: no JVD Heart: RRR, no murmur, no gallops, no rubs Respiratory: CTAB, no wheezes, no rales, no ronchi Gastrointestinal: soft, non-tender, non-distended, normal bowel sounds Extremities: no cyanosis, no clubbing, no edema Skin: normal turgor, no lesions, no rashes Hosp A/P - Plan ECHO: EF 60-65% Chest X ray: bilateral atelectasis vs infiltrates This is a 60 year old female with past medical history of obesity who presented to the ER with altered mental status and hypoxia, requiring intubation. Subsequently extubated with trach and PEG on 06/13 Acute hypoxic respiratory failure likely secondary to sleep apnea vs obesity hypoventilation - chest X ray today s hows bilateral infiltrate vs atelectasis - she is on meropenem, continue for now - continue prednisone 20 mg IV bid Hypertension - continue nifedipine 60 mg bid, nifedipine, metoprolol Leukocytosis - slightly trending up, possibly from steroids, will monitor Physical deconditioning - continue PT eval DVT prophylaxis: enoxaparin Code statuS: full code
[2020-06-16] MEDS: MEROPENEM 1 GM/50 ML 1 GM in Premix Bag 1 BAG IVPB SCH (03:00)
[2020-06-16] MEDS: busPIRone HCl 10 MG TAB PO SCH ×2 (08:10→20:09)
[2020-06-16] MEDS: Famotidine 40 MG/5 ML Oral Suspension PER TUBE SCH ×2 (08:10→20:09)
[2020-06-16] MEDS: Metoprolol Tartrate 50 MG TAB PO SCH ×2 (08:11→20:10)
[2020-06-16] MEDS: hydrALAZINE 25 MG TAB PO SCH ×2 (08:11→20:09)
[2020-06-16] MEDS: Enoxaparin Sodium 40 MG/0.4 ML SYRINGE SC SCH (08:11)
[2020-06-16] MEDS: FLUoxetine HCl 20 MG CAP PO SCH (08:12)
[2020-06-16] MEDS: Gabapentin 300 MG CAP PO SCH ×3 (08:12→20:10)
--- NOTE | 2020-06-16 09:13 | PRG ---
DATE OF SERVICE: 06/16/2020 SUBJECTIVE: Queen Ben is more responsive this morning. OBJECTIVE: VITAL SIGNS: Pulse 63, blood pressure 148/71, sats 100%, and respirations 18. CHEST: Decreased breath sounds at the anterior rhonchi. CARDIAC: Normal S1 and S2. No gallops. ABDOMEN: No masses. IMPRESSION: Status post trach and PEG, morbid obesity, sleep apnea. PLAN: Trach collar today. Hopefully, we try and get her to a long-term facility. All cultures negative. One-half hour of critical time. Job ID: [id number]
[2020-06-16] MEDS: Doxycycline 100 MG CAP PO SCH ×2 (09:48→20:09)
[2020-06-16] MEDS: Amlodipine 5 MG TAB PO SCH (09:48)
[2020-06-16] MEDS: Sodium Chloride 0.9% 1,000 ML IV SCH (09:49)
[2020-06-16] MEDS: predniSONE 20 MG TAB PO SCH (09:49)
[2020-06-16 09:54] LABS: Hemoglobin 11.2 g/dL (12.0-16.0); Mean Corpuscular HGB CONC 30.2 g/dL (32.0-36.0); Mean Corpuscular Hemoglobin 29.5 pg (27.0-31.0); Mean Corpuscular Volume 97.7 fL (78.0-98.0); Platelet Count 189 thou/uL (130-400); Red Blood Cell (RBC) Count 3.79 mill/uL (4.20-5.40); White Blood Cell (WBC) Count 14.4 thou/uL (4.8-10.8)
[2020-06-16 10:20] LABS: Anion Gap 11 mmol/L (10-20); BUN (Urea Nitrogen) 28 mg/dL (9.8-20.1); Calc. Creatinine Clearance 219 mL/min (70-130); Calcium 9.1 mg/dL (7.8-10.44); Carbon Dioxide 31 mmol/L (22-29); Chloride 106 mmol/L (98-107); Estimated GFR-MDRD Greater than 90; Glucose 91 mg/dL (70-105); Potassium 3.9 mmol/L (3.5-5.1); Sodium 144 mmol/L (136-145)
[2020-06-16] MEDS ORDERED: Artificial Tear Sol 15 ML BOT EA EYE PRN (11:04)
[2020-06-16] MEDS ORDERED: MEROPENEM 1 GM/50 ML 1 GM in Premix Bag 1 BAG IVPB SCH (12:00)
--- NOTE | 2020-06-16 13:14 | PRG ---
DATE OF SERVICE: 06/16/2020 SUBJECTIVE: Ms. Contreras this morning more responsive. OBJECTIVE: VITAL SIGNS: Pulse 63, blood pressure 142/71, , 40% FiO2 with sats 100%. CHEST: Decreased breath sounds. rhonchi. CARDIAC: Normal S1, S2. No gallops. ABDOMEN: No masses. ASSESSMENT: Respiratory failure, pneumonia, deconditioned, bipolar. PLAN: Trach collar, eventually placement. See orders. One-half hour of critical time. Job ID: [id number]
[2020-06-16] MEDS: Ciprofloxacin 0.3% Ophth Drops 2.5 ml Bottle R EYE SCH ×2 (14:10→19:19)
--- NOTE | 2020-06-16 19:03 | PDOC.HOSPP ---
- Subjective Encounter Date: 06/16/20 Encounter Time: 06:00 Subjective: The patient was noted to be in distress. Noted to have significant tearing in eyes, worst on right eye. She reports burning sensation in right eye . No significant chest pain, cough, or shortness of breath. Has trach and PEG She has not been mobilized much - Objective Vital Signs & Weight: Vital Signs (12 hours) Temp Pulse Pulse Pulse Resp BP BP 06/16/20 18:31 58 L 19 06/16/20 16:00 06/16/20 15:43 69 22 H 06/16/20 15:19 180/102 H 06/16/20 15:00 98.4 F 06/16/20 11:46 68 65 159/99 H 06/16/20 11:12 69 20 06/16/20 11:00 98.7 F 06/16/20 09:48 71 132/70 06/16/20 08:57 06/16/20 08:11 63 142/71 H 06/16/20 08:00 20 06/16/20 07:25 60 144/80 H 06/16/20 07:23 59 L 17 BP Pulse Ox Pulse Ox Pulse Ox 06/16/20 18:31 100 06/16/20 16:00 98 06/16/20 15:43 95 06/16/20 15:19 06/16/20 15:00 06/16/20 11:46 155/92 H 100 97 06/16/20 11:12 99 06/16/20 11:00 06/16/20 09:48 06/16/20 08:57 95 06/16/20 08:11 06/16/20 08:00 100 06/16/20 07:25 06/16/20 07:23 99 Weight Admit Weight 350 lb Weight 327 lb 9.71 oz Most Recent Monitor Data Heart Rate from ECG 56 NIBP 158/88 NIBP BP-Mean 111 Respiration from ECG 21 SpO2 100 I&O: 06/15/20 06/16/20 06/17/20 06:59 06:59 06:59 Intake Total 2961.0 3007 1105 Output Total 2540 2785 1210 Balance 421.0 222 -105 Result Diagrams: 06/16/20 09:39 06/16/20 09:39 Additional Labs: Accuchecks 0706/15/20 06/15/20 06:11 23:55 00:01 POC Glucose 97 116 H 115 H Hospitalist ROS - Review of Systems Constitutional: denies: fever, chills - Medication Medications: Active Medications Generic Name Dose Route Start Last Admin Trade Name Freq PRN Reason Stop Dose Admin Albuterol/Ipratropium 3 ml 06/06/20 14:30 06/16/20 18:31 Duoneb NEB 3 ml [id number] ALLAN Administration Amlodipine Besylate 5 mg 06/16/20 09:00 06/16/20 09:48 Norvasc PO 5 mg DAILY ALLAN Administration Buspirone HCl 10 mg 06/12/20 21:00 06/16/20 08:10 Buspar PO 10 mg BID ALLAN Administration Ciprofloxacin 2 drop 06/16/20 14:00 06/16/20 15:20 Ciprofloxacin Hcl R EYE 2 drop [id number] ALLAN Administration Clonidine 0.1 mg 06/12/20 17:43 06/16/20 15:19 Catapres PO 0.1 mg Q4H PRN Administration SBP >= 180 Doxycycline Hyclate 100 mg 06/16/20 09:00 06/16/20 09:48 Vibramycin PO 06/21/20 09:01 100 mg BID ALLAN Administration Enoxaparin Sodium 40 mg 06/07/20 09:00 06/16/20 08:11 Lovenox SC 40 mg 0900 ALLAN Administration Famotidine 20 mg 06/14/20 09:00 06/16/20 08:10 Pepcid PER TUBE 20 mg BID ALLAN Administration Fluoxetine HCl 40 mg 06/13/20 09:00 06/16/20 08:12 Prozac PO 40 mg DAILY ALLAN Administration Gabapentin 300 mg 06/12/20 15:00 06/16/20 15:20 Neurontin PO 300 mg TID ALLAN Administration Hydralazine HCl 10 mg 06/07/20 11:23 06/12/20 13:41 Apresoline SLOW IVP 10 mg Q4H PRN Administration SBP>160 Hydralazine HCl 75 mg 06/13/20 09:00 06/16/20 08:11 Apresoline PO 75 mg BID ALLAN Administration Sodium Chloride 1,000 mls @ 30 mls/hr 06/13/20 07:18 06/16/20 09:49 Normal Saline 0.9% IV Not Given .Q24H ALLAN Insulin Human Lispro 0 units 06/08/20 09:03 06/09/20 12:02 Humalog SC 2 unit .MILD SLIDING SCALE PRN Administration Mild Correctional Scale Labetalol HCl 10 mg 06/12/20 17:43 06/12/20 17:50 Normodyne SLOW IVP 10 mg Q6H PRN Administration SBP Greater Than 180 Metoprolol Tartrate 100 mg 06/13/20 09:00 06/16/20 08:11 Lopressor PO 100 mg BID ALLAN Administration Prednisone 20 mg 06/16/20 08:00 06/16/20 09:49 Prednisone PO 20 mg QAM-WM ALLAN Administration Propofol 1,000 mg 06/04/20 05:23 06/14/20 18:09 Diprivan IV 07/04/20 05:23 1,000 mg INF PRN Administration TO ACHIEVE GOAL RASS Protocol Quetiapine Fumarate 400 mg 06/11/20 21:00 06/15/20 20:39 Seroquel PO 400 mg HS ALLAN Administration Sodium Chloride 10 ml 06/06/20 21:00 06/16/20 08:12 Flush - Normal Saline IVF 10 ml Q12HR ALLAN Administration - Exam General Appearance: NAD, awake alert Eye: PERRL, anicteric sclera Eye - other findings: right eye sclera erythematous, with white discharge ENT: normocephalic atraumatic, no oropharyngeal lesions Neck: supple, symmetric, no JVD, no thyromegaly Heart: RRR, no murmur, no gallops, no rubs Respiratory: CTAB, no wheezes, no rales, no ronchi Gastrointestinal: soft, non-tender, non-distended, normal bowel sounds Extremities: no cyanosis, no clubbing, no edema Skin: normal turgor, no lesions, no rashes Neurological: cranial nerve grossly intact, normal sensation to touch, no focal deficits, no new deficit Musculoskeletal: normal tone, normal strength, no muscle wasting Hosp A/P - Plan ECHO: EF 60-65% Chest X ray: bilateral atelectasis vs infiltrates This is a 60 year old female with past medical history of obesity who presented to the ER with altered mental status and hypoxia, requiring intubation. Subsequently extubated with trach and PEG on 06/13 Acute hypoxic respiratory failure likely secondary to sleep apnea vs obesity hypoventilation - chest X ray 06/15 shows bilateral infiltrate vs atelectasis - she is s/p trach and PEG. She was on meropenem and IV steroids. Meropenem switched to doxycycline by pulmonary - case management consult for LTAC Conjunctivitis right eye - ordered cipro eye drops - artificial tears Hypertension - continue metoprolol - nifedipine discontinued Leukocytosis - WBC 14.4, steroids discontinued, repeat CBC tomorrow Physical deconditioning - continue PT eval DVT prophylaxis: enoxaparin Code statuS: full code
[2020-06-17 04:43] LABS: Hemoglobin 11.5 g/dL (12.0-16.0); Mean Corpuscular HGB CONC 31.3 g/dL (32.0-36.0); Mean Corpuscular Hemoglobin 30.5 pg (27.0-31.0); Mean Corpuscular Volume 97.5 fL (78.0-98.0); Mean Platelet Volume 7.9 fL (7.4-10.4); Platelet Count 182 thou/uL (130-400); RBC Distribution Width 12.7 % (11.5-14.5); Red Blood Cell (RBC) Count 3.75 mill/uL (4.20-5.40)
[2020-06-17 05:06] LABS: Anion Gap 9 mmol/L (10-20); BUN (Urea Nitrogen) 25 mg/dL (9.8-20.1); Calc. Creatinine Clearance 219 mL/min (70-130); Calcium 9.3 mg/dL (7.8-10.44); Carbon Dioxide 36 mmol/L (22-29); Chloride 102 mmol/L (98-107); Estimated GFR-MDRD Greater than 90; Glucose 87 mg/dL (70-105); Potassium 3.6 mmol/L (3.5-5.1); Sodium 143 mmol/L (136-145)
[2020-06-17] MEDS: Enoxaparin Sodium 40 MG/0.4 ML SYRINGE SC SCH (11:10)
[2020-06-17] MEDS: Metoprolol Tartrate 50 MG TAB PO SCH ×2 (11:11→20:35)
[2020-06-17] MEDS: hydrALAZINE 25 MG TAB PO SCH ×2 (11:11→20:34)
[2020-06-17] MEDS: FLUoxetine HCl 20 MG CAP PO SCH (11:11)
[2020-06-17] MEDS: Amlodipine 5 MG TAB PO SCH (11:12)
[2020-06-17] MEDS: Gabapentin 300 MG CAP PO SCH ×3 (11:12→20:35)
[2020-06-17] MEDS: Famotidine 40 MG/5 ML Oral Suspension PER TUBE SCH ×2 (11:14→20:35)
[2020-06-17] MEDS: predniSONE 20 MG TAB PO SCH (11:17)
[2020-06-17] MEDS: busPIRone HCl 10 MG TAB PO SCH ×2 (11:17→20:35)
--- NOTE | 2020-06-17 11:25 | PRG ---
DATE OF SERVICE: 06/17/2020 SUBJECTIVE: Ms. Contreras remains in the ICU on a trach collar. No respiratory distress. OBJECTIVE: VITAL SIGNS: Pulse 70, respiratory rate , saturations 90%, 30% trach collar, blood pressure 145/87. GENERAL: She is awake, responsive, moves both extremities. CHEST: Rhonchi without any wheezing. CARDIAC: Normal S1 and S2. No gallops. ABDOMEN: No masses. ASSESSMENT: Morbid obesity, sleep apnea, severe deconditioning, pneumonia, bipolar. She is much improved. marble worker is trying to get a placement. Otherwise, continue supportive care. Avoid excessive sedation. One-half hour of critical care time. Job ID: [id number]
[2020-06-17] MEDS ORDERED: diphenhydrAMINE 25 MG CAP PO PRN (11:47)
[2020-06-17] MEDS: Sodium Chloride 0.9% 1,000 ML IV SCH (12:09)
[2020-06-17] MEDS: Doxycycline 100 MG CAP PO SCH (12:09)
[2020-06-17 13:02] VITALS: BMI 56.2
[2020-06-17 14:42] LABS: SARS-CoV-2 MS2 Positive; SARS-CoV-2 N Gene Negative; SARS-CoV-2 S Gene Negative; SARS-CoV-2 orf1ab Negative
--- NOTE | 2020-06-17 15:15 | PRG ---
DATE OF SERVICE: 06/17/2020 SUBJECTIVE: The patient remains in the critical care unit. She is the patient who on 04/13/2020 had a percutaneous tracheostomy tube placement and a PEG tube placed. We were asked to evaluate the patient this morning as her PEG tube appeared to be not functioning correctly with reports of tube feeds and flushes leaking around it. PHYSICAL EXAMINATION: The patient's abdomen is soft, nondistended with no gross peritoneal signs. The PEG tube appeared to have been dislodged out of the stomach as the tube marking showed that it was easily floating between 3 to 5 cm. When flushed again, we noted that there was significant amount of leakage around it. The tube was discontinued. Dr. Mcneal placed an NG tube. We will continue n.p.o. status until the morning. PLAN: Will be to get a single contrast upper GI series tomorrow. This was discussed with the radiologist. If there is no leak, we will likely change the NG tube for Dobhoff tube to allow feedings. We will follow her in the morning after her radiograph. Job ID: [id number]
--- NOTE | 2020-06-17 15:53 | EKG ---
Test Reason : Blood Pressure : / mmHG Vent. Rate : 082 BPM Atrial Rate : 082 BPM P-R Int : 140 ms QRS Dur : 092 ms QT Int : 380 ms P-R-T Axes : 135 -21 143 degrees QTc Int : 443 ms Unusual P axis, possible ectopic atrial rhythm Lateral infarct , age undetermined Abnormal ECG Confirmed by JANUARY DALE DO ([id number]), editor managing newspaper MOHINDER JOHNSON ([id number] on 06/17/2020 3:53:28 PM Referred By: Confirmed By:JANUARY DALE DO
--- NOTE | 2020-06-17 18:07 | PDOC.HOSPP ---
- Subjective Encounter Date: 06/17/20 Encounter Time: 12:30 Subjective: The patient states she feels better than yesterday. Feels weak, denies SOB, cough, chest pain or chest congestion She was noted to have rash on her chest, blanchable. Denies itching - Objective Vital Signs & Weight: Vital Signs (12 hours) Temp Pulse Resp BP Pulse Ox 06/17/20 16:00 98.7 F 06/17/20 14:34 66 23 H 99 06/17/20 13:00 98.8 F 06/17/20 11:12 67 06/17/20 11:11 67 162/64 H 06/17/20 11:05 67 21 H 99 06/17/20 08:00 98.4 F 100 06/17/20 07:27 99 06/17/20 07:25 71 25 H 98 Weight Admit Weight 350 lb Weight 327 lb 9.71 oz Most Recent Monitor Data Heart Rate from ECG 69 NIBP 156/87 NIBP BP-Mean 110 Respiration from ECG 20 SpO2 97 I&O: 06/16/20 06/17/20 06/18/20 06:59 06:59 06:59 Intake Total 3007 1205 Output Total 2785 2110 905 Balance 296 -974 -046 Result Diagrams: 06/17/20 04:25 06/17/20 04:25 Hospitalist ROS - Review of Systems Constitutional: denies: fever, chills - Medication Medications: Active Medications Generic Name Dose Route Start Last Admin Trade Name Freq PRN Reason Stop Dose Admin Albuterol/Ipratropium 3 ml 06/06/20 14:30 06/17/20 14:34 Duoneb NEB 3 ml [id number] ALLAN Administration Amlodipine Besylate 5 mg 06/16/20 09:00 06/17/20 11:12 Norvasc PO 5 mg DAILY ALLAN Administration Buspirone HCl 10 mg 06/12/20 21:00 06/17/20 11:17 Buspar PO 10 mg BID ALLAN Administration Ciprofloxacin 2 drop 06/16/20 14:00 06/17/20 17:03 Ciprofloxacin Hcl R EYE Not Given [id number] ALLAN Clonidine 0.1 mg 06/12/20 17:43 06/16/20 15:19 Catapres PO 0.1 mg Q4H PRN Administration SBP >= 180 Diphenhydramine HCl 25 mg 06/17/20 11:47 06/17/20 13:11 Benadryl PO 25 mg Q4H PRN Administration Itching Doxycycline Hyclate 100 mg 06/16/20 09:00 06/17/20 12:09 Vibramycin PO 06/21/20 09:01 Not Given BID ALLAN Enoxaparin Sodium 40 mg 06/07/20 09:00 06/17/20 11:10 Lovenox SC 40 mg 0900 ALLAN Administration Famotidine 20 mg 06/14/20 09:00 06/17/20 11:14 Pepcid PER TUBE 20 mg BID ALLAN Administration Fluoxetine HCl 40 mg 06/13/20 09:00 06/17/20 11:11 Prozac PO 40 mg DAILY ALLAN Administration Gabapentin 300 mg 06/12/20 15:00 06/17/20 14:44 Neurontin PO Not Given TID ALLAN Hydralazine HCl 10 mg 06/07/20 11:23 06/12/20 13:41 Apresoline SLOW IVP 10 mg Q4H PRN Administration SBP>160 Hydralazine HCl 75 mg 06/13/20 09:00 06/17/20 11:11 Apresoline PO 75 mg BID ALLAN Administration Sodium Chloride 1,000 mls @ 30 mls/hr 06/13/20 07:18 06/17/20 12:09 Normal Saline 0.9% IV Not Given .Q24H ON LICENSE OF [facility] Insulin Human Lispro 0 units 06/08/20 09:03 06/09/20 12:02 Humalog SC 2 unit .MILD SLIDING SCALE PRN Administration Mild Correctional Scale Labetalol HCl 10 mg 06/12/20 17:43 06/12/20 17:50 Normodyne SLOW IVP 10 mg Q6H PRN Administration SBP Greater Than 180 Metoprolol Tartrate 100 mg 06/13/20 09:00 06/17/20 11:11 Lopressor PO 100 mg BID ALLAN Administration Prednisone 20 mg 06/16/20 08:00 06/17/20 11:17 Prednisone PO 20 mg QAM-WM ALLAN Administration Propofol 1,000 mg 06/04/20 05:23 06/14/20 18:09 Diprivan IV 07/04/20 05:23 1,000 mg INF PRN Administration TO ACHIEVE GOAL RASS Protocol Quetiapine Fumarate 400 mg 06/11/20 21:00 06/16/20 20:09 Seroquel PO 400 mg HS ALLAN Administration Sodium Chloride 10 ml 06/06/20 21:00 06/17/20 11:11 Flush - Normal Saline IVF 10 ml Q12HR ALLAN Administration - Exam General Appearance: NAD, awake alert Eye: PERRL, anicteric sclera ENT: normocephalic atraumatic, no oropharyngeal lesions Neck: no JVD Heart: RRR, no murmur, no gallops, no rubs Respiratory: CTAB, no wheezes, no rales, no ronchi Gastrointestinal: soft, non-tender, non-distended, normal bowel sounds Extremities: no cyanosis, no clubbing, no edema Skin: normal turgor, no lesions, no rashes Skin - other findings: diffuse rash noted on chest, maculopapular Neurological: cranial nerve grossly intact, normal sensation to touch, no focal deficits, no new deficit Hosp A/P - Plan ECHO: EF 60-65% Chest X ray: bilateral atelectasis vs infiltrates This is a 60 year old female with past medical history of obesity who presented to the ER with altered mental status and hypoxia, requiring intubation. Subsequently extubated with trach and PEG on 06/13 Acute hypoxic respiratory failure likely secondary to sleep apnea vs obesity hypoventilation - chest X ray 06/15 shows bilateral infiltrate vs atelectasis - she is s/p trach and PEG. She received meropenem for 7 days and IV steroids. These were discontinued today - case management consult for LTAC. REpeat COVID serology negative Maculopapular rash noted on chest - few papules noted yesterday, however more diffuse today - will discontinue doxycycline Conjunctivitis right eye - ordered cipro eye drops, q2 hours x 2 days, then switch to q4 hours tomorrow - artificial tears Hypertension - continue metoprolol - nifedipine discontinued Leukocytosis - WBC down to 13, continue to monitor Physical deconditioning - continue PT eval Dispo: discharge to LTAC. Continue with PT DVT prophylaxis: enoxaparin Code statuS: full code
[2020-06-17] MEDS: Pantoprazole 40 MG VIAL IVP SCH (20:36)
[2020-06-18 05:45] LABS: Hemoglobin 11.5 g/dL (12.0-16.0); Mean Corpuscular HGB CONC 30.8 g/dL (32.0-36.0); Mean Corpuscular Hemoglobin 29.4 pg (27.0-31.0); Mean Corpuscular Volume 95.6 fL (78.0-98.0); Mean Platelet Volume 7.8 fL (7.4-10.4); Platelet Count 191 thou/uL (130-400); RBC Distribution Width 12.6 % (11.5-14.5); Red Blood Cell (RBC) Count 3.92 mill/uL (4.20-5.40); White Blood Cell (WBC) Count 11.6 thou/uL (4.8-10.8)
[2020-06-18 06:02] LABS: Anion Gap 13 mmol/L (10-20); BUN (Urea Nitrogen) 20 mg/dL (9.8-20.1); Calc. Creatinine Clearance 222 mL/min (70-130); Calcium 9.1 mg/dL (7.8-10.44); Carbon Dioxide 28 mmol/L (22-29); Chloride 104 mmol/L (98-107); Estimated GFR-MDRD Greater than 90; Glucose 81 mg/dL (70-105); Potassium 4.3 mmol/L (3.5-5.1); Sodium 141 mmol/L (136-145)
[2020-06-18] MEDS: Enoxaparin Sodium 40 MG/0.4 ML SYRINGE SC SCH (07:55)
[2020-06-18] MEDS: Pantoprazole 40 MG VIAL IVP SCH (07:56)
[2020-06-18] MEDS ORDERED: MD-Gastroview 120 ML BOT ONE (09:03)
--- NOTE | 2020-06-18 09:27 | PRG ---
DATE OF SERVICE: 06/18/2020 SUBJECTIVE: She is awake, alert, and responsive. OBJECTIVE: VITAL SIGNS: Pulse 68, respiratory rate 17, sats trach collar, blood pressure 160/88. She is shaking her legs. CHEST: Decreased breath sounds. No wheezing. CARDIAC: Normal S1, S2. No gallops. ABDOMEN: No masses. IMPRESSION: Respiratory failure; trach; morbid obesity; some kind of rash yesterday, felt to be maybe doxycycline; bipolar disorder. Speech is going to see her today. If she passes, may try liquid diet. Otherwise, she is going to require a PEG again, eventually placement. We will follow. Job ID: [id number]
--- NOTE | 2020-06-18 11:38 | RAD ---
UPPER GI: HISTORY: PEG tube was inadvertently pulled. Evaluate for leak. COMPARISON: None. 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 Nasogastric tube term inates in the epigastric region. Cholecystectomy clips are identified. The patient was administered a total of 120 cc of Gastrografin. Gastrografin passes from the stomach into the small bowel loops. No leak or extravasation. Images were obtained with the patient in the supine projection as well as the RPO projection. Postprocedure KUB radiograph demonstrates contrast opacifying the stomach and multiple small bowel lo ops. No evidence of extravasation. IMPRESSION: No evidence of extravasation. Transcribed Date/Time: 06/18/2020 11:48 AM
[2020-06-18] MEDS: Metoprolol Tartrate 50 MG TAB PO SCH (11:49)
[2020-06-18] MEDS: hydrALAZINE 25 MG TAB PO SCH (11:49)
[2020-06-18] MEDS: FLUoxetine HCl 20 MG CAP PO SCH (11:49)
[2020-06-18] MEDS: Famotidine 40 MG/5 ML Oral Suspension PER TUBE SCH (11:50)
[2020-06-18] MEDS: Amlodipine 5 MG TAB PO SCH (11:50)
[2020-06-18] MEDS: Gabapentin 300 MG CAP PO SCH (11:50)
[2020-06-18] MEDS: Sodium Chloride 0.9% 1,000 ML IV SCH (11:52)
[2020-06-18] MEDS: predniSONE 20 MG TAB PO SCH (11:52)
[2020-06-18] MEDS: busPIRone HCl 10 MG TAB PO SCH (11:52)
[2020-06-18 11:53] VITALS: BP 153/96
[2020-06-18 16:12] VITALS: TEMP 98.5
--- NOTE | 2020-06-20 12:01 | DIS ---
DATE OF ADMISSION: 06/04/2020 DATE OF DISCHARGE: 06/18/2020 DISCHARGE DIAGNOSIS: 1, Acute hypoxic and hypercapnic respiratory failure, likely secondary to pneumonia with possible acute respiratory distress syndrome versus obesity hypoventilation syndrome versus severe sleep apnea. 2. Maculopapular rash on chest - unclear etiology maybe doxycycline? 3. Malnutrition 4. Right eye conjunctivitis CONSULTATIONS: Dr. Chencho Wild of Pulmonary/Critical Care. PROCEDURES: Tracheostomy on 06/13. BRIEF HISTORY OF PRESENT ILLNESS: This is a 60-year-old female, who presented to the emergency room with altered mental status and hypoxia. The patient required intubation on arrival. Her blood gas at the time of admission was pH of 7.30, pCO2 of 64.7, and pO2 of 66.7. Her chest x-ray showed scattered interstitial and alveolar opacities. Her CT scan of her head showed opacification of her right mastoid air cells suggesting a mastoid effusion. She was started on broad- spectrum antibiotics and admitted for further workup. HOSPITAL COURSE: Acute hypoxic respiratory failure secondary to pneumonia with possible ARDS versus obesity hypoventilation syndrome versus sleep apnea: The patient received meropenem and azithromycin from 06/04 to 06/12. She was also treated with IV steroids 40 mg IV q.6 hours. The patient, however, was unable to be weaned off the ventilator and eventually underwent a tracheostomy on 06/13. She also underwent endoscopic G-tube placement as well. She had a repeat chest x- ray on 06/15, which showed persistent bibasilar atelectasis versus infiltrates. She was switched to oral doxycycline on 06/16; however, there was a maculopapular rash noted on her chest. The patient denied any pain or itching; however, her doxycycline was discontinued to see if this would resolve the rash. She will be treated with prednisone 20 mg daily x7 days, then 10 mg daily for 7 days after that for respiratory failure Malnutrition: The patient had an upper GI series performed on the , which showed no extravasation of contrast. She was seen by Speech Therapy; however, Speech stated that the patient was only able to tolerate a couple of small sips of thin liquids, and then shortly after, developed increasing secretions. They recommended that she stay n.p.o. The patient should have consideration of a PEG tube placement at a later time. Hypertension: The patient was on multiple antihypertensives as an outpatient, but in the hospital, was getting hydralazine 75 mg b.i.d. and metoprolol 100 mg p.o. b.i.d. She will be switched back on her home medicines of torsemide, spironolactone, nifedipine, and lisinopril. Conjunctivitis of the right eye: The patient was noted to have significant burning of her right eye and mucusy discharge with erythema of her sclera. She was started on Cipro eye drops with improvement. She will continue this for an additional 5 days. DISCHARGE PHYSICAL EXAMINATION: VITAL SIGNS: Temperature 97.6, heart rate 66, respiratory rate 18, O2 saturation 99%, trach collar is on 30% FiO2 with 5 L, and blood pressure 149/85. GENERAL: The patient is alert. She is oriented. She has difficulty communicating due to the trach. CVS: Regular rate and rhythm with no murmurs, rubs or gallops. LUNGS: Slightly diminished breath sounds bilaterally. ABDOMEN: Positive bowel sounds, soft, nontender, and mildly distended. EXTREMITIES: Mild edema. PERTINENT DIAGNOSTIC DATA: CBC, 06/18: White count 11.6, hemoglobin 11.5, hematocrit 37.5, and platelet count 191. BMP, 06/18: Normal. UA, 06/04: Negative. COVID PCR, 06/16: Negative on 06/04 and 06/16. PERTINENT IMAGING: Chest x-ray, 06/04: Scattered interstitial and alveolar opacities. CT brain, 06/04: Shows small amount of fluid in the nasopharynx likely related to intubation. Opacification of the right mastoid air cells suggesting mastoid effusions. Chest x-ray 06/04: Interstitial and patchy airspace opacities, greater in each lung base. Chest x-ray 06/15: Bibasilar atelectasis versus infiltrates. Interval placement of a tracheostomy without evidence of complication. Upper GI series 06/18: Shows no evidence of extravasation. Echo 06/08: [id number] pulmonary hypertension. EF 60% to 65%. Left atrium is mildly dilated. Trace MR. Mild TR. DISCHARGE CONDITION: Stable. ACTIVITY: As tolerated. DIET: Heart healthy diet. DISCHARGE DISPOSITION: The patient will be discharged to LTAC facility. DISCHARGE MEDICATIONS: New prescriptions: 1. Cipro 2 drops in the right eye q.4 hours for additional five days. 2. DuoNebs q.4 hours. 3. Prednisone 20 mg p.o. daily x7 days and 10 mg daily x7 days. All other home medications were resumed. Please refer to discharge work sheet. DISCHARGE INSTRUCTIONS: The patient is to follow up with her PCP in a week. Consider following up with ice cream vault worker as an outpatient and consider getting a sleep study done as an outpatient. Job ID: [id number] MTDD
== END 2020-06-18 16:38 | DRG 4 ==
LOC: ERS 23:49 → CCU 06-04 00:24
PROVIDERS: ADMIT Internal Medicine; ATTEND Internal Medicine
PROC: 5A1955Z Respiratory Ventilation, Greater than 96 Consecutive Hours (ICD-10-PCS; 2020-06-04)
PROC: 0BH17EZ Insertion of Endotracheal Airway into Trachea, Via Natural or Artificial Opening (ICD-10-PCS; 2020-06-04)
PROC: 0B113F4 Bypass Trachea to Cutaneous with Tracheostomy Device, Percutaneous Approach (ICD-10-PCS; principal; 2020-06-13)
PROC: 5A1955Z Respiratory Ventilation, Greater than 96 Consecutive Hours (ICD-10-PCS; 2020-06-13)
PROC: 0DH63UZ Insertion of Feeding Device into Stomach, Percutaneous Approach (ICD-10-PCS; 2020-06-13)
DX: J96.01 Acute respiratory failure with hypoxia (principal); J18.9 Pneumonia, unspecified organism; Z68.43 Body mass index [BMI] 50.0-59.9, adult; N17.9 Acute kidney failure, unspecified; E87.4 Mixed disorder of acid-base balance; E66.2 Morbid (severe) obesity with alveolar hypoventilation; I50.32 Chronic diastolic (congestive) heart failure; I13.0 Hypertensive heart and chronic kidney disease with heart failure and stage 1 through stage 4 chronic kidney disease, or unspecified chronic kidney disease; Z20.828 Contact with and (suspected) exposure to other viral communicable diseases; J96.02 Acute respiratory failure with hypercapnia; F31.9 Bipolar disorder, unspecified; F20.9 Schizophrenia, unspecified; N18.2 Chronic kidney disease, stage 2 (mild); E11.22 Type 2 diabetes mellitus with diabetic chronic kidney disease; H10.9 Unspecified conjunctivitis; R21 Rash and other nonspecific skin eruption; Z90.49 Acquired absence of other specified parts of digestive tract; Z90.710 Acquired absence of both cervix and uterus; Z98.51 Tubal ligation status; Z88.8 Allergy status to other drugs, medicaments and biological substances; Z79.899 Other long term (current) drug therapy; Z79.82 Long term (current) use of aspirin
CPT/HCPCS: 20030; 31500; 36415; 36416; 36556; 51702; 70450; 71045; 74240; 80048; 80053; 81003; 81015; 82805; 83605; 83735; 83880; 84484; 85007; 85025; 85027; 87040; 87086; 87635; 93005; 93306; 94002; 94003; 94640; 96365; 96366; 96368; 96375; 96376; 99292; C9113; J0360; J0456; J0692; J1644; J1650; J1940; J2060; J2185; J2250; J2704; J2920; J2930; J3010; J3490; J7050; J7512; J7620; Q0163; Q9963; S0028; U0002; U0003

== ENCOUNTER 2020-07-20 20:32 | Emergency (ER) | payer MEDICARE, OTHER ==
[2020-07-20 21:18] LABS: #Eosinphils 0.3 thou/uL (0.0-0.7); #Lymphocytes 2.2 thou/uL (1.20-3.40); #Monocytes 0.6 thou/uL (0.11-0.59); #Neutrophils 8.3 thou/uL (1.40-6.50); %Basophils 0.2 % (0.0-1.0); %Eosinophils 2.6 % (0.0-10.0); %Lymphocytes 19.1 % (21.0-51.0); Hemoglobin 11.4 g/dL (12.0-16.0); Mean Corpuscular HGB CONC 31.6 g/dL (32.0-36.0); Mean Corpuscular Hemoglobin 30.9 pg (27.0-31.0); Mean Corpuscular Volume 97.8 fL (78.0-98.0); Mean Platelet Volume 7.7 fL (7.4-10.4); Platelet Count 183 thou/uL (130-400); RBC Distribution Width 12.9 % (11.5-14.5); Red Blood Cell (RBC) Count 3.68 mill/uL (4.20-5.40); White Blood Cell (WBC) Count 11.4 thou/uL (4.8-10.8)
[2020-07-20 21:39] LABS: ALT (SGPT) 36 U/L (8-55); AST (SGOT) 20 U/L (5-34); Albumin 4.2 g/dL (3.5-5.0); Alkaline Phosphatase 74 U/L (40-110); Anion Gap 16 mmol/L (10-20); BUN (Urea Nitrogen) 14 mg/dL (9.8-20.1); Bilirubin, Total 0.3 mg/dL (0.2-1.2); Calc. Creatinine Clearance 0 mL/min (70-130); Calcium 9.4 mg/dL (7.8-10.44); Carbon Dioxide 33 mmol/L (22-29); Chloride 96 mmol/L (98-107); Estimated GFR-MDRD 85; Globulin 3.5 g/dL (2.4-3.5); Glucose 152 mg/dL (70-105); Potassium 3.2 mmol/L (3.5-5.1); Protein, Total 7.7 g/dL (6.0-8.3); Sodium 142 mmol/L (136-145)
--- NOTE | 2020-07-20 21:47 | RAD ---
PORTABLE CHEST ONE VIEW: Date: 07-20-2020 Time: 8:48 p.m. History: Body aches, chills, headaches. Comparison: 06-15-2020 FINDINGS: Heart size normal. There is plate of atelectasis in the lingula. Now bibasilar infiltrate/atelectatic change is present. No pneumothoraces, lobar consolidation, or large effusions are identified. IMPRESSION: As above. POS: OFF
[2020-07-20] MEDS ORDERED: Acetaminophen 500 MG TAB ONE ×2 (21:54→22:05)
[2020-07-20] MEDS ORDERED: Doxycycline 100 MG CAP PO SCH (22:15)
[2020-07-21 14:59] LABS: SARS-CoV-2 MS2 Positive; SARS-CoV-2 N Gene Negative; SARS-CoV-2 S Gene Negative; SARS-CoV-2 by NAA Not Detected (NotDetected); SARS-CoV-2 orf1ab Negative
--- NOTE | 2020-07-26 15:41 | EKG ---
Test Reason : SOB Blood Pressure : / mmHG Vent. Rate : 103 BPM Atrial Rate : 103 BPM P-R Int : 136 ms QRS Dur : 090 ms QT Int : 366 ms P-R-T Axes : 050 010 111 degrees QTc Int : 479 ms Sinus tachycardia Left ventricular hypertrophy with repolarization abnormality Abnormal ECG Confirmed by JANUARY DALE DO ([id number]), senior technical editor AR SANCHEZ ([id number]) on 07/26/2020 3:41:10 PM Referred By: Confirmed By:JANUARY DALE DO
== END 2020-07-20 22:35 ==
LOC: ERS 20:32
DX: J18.9 Pneumonia, unspecified organism (principal); I11.0 Hypertensive heart disease with heart failure; I50.9 Heart failure, unspecified; E11.9 Type 2 diabetes mellitus without complications; E66.9 Obesity, unspecified; F31.9 Bipolar disorder, unspecified; F20.9 Schizophrenia, unspecified; Z79.899 Other long term (current) drug therapy; Z20.828 Contact with and (suspected) exposure to other viral communicable diseases
CPT/HCPCS: 71045; 80053; 83880; 84484; 85025; 93005; 99284; U0003; 36415; 87635

== ENCOUNTER 2020-07-26 21:53 | Emergency (ER) | payer MEDICARE ==
[2020-07-26 23:51] LABS: #Basophils 0.1 thou/uL (0.0-0.2); #Eosinphils 0.3 thou/uL (0.0-0.7); #Lymphocytes 2.8 thou/uL (1.20-3.40); #Monocytes 0.7 thou/uL (0.11-0.59); #Neutrophils 7.2 thou/uL (1.40-6.50); %Eosinophils 2.7 % (0.0-10.0); %Lymphocytes 25.2 % (21.0-51.0); %Monocytes 5.9 % (0.0-10.0); %Neutrophils 65.2 % (42.0-75.0); Hemoglobin 11.2 g/dL (12.0-16.0); Mean Corpuscular HGB CONC 30.8 g/dL (32.0-36.0); Mean Corpuscular Hemoglobin 30.3 pg (27.0-31.0); Mean Corpuscular Volume 98.5 fL (78.0-98.0); Mean Platelet Volume 7.3 fL (7.4-10.4); Platelet Count 217 thou/uL (130-400); RBC Distribution Width 13.1 % (11.5-14.5)
[2020-07-27 00:13] LABS: ALT (SGPT) 26 U/L (8-55); AST (SGOT) 18 U/L (5-34); Albumin 3.8 g/dL (3.5-5.0); Alkaline Phosphatase 76 U/L (40-110); Anion Gap 14 mmol/L (10-20); BUN (Urea Nitrogen) 18 mg/dL (9.8-20.1); Bilirubin, Total 0.2 mg/dL (0.2-1.2); Calc. Creatinine Clearance 0 mL/min (70-130); Carbon Dioxide 32 mmol/L (22-29); Chloride 98 mmol/L (98-107); Estimated GFR-MDRD 80; Globulin 3.1 g/dL (2.4-3.5); Glucose 107 mg/dL (70-105); Protein, Total 6.9 g/dL (6.0-8.3); Sodium 140 mmol/L (136-145)
[2020-07-27 00:31] LABS: Bacteria/HPF None Seen HPF (None Seen); Bilirubin Negative (Negative); Blood, Urine Negative (Negative); Clarity Clear (Clear); Glucose, Urine (Dipstick) Normal (Negative); Ketone, Urine Negative (Negative); Leukocyte 25 Leu/uL (Negative); Nitrite Negative (Negative); Protein, Urine (Dipstick) Negative (Neg-Trace); RBC/HPF 0-3 HPF (0-3); Specific Gravity, Urine 1.018 (1.002-1.036); Squamous Epithelial 0-3 HPF (0-3); Urobilinogen Normal mg/dL (Less than 2); pH, Urine 6.5 (5.0-9.0)
--- NOTE | 2020-07-27 08:37 | ULT ---
PRELIMINARY REPORT/[facility]/EMERGENCY AFTER HOURS PROCEDURE EXAM: US Duplex left Lower Extremity Veins. CLINICAL HISTORY: HX: LLE PAIN. SEE NOTES ON LAST IMAGE. THANKS TECHNIQUE: Real-time ultrasound scan of the veins of the left lower extremity with color Doppler flow, spectral waveform analysis and compression. COMPARISON: None provided. FINDINGS: DEEP VEINS: The common femoral, femoral, and popliteal veins are echolucent and compressible. These vessels demon strate respiratory variation and augmentation. There is normal color Doppler flow throughout. The visualized calf veins are also patent. SUPERFICIAL VEINS: The visualized greater saphenous vein is patent. SOFT TISSUES: No popliteal fossa cyst or other abnormalities. IMPRESSION: No deep venous thrombosis in the left lower extremity. ELECTRONICALLY SIGNED BY: Mikie Vega MD Jul 27, 2020 2:52:35 AM CDT This report is intended for review by the ordering physician only, in accordance of law. If you recei ve this report in error, please call [facility] at [phone]. FINAL REPORT Exam:Leftlower extremity venous ultrasound with Doppler HISTORY: Leftlower extremity swelling and pain COMPARISON: None TECHNIQUE: Grayscale, color flow, Doppler imaging and spectral wave muscle performed left lower extre mity venous system FINDINGS: There is compressibility, presence of flow and augmentation in the common femoral vein, femoral vein and popliteal vein. There is flow in the posterior tibial vein. There is flow in the greater saphenous vein and profunda femoral vein IMPRESSION: 1. No thrombus in the left lower extremity deep venous system. 2. This report is in agreement with initial report by [facility]. Transcribed Date/Time: 07/27/2020 10:16 AM
== END 2020-07-27 04:57 | disposition left against medical advice (07) ==
LOC: ERS 21:53
DX: M79.662 Pain in left lower leg (principal); I11.0 Hypertensive heart disease with heart failure; I50.9 Heart failure, unspecified; E11.9 Type 2 diabetes mellitus without complications; F31.9 Bipolar disorder, unspecified; Z79.899 Other long term (current) drug therapy
CPT/HCPCS: 36415; 80053; 81003; 81015; 83880; 84484; 85025; 85379; 93005

== ENCOUNTER 2020-08-27 18:11 | Inpatient (IN) | payer MEDICARE, OTHER ==
[~2020-08-27 18:11] MED LIST: Iopamidol-370 76% 500 ML 1 ML ONE
[2020-08-27] MEDS ORDERED: Albuterol Sulfate 2.5 mg/3 ml Neb ONE (18:39)
[2020-08-27 18:52] LABS: Actual Bicarbonate (HCO3a) 29.9 mEq/L (22-28); Analyzer IN Cardio ER; Base Excess (BEa) 0.6 mEq/L (-2.0 to +3.0); Calcium, Ionized (arterial) 1.22 mmol/L (1.12-1.30); Carboxyhemoglobin (COHb) 0.2 gm% (0.0-3.0); Hemoglobin (Hb) 12.4 g/dL (12.0-16.0); O2 Tension (PaO2), arterial 64.6 mmHg (80.0-100.0); Potassium - ABG Lab 4.94 mmol/L (3.70-5.30)
[2020-08-27 18:57] LABS: ALV-art Gradient -6.245 mmHg (0-20); CO2 Tension 73.1 mmHg (35.0-45.0); Puncture Site L RADIAL; pH, Arterial 7.23 (7.35-7.45)
[2020-08-27 18:59] LABS: #Eosinphils 0.1 thou/uL (0.0-0.7); #Lymphocytes 1.6 thou/uL (1.20-3.40); #Monocytes 0.8 thou/uL (0.11-0.59); #Neutrophils 8.7 thou/uL (1.40-6.50); %Basophils 0.3 % (0.0-1.0); %Eosinophils 0.7 % (0.0-10.0); %Lymphocytes 14.1 % (21.0-51.0); %Monocytes 6.9 % (0.0-10.0); Hemoglobin 12.1 g/dL (12.0-16.0); Mean Corpuscular HGB CONC 31.2 g/dL (32.0-36.0); Mean Corpuscular Hemoglobin 31.2 pg (27.0-31.0); Mean Platelet Volume 8.4 fL (7.4-10.4); Platelet Count 232 thou/uL (130-400); RBC Distribution Width 12.6 % (11.5-14.5); Red Blood Cell (RBC) Count 3.89 mill/uL (4.20-5.40); White Blood Cell (WBC) Count 11.2 thou/uL (4.8-10.8)
[2020-08-27] MEDS ORDERED: Dexamethasone 10 MG/ML VIAL ONE (19:09)
[2020-08-27] MEDS ORDERED: Magnesium 2 GM/50 ML BAG (IN WATER) ONE (19:09)
[2020-08-27 19:19] LABS: ALT (SGPT) 23 U/L (8-55); AST (SGOT) 27 U/L (5-34); Alkaline Phosphatase 75 U/L (40-110); Anion Gap 18 mmol/L (10-20); BUN (Urea Nitrogen) 17 mg/dL (9.8-20.1); Bilirubin, Total 0.2 mg/dL (0.2-1.2); CK (CPK) 258 U/L (29-168); Calc. Creatinine Clearance 0 mL/min (70-130); Calcium 8.9 mg/dL (7.8-10.44); Carbon Dioxide 28 mmol/L (22-29); Chloride 97 mmol/L (98-107); Estimated GFR-MDRD 33; Globulin 3.7 g/dL (2.4-3.5); Glucose 170 mg/dL (70-105); Lipase 32 U/L (8-78); Potassium 5.6 mmol/L (3.5-5.1); Protein, Total 7.7 g/dL (6.0-8.3); Sodium 137 mmol/L (136-145)
--- NOTE | 2020-08-27 21:20 | CT ---
CT PULMONARY ANGIOGRAM WITH IV CONTRAST AND 3D POSTPROCESSIN08/27/20 HISTORY: Tested COVID positive two weeks ago. Shortness of breath and dyspnea. FINDINGS: There is better opacification of the thoracic aorta compared to the pulmonary arterial vasculature wh ich is inadequately opacified for satisfactory evaluation. The thoracic aorta is well opacified without aneurysmal dissection. No pleural or pericardial effusio ns are seen. No pneumothoraces or lobar consolidation identified. There are atelectatic changes in th e lung bases. There are degenerative changes in the spine. IMPRESSION: 1. Exam is nondiagnostic for pulmonary embolism. 2. No evidence of thoracic aortic aneurysm or dissection. POS: OFF
[2020-08-27 21:28] LABS: Actual Bicarbonate (HCO3a) 26.6 mEq/L (22-28); Analyzer IN Cardio ER; Base Excess (BEa) -2.2 mEq/L (-2.0 to +3.0); Calcium, Ionized (arterial) 1.23 mmol/L (1.12-1.30); Carboxyhemoglobin (COHb) 0.2 gm% (0.0-3.0); Hemoglobin (Hb) 12.3 g/dL (12.0-16.0); O2 Tension (PaO2), arterial 75.4 mmHg (80.0-100.0); Potassium - ABG Lab 4.49 mmol/L (3.70-5.30)
[2020-08-27 21:30] LABS: SARS-CoV-2 NAA Rapid Test Not Detected (NotDetected)
[2020-08-27 21:30] LABS: CO2 Tension 65.5 mmHg (35.0-45.0); Puncture Site L RADIAL; pH, Arterial 7.23 (7.35-7.45)
[2020-08-27 21:31] LABS: ALV-art Gradient 20.975 mmHg (0-20)
[2020-08-27] MEDS ORDERED: HumaLOG 300 UNITS/3 ML VIAL SC PRN (22:28)
[2020-08-27] MEDS ORDERED: Electrolyte Replacement Protoc 1 EACH EACH IVPB SCH (22:28)
--- NOTE | 2020-08-27 22:37 | PDOC.HHP ---
Hospitalist HPI - History of Present Illness Shortness of breath History of Present Illness: 60-year-old morbidly obese -[place] woman with a history of obesity hypoventilation, obstructive sleep apnea, chronic respiratory failure on oxygen by nasal cannula was brought to the emergency department due to respiratory distress. Patient was found by EMS with oxygen saturation in the low 80s. There is also reports patient was wheezing and that she attributes it symptoms to a family member messing with her oxygen. Patient was somnolent during my examination and could not provide any history. Arterial blood gas done in the ED suggested respiratory acidosis with a pH of 7.2 and CO2 retention PCO2 of 73. Patient was placed on BiPAP therapy. She responded with decrease in PCO2 to 65. CTA thorax was negative for PE, no vascular congestion or infiltrate. Her COVID-19 screen today is negative. Patient is admitted for further management of hypercapnic respiratory failure. Hospitalist ROS - Review of Systems ROS unobtainable: due to mental status Hospitalist History - Past Medical History Cardiac: reports: CHF, HTN Psych: reports: Bipolar, Depression, Schizophrenia Endocrine: reports: Diabetes - Past Surgical History Past Surgical History: reports: Appendectomy, Cholecystectomy, Hysterectomy, Tubal Ligation, Other (Orthopedic surgery-Right leg) - Social History Smoking Status: Never smoker Alcohol: reports: None Living Situation: With Family - Exam General - other findings: Somnolent, morbidly obese. Eye: PERRL, anicteric sclera ENT: normocephalic atraumatic, no oropharyngeal lesions, moist mucosa Neck: supple, symmetric, no JVD Heart: RRR, no murmur, no gallops Respiratory: no rales, no ronchi Respiratory - other findings: Diffuse diminished breath sounds, Gastrointestinal: soft, non-tender Gastrointestinal - other findings: Obese abdomen Extremities: no cyanosis, no clubbing, 1+ LE edema (Bilateral) Skin: normal turgor, no lesions Neurological: no focal deficits Neurological - other findings: Somnolent but easily arousable. Musculoskeletal: normal strength, no muscle wasting Psychiatric: somnolent Hospitalist Results - Labs Result Diagrams: 08/27/20 18:35 08/27/20 18:35 Lab results: WBC 11.2 thou/uL (4.8-10.8) H 08/27/20 18:35 Hgb 12.1 g/dL (12.0-16.0) 08/27/20 18:35 Hct 38.9 % (36.0-47.0) 08/27/20 18:35 MCV 100.0 fL (78.0-98.0) H 08/27/20 18:35 Plt Count 232 thou/uL (130-400) 08/27/20 18:35 Neutrophils % 78.0 % (42.0-75.0) H 08/27/20 18:35 ABG pH 7.23 (7.35-7.45) L* 08/27/20 21:15 ABG pCO2 65.5 mmHg (35.0-45.0) H* 08/27/20 21:15 ABG pO2 75.4 mmHg (80.0-100.0) L 08/27/20 21:15 Sodium 137 mmol/L (136-145) 08/27/20 18:35 Potassium 5.6 mmol/L (3.5-5.1) H 08/27/20 18:35 Chloride 97 mmol/L (98-107) L 08/27/20 18:35 Carbon Dioxide 28 mmol/L (22-29) 08/27/20 18:35 BUN 17 mg/dL (9.8-20.1) 08/27/20 18:35 Creatinine 1.90 mg/dL (0.6-1.1) H 08/27/20 18:35 Glucose 170 mg/dL (70-105) H 08/27/20 18:35 Lactic Acid 2.0 mmol/L (0.5-2.2) 08/27/20 21:33 Calcium 8.9 mg/dL (7.8-10.44) 08/27/20 18:35 Total Bilirubin 0.2 mg/dL (0.2-1.2) 08/27/20 18:35 AST 27 U/L (5-34) 08/27/20 18:35 ALT 23 U/L (8-55) 08/27/20 18:35 Alkaline Phosphatase 75 U/L (40-110) 08/27/20 18:35 Creatine Kinase 258 U/L (29-168) H 08/27/20 18:35 Troponin I Less than 0.010 ng/mL (< 0.028) 09/30/20 18:35 B-Natriuretic Peptide 38.3 pg/mL (0-100) 08/27/20 18:35 Serum Total Protein 7.7 g/dL (6.0-8.3) 08/27/20 18:35 Albumin 4.0 g/dL (3.5-5.0) 08/27/20 18:35 Lipase 32 U/L (8-78) 08/27/20 18:35 - Radiology Interpretation CT scan - chest Status: report reviewed by me (No PE. No infiltrate, effusion or vascular congestion.) Hospitalist H&P A/P - Problem (1) Acute on chronic respiratory failure with hypoxia and hypercapnia Code(s): J96.21 - ACUTE AND CHRONIC RESPIRATORY FAILURE WITH HYPOXIA; J96.22 - ACUTE AND CHRONIC RESPIRATORY FAILURE WITH HYPERCAPNIA Status: Acute Assessment and Plan: Secondary to COPD exacerbation and obesity hypoventilation. Admit to ICU. Continue BiPAP therapy Consult to pulmonology Treat with IV Solu-Medrol, scheduled DuoNeb and IV Levaquin. (2) COPD exacerbation Code(s): J44.1 - CHRONIC OBSTRUCTIVE PULMONARY DISEASE W (ACUTE) EXACERBATION Status: Acute Assessment and Plan: Consults to pulmonology Treat with IV Solu-Medrol, scheduled DuoNeb and IV Levaquin. (3) Hyperkalemia Code(s): E87.5 - HYPERKALEMIA Status: Acute Assessment and Plan: Likely related to the respiratory acidosis. Potassium level should improve along with improvement in pH. Check potassium level in 6 hours. Lasix IV. (4) Metabolic encephalopathy Code(s): G93.41 - METABOLIC ENCEPHALOPATHY Status: Acute Assessment and Plan: Secondary to CO2 narcosis. Monitor mental status for improvement with BiPAP. Hopefully patient will respond well to BiPAP so we avoid intubation. (5) SHAWN (acute kidney injury) Code(s): N17.9 - ACUTE KIDNEY FAILURE, UNSPECIFIED Status: Acute Assessment and Plan: Likely secondary to home diuretics-torsemide and Aldactone. Hold Aldactone. Patient was given IV fluid in the ED. We will avoid further IV hydration. Monitor renal function. Lasix as needed. (6) Hypertension Code(s): I10 - ESSENTIAL (PRIMARY) HYPERTENSION Status: Chronic Qualifiers: Hypertension type: essential hypertension Qualified Code(s): I10 - Essential (primary) hypertension Assessment and Plan: Blood pressure elevated to as high as 170/110. We will continue home antihypertensives and use labetalol IV as needed for BP spikes. Target SBP of less than 140. (7) Morbid obesity with BMI of 50.0-59.9, adult Code(s): E66.01 - MORBID (SEVERE) OBESITY DUE TO EXCESS CALORIES; Z68.43 - BODY MASS INDEX (BMI) 50.0-59.9, ADULT Status: Chronic (8) NYA (obstructive sleep apnea) Code(s): G47.33 - OBSTRUCTIVE SLEEP APNEA (ADULT) (PEDIATRIC) Status: Chronic Assessment and Plan: On BiPAP. Will maintain BiPAP overnight. (9) Type 2 diabetes mellitus Status: Chronic Qualifiers: Diabetes mellitus complication status: without complication Qualified Code(s): E11.9 - Type 2 diabetes mellitus without complications Assessment and Plan: We will manage blood sugar with insulin sliding scale. Watch for steroid-induced hyperglycemia.
[2020-08-28] MEDS: methylPREDNISolone Sod Succ 40 MG VIAL IVP SCH ×5 (00:26→21:19)
[2020-08-28 02:03] VITALS: BMI 51.0
[2020-08-28 03:54] LABS: Anion Gap 17 mmol/L (10-20); BUN (Urea Nitrogen) 14 mg/dL (9.8-20.1); Calc. Creatinine Clearance 99 mL/min (70-130); Calcium 9.1 mg/dL (7.8-10.44); Carbon Dioxide 28 mmol/L (22-29); Chloride 99 mmol/L (98-107); Estimated GFR-MDRD 46; Glucose 136 mg/dL (70-105); Potassium 5.6 mmol/L (3.5-5.1); Sodium 138 mmol/L (136-145)
[2020-08-28 04:34] LABS: Band 7 % (5-11); Hemoglobin 12.7 g/dL (12.0-16.0); Lymphocytes 8 % (21-51); MDiff Complete? YES; Mean Corpuscular Hemoglobin 29.9 pg (27.0-31.0); Mean Corpuscular Volume 99.6 fL (78.0-98.0); Mean Platelet Volume 7.4 fL (7.4-10.4); Monocytes 3 % (0-10); Neutrophil 82 % (42-75); Platelet Count 176 thou/uL (130-400); RBC Distribution Width 12.7 % (11.5-14.5); RBC Morphology Normal; Red Blood Cell (RBC) Count 4.26 mill/uL (4.20-5.40)
[2020-08-28] MEDS ORDERED: Dextrose 50% Abboject 50 ML SYRINGE SLOW IVP STA (07:09)
[2020-08-28] MEDS ORDERED: Insulin Regular 300 UNITS/3 ML VIAL IVP SCH (07:09)
[2020-08-28 08:22] LABS: Glucose 135 mg/dL (70-105)
[2020-08-28] MEDS ORDERED: Non-Formulary Item 1 EACH (Hydralazine Hcl [Hydralazine Hcl] 100 MG Tablet) PO SCH (09:00)
[2020-08-28] MEDS ORDERED: Gabapentin 100 MG CAP PO SCH (09:00)
[2020-08-28] MEDS ORDERED: Non-Formulary Item 1 EACH (Spironolactone [Spironolactone] 50 MG Tablet) PO SCH (09:00)
[2020-08-28] MEDS ORDERED: Non-Formulary Item 1 EACH (Lisinopril [Lisinopril] 40 MG Tablet) PO SCH (09:00)
[2020-08-28] MEDS ORDERED: Non-Formulary Item 1 EACH (Nifedipine [Nifedipine Er] 60 MG Tablet.Er) PO SCH (09:00)
[2020-08-28] MEDS ORDERED: busPIRone HCl 10 MG TAB PO SCH (09:00)
[2020-08-28] MEDS ORDERED: GABAPENTIN PO SCH (09:00)
[2020-08-28] MEDS: Metoprolol Tartrate 50 MG TAB PO SCH ×2 (09:37→21:24)
[2020-08-28] MEDS: Lisinopril 20 MG TAB PO SCH (09:37)
[2020-08-28] MEDS: NIFEdipine XL 60 MG TAB PO SCH ×2 (09:37→21:23)
[2020-08-28] MEDS: FLUoxetine HCl 20 MG CAP PO SCH (09:37)
[2020-08-28] MEDS: hydrALAZINE 25 MG TAB PO SCH ×3 (09:38→21:25)
[2020-08-28] MEDS: Spironolactone 25 MG TAB PO SCH (09:38)
[2020-08-28] MEDS: Aspirin Chewable 81 MG TAB PO SCH (09:38)
[2020-08-28] MEDS: busPIRone HCl 5 MG TAB PO SCH ×4 (09:38→21:21)
[2020-08-28 12:09] LABS: Potassium 5.4 mmol/L (3.5-5.1)
[2020-08-28 12:10] LABS: Glucose 127 mg/dL (70-105)
--- NOTE | 2020-08-28 14:43 | PDOC.HOSPP ---
- Subjective Encounter Date: 08/28/20 Encounter Time: 08:00 Subjective: no overnight evnets. this morning, feeling and breathing better on Bipap 12/06 95%. Has no complaints. - Objective Vital Signs & Weight: Vital Signs (12 hours) Temp Pulse Resp Pulse Ox 08/28/20 13:45 93 26 H 100 08/28/20 11:10 98.0 F 08/28/20 09:38 82 08/28/20 09:37 82 08/28/20 07:55 96.8 F L 08/28/20 07:53 82 19 100 08/28/20 03:00 96.7 F L Weight Weight 325 lb 11.2 oz Most Recent Monitor Data Heart Rate from ECG 94 NIBP 126/81 NIBP BP-Mean 96 Respiration from ECG 33 SpO2 100 I&O: 08/27/20 08/28/20 08/29/20 06:59 06:59 06:59 Intake Total 262 Output Total 800 600 Balance -538 -600 Result Diagrams: 08/28/20 03:18 08/28/20 11:46 Additional Labs: Accuchecks 08/28/20 05:44 POC Glucose 137 H Hospitalist ROS - Review of Systems Constitutional: denies: chills, sweats Respiratory: reports: cough. denies: shortness of breath, pleuritic pain, sputum Cardiovascular: reports: edema. denies: chest pain, palpitations, orthopnea Gastrointestinal: denies: nausea, vomiting, abdominal pain, diarrhea Genitourinary: denies: dysuria, hematuria - Medication Medications: Active Medications Generic Name Dose Route Start Last Admin Trade Name Bonillaq PRN Reason Stop Dose Admin Albuterol/Ipratropium 3 ml 08/28/20 01:00 08/28/20 13:45 Ipratropium/Albuterol Sulfate 3 Ml Neb NEB 3 ml [id number] ALLAN Administration Aspirin 81 mg 08/28/20 09:00 08/28/20 09:38 Aspirin Chewable 81 Mg Tab PO 81 mg DAILY ALLAN Administration Buspirone HCl 5 mg 08/28/20 09:00 08/28/20 09:38 Buspirone Hcl 5 Mg Tab PO 5 mg QID ALLAN Administration Fluoxetine HCl 40 mg 08/28/20 09:00 08/28/20 09:37 Fluoxetine Hcl 20 Mg Cap PO 40 mg DAILY ALLAN Administration Hydralazine HCl 100 mg 08/28/20 09:00 08/28/20 09:38 Hydralazine 25 Mg Tab PO 100 mg TID ALLAN Administration Levofloxacin 500 mg/ Device 100 mls @ 100 mls/hr 08/27/20 22:30 08/28/20 00:03 IVPB Not Given Q24HR ALLAN Lisinopril 40 mg 08/28/20 09:00 08/28/20 09:37 Lisinopril 20 Mg Tab PO 40 mg DAILY ALLAN Administration Methylprednisolone Sodium Succinate 40 mg 08/27/20 23:59 08/28/20 13:05 Methylprednisolone Sod Succ 40 Mg Vial IVP 40 mg Q6HR ALLAN Administration Metoprolol Tartrate 50 mg 08/28/20 09:00 08/28/20 09:37 Metoprolol Tartrate 50 Mg Tab PO 50 mg BID ALLAN Administration Nifedipine 60 mg 08/28/20 09:00 08/28/20 09:37 Nifedipine Xl 60 Mg Tab PO 60 mg BID ALLAN Administration Sodium Chloride 10 ml 08/28/20 09:00 08/28/20 10:36 Flush - Normal Saline 10 Ml Syringe IVF Not Given Q12HR ALLAN Spironolactone 50 mg 08/28/20 09:00 08/28/20 09:38 Spironolactone 25 Mg Tab PO 50 mg DAILY ALLAN Administration - Exam General Appearance: NAD, awake alert General - other findings: morbidly obese Neck: no JVD Heart: RRR, no murmur, no gallops, no rubs Respiratory: no wheezes, no rales, no ronchi Respiratory - other findings: moderately reduced breath sounds throughout Extremities: 1+ LE edema Extremities - other findings: pretibial, pitting, b/l, equal Psychiatric: normal affect, normal behavior, A&O x 3 Hosp A/P - Plan (1) Acute on chronic respiratory failure with hypoxia and hypercapnia COPD exacerbation pHTN group 3 Code(s): J96.21 - ACUTE AND CHRONIC RESPIRATORY FAILURE WITH HYPOXIA; J96.22 - ACUTE AND CHRONIC RESPIRATORY FAILURE WITH HYPERCAPNIA Status: Acute Assessment and Plan: continue IV Solu-Medrol, DuoNeb PRN and IV Levaquin. procalcitonin wean off Bipap as per PCCM (2) SHAWN (acute kidney injury) Code(s): N17.9 - ACUTE KIDNEY FAILURE, UNSPECIFIED Status: Acute Assessment and Plan: significantly improved restart home antiHTN continue to monitor (3) Hypertension Code(s): I10 - ESSENTIAL (PRIMARY) HYPERTENSION Status: Chronic Qualifiers: Hypertension type: essential hypertension Qualified Code(s): I10 - Essential (primary) hypertension Assessment and Plan: resume home medications; goal <130/80 (4) Morbid obesity with BMI of 50.0-59.9, adult Code(s): E66.01 - MORBID (SEVERE) OBESITY DUE TO EXCESS CALORIES; Z68.43 - BODY MASS INDEX (BMI) 50.0-59.9, ADULT Status: Chronic (5) NYA (obstructive sleep apnea) Code(s): G47.33 - OBSTRUCTIVE SLEEP APNEA (ADULT) (PEDIATRIC) Status: Chronic Assessment and Plan: transition to CPAP overnight if possible as per PCCM (6) Type 2 diabetes mellitus Status: Chronic Qualifiers: Diabetes mellitus complication status: without complication Qualified Code(s): E11.9 - Type 2 diabetes mellitus without complications Assessment and Plan: We will manage blood sugar with insulin sliding scale. Watch for steroid-induced hyperglycemia.
[2020-08-28] MEDS ORDERED: Furosemide 40 MG/4 ML VIAL SLOW IVP SCH (14:45)
[2020-08-28] MEDS: Gabapentin 300 MG CAP PO SCH ×2 (15:23→21:22)
[2020-08-28] MEDS ORDERED: Labetalol HCl 100 MG/20 ML VIAL SLOW IVP PRN (18:21)
[2020-08-28] MEDS ORDERED: Labetalol HCl 100 MG/20 ML VIAL SLOW IVP SCH (18:30)
[2020-08-28] MEDS ORDERED: Non-Formulary Item 1 EACH (Doxepin Hcl [Doxepin Hcl] 100 MG Capsule) PO SCH (21:00)
[2020-08-28] MEDS ORDERED: FLU VACC QS2020-21(6MOS UP)/PF 60 MCG/0.5 ML SYRINGE IM ONE (21:00)
[2020-08-28] MEDS: Doxepin HCl 25 MG CAP PO SCH (21:21)
--- NOTE | 2020-08-29 02:49 | CON ---
DATE OF CONSULTATION: 08/28/2020 HISTORY OF PRESENT ILLNESS: Queen Ben is a 60-year-old female. She is morbidly obese. She tells me she has sleep apnea. She says she does not wear CPAP or BiPAP at home. She is 5 feet 7 inches, 325 pounds with BMI 51. She presented with complaints of shortness of breath. CT pulmonary angiogram was done, which was poor quality. She did not have any pulmonary infiltrates. She did have bibasilar atelectasis consistent with being in supine position with her weight. She reportedly had COVID 2 weeks ago, but COVID screen here was negative. She cannot tell me who her doctor is. She does not know if she has ever seen a pulmonary doctor. PAST MEDICAL HISTORY: Remarkable for: 1. Schizophrenia, bipolar illness. 2. History of hypertension. 3. History of cardiomyopathy. 4. History of diabetes. 5. History of an appendectomy. 6. History of cholecystectomy. 7. History of hysterectomy. 8. History of surgery in the right lower extremity. SOCIAL HISTORY: She is a nonsmoker nondrinker. REVIEW OF SYSTEMS: Ten points otherwise negative. PHYSICAL EXAMINATION: VITAL SIGNS: She is afebrile, heart rate is 93, blood pressure 200/97 167/116, respiratory rates in the 20s. GENERAL: She says she feels better than she felt yesterday. HEAD AND NECK: Unremarkable. LUNGS: Remarkable for distant breath sounds. HEART: Regular rhythm. No S3. Distant S1 and S2. ABDOMEN: Soft and nontender. EXTREMITIES: Without clubbing, cyanosis, or asymmetry. LABORATORY DATA: White count 10, hemoglobin 12.7, platelets 176. Sodium 138, potassium 5.6, chloride 99, bicarb 28, BUN 14, and creatinine 1.42. IMPRESSION: 1. Life-threatening obesity. 2. Obesity hypoventilation syndrome with noncompliance with CPAP reportedly at home. 3. Uncontrolled hypertension, which likely is a number one culprit with her complaints of shortness of breath other than deconditioning and obesity. Goal needs to be control her blood pressure, continue with BiPAP at night. I am not optimistic that she will wear CPAP at home. We will continue with supportive care, but is really nothing to be done other than to try to get her blood pressure under control and continue with noninvasive ventilatory support, which she feels symptomatic. This is a 50 min visit with greater than 50% of the time spent on the unit with coordination of care. Job ID: [id number] [email or web address]
[2020-08-29] MEDS: methylPREDNISolone Sod Succ 40 MG VIAL IVP SCH (05:46)
[2020-08-29 07:27] LABS: Anion Gap 14 mmol/L (10-20); BUN (Urea Nitrogen) 22 mg/dL (9.8-20.1); Calc. Creatinine Clearance 123 mL/min (70-130); Calcium 9.2 mg/dL (7.8-10.44); Carbon Dioxide 32 mmol/L (22-29); Chloride 98 mmol/L (98-107); Estimated GFR-MDRD 58; Glucose 151 mg/dL (70-105); Potassium 4.5 mmol/L (3.5-5.1); Sodium 139 mmol/L (136-145)
[2020-08-29 08:00] LABS: Band 3 % (5-11); Hemoglobin 11.9 g/dL (12.0-16.0); Lymphocytes 4 % (21-51); MDiff Complete? YES; Mean Corpuscular HGB CONC 31.9 g/dL (32.0-36.0); Mean Corpuscular Hemoglobin 31.1 pg (27.0-31.0); Mean Corpuscular Volume 97.6 fL (78.0-98.0); Mean Platelet Volume 7.4 fL (7.4-10.4); Monocytes 2 % (0-10); Neutrophil 91 % (42-75); Platelet Count 231 thou/uL (130-400); Platelet Morphology Comment Appears Adequate; RBC Distribution Width 12.7 % (11.5-14.5); RBC Morphology Normal; Red Blood Cell (RBC) Count 3.84 mill/uL (4.20-5.40); White Blood Cell (WBC) Count 16.7 thou/uL (4.8-10.8)
--- NOTE | 2020-08-29 08:05 | PRG ---
DATE OF SERVICE: 08/29/2020 SUBJECTIVE: Ms. Contreras did well overnight. She wore BiPAP. OBJECTIVE: VITAL SIGNS: Her blood pressure was 151/95, heart rate was 89, respiratory rate was 20. LUNGS: Clear. HEART: Regular rhythm. ABDOMEN: Soft. She denies shortness of breath. She still wear BiPAP on when evaluated this morning. IMPRESSION AND PLAN: 1. Life-threatening obesity. 2. Obesity hypoventilation. 3. Noncompliance with home CPAP. 4. History of schizophrenia, bipolar illness. 5. History of hypertension and cardiomyopathy. 6. Diabetes. I suspect uncontrolled hypertension is a big culprit, which led up to her admission. Her blood pressure is better. We will continue supportive care. Job ID: [id number]
[2020-08-29] MEDS: hydrALAZINE 25 MG TAB PO SCH ×3 (09:47→20:55)
[2020-08-29] MEDS: NIFEdipine XL 60 MG TAB PO SCH ×2 (09:50→20:55)
[2020-08-29] MEDS: Gabapentin 300 MG CAP PO SCH ×3 (09:50→20:55)
[2020-08-29] MEDS: Metoprolol Tartrate 50 MG TAB PO SCH ×2 (09:50→20:55)
[2020-08-29] MEDS: FLUoxetine HCl 20 MG CAP PO SCH (09:50)
[2020-08-29] MEDS: busPIRone HCl 5 MG TAB PO SCH ×4 (09:50→20:55)
[2020-08-29] MEDS: Aspirin Chewable 81 MG TAB PO SCH (09:51)
--- NOTE | 2020-08-29 12:20 | PDOC.HOSPP ---
- Subjective Encounter Date: 08/29/20 Encounter Time: 08:00 Subjective: no overnight events. this morning, feeling well and has no complaints. Says she is at baseline breathing. - Objective Vital Signs & Weight: Vital Signs (12 hours) Temp Pulse BP Pulse Ox 08/29/20 11:50 98.3 F 08/29/20 09:50 86 160/116 H 08/29/20 09:47 86 160/116 H 08/29/20 08:00 99 08/29/20 07:21 96.6 F L 08/29/20 04:03 100 08/29/20 03:52 97.4 F L Weight Weight 325 lb 9.6 oz Most Recent Monitor Data Heart Rate from ECG 99 NIBP 125/108 NIBP BP-Mean 113 Respiration from ECG 25 SpO2 100 I&O: 08/28/20 08/29/20 08/30/20 06:59 06:59 06:59 Intake Total 262 2321 Output Total 800 1850 Balance -538 471 Result Diagrams: 08/29/20 06:59 08/29/20 06:59 Additional Labs: Accuchecks 08/29/20 08/29/20 08/28/20 10:41 05:50 20:28 POC Glucose 157 H 146 H 213 H 08/28/20 16:22 POC Glucose 117 H Hospitalist ROS - Review of Systems Constitutional: denies: chills, sweats Respiratory: denies: cough, shortness of breath, pleuritic pain Cardiovascular: denies: chest pain, palpitations, orthopnea Gastrointestinal: denies: nausea, vomiting, abdominal pain Genitourinary: denies: dysuria, hematuria - Medication Medications: Active Medications Generic Name Dose Route Start Last Admin Trade Name Freq PRN Reason Stop Dose Admin Aspirin 81 mg 08/28/20 09:00 08/29/20 09:51 Aspirin Chewable 81 Mg Tab PO 81 mg DAILY ALLAN Administration Buspirone HCl 5 mg 08/28/20 09:00 08/29/20 09:50 Buspirone Hcl 5 Mg Tab PO 5 mg QID ALLAN Administration Doxepin HCl 50 mg 08/28/20 21:00 08/28/20 21:21 Doxepin Hcl 25 Mg Cap PO 50 mg HS ALLAN Administration Fluoxetine HCl 40 mg 08/28/20 09:00 08/29/20 09:50 Fluoxetine Hcl 20 Mg Cap PO 40 mg DAILY ALLAN Administration Gabapentin 300 mg 08/28/20 15:00 08/29/20 09:50 Gabapentin 300 Mg Cap PO 300 mg TID ALLAN Administration Hydralazine HCl 100 mg 08/28/20 09:00 08/29/20 09:47 Hydralazine 25 Mg Tab PO 100 mg TID ALLAN Administration Lisinopril 40 mg 08/28/20 09:00 08/28/20 09:37 Lisinopril 20 Mg Tab PO 40 mg DAILY ALLAN Administration Metoprolol Tartrate 50 mg 08/28/20 09:00 08/29/20 09:50 Metoprolol Tartrate 50 Mg Tab PO 50 mg BID ALLAN Administration Nifedipine 60 mg 08/28/20 09:00 08/29/20 09:50 Nifedipine Xl 60 Mg Tab PO 60 mg BID ALLAN Administration Quetiapine Fumarate 400 mg 08/28/20 21:00 08/28/20 21:20 Quetiapine Fumarate 200 Mg Tab PO 400 mg HS ALLAN Administration Sodium Chloride 10 ml 08/28/20 09:00 08/29/20 09:51 Flush - Normal Saline 10 Ml Syringe IVF 10 ml Q12HR ALLAN Administration Spironolactone 50 mg 08/28/20 09:00 08/28/20 09:38 Spironolactone 25 Mg Tab PO 50 mg DAILY ALLAN Administration - Exam General Appearance: NAD, awake alert General - other findings: morbidly obese ENT: normocephalic atraumatic, moist mucosa Neck: no JVD Heart: RRR, no murmur, no gallops, no rubs Respiratory: no wheezes, no rales, no ronchi Respiratory - other findings: diffusely reduced breath sounds Gastrointestinal: soft, non-tender, non-distended, normal bowel sounds Extremities - other findings: b/l equal pitting edema Psychiatric: normal affect, normal behavior, A&O x 3 Hosp A/P - Plan (1) Chronic respiratory failure with hypoxia and hypercapnia (resov pHTN group 3 OHS/NYA Code(s): J96.21 - ACUTE AND CHRONIC RESPIRATORY FAILURE WITH HYPOXIA; J96.22 - ACUTE AND CHRONIC RESPIRATORY FAILURE WITH HYPERCAPNIA Status: Acute Assessment and Plan: procalcitonin low; stopped ABx, lower steroids CPAP qHS; per patient has CPAP machine at home however adherence questionable; educated patient regarding importance of adherence (2) SHAWN (acute kidney injury) Code(s): N17.9 - ACUTE KIDNEY FAILURE, UNSPECIFIED Status: Acute Assessment and Plan: resolved; resumed nephrotoxic antiHTN meds (3) Hypertension Code(s): I10 - ESSENTIAL (PRIMARY) HYPERTENSION Status: Chronic Qualifiers: Hypertension type: essential hypertension Qualified Code(s): I10 - Essential (primary) hypertension Assessment and Plan: resume home medications; goal <130/80 (4) Morbid obesity with BMI of 50.0-59.9, adult Code(s): E66.01 - MORBID (SEVERE) OBESITY DUE TO EXCESS CALORIES; Z68.43 - BODY MASS INDEX (BMI) 50.0-59.9, ADULT Status: Chronic (5) Type 2 diabetes mellitus Status: Chronic Qualifiers: Diabetes mellitus complication status: without complication Qualified Code(s): E11.9 - Type 2 diabetes mellitus without complications Assessment and Plan: We will manage blood sugar with insulin sliding scale. Watch for steroid-induced hyperglycemia ELOS: 1-2 nights
[2020-08-29] MEDS: Albuterol Sulfate 2.5 mg/3 ml Neb NEB SCH (20:04)
[2020-08-29] MEDS: Doxepin HCl 25 MG CAP PO SCH (20:55)
[2020-08-29 23:36] LABS: Glucose 99 mg/dL (70-105)
[2020-08-30 06:05] LABS: #Basophils 0.1 thou/uL (0.0-0.2); #Eosinphils 0.1 thou/uL (0.0-0.7); #Lymphocytes 3.3 thou/uL (1.20-3.40); %Basophils 0.7 % (0.0-1.0); %Eosinophils 0.9 % (0.0-10.0); %Lymphocytes 24.1 % (21.0-51.0); %Monocytes 7.5 % (0.0-10.0); %Neutrophils 66.8 % (42.0-75.0); Mean Corpuscular HGB CONC 30.7 g/dL (32.0-36.0); Mean Corpuscular Hemoglobin 30.3 pg (27.0-31.0); Mean Corpuscular Volume 98.6 fL (78.0-98.0); Mean Platelet Volume 6.9 fL (7.4-10.4); Platelet Count 232 thou/uL (130-400); RBC Distribution Width 12.8 % (11.5-14.5); Red Blood Cell (RBC) Count 3.97 mill/uL (4.20-5.40); White Blood Cell (WBC) Count 13.5 thou/uL (4.8-10.8)
[2020-08-30 06:18] LABS: Hemoglobin 11.9 g/dL (12.0-16.0); Lymphocytes 18 % (21-51); MDiff Complete? YES; Mean Corpuscular HGB CONC 30.8 g/dL (32.0-36.0); Mean Corpuscular Hemoglobin 30.3 pg (27.0-31.0); Mean Corpuscular Volume 98.2 fL (78.0-98.0); Monocytes 6 % (0-10); Neutrophil 76 % (42-75); Platelet Count 227 thou/uL (130-400); Platelet Morphology Comment Appears Adequate; RBC Distribution Width 12.8 % (11.5-14.5); RBC Morphology Normal; Red Blood Cell (RBC) Count 3.95 mill/uL (4.20-5.40); White Blood Cell (WBC) Count 14.1 thou/uL (4.8-10.8)
[2020-08-30 06:23] LABS: Anion Gap 14 mmol/L (10-20); BUN (Urea Nitrogen) 25 mg/dL (9.8-20.1); Calc. Creatinine Clearance 140 mL/min (70-130); Carbon Dioxide 31 mmol/L (22-29); Chloride 100 mmol/L (98-107); Estimated GFR-MDRD 69; Glucose 112 mg/dL (70-105); Magnesium 2.3 mg/dL (1.6-2.6); Sodium 141 mmol/L (136-145)
[2020-08-30] MEDS: Albuterol Sulfate 2.5 mg/3 ml Neb NEB SCH ×4 (06:43→20:49)
[2020-08-30] MEDS ORDERED: Furosemide 40 MG TAB PO SCH ×3 (09:00→09:45)
[2020-08-30] MEDS: Lisinopril 20 MG TAB PO SCH (09:11)
[2020-08-30] MEDS: FLUoxetine HCl 20 MG CAP PO SCH (09:12)
[2020-08-30] MEDS: hydrALAZINE 25 MG TAB PO SCH ×3 (09:12→20:27)
[2020-08-30] MEDS: Aspirin Chewable 81 MG TAB PO SCH (09:12)
[2020-08-30] MEDS: Spironolactone 25 MG TAB PO SCH (09:13)
[2020-08-30] MEDS: NIFEdipine XL 60 MG TAB PO SCH (09:13)
[2020-08-30] MEDS: Metoprolol Tartrate 50 MG TAB PO SCH (09:13)
[2020-08-30] MEDS: Gabapentin 300 MG CAP PO SCH ×3 (09:13→20:27)
[2020-08-30] MEDS: busPIRone HCl 5 MG TAB PO SCH ×4 (09:13→20:27)
[2020-08-30] MEDS ORDERED: hydrALAZINE 25 MG TAB PO SCH ×2 (09:26→09:45)
[2020-08-30] MEDS ORDERED: Lisinopril 20 MG TAB PO SCH ×2 (09:26→09:45)
[2020-08-30] MEDS ORDERED: Metoprolol Tartrate 50 MG TAB PO SCH (09:26)
[2020-08-30] MEDS: predniSONE 50 MG TAB PO SCH (09:27)
[2020-08-30] MEDS ORDERED: Metoprolol Tartrate 25 MG TAB PO SCH (09:45)
--- NOTE | 2020-08-30 11:47 | PRG ---
DATE OF SERVICE: 08/30/2020 SUBJECTIVE: The patient was not in the room when I made rounds this morning, could not find where she was. PHYSICAL EXAMINATION: Her data shows a temperature of 98.9, pulse rate 87, respirations are 16, O2 sat 95%, and blood pressure 138/79. Exam cannot be performed as patient was not in the room. LABORATORY DATA: Labs were reviewed and looks stable. ASSESSMENT: Obesity hypoventilation. PLAN: At some point in the future, she will need a sleep study if that has not been done. Her records indicate that she is noncompliant with CPAP at home. Unfortunately, unless she agrees to wear, there is not much we can do. Available as needed. Job ID: [id number]
--- NOTE | 2020-08-30 15:26 | PDOC.HOSPP ---
- Subjective Encounter Date: 08/30/20 Encounter Time: 11:00 Subjective: Patient is sitting in the bed. She feels better. Her blood pressure is on the low side. She is afebrile and satting 98% with a 2 L oxygen - Objective Vital Signs & Weight: Vital Signs (12 hours) Temp Pulse Resp BP BP Pulse Ox 08/30/20 14:27 89 20 98 08/30/20 11:52 98.5 F 75 16 142/75 H 97 08/30/20 09:13 95 08/30/20 08:16 98.1 F 87 16 138/79 95 08/30/20 06:43 82 98 08/30/20 04:00 97.7 F 88 20 123/72 96 Weight Weight 320 lb 9 oz Most Recent Monitor Data Heart Rate from ECG 99 NIBP 125/108 NIBP BP-Mean 113 Respiration from ECG 25 SpO2 100 I&O: 08/29/20 08/30/20 08/31/20 06:59 06:59 06:59 Intake Total 2321 770 Output Total 1850 Balance 471 770 Result Diagrams: 08/30/20 05:59 08/30/20 05:59 Additional Labs: Accuchecks 08/30/20 08/30/20 08/29/20 12:00 05:38 16:18 POC Glucose 112 H 111 H 101 H Hospitalist ROS - Medication Medications: Active Medications Generic Name Dose Route Start Last Admin Trade Name Freq PRN Reason Stop Dose Admin Albuterol Sulfate 2.5 mg 08/29/20 19:00 08/30/20 14:27 Albuterol Sulfate 2.5 Mg/3 Ml Neb NEB 2.5 mg QID-RT ALLAN Administration Aspirin 81 mg 08/28/20 09:00 08/30/20 09:12 Aspirin Chewable 81 Mg Tab PO 81 mg DAILY ALLAN Administration Buspirone HCl 5 mg 08/28/20 09:00 08/30/20 12:52 Buspirone Hcl 5 Mg Tab PO 5 mg QID ALLAN Administration Doxepin HCl 50 mg 08/28/20 21:00 08/29/20 20:55 Doxepin Hcl 25 Mg Cap PO 50 mg HS ALLAN Administration Fluoxetine HCl 40 mg 08/28/20 09:00 08/30/20 09:12 Fluoxetine Hcl 20 Mg Cap PO 40 mg DAILY ALLAN Administration Gabapentin 300 mg 08/28/20 15:00 08/30/20 15:16 Gabapentin 300 Mg Cap PO 300 mg TID ALLAN Administration Hydralazine HCl 50 mg 08/30/20 15:00 08/30/20 15:16 Hydralazine 25 Mg Tab PO 50 mg TID ALLAN Administration Prednisone 50 mg 08/30/20 08:00 08/30/20 09:27 Prednisone 50 Mg Tab PO 50 mg QAM-WM ALLAN Administration Quetiapine Fumarate 400 mg 08/28/20 21:00 08/29/20 20:56 Quetiapine Fumarate 200 Mg Tab PO 400 mg HS ALLAN Administration Sodium Chloride 10 ml 08/28/20 09:00 08/30/20 09:14 Flush - Normal Saline 10 Ml Syringe IVF 10 ml Q12HR ALLAN Administration Spironolactone 50 mg 08/28/20 09:00 08/30/20 09:13 Spironolactone 25 Mg Tab PO 50 mg DAILY ALLAN Administration - Exam General Appearance: NAD, awake alert Eye: PERRL ENT: normocephalic atraumatic Neck: supple Heart: RRR, normal peripheral pulses Respiratory: CTAB, normal chest expansion Gastrointestinal: soft, normal bowel sounds Neurological: no weakness Psychiatric: A&O x 3 Hosp A/P - Plan (1) Chronic respiratory failure with hypoxia and hypercapnia (resov pHTN group 3 OHS/NYA Code(s): J96.21 - ACUTE AND CHRONIC RESPIRATORY FAILURE WITH HYPOXIA; J96.22 - ACUTE AND CHRONIC RESPIRATORY FAILURE WITH HYPERCAPNIA Status: Acute Assessment and Plan: procalcitonin low; stopped ABx, lower steroids CPAP qHS; per patient has CPAP machine at home however adherence questionable; educated patient regarding importance of adherence (2) SHAWN (acute kidney injury) Code(s): N17.9 - ACUTE KIDNEY FAILURE, UNSPECIFIED Status: Acute Assessment and Plan: resolved; resumed nephrotoxic antiHTN meds (3) Hypertension Code(s): I10 - ESSENTIAL (PRIMARY) HYPERTENSION Status: Chronic Qualifiers: Hypertension type: essential hypertension Qualified Code(s): I10 - E ssential (primary) hypertension Assessment and Plan: resume home medications; goal <130/80 (4) Morbid obesity with BMI of 50.0-59.9, adult Code(s): E66.01 - MORBID (SEVERE) OBESITY DUE TO EXCESS CALORIES; Z68.43 - BODY MASS INDEX (BMI) 50.0-59.9, ADULT Status: Chronic (5) Type 2 diabetes mellitus --Blood sugar in the acceptable range. Her white count is elevated probably due to COPD exacerbation and/or ongoing prednisone use. Probable discharge tomorrow. Patient does have a home oxygen nebulizer as well as CPAP.
[2020-08-30 17:24] LABS: Glucose 183 mg/dL (70-105)
[2020-08-30] MEDS: Metoprolol Tartrate 25 MG TAB PO SCH (20:26)
[2020-08-30] MEDS: Doxepin HCl 25 MG CAP PO SCH (20:28)
[2020-08-30 21:19] LABS: Glucose 152 mg/dL (70-105)
[2020-08-31] MEDS: Albuterol Sulfate 2.5 mg/3 ml Neb NEB SCH ×2 (06:46→10:10)
[2020-08-31 06:50] LABS: Eosinophils 2 % (0-10); Hemoglobin 12.1 g/dL (12.0-16.0); Lymphocytes 25 % (21-51); MDiff Complete? YES; Mean Corpuscular HGB CONC 31.7 g/dL (32.0-36.0); Mean Corpuscular Hemoglobin 31.1 pg (27.0-31.0); Mean Corpuscular Volume 98.1 fL (78.0-98.0); Mean Platelet Volume 7.1 fL (7.4-10.4); Monocytes 12 % (0-10); Neutrophil 61 % (42-75); Platelet Count 216 thou/uL (130-400); Platelet Morphology Comment Appears Adequate; RBC Distribution Width 12.6 % (11.5-14.5); RBC Morphology Normal; Red Blood Cell (RBC) Count 3.89 mill/uL (4.20-5.40); White Blood Cell (WBC) Count 12.2 thou/uL (4.8-10.8)
[2020-08-31 06:55] LABS: Anion Gap 15 mmol/L (10-20); BUN (Urea Nitrogen) 23 mg/dL (9.8-20.1); Calc. Creatinine Clearance 152 mL/min (70-130); Calcium 9.3 mg/dL (7.8-10.44); Carbon Dioxide 33 mmol/L (22-29); Chloride 99 mmol/L (98-107); Estimated GFR-MDRD 77; Glucose 97 mg/dL (70-105); Potassium 3.9 mmol/L (3.5-5.1); Sodium 143 mmol/L (136-145)
[2020-08-31] MEDS ORDERED: NIFEdipine XL 60 MG TAB PO SCH (09:00)
[2020-08-31] MEDS ORDERED: Lisinopril 20 MG TAB PO SCH (09:00)
[2020-08-31] MEDS ORDERED: Furosemide 40 MG TAB PO SCH (09:00)
[2020-08-31] MEDS: Aspirin Chewable 81 MG TAB PO SCH (09:28)
[2020-08-31] MEDS: FLUoxetine HCl 20 MG CAP PO SCH (09:29)
[2020-08-31] MEDS: Spironolactone 25 MG TAB PO SCH (09:30)
[2020-08-31] MEDS: Metoprolol Tartrate 25 MG TAB PO SCH (09:30)
[2020-08-31] MEDS: Gabapentin 300 MG CAP PO SCH (09:30)
[2020-08-31] MEDS: hydrALAZINE 25 MG TAB PO SCH (09:30)
[2020-08-31] MEDS: predniSONE 50 MG TAB PO SCH (09:30)
[2020-08-31] MEDS: busPIRone HCl 5 MG TAB PO SCH (09:30)
[2020-08-31 11:27] VITALS: BP 142/89; TEMP 98.4
--- NOTE | 2020-08-31 15:53 | DIS ---
DATE OF ADMISSION: 08/27/2020 DATE OF DISCHARGE: 08/31/2020 DISCHARGE DIAGNOSES: 1. Chronic respiratory failure with hypoxia and hypercapnia. 2. Acute kidney injury that was resolved. 3. Hypertension. 4. Morbid obesity with BMI of 50. 5. Type 2 diabetes mellitus. DISCHARGE MEDICATIONS: She will be continuing her previous home medications. There is no change, except prednisone 50 mg daily was added for 5-day duration. PHYSICAL EXAMINATION: VITAL SIGNS: On the day of discharge, her temperature is 98.4, pulse 92, blood pressure is 142/89, and saturating 94% with 2 L oxygen. CARDIOVASCULAR: Regular rate and rhythm without murmurs. LUNGS: Clear. ABDOMINAL EXAM: Benign. HOSPITAL COURSE: A 60-year-old female with a history of obesity hypoventilation syndrome with noncompliance with CPAP, presented with acute hypoxic failure with symptoms of shortness of breath. Placed on BiPAP and she was improved clinically. CT angiogram negative for PE and COVID is negative. She was managed with steroid and over the course of the stay, she improved. She has a home oxygen nebulizer as well as CPAP. Counseling has been done on adherence to wearing the CPAP at night. She expressed her understanding. She is clinically sound enough to be discharged home today. DISCHARGE INSTRUCTIONS: Activity as tolerated. Regular diet. Follow up with primary care physician in 1 week. Discharge time took over 35 minutes. Job ID: [id number] MTDD
--- NOTE | 2020-09-03 16:55 | EKG ---
Test Reason : Blood Pressure : / mmHG Vent. Rate : 080 BPM Atrial Rate : 080 BPM P-R Int : 152 ms QRS Dur : 096 ms QT Int : 410 ms P-R-T Axes : 047 023 036 degrees QTc Int : 472 ms Normal sinus rhythm Possible Left atrial enlargement Borderline ECG Confirmed by ALFIE GARZA, SARAH ([id number]), editor school photograph MOHINDER JOHNSON ([id number]) on 09/03/2020 4:53:51 PM Referred By: Confirmed By:SARAH JUDGE MD
== END 2020-08-31 11:35 | disposition home or self-care (01) | DRG 205 ==
LOC: ERS 18:11 → IMCU/EMU 23:56 → T4-A 08-29 12:37
PROVIDERS: ADMIT Internal Medicine; ATTEND Internal Medicine
PROC: 5A09357 Assistance with Respiratory Ventilation, Less than 24 Consecutive Hours, Continuous Positive Airway Pressure (ICD-10-PCS; principal; 2020-08-27)
DX: E66.2 Morbid (severe) obesity with alveolar hypoventilation (principal); J96.22 Acute and chronic respiratory failure with hypercapnia; G93.41 Metabolic encephalopathy; J96.21 Acute and chronic respiratory failure with hypoxia; N17.9 Acute kidney failure, unspecified; Z68.43 Body mass index [BMI] 50.0-59.9, adult; J44.1 Chronic obstructive pulmonary disease with (acute) exacerbation; E87.2 Acidosis; I42.9 Cardiomyopathy, unspecified; I27.23 Pulmonary hypertension due to lung diseases and hypoxia; E11.9 Type 2 diabetes mellitus without complications; Z20.828 Contact with and (suspected) exposure to other viral communicable diseases; F31.9 Bipolar disorder, unspecified; F20.9 Schizophrenia, unspecified; I11.0 Hypertensive heart disease with heart failure; I50.9 Heart failure, unspecified; E87.5 Hyperkalemia; Z91.19 Patient's noncompliance with other medical treatment and regimen; Z99.81 Dependence on supplemental oxygen; Z94.9 Transplanted organ and tissue status, unspecified; Z90.710 Acquired absence of both cervix and uterus; Z90.49 Acquired absence of other specified parts of digestive tract; Z98.51 Tubal ligation status; Z79.899 Other long term (current) drug therapy; Z79.82 Long term (current) use of aspirin
CPT/HCPCS: 36415; 36416; 36600; 71275; 80048; 80053; 82550; 82805; 83605; 83690; 83735; 83880; 84145; 84443; 84484; 85007; 85025; 85027; 87040; 87149; 93005; 94640; 94644; 94660; 96365; 96366; 96367; 96375; 99281; J1100; J1815; J1956; J2920; J3475; J7512; J7611; J7620; Q9967; U0002

== ENCOUNTER 2020-09-14 22:04 | Emergency (ER) | payer MEDICARE ==
--- NOTE | 2020-09-14 22:39 | RAD ---
Portable frontal chest radiograph: 09/14/2020 COMPARISON: 07/20/2020 HISTORY: Nausea FINDINGS: There is pulmonary vascular prominence. There is stable interstitial and alveolar opacity i n the perihilar regions and both lung bases, as seen on the 08/27/2020 CT angiogram of the chest. No pneumothorax. IMPRESSION: No significant interval change. Findings in the lung bases may be related to infectious p neumonitis, aspiration, and/or volume loss.
[2020-09-14 22:46] LABS: #Basophils 0.1 thou/uL (0.0-0.2); #Eosinphils 0.3 thou/uL (0.0-0.7); #Lymphocytes 2.4 thou/uL (1.20-3.40); #Monocytes 0.7 thou/uL (0.11-0.59); #Neutrophils 5.3 thou/uL (1.40-6.50); %Basophils 0.9 % (0.0-1.0); %Eosinophils 3.6 % (0.0-10.0); %Lymphocytes 27.6 % (21.0-51.0); %Monocytes 7.5 % (0.0-10.0); %Neutrophils 60.4 % (42.0-75.0); Hemoglobin 11.1 g/dL (12.0-16.0); Mean Corpuscular HGB CONC 30.6 g/dL (32.0-36.0); Mean Corpuscular Hemoglobin 29.3 pg (27.0-31.0); Mean Corpuscular Volume 95.8 fL (78.0-98.0); Mean Platelet Volume 7.5 fL (7.4-10.4); Platelet Count 198 thou/uL (130-400); RBC Distribution Width 12.1 % (11.5-14.5); Red Blood Cell (RBC) Count 3.79 mill/uL (4.20-5.40); White Blood Cell (WBC) Count 8.7 thou/uL (4.8-10.8)
[2020-09-14 23:03] LABS: Bilirubin Negative (Negative); Blood, Urine Negative (Negative); Clarity Clear (Clear); Glucose, Urine (Dipstick) 200 mg/dL (Negative); Ketone, Urine Negative (Negative); Leukocyte Negative Leu/uL (Negative); Nitrite Negative (Negative); Protein, Urine (Dipstick) Negative (Neg-Trace); Specific Gravity, Urine 1.004 (1.002-1.036); Urobilinogen Normal mg/dL (Less than 2)
[2020-09-14 23:05] LABS: ALT (SGPT) 20 U/L (8-55); AST (SGOT) 20 U/L (5-34); Albumin 3.4 g/dL (3.5-5.0); Alkaline Phosphatase 64 U/L (40-110); Anion Gap 14 mmol/L (10-20); BUN (Urea Nitrogen) 16 mg/dL (9.8-20.1); Bilirubin, Total 0.2 mg/dL (0.2-1.2); Calc. Creatinine Clearance 0 mL/min (70-130); Calcium 9.1 mg/dL (7.8-10.44); Carbon Dioxide 29 mmol/L (22-29); Chloride 100 mmol/L (98-107); Estimated GFR-MDRD 81; Globulin 3.4 g/dL (2.4-3.5); Glucose 131 mg/dL (70-105); Potassium 4.9 mmol/L (3.5-5.1); Protein, Total 6.8 g/dL (6.0-8.3); Sodium 138 mmol/L (136-145)
== END 2020-09-15 00:35 | disposition home or self-care (01) ==
LOC: ERS 22:04
DX: R11.0 Nausea (principal); R60.0 Localized edema; I11.0 Hypertensive heart disease with heart failure; I50.9 Heart failure, unspecified; E11.9 Type 2 diabetes mellitus without complications; E66.9 Obesity, unspecified; F31.9 Bipolar disorder, unspecified; F20.9 Schizophrenia, unspecified; Z79.899 Other long term (current) drug therapy; Z79.52 Long term (current) use of systemic steroids
CPT/HCPCS: 36415; 71045; 80053; 81003; 83880; 84484; 85025; 93005

== ENCOUNTER 2020-09-18 11:07 | Inpatient (IN) | payer MEDICARE, OTHER ==
--- NOTE | 2020-09-18 12:01 | RAD ---
EXAM: Single view of the chest HISTORY: Altered mental status COMPARISON: 09/14/2020 FINDINGS: Single view of the chest shows an enlarged cardiomediastinal silhouette. Bilateral lower lo be linear opacities are again seen which may represent atelectasis or infiltrates. No acute osseous abnormality. IMPRESSION: Bilateral lower lobe atelectasis versus infiltrates
[2020-09-18 12:55] LABS: Bilirubin Negative (Negative); Blood, Urine Negative (Negative); Clarity Clear (Clear); Glucose, Urine (Dipstick) Normal (Negative); Ketone, Urine Negative (Negative); Leukocyte Negative Leu/uL (Negative); Nitrite Negative (Negative); Protein, Urine (Dipstick) Negative (Neg-Trace); Urobilinogen Normal mg/dL (Less than 2); pH, Urine 6.5 (5.0-9.0)
[2020-09-18 12:56] LABS: Amphetamine Not Detected (NotDetected); Barbiturates Screen Not Detected (NotDetected); Benzodiazepine Screen Not Detected (NotDetected); Cocaine Metabolite Screen Not Detected (NotDetected); Medtox Reader # READER 1; Methadone Not Detected (NotDetected); Methamphetamine Not Detected (NotDetected); Opiate Screen Not Detected (NotDetected); Oxycodone Screen Not Detected (NotDetected); Phencyclidine (PCP) Not Detected (NotDetected); THC/Cannabinoid Screen Not Detected (NotDetected); Tricyclic Screen Detected (NotDetected)
[2020-09-18 12:57] LABS: Medtox Control Line Valid? VALID (VALID)
[2020-09-18 13:08] LABS: #Eosinphils 0.1 thou/uL (0.0-0.7); #Lymphocytes 0.9 thou/uL (1.20-3.40); #Monocytes 0.6 thou/uL (0.11-0.59); #Neutrophils 8.7 thou/uL (1.40-6.50); %Basophils 0.2 % (0.0-1.0); %Eosinophils 0.7 % (0.0-10.0); %Lymphocytes 9.1 % (21.0-51.0); %Monocytes 5.8 % (0.0-10.0); %Neutrophils 84.2 % (42.0-75.0); Hemoglobin 11.1 g/dL (12.0-16.0); Mean Corpuscular HGB CONC 32.5 g/dL (32.0-36.0); Mean Corpuscular Hemoglobin 31.2 pg (27.0-31.0); Mean Platelet Volume 7.6 fL (7.4-10.4); Platelet Count 182 thou/uL (130-400); RBC Distribution Width 12.2 % (11.5-14.5); Red Blood Cell (RBC) Count 3.56 mill/uL (4.20-5.40); White Blood Cell (WBC) Count 10.3 thou/uL (4.8-10.8)
[2020-09-18 13:18] LABS: Acetaminophen Less than 6.0 mcg/mL (10.0-30.0); Alcohol Less than 10 mg/dL (Less than 10); Salicylate Less than 8.0 mg/dL (15.0-30.0)
[2020-09-18 13:27] LABS: ALT (SGPT) 24 U/L (8-55); AST (SGOT) 29 U/L (5-34); Alkaline Phosphatase 78 U/L (40-110); BUN (Urea Nitrogen) 27 mg/dL (9.8-20.1); Bilirubin, Total 0.4 mg/dL (0.2-1.2); CK (CPK) 1182 U/L (29-168); Calc. Creatinine Clearance 0 mL/min (70-130); Calcium 9.3 mg/dL (7.8-10.44); Estimated GFR-MDRD 59; Globulin 3.3 g/dL (2.4-3.5); Glucose 98 mg/dL (70-105); Lipase 12 U/L (8-78); Protein, Total 7.3 g/dL (6.0-8.3)
[2020-09-18 13:36] LABS: Anion Gap 14 mmol/L (10-20); Carbon Dioxide 36 mmol/L (22-29); Chloride 97 mmol/L (98-107); Potassium 4.4 mmol/L (3.5-5.1); Sodium 143 mmol/L (136-145)
[2020-09-18 13:50] LABS: CKMB 9.2 ng/mL (0-6.6)
--- NOTE | 2020-09-18 16:20 | PDOC.FPRHP ---
- History of Present Illness Chief Complaint: Psych Eval, Elevated CPK History of Present Illness: Pt is a 60 yo female with PMH significant for bipolar, schizoaffective disorder, HFpEF, HTN, pre-DM, Pulm HTN who presents for "not feeling well". She is unable to articulate how she feels but does not feel herself. She endorsed nausea, an episode of non-bloody emesis, lightheadedness, and CELESTE. She did not take her home medications yesterday. She did take some this am when HH stopped by but she is unsure what they were. She states she has decrease water intake in the last 36-48 hours. Denies chest pain, falls, neurological deficits. She uses her walker for ambulation and is not bed bound. On 2 L of oxygen at baseline. ED Course: In the ED pt was started on 250 mls/hr - Allergies/Adverse Reactions Allergies Allergy/AdvReac Type Severity Reaction Status Date / Time cephalexin monohydrate Allergy Intermediate Rash Verified 09/18/20 22:49 [From [employer]ef[employer]] - Home Medications Medication Instructions Recorded Confirmed Type Doxepin HCl 50 mg PO HS 12/22/18 09/18/20 History QUEtiapine Fumarate [SEROquel] 800 mg PO HS 12/22/18 09/18/20 History Aspirin Chewable [Aspirin Chewable 81 mg PO DAILY #90 tab 02/12/19 09/18/20 Rx Tablet] Lisinopril 40 mg PO DAILY #30 tablet 03/28/19 09/18/20 Rx Metoprolol Tartrate [Lopressor] 50 mg PO BID #60 tab 03/28/19 09/18/20 Rx FLUoxetine HCl [Fluoxetine HCl] 40 mg PO DAILY 01/04/20 09/18/20 History busPIRone HCl [Buspirone HCl] 10 mg PO BID 01/04/20 09/18/20 History Albuterol Sulfate [Proventil Hfa] 2 puff INH QID-RT #1 aer 03/27/20 09/18/20 Rx Gabapentin 600 mg PO TID 06/12/20 09/18/20 History Furosemide [Lasix] 40 mg PO DAILY 08/28/20 09/18/20 History hydrALAZINE HCl 100 mg PO TID 08/28/20 09/18/20 History Potassium Chloride 20 meq PO BID 09/18/20 09/18/20 History - History PMHx: Bipolar, schizoaffective d/o, HTN, OA, Pulm HTN, HFpEF PSHx: cholecystectomy, daniel lacement right tibia, hx of tracheostomy FHx: Mother - HTN, breast cacner; Father diabetes Social: denies alcohol, drugs, tobacco, lives alone - Review of Systems General: denies: fever/chills, weight/appetite/sleep changes, night sweats, fatigue Eyes: denies: eye pain, vision changes ENT: denies: nasal congestion, rhinorrhea Respiratory: denies: cough, congestion, shortness of breath Cardiovascular: denies: chest pain, palpitation, edema Gastrointestinal: reports: nausea, vomiting. denies: diarrhea, constipation, abdominal pain, GI bleeding Genitourinary: denies: incontinence, dysuria, polyuria Skin: denies: rashes, itching Musculoskeletal: denies: pain, stiffness, arthritis/arthralgias Neurological: denies: numbness, syncope, seizure, weakness Psychological: reports: other (no auditory or visual hallucinations). denies: anxiety, depression - Vital signs BP: 178/106 HR: 96 RR: 24 Tmax: 98.5 Pox: 99% on 2 L Wt: 141.97 kg - Physical Exam Constitutional: NAD, awake, alert and oriented -Constitutional: obese HEENT: normocephalic and atraumatic, PERRLA, EOMI, conjunctiva clear Neck: supple, FROM, no JVD Heart: RRR, normal S1/S2, no edema Lungs: CTAB, no respiratory distress -Lungs: poor air movement Abdomen: soft, non-tender, bowel sounds present Musculoskeletal: normal structure, normal tone, ROM grossly normal Neurological: no focal deficit, CN II-XII intact, normal sensation Skin: no rash/lesions Heme/Lymphatic: no unusual bruising or bleeding, no purpura, no petechia FMR H&P: Results - Labs Result Diagrams: 09/18/20 12:52 09/18/20 12:52 Lab results: WBC 10.3 thou/uL (4.8-10.8) 09/18/20 12:52 Hgb 11.1 g/dL (12.0-16.0) L 09/18/20 12:52 Hct 34.2 % (36.0-47.0) L 09/18/20 12:52 MCV 96.0 fL (78.0-98.0) 09/18/20 12:52 Plt Count 182 thou/uL (130-400) 09/18/20 12:52 Neutrophils % 84.2 % (42.0-75.0) H 09/18/20 12:52 Sodium 143 mmol/L (136-145) 09/18/20 12:52 Potassium 4.4 mmol/L (3.5-5.1) 09/18/20 12:52 Chloride 97 mmol/L (98-107) L 09/18/20 12:52 Carbon Dioxide 36 mmol/L (22-29) H 09/18/20 12:52 BUN 27 mg/dL (9.8-20.1) H 09/18/20 12:52 Creatinine 1.14 mg/dL (0.6-1.1) H 09/18/20 12:52 Glucose 98 mg/dL (70-105) 09/18/20 12:52 Calcium 9.3 mg/dL (7.8-10.44) 09/18/20 12:52 Total Bilirubin 0.4 mg/dL (0.2-1.2) 09/18/20 12:52 AST 29 U/L (5-34) 09/18/20 12:52 ALT 24 U/L (8-55) 09/18/20 12:52 Alkaline Phosphatase 78 U/L (40-110) 09/18/20 12:52 Creatine Kinase 1182 U/L (29-168) H 09/18/20 12:52 CK-MB (CK-2) 9.2 ng/mL (0-6.6) H* 09/18/20 12:52 Serum Total Protein 7.3 g/dL (6.0-8.3) 09/18/20 12:52 Albumin 4.0 g/dL (3.5-5.0) 09/18/20 12:52 Lipase 12 U/L (8-78) 09/18/20 12:52 Urine Ketones Negative mg/dL (Negative) 09/18/20 12:34 Urine Blood Negative (Negative) 09/18/20 12:34 Urine Nitrite Negative (Negative) 09/18/20 12:34 Ur Leukocyte Esterase Negative Zora/uL (Negative) 09/18/20 12:34 - EKG Interpretation EKG: NSR - Radiology Interpretation Chest x-ray Status: image reviewed by me, report reviewed by me Additional comment: Likely atalectasis on CXR FMR H&P: A/P - Problem List (1) Elevated troponin Current Visit: Yes Status: Acute Code(s): R77.8 - OTHER SPECIFIED ABNORMALITIES OF PLASMA PROTEINS (2) Rhabdomyolysis Current Visit: Yes Status: Acute Code(s): M62.82 - RHABDOMYOLYSIS (3) SHAWN (acute kidney injury) Current Visit: No Status: Acute Code(s): N17.9 - ACUTE KIDNEY FAILURE, UNSPECIFIED Comment: (4) Anxiety and depression Current Visit: No Status: Chronic Code(s): F41.9 - ANXIETY DISORDER, UNSP ECIFIED; F32.9 - MAJOR DEPRESSIVE DISORDER, SINGLE EPISODE, UNSPECIFIED (5) Hypertension Current Visit: No Status: Chronic Code(s): I10 - ESSENTIAL (PRIMARY) HYPERTENSION Qualifiers: Hypertension type: essential hypertension Qualified Code(s): I10 - Essential (primary) hypertension Comment: (6) Type 2 diabetes mellitus Current Visit: No Status: Chronic Qualifiers: Diabetes mellitus complication status: without complication Qualified Code(s): E11.9 - Type 2 diabetes mellitus without complications - Plan Pt is a 60 yo female who presents for non-specific reasons and found to have elevated CPK, Trop: # Mild Rhabdomylolysis Likely dehydration - LR 250 mls/hr - Repeat CPK in am - Repeat BMP in am # SHAWN Likely dehydration - Repeat BMP in am - Fluids as above # Elevated Troponin CAD vs Demand Ischemia - trend troponin # Schizoaffective D/O # Bipolar - continue home meds # OA - aware # Pulmonary HTN w/ normal shape of R heart on Echo - continue home 2 L oxygen # HFpEF - aware, does not appear fluid overloaded on exam # Pre-DM - aware, Diabetic diet Fluids: LR 200 mls/hr Diet: Diabetic VTE: lovenox Code: Full Dispo: admit to obs FMR H&P: Upper Level - Plan Date/Time: 09/18/20 1619 I, [], have evaluated this patient and agree with findings/plan as outlined by [employer] certified internetwork expert resident. Pertinent changes/additions are listed here. Addendum - Attending - Attending Attestation Date/Time: 09/19/20 0058 I personally evaluated the patient and discussed the management with Dr. Diaz. I agree with the History, Examination, Assessment and Plan documented above with any addition or exceptions noted below. Limit fluids to overnight. Lipase if not performed. She overall has quite vague symptoms.
[2020-09-18] MEDS ORDERED: Ondansetron ODT 4 MG TAB PO PRN (17:06)
[2020-09-18 17:38] LABS: CKMB 7.4 ng/mL (0-6.6)
[2020-09-18] MEDS ORDERED: Lactated Ringer's 500 ML IV SCH (17:45)
[2020-09-18] MEDS: hydrALAZINE 25 MG TAB PO SCH (19:30)
[2020-09-18] MEDS: Metoprolol Tartrate 50 MG TAB PO SCH (19:30)
[2020-09-18] MEDS: Potassium Chloride 20 MEQ TAB PO SCH (19:30)
[2020-09-18] MEDS: Gabapentin 300 MG CAP PO SCH (19:30)
[2020-09-18] MEDS: busPIRone HCl 10 MG TAB PO SCH (19:30)
[2020-09-18] MEDS: Doxepin HCl 25 MG CAP PO SCH (19:30)
[2020-09-18 20:25] LABS: Troponin I 0.037 ng/mL (< 0.028)
[2020-09-18] MEDS: Lactated Ringer's 1,000 ML IV SCH ×2 (21:30→22:45)
[2020-09-18] MEDS: PROVENTIL INHALER 6.7 G (200 INHALATIONS) INH SCH (21:30)
[2020-09-18 22:43] VITALS: BMI 53.1
[2020-09-19 04:55] LABS: Anion Gap 12 mmol/L (10-20); BUN (Urea Nitrogen) 23 mg/dL (9.8-20.1); CK (CPK) 772 U/L (29-168); Calc. Creatinine Clearance 141 mL/min (70-130); Calcium 8.8 mg/dL (7.8-10.44); Carbon Dioxide 34 mmol/L (22-29); Chloride 101 mmol/L (98-107); Estimated GFR-MDRD 70; Glucose 127 mg/dL (70-105); Potassium 4.3 mmol/L (3.5-5.1); Sodium 143 mmol/L (136-145)
--- NOTE | 2020-09-19 05:40 | PDOC.FM ---
- Subjective Subjective: Mitchel(yulissa Harvey is doing well this morning and has no complaints. She is wanting to go home today. - Objective Vital Signs & Weight: Vital Signs (12 hours) Temp Pulse Resp BP BP BP Pulse Ox 09/19/20 04:00 97.2 F L 95 20 160/91 H 95 09/19/20 00:00 97.5 F L 97 22 H 139/82 94 L 09/18/20 19:30 99.1 F 105 H 22 H 176/101 H 176/101 H 97 09/18/20 17:45 98.7 F 115 H 25 H 206/104 H 96 Weight Weight 147.145 kg I&O: 09/17/20 09/18/20 09/19/20 06:59 06:59 06:59 Intake Total 240 Balance 240 Result Diagrams: 09/19/20 07:45 09/20/20 04:18 Phys Exam - Physical Examination Constitutional: NAD (Sitting up comfortably in bed, had just taken a shower) HEENT: moist MMs Neck: supple Respiratory: no wheezing, no rales, clear to auscultation bilateral Cardiovascular: RRR, no significant murmur Gastrointestinal: soft (obese), non-tender, no distention Musculoskeletal: no edema Neurological: non-focal, moves all 4 limbs Psychiatric: normal affect Skin: no rash Dx/Plan - Plan Plan: Mild Rhabdomylolysis - Likely 2/2 dehydration - CPK significantly improved - Consider continuing IVF in setting of CHF v encouraging PO fluid intake SHAWN - Likely 2/2 dehydration - Resolved Elevated Troponin - CAD vs Demand Ischemia - Resolved Schizoaffective D/O Bipolar - continue home meds OA - aware Pulmonary HTN - normal shape of R heart on Echo - continue home 2 L oxygen HFpEF - aware, does not appear fluid overloaded on exam Pre-DM - aware, Diabetic diet Fluids: None Diet: Diabetic VTE: lovenox Code: Full Dispo: admit to obs Addendum - Attending - Attending Attestation Date/Time: 10/21/20 0847 I personally evaluated the patient and discussed the management with Dr. Bhatia on 09/19/20. I agree with the History, Examination, Assessment and Plan documented above with any addition or exceptions noted below.
[2020-09-19 08:42] LABS: #Eosinphils 0.2 thou/uL (0.0-0.7); #Monocytes 0.9 thou/uL (0.11-0.59); #Neutrophils 6.3 thou/uL (1.40-6.50); %Basophils 0.5 % (0.0-1.0); %Eosinophils 1.9 % (0.0-10.0); %Lymphocytes 20.9 % (21.0-51.0); %Monocytes 9.7 % (0.0-10.0); %Neutrophils 67.1 % (42.0-75.0); Hemoglobin 10.7 g/dL (12.0-16.0); Mean Corpuscular HGB CONC 30.9 g/dL (32.0-36.0); Mean Corpuscular Hemoglobin 30.6 pg (27.0-31.0); Mean Corpuscular Volume 99.1 fL (78.0-98.0); Mean Platelet Volume 7.9 fL (7.4-10.4); Platelet Count 179 thou/uL (130-400); RBC Distribution Width 12.2 % (11.5-14.5); Red Blood Cell (RBC) Count 3.49 mill/uL (4.20-5.40); White Blood Cell (WBC) Count 9.4 thou/uL (4.8-10.8)
[2020-09-19] MEDS ORDERED: Furosemide 40 MG TAB PO SCH (09:00)
[2020-09-19] MEDS ORDERED: FLU VACC QS2020-21(6MOS UP)/PF 60 MCG/0.5 ML SYRINGE IM ONE (09:00)
[2020-09-19] MEDS ORDERED: Lisinopril 20 MG TAB PO SCH (09:00)
[2020-09-19] MEDS: hydrALAZINE 25 MG TAB PO SCH ×3 (09:07→19:30)
[2020-09-19] MEDS: Aspirin Chewable 81 MG TAB PO SCH (09:07)
[2020-09-19] MEDS: FLUoxetine HCl 20 MG CAP PO SCH (09:09)
[2020-09-19] MEDS: Potassium Chloride 20 MEQ TAB PO SCH ×2 (09:10→19:30)
[2020-09-19] MEDS: Metoprolol Tartrate 50 MG TAB PO SCH ×2 (09:10→19:30)
[2020-09-19] MEDS: Gabapentin 300 MG CAP PO SCH ×3 (09:10→19:30)
[2020-09-19] MEDS: busPIRone HCl 10 MG TAB PO SCH ×2 (09:11→19:30)
[2020-09-19] MEDS: Enoxaparin Sodium 40 MG/0.4 ML SYRINGE SC SCH (09:11)
[2020-09-19 11:02] LABS: SARS-CoV-2 MS2 Positive; SARS-CoV-2 N Gene Negative; SARS-CoV-2 S Gene Negative; SARS-CoV-2 by NAA Not Detected (NotDetected); SARS-CoV-2 orf1ab Negative
[2020-09-19] MEDS: PROVENTIL INHALER 6.7 G (200 INHALATIONS) INH SCH ×4 (11:28→18:55)
[2020-09-19 12:18] LABS: Hemoglobin A1c 5.9 % (4.0-6.0)
[2020-09-19] MEDS: Doxepin HCl 25 MG CAP PO SCH (19:30)
[2020-09-19] MEDS: Acetaminophen 325 MG TAB PO PRN (19:30)
[2020-09-20 04:40] LABS: Anion Gap 13 mmol/L (10-20); BUN (Urea Nitrogen) 20 mg/dL (9.8-20.1); Calc. Creatinine Clearance 160 mL/min (70-130); Calcium 8.9 mg/dL (7.8-10.44); Carbon Dioxide 30 mmol/L (22-29); Chloride 105 mmol/L (98-107); Estimated GFR-MDRD 80; Glucose 107 mg/dL (70-105); Potassium 4.5 mmol/L (3.5-5.1); Sodium 143 mmol/L (136-145)
[2020-09-20 07:39] VITALS: TEMP 97.4
[2020-09-20] MEDS: PROVENTIL INHALER 6.7 G (200 INHALATIONS) INH SCH (07:49)
[2020-09-20] MEDS: Acetaminophen 325 MG TAB PO PRN (08:32)
[2020-09-20] MEDS: hydrALAZINE 25 MG TAB PO SCH (08:33)
[2020-09-20] MEDS: Metoprolol Tartrate 50 MG TAB PO SCH (08:34)
[2020-09-20] MEDS: Potassium Chloride 20 MEQ TAB PO SCH (08:35)
[2020-09-20] MEDS: Gabapentin 300 MG CAP PO SCH (08:35)
[2020-09-20] MEDS: busPIRone HCl 10 MG TAB PO SCH (08:35)
[2020-09-20] MEDS: FLUoxetine HCl 20 MG CAP PO SCH (08:35)
[2020-09-20] MEDS: Enoxaparin Sodium 40 MG/0.4 ML SYRINGE SC SCH (08:35)
[2020-09-20] MEDS: Aspirin Chewable 81 MG TAB PO SCH (08:35)
[2020-09-20 08:36] VITALS: BP 187/106
--- NOTE | 2020-09-21 14:17 | DIS ---
DATE OF ADMISSION: 09/18/2020 DATE OF DISCHARGE: 09/19/2020 RESIDENT: Pamela Gutierrez MD ADMITTING ATTENDING: Dr. Ashok Ross. DISCHARGE ATTENDING: Dr. Ashok Ross. CONSULTS: None. PROCEDURES: None. PRIMARY DIAGNOSES: Encephalopathy, elevated creatine kinase, dehydration, SHAWN. SECONDARY DIAGNOSES: Bipolar, obesity, hypoventilation syndrome, chronic respiratory failure, CHF, pulmonary hypertension, hypertension, pre-diabetes. DISCHARGE MEDICATIONS: 1. Doxepin 50 mg p.o. at bedtime. 2. Quetiapine 800 mg p.o. at bedtime. 3. Aspirin 81 mg p.o. daily. 4. Lisinopril 40 mg p.o. daily. 5. Metoprolol tartrate 50 mg p.o. b.i.d. 6. Buspirone 10 mg p.o. b.i.d. 7. Fluoxetine 40 mg p.o. daily. 8. Proventil. 9. Gabapentin 600 mg t.i.d. 10. Hydralazine 100 mg t.i.d. 11. Furosemide 40 mg p.o. daily. 12. Potassium chloride 20 mEq oral t.i.d. Discontinued medications, none. HISTORY OF PRESENT ILLNESS/HOSPITAL COURSE: This is a 60-year-old female, who presented to the ED for "not feeling well." She endorsed nausea, vomiting, lightheadedness, and headache. She did not take her home medications the day before. She endorsed decreased water intake in the last 36 to 48 hours, but denied chest pain, falls, neurological deficits. At baseline, she uses a walker for ambulation and is on 2 L of oxygen. In the ED, she was found to have a CPK of 1182, suspected to be secondary to dehydration and overall decreased mobility. Due to her history of HFpEF, fluid resuscitation was done gently and her fluid status was carefully monitored. Overall, she received 2 L of fluid. Repeat CPK was 772. Her IV fluids were discontinued, and she was allowed to hydrate only via p.o. hydration. Later that afternoon, her CK was drawn again and resulted to be 636. Since it continued to trend downwards with only p.o. hydration, and the patient's mentation was stable and at baseline, it was determined she was safe to go home. DISPOSITION: Stable. DISCHARGE INSTRUCTIONS: Location, home. Diet, heart healthy diet. Activity, as tolerated. Followup: The patient is encouraged to follow up with her PCP, Dr. Sherlyn Stanton, in 7 to 10 days. Job ID: [id number]
--- NOTE | 2020-09-23 23:20 | PQF ---
CLINICAL DOCUMENTATION CLARIFICATION FORM: Dear : Ashok Ross MD Date / Time: 09/23/2020 Please exercise your independent, professional judgment in responding to the clarification form. Clinical indicators are provided on the bottom of this form for your review Please check appropriate box(es): to clarify the encephalpathy type [ ] Encephalopathy: Type: [ ] Acute [ ] Subacute [ ] Chronic Etiology: [ ] Hypertensive [ ] Metabolic [ ] Toxic [ ] Hepatic with Coma [ ] Hepatic w/o Coma [ ] Hypoxic [ ] Septic [ ] Wernickes [ ] Drug induced: [ ] In the setting of underlying dementia [ ] Unspecified [ ] Other (please specify) [ ] Other diagnosis (Please specify if any) [ ] Unable to determine In addition, please specify: Present on Admission (POA): [ ] Yes [ ] No [ ] Unable to determine Physician Signature: Date/Time: For continuity of documentation, please document condition throughout progress notes and discharge summary. Thank You To be completed by CDI/Coding staff for physician review: Present Clinical Indicators - Signs / Symptoms / Labs Results and Location in Medical Record [x] Altered mental status / confusion (i.e.: improving once underlying cause is corrected) AMS ED provider note on 09/18 [ ] Confusion/altered mental status different from dementia baseline [x] Metabolic / electrolyte abnormality SHAWN, Dehydration Discharge summary on 09/19 [ ] Hypoxia for prolonged period [x] Encephalopathy Discharge summary on 09/19 [x] Blood pressure was uncontrolled. Last ER blood pressure 213-112 Blank note on 09/18 [ ] IV meds that can cause altered mental state [ ] Cerebral Edema [x] Pt reported severe headache and feeling SOB, started O2 at 2L. BP 206-104 Blank note on 09/18 [ ] EEG Present Risk Factors Results and Location in Medical Record [x] Aged person 60 yrs H&P on 09/18 [ ] Toxic substances / poisoning [ ] Cirrhosis/ Liver disease [ ] Meningitis [ ] Brain tumor / elevated ICP [ ] DKA or hypoglycemia Present Treatments Results and Location in Medical Record [ ] Neuro checks / neurology consult [x] Since it continied to trend downwards with only p.o hydration &, the patient mentation was stable at baseline Discharge summary on 09/19 [x] Paged residents, telephone order to give hydralazine early Blank note on 09/18 [x] Lactate ringres 1000ml Medication on 09/18, 09/19 [ ] Oxygen therapy [ ] Nutritional supplements-TPN/TF [ ] Correction of electrolyte imbalances [ ] IV antibiotics CDS/[employer] Signature: ANTONIO Phone #: Date/Time: 09/23/2020 This is a permanent part of the Medical Record MTDD
== END 2020-09-20 09:25 | disposition home or self-care (01) | DRG 558 ==
LOC: ERS 11:07 → 2NO 14:56
PROVIDERS: ADMIT Family Medicine; ATTEND Family Medicine
DX: M62.82 Rhabdomyolysis (principal); N17.9 Acute kidney failure, unspecified; I50.32 Chronic diastolic (congestive) heart failure; Z68.43 Body mass index [BMI] 50.0-59.9, adult; G93.40 Encephalopathy, unspecified; J96.10 Chronic respiratory failure, unspecified whether with hypoxia or hypercapnia; E86.0 Dehydration; E66.9 Obesity, unspecified; E11.9 Type 2 diabetes mellitus without complications; F32.9 Major depressive disorder, single episode, unspecified; M19.90 Unspecified osteoarthritis, unspecified site; Z20.828 Contact with and (suspected) exposure to other viral communicable diseases; I11.0 Hypertensive heart disease with heart failure; F25.9 Schizoaffective disorder, unspecified; I27.20 Pulmonary hypertension, unspecified; Z79.51 Long term (current) use of inhaled steroids; Z79.82 Long term (current) use of aspirin; Z93.0 Tracheostomy status; Z90.710 Acquired absence of both cervix and uterus; Z90.49 Acquired absence of other specified parts of digestive tract; Z98.51 Tubal ligation status; Z88.8 Allergy status to other drugs, medicaments and biological substances; Z79.899 Other long term (current) drug therapy
CPT/HCPCS: 36415; 36416; 51701; 71045; 80048; 80053; 80306; 80307; 81003; 82550; 82553; 83036; 83690; 83880; 84439; 84443; 84484; 85025; 87635; 93005; J1650; U0003

== ENCOUNTER 2020-09-20 22:14 | Observation (INO) | payer MEDICARE, OTHER ==
[2020-09-20 23:57] LABS: #Eosinphils 0.3 thou/uL (0.0-0.7); #Lymphocytes 2.3 thou/uL (1.20-3.40); #Monocytes 0.7 thou/uL (0.11-0.59); #Neutrophils 5.1 thou/uL (1.40-6.50); %Basophils 0.4 % (0.0-1.0); %Eosinophils 3.7 % (0.0-10.0); %Lymphocytes 27.2 % (21.0-51.0); %Monocytes 8.1 % (0.0-10.0); %Neutrophils 60.5 % (42.0-75.0); Hemoglobin 10.8 g/dL (12.0-16.0); Mean Corpuscular HGB CONC 32.3 g/dL (32.0-36.0); Mean Corpuscular Hemoglobin 31.6 pg (27.0-31.0); Mean Corpuscular Volume 97.8 fL (78.0-98.0); Mean Platelet Volume 7.6 fL (7.4-10.4); Platelet Count 219 thou/uL (130-400); RBC Distribution Width 12.3 % (11.5-14.5); Red Blood Cell (RBC) Count 3.41 mill/uL (4.20-5.40); White Blood Cell (WBC) Count 8.4 thou/uL (4.8-10.8)
[2020-09-21 00:16] LABS: ALT (SGPT) 19 U/L (8-55); AST (SGOT) 16 U/L (5-34); Albumin 3.7 g/dL (3.5-5.0); Alkaline Phosphatase 64 U/L (40-110); Anion Gap 12 mmol/L (10-20); BUN (Urea Nitrogen) 19 mg/dL (9.8-20.1); Bilirubin, Total 0.3 mg/dL (0.2-1.2); CK (CPK) 271 U/L (29-168); Calc. Creatinine Clearance 0 mL/min (70-130); Carbon Dioxide 34 mmol/L (22-29); Chloride 99 mmol/L (98-107); Estimated GFR-MDRD 68; Globulin 3.2 g/dL (2.4-3.5); Glucose 111 mg/dL (70-105); Lipase 18 U/L (8-78); Magnesium 2.4 mg/dL (1.6-2.6); Potassium 3.7 mmol/L (3.5-5.1); Protein, Total 6.9 g/dL (6.0-8.3); Sodium 141 mmol/L (136-145)
[2020-09-21 00:47] LABS: Bilirubin Negative (Negative); Blood, Urine Negative (Negative); Glucose, Urine (Dipstick) 250 mg/dL (Negative); Ketone, Urine Negative (Negative); Leukocyte Negative (Negative); Nitrite Negative (Negative); Protein, Urine (Dipstick) Negative (Neg-Trace); Urobilinogen 0.2 mg/dL (Less than 2); pH, Urine 8.5 (5.0-9.0)
[2020-09-21 00:49] LABS: Actual Bicarbonate (HCO3a) 35.7 mEq/L (22-28); Analyzer IN Cardio ER; Base Excess (BEa) 7.5 mEq/L (-2.0 to +3.0); Calcium, Ionized (arterial) 1.16 mmol/L (1.12-1.30); Carboxyhemoglobin (COHb) 0.1 gm% (0.0-3.0); Hemoglobin (Hb) 10.7 g/dL (12.0-16.0); O2 Tension (PaO2), arterial 81.6 mmHg (80.0-100.0); Potassium - ABG Lab 3.73 mmol/L (3.70-5.30); pH, Arterial 7.31 (7.35-7.45)
[2020-09-21] MEDS ORDERED: Dexamethasone 10 MG/ML VIAL ONE (00:51)
[2020-09-21] MEDS ORDERED: Acetaminophen 325 MG TAB PO PRN (00:55)
[2020-09-21] MEDS ORDERED: Ondansetron PF 4 MG/2 ML Vial IVP PRN (00:55)
[2020-09-21] MEDS ORDERED: Ondansetron ODT 4 MG TAB PO PRN (00:55)
--- NOTE | 2020-09-21 00:55 | PDOC.FPRHP ---
- History of Present Illness Chief Complaint: Chest pain, SOB History of Present Illness: Patient is a 60-year-old female with PMH of who was brought to the ED by EMS for shortness of breath and chest pain. The patient was recently released from this hospital on 09/20/2020 after being treated for Rhabdomyolysis. During e xamination of the patient, she was sleeping and did not want to cooperate with questioning. Per the ED, patient had chest pain this morning after she was discharged in the hospital and was satting in the upper 80s, low 90s when EMS arrived. - Allergies/Adverse Reactions Allergies Allergy/AdvReac Type Severity Reaction Status Date / Time cephalexin monohydrate Allergy Intermediate Rash Verified 09/18/20 22:49 [From [employer]] - Home Medications Medication Instructions Recorded Confirmed Type Doxepin HCl 50 mg PO HS 12/22/18 09/18/20 History QUEtiapine Fumarate [SEROquel] 800 mg PO HS 12/22/18 09/18/20 History Aspirin Chewable [Aspirin Chewable 81 mg PO DAILY #90 tab 02/12/19 09/18/20 Rx Tablet] Lisinopril 40 mg PO DAILY #30 tablet 03/28/19 09/18/20 Rx Metoprolol Tartrate [Lopressor] 50 mg PO BID #60 tab 03/28/19 09/18/20 Rx FLUoxetine HCl [Fluoxetine HCl] 40 mg PO DAILY 01/04/20 09/18/20 History busPIRone HCl [Buspirone HCl] 10 mg PO BID 01/04/20 09/18/20 History Albuterol Sulfate [Proventil Hfa] 2 puff INH QID-RT #1 aer 03/27/20 09/18/20 Rx Gabapentin 600 mg PO TID 06/12/20 09/18/20 History Furosemide [Lasix] 40 mg PO DAILY 08/28/20 09/18/20 History hydrALAZINE HCl 100 mg PO TID 08/28/20 09/18/20 History Potassium Chloride 20 meq PO BID 09/18/20 09/18/20 History - History PMHx: Bipolar, schizoaffective d/o, HTN, OA, Pulm HTN, HFpEF PSHx: cholecystectomy, daniel lacement right tibia, hx of tracheostomy FHx: Mother - HTN, breast cacner; Father diabetes Social: denies alcohol, drugs, tobacco, lives alone - Review of Systems ROS unobtainable: other (Patient would not wake to cooperate with exam) - Vital signs BP: 146/104 HR: 88 RR: 23 Tmax: 97.7 Pox: 97% on 2L NC Wt: 142 kg - Physical Exam Constitutional: other (Sleeping comfortably, arousable to sternal rub/loud noises) HEENT: normocephalic and atraumatic, MMM -HEENT: hirsutism, NC in place Neck: supple Heart: RRR -Heart: difficult to auscultate due to body habitus, 1+ pitting edema of BLE -Lungs: end expiratory wheeze Abdomen: soft, non-tender, bowel sounds present, no masses/distention, no hernias Musculoskeletal: normal structure, normal tone Neurological: no focal deficit -Neurological: non cooperative with neuro exam Skin: no rash/lesions, no jaundice Heme/Lymphatic: no unusual bruising or bleeding, no purpura, no petechia -Psychiatric: unable to obtain FMR H&P: Results - Labs Result Diagrams: 09/21/20 02:48 09/20/20 23:38 Lab results: WBC 8.4 thou/uL (4.8-10.8) 09/20/20 23:38 Hgb 10.8 g/dL (12.0-16.0) L 09/20/20 23:38 Hct 33.4 % (36.0-47.0) L 09/20/20 23:38 MCV 97.8 fL (78.0-98.0) 09/20/20 23:38 Plt Count 219 thou/uL (130-400) 09/20/20 23:38 Neutrophils % 60.5 % (42.0-75.0) 09/20/20 23:38 Sodium 141 mmol/L (136-145) 09/20/20 23:38 Potassium 3.7 mmol/L (3.5-5.1) 09/20/20 23:38 Chloride 99 mmol/L (98-107) 09/20/20 23:38 Carbon Dioxide 34 mmol/L (22-29) H 09/20/20 23:38 BUN 19 mg/dL (9.8-20.1) 09/20/20 23:38 Creatinine 1.01 mg/dL (0.6-1.1) 09/20/20 23:38 Glucose 111 mg/dL (70-105) H 09/20/20 23:38 Lactic Acid 0.5 mmol/L (0.5-2.2) 09/20/20 23:38 Calcium 9.0 mg/dL (7.8-10.44) 09/20/20 23:38 Total Bilirubin 0.3 mg/dL (0.2-1.2) 09/20/20 23:38 AST 16 U/L (5-34) 09/20/20 23:38 ALT 19 U/L (8-55) 09/20/20 23:38 Alkaline Phosphatase 64 U/L (40-110) 09/20/20 23:38 Creatine Kinase 271 U/L (29-168) H 09/20/20 23:38 B-Natriuretic Peptide 116.9 pg/mL (0-100) H 09/20/20 23:38 Serum Total Protein 6.9 g/dL (6.0-8.3) 09/20/20 23:38 Albumin 3.7 g/dL (3.5-5.0) 09/20/20 23:38 Lipase 18 U/L (8-78) 09/20/20 23:38 - EKG Interpretation EKG: Prolonged QT to 490, normal sinus - Radiology Interpretation Chest x-ray Status: image reviewed by me Additional comment: Concern for fluid overload, no official report yet FMR H&P: A/P - Plan Hypercapnic respiratory failure likely 2/2 to viral infection vs. obesity hypoventilation syndrome vs. CHF exacerbation - per reports, patient satting in high 80s/low 90s on home 2L NC - s/p levoquin in ED - Chest Xray: no official read, but appears to show fluid overload and decreased lung expansion - COVID test pending as well as other COVID labs (d-dimer, ferritin, LDH, CRP) - procal negative, afebrile; unlikely to be bacterial, will discontinue antibiotics - patient recently treated for rhabdo with fluids, appears to be fluid overloaded on exam - will give IV lasix, fluid restrict to 1800, strict Is and Os - patient is noncompliant with CPAP, will order CPAP and encourage use HFpEF - aware, see above Chest Pain - EKG: prolonged QTc (will avoid prolonging drugs), no ST changes - trop: 0.027 - will continue to trend - admit to tele for further observation Hx of Rhabdo - CK continues to trend down Bipolar and schizoaffective d/o - aware, will continue home medication HTN - continue home medication - consider discussing NYA testing with patient Pulmonary HTN - aware, will continue home 2L NC OA - aware Prediabetes - CC diet PCP: ANIKET Stanton IVF: SL, fluid restrict 1800 Diet: HH, CC PPx: Lovenox Code: Full Dispo: admit to tele for further observation; likely LOS < 48 hrs. FMR H&P: Upper Level - Plan Date/Time: 09/21/20 0053 ILisbeth MD, have evaluated this patient and agree with findings/plan as outlined by international accountant resident. Pertinent changes/additions are listed here. This is a 60yo F with PMH of pulm HTN, HFpEf, HTN, pre-DM, and schizoaffective disorder who presented to the ER from her independent living with complaints of SOB and chest pain. She was recently discharged from the hospital on 09/19 after being treated for rhabdo. Patient is a poor historian. She was sleeping upon exam and unwilling to cooperative with questions or exam. In the ER, patient was hypoxic and her home O2 was increased to 4L from 2L. Only recorded O2 sat was stable on her home O2 though. RR 23. BP elevated. Flu neg. Procal 0.10. ABG pH 7.31, CO2 72.9, O2 94, bicard 35. BNP 116.9. Trop 0.027. CK 271. Ddimer 1.73. Hgb 10.8. CTA neg for PE, but showing some ground glass appearance. Patient given decadron and levoquin. PE significant for end exp wheeze, no crackles able to auscultate, difficulty ascultating due to body habitus. 1+pitting edema b/l LE. RRR. Will admit the patient to tele, obs for Hypercapneic Resp Failure 2/2 Viral illness vs CHF exacerbation. COVID pending. Continue O2 supplementation as needed. Procal neg - unlikely to have bacterial co-infection. Will discontinue abx. Will continue on decadron. Will get additional COVID labs including CRP, L DH, Ferritin, Ddimer. Precautions until results. Will give lasix as patient appears overloaded on her CXR and PE. BNP elevated from previous. QTc prolongation of 490. Will monitor on tele. Repeat EKG. Hold QT prolonging meds. Will trend troponins. CK downtrending from previous rhabdo. Continue home medications for chronic conditions. CM consulted to help with dc planning. Dispo: admit to tele, obs Diet: HH, fluid restrict 1800ml/day CODE: FULL Case to be discussed with Dr. Ross in the AM
[2020-09-21 01:01] LABS: Clarity Clear (Clear)
[2020-09-21 01:08] LABS: CO2 Tension 72.9 mmHg (35.0-45.0)
[2020-09-21 01:09] LABS: ALV-art Gradient 26.915 mmHg (0-20); Puncture Site RRA
[2020-09-21] MEDS ORDERED: Furosemide 40 MG/4 ML VIAL SLOW IVP SCH (02:00)
[2020-09-21 02:06] LABS: SARS-CoV-2 NAA Rapid Test Not Detected (NotDetected)
[2020-09-21 03:01] LABS: #Eosinphils 0.2 thou/uL (0.0-0.7); #Monocytes 0.4 thou/uL (0.11-0.59); #Neutrophils 6.4 thou/uL (1.40-6.50); %Basophils 0.5 % (0.0-1.0); %Eosinophils 2.4 % (0.0-10.0); %Lymphocytes 12.7 % (21.0-51.0); %Monocytes 4.9 % (0.0-10.0); %Neutrophils 79.6 % (42.0-75.0); Hemoglobin 10.6 g/dL (12.0-16.0); Mean Corpuscular HGB CONC 32.7 g/dL (32.0-36.0); Mean Corpuscular Volume 97.9 fL (78.0-98.0); Mean Platelet Volume 7.4 fL (7.4-10.4); Platelet Count 212 thou/uL (130-400); RBC Distribution Width 12.2 % (11.5-14.5)
[2020-09-21 03:19] LABS: Anion Gap 14 mmol/L (10-20); BUN (Urea Nitrogen) 17 mg/dL (9.8-20.1); Calc. Creatinine Clearance 0 mL/min (70-130); Calcium 8.9 mg/dL (7.8-10.44); Carbon Dioxide 28 mmol/L (22-29); Chloride 102 mmol/L (98-107); Estimated GFR-MDRD 81; Glucose 125 mg/dL (70-105); Potassium 4.2 mmol/L (3.5-5.1); Sodium 140 mmol/L (136-145)
[2020-09-21 03:21] LABS: Troponin I 0.014 ng/mL (< 0.028)
--- NOTE | 2020-09-21 07:47 | CT ---
PRELIMINARY REPORT/[facility]/EMERGENCY AFTER HOURS PROCEDURE This report was discussed with Mauricio Barrientos DO by Elmira Lincoln on Sep 21, 2020 00:57:00 CDT. Addendum electronically signed by Elmira Lincoln on September 21, 2020 12:58:18 AM CDT EXAM: CTA Chest with Intravenous Contrast CLINICAL HISTORY: 60-year-old female called EMS for shortness of breath and chest pain this evening. TECHNIQUE: Axial CTA images of the chest with intravenous contrast. Three-dimensional MIP/volume rendered reform ations were performed. CONTRAST: With; 61ML ISO 370 COMPARISON: CT\SR - CTA ANGIO CHEST W WO CON - 03/26/2020 12:36 PM CDT FINDINGS: There is high diaphragm position, similar to that seen on the last exam. Pulmonary arteria l tree detail is suboptimal, but no filling defect or cutoff is seen in the opacified vessels. Abnormal opacities are identified in both lungs. There is a component of linear and platelike densit ies which is similar to that seen on the last exam, compatible with atelectasis. However, there has been interval development of hazy areas and peripheral subpleural sub-total consolidated opacitie s in the upper lobes, most evident on the right. No pleural fluid or pneumothorax is seen on either side. In addition, the major airways are markedly narrowed. The trachea has a very thin U-shaped configura tion. The right and left mainstem bronchi are significantly flattened, and there is overall narrowing of the airways in both lungs, especially on the left. Some of this might be related to a c omponent of expiration on these images, but this is much more than expected, and likely related to either tracheomalacia or excessive dynamic airway collapse. Overall this is more dramatic than seen on the last exam. The heart is estimated mass or prominent but stable. The ventricular ratio is normal. There is no r eflux of contrast into the hepatic veins. IMPRESSION: 1. No PE (to the extent of visualization; detail is partially compromised). 2. There is a mixture of abnormal opacity in both lungs, some of which is compatible with atelectasi s. A new component of groundglass and subtotal consolidated opacities are present in the upper lung baltazar, greater on the right. 3. The airways are markedly abnormal, and thin as discussed above. The possibility of either bronch otracheal malacia or excessive dynamic airway collapse is suggested. ELECTRONICALLY SIGNED BY: Tariq Mckeon MD Sep 21, 2020 12:52:20 AM CDT This report is intended for review by the ordering physician only, in accordance of law. If you recei ve this report in error, please call [facility] at [phone]. FINAL REPORT Emergent after hours CT angiogram thorax with IV contrast and 3-D reconstructions HISTORY: Chest pain and shortness of breath. COMPARISON: 08/27/2020. IMPRESSION: 1. No filling defect is seen in central or segmental pulmonary arteries to suggest pulmonary embolus. There is suboptimal opacification of the subsegmental pulmonary arteries. There is mild dilatation of the central pulmonary artery in relation to the adjacent thoracic aorta suggesting element of pulm onary artery hypertension. 2. Significant narrowing of the major airways which has a similar appearance to the prior study on . Findings could be related to excessive dynamic airway collapse due to the phase of respiration. Bronchotracheal malacia was mentioned on the preliminary report as a possibility as well . There are shallow lung volumes on this exam. There is atelectasis present within the lungs bilaterally with multifocal areas of subsegmental atelectasis seen. 3. There are patchy groundglass opacities seen in the right upper lobe worrisome for focal areas of p neumonitis. Findings are in agreement with preliminary report by [facility]. Transcribed Date/Time: 09/21/2020 9:24 AM
--- NOTE | 2020-09-21 07:54 | RAD ---
PORTABLE CHEST: Date: 09/20/2020 HISTORY: Chest pain. COMPARISON: 09/18/2020 exam. FINDINGS: Heart size appears enlarged. There is worsening interstitial alveolar lung changes, somewhat more pat román in distribution although they could be related to pulmonary edema. A multifocal infiltrative proc ess would be a consideration. IMPRESSION: Worsening interstitial alveolar lung change. This could be on the basis of pulmonary edema, but a mul tifocal infiltrate would be a consideration as the changes are more basilar and somewhat more periphe ral in appearance. POS: OFF
[2020-09-21] MEDS ORDERED: Dexamethasone 4 MG TAB PO SCH (08:00)
[2020-09-21] MEDS ORDERED: Azithromycin 500 MG in Sodium Chloride 0.9% 250 ML 250 ML IVPB ONE (09:00)
[2020-09-21] MEDS ORDERED: Enoxaparin Sodium 40 MG/0.4 ML SYRINGE SC SCH (09:00)
[2020-09-22] MEDS ORDERED: Azithromycin 250 MG in Sodium Chloride 0.9% 250 ML 250 ML IVPB SCH (09:00)
== END 2020-09-21 05:27 | disposition left against medical advice (07) ==
LOC: ERS 22:14 → 2NO 09-21 01:00 → ERHOLD 09-21 04:11
PROVIDERS: ADMIT Family Medicine; ATTEND Family Medicine
DX: J96.92 Respiratory failure, unspecified with hypercapnia (principal); J96.91 Respiratory failure, unspecified with hypoxia; I11.0 Hypertensive heart disease with heart failure; I50.30 Unspecified diastolic (congestive) heart failure; F25.0 Schizoaffective disorder, bipolar type; I27.20 Pulmonary hypertension, unspecified; R94.31 Abnormal electrocardiogram [ECG] [EKG]; R73.03 Prediabetes; M19.90 Unspecified osteoarthritis, unspecified site; Z79.82 Long term (current) use of aspirin; Z79.899 Other long term (current) drug therapy; Z88.1 Allergy status to other antibiotic agents; Z20.828 Contact with and (suspected) exposure to other viral communicable diseases
CPT/HCPCS: 71045; 71275; 80048; 80053; 81003; 82550; 82728; 82805; 83605; 83615; 83690; 83735; 83880; 84145; 84484 ×2; 85025 ×2; 85379; 86140; 87040; 87086; 87804 ×2; 93005; 96365; 96366; 96375; 99285; G0378; U0002; 36415; J1100; J1956; Q9967